=== PATIENT | male | born 1950 | race Caucasian/White ===

== ENCOUNTER 2020-05-05 18:04 | Emergency (ER) | payer OTHER, MEDICARE, SELFPAY ==
--- NOTE | 2020-05-05 | XR_ITS ---
EXAMINATION: XR CHEST CLINICAL INFORMATION: Shortness of breath. Cough. COMPARISON: Multiple prior chest radiographs, most recently from 03/26/2020. TECHNIQUE: 2 views of the chest (PA and lateral). FINDINGS: Mild asymmetric elevation the anterior right hemidiaphragm. The lungs are well expanded. Superimposed on chronic increased reticular lung markings. There are nonspecific faint streaky opacities in the right midlung. Moderate peribronchial wall thickening. No dense lobar consolidative process. No evidence of pleural effusion or pneumothorax. The cardiomediastinal silhouette is within normal limits. Surgical clips overlie the right upper lung. Right-sided reverse total shoulder arthroplasty. No demonstrated acute osseous abnormalities. IMPRESSION: Nonspecific faint streaky opacities in the right midlung are superimposed on chronically increased pulmonary markings. No dense lobar consolidative process. Moderate peribronchial wall thickening as may be seen with small airways inflammation.
[2020-05-05 18:18] VITALS: BP 134/93; PULSE 108; RESP 22; TEMP 36.7; O2SAT 94
[2020-05-05 20:42] VITALS: BP 145/87; PULSE 78; RESP 20; TEMP 36.7; O2SAT 94; BMI 30.7
--- NOTE | 2020-05-05 21:07 | ED.ASTHMA ---
HPI - Asthma General Chief Complaint: Asthma Stated Complaint: SOB, Asthma, Cough Time Seen by Provider: 05/05/20 21:07 History of Present Illness HPI Narrative: This is a 70-year-old male who presents with 2-3 days of worsening shortness of breath without associated fevers, chills, recent travel, productive cough, sore throat, chest pain /palpitations. The patient reports this happens around this time of year and that he is approximately 1 week out from his injection that he uses to manage his asthma. He denies any history of heart failure or leg swelling. Related Data Previous Rx's Medication Instructions Recorded prednisone 50 mg PO DAILY 4 Days #4 tab 05/05/20 Allergies Allergy/AdvReac Type Severity Reaction Status Date / Time adhesive tape [Adhesive Tape] Allergy Mild BLISTERS Unverified 04/20/20 15:00 bee pollen [BEE STINGS] Allergy Unknown HIVES Unverified 04/20/20 15:00 codeine Allergy Unknown rash Verified 05/20/18 00:00 Adhesive Bandages Allergy Unknown Uncoded 08/21/17 00:00 Codeine Sulfate Allergy Unknown Uncoded 08/21/17 00:00 percocet Allergy Unknown rash, Uncoded 05/20/18 00:00 altered mental status SEASONAL ALLERGIES Allergy Unknown RESP Uncoded 04/20/20 15:00 PROBLEMS vicodin Allergy Unknown rash Uncoded 05/20/18 00:00 Review of Systems Review of Systems: Pertinent positives and negatives as stated in HPI 10 point review of systems is otherwise negative. PMFSH Past Medical History Medical History Asthma Borderline diabetic COPD (chronic obstructive pulmonary disease) H/O hiatal hernia Hand anomaly Hypertension Jaw anomaly Lung blebs Surgical History H/O left knee surgery H/O sinus surgery History of right knee joint replacement History of right shoulder replacement Hx of cataract surgery S/P hernia surgery Social History Social History Alcohol intake: current Alcohol intake frequency: 3 or more drinks per day Alcohol type: beer, wine and hard liquor Smoking Status: Former smoker Smoked in Last 30 Days: No Use of substances other than those prescribed or required for medical reasons: No Advance Directives: No Advance Directives Information Provided: Yes Physical Exam Vital Signs and I&O and Narrative: Vital Signs and I&O: Vital Signs Temp 98.2 F 05/05/20 22:00 Pulse 80 05/05/20 22:00 Resp 16 05/05/20 22:00 BP 134/88 05/05/20 22:00 Pulse Ox 94 05/05/20 22:00 Intake & Output 05/05/20 05/05/20 05/06/20 06:59 18:59 06:59 Weight 89.176 kg Body Mass Index 30.7 VITAL SIGNS: Reviewed. GENERAL: Well developed, well nourished, in no acute distress. HEAD: Normocephalic/atraumatic, EYES: PERRLA, EOMI intact without pain, no nystagmus/pallor/icterus noted EARS: Ext canals without abnormality, TMs non-bulging and non-erythematous NOSE: Nares patent bilateral OROPHARYNX: no oral lesions noted, posterior pharynx clear and non-erythematous without noted tonsillar enlargement/erythema/exudates NECK: Supple, no adenopathy LUNGS: Normal breath sounds. Scattered wheezing noted on expiration without labored breathing or tachypnea. SpO2-94% CARDIOVASCULAR: Regular rate and rhythm without noted murmurs, no JVD or lower extremity edema. ABDOMEN: Soft, non-tender, non-distended with bowel sounds. No rigidity. No guarding. No palpable masses or hernias noted MUSCULOSKELETAL: No tenderness, deformities, or effusions noted on gross inspection. EXTREMITIES: No cyanosis, clubbing or edema. SKIN: Inspection of the skin reveals no rashes, ulcerations, jaundice, pallor, or petechiae. NEUROLOGIC: Alert and oriented x 4. Strength and sensation to light touch were grossly intact Course Reevaluation(s) Reevaluation #1: Patient has improved with DuoNeb and p.o. steroids and on focused exam has had improvement on noted wheezing. All results and findings were discussed with the patient at bedside and he knows that he will be discharged with a short course of oral steroids and instructions to follow-up with his primary care provider. Time: 22:16 Reevaluation #2: Discharge instructions MDM - Asthma MDM Narrative Medical decision making narrative: This is a 70-year-old male with history and clinical presentation most consistent with asthma / COPD exacerbation and will evaluate for possible infectious etiologies but doubt CHF. Medical Records Attestation: I reviewed the patient's medical records. Imaging Data Chest x-ray: Attestation: I personally reviewed and interpreted this imaging study as follows: Discharge Plan Discharge Clinical Impression: Asthma with acute exacerbation Patient Disposition: Home, Self-Care Instructions: Asthma (ED) Additional Instructions: 1. resume all home medications as prescribed. Prescriptions: New prednisone 50 mg tablet 50 mg PO DAILY 4 Days Qty: 4 RF: 0 Referrals: Physician,Unknown [Primary Care Provider] - 2 days Interventions: ED Discharge Assessment Last Done: 05/05/20 22:30 Discharge Date/Time: 05/05/20 22:36
[2020-05-05] MEDS: predniSONE 10 MG TABLET 50 MG PO (21:23)
--- NOTE | 2020-05-05 21:24 | PC.NURSE ---
PATIENT MEDICATED PER ORDER
--- NOTE | 2020-05-05 21:24 | PC.NURSE ---
PT TRANSPORTED TO RADIOLOGY
[2020-05-05] MEDS: Albuterol/Iprat 2.5/0.5MG 3 ML AMPUL.NEB INHALE (21:42)
[2020-05-05 22:00] VITALS: BP 134/88; PULSE 80; RESP 16; TEMP 36.8; O2SAT 94
== END 2020-05-05 22:36 | disposition home or self-care (01) ==
PROVIDERS: Emergency Provider Student in an Organized Health Care Education/Training Program
DX: J45.901 Unspecified asthma with (acute) exacerbation (principal); R73.03 Prediabetes; I10 Essential (primary) hypertension
CPT/HCPCS: 71046; 99284

== ENCOUNTER 2020-05-16 10:36 | Outpatient (REF) | payer OTHER, SELFPAY ==
[2020-05-16 11:14] LABS: COVID-19 Test Negative (Negative)
== END 2020-05-16 10:37 | disposition home or self-care (01) ==
LOC: HO.LAB 10:36
PROVIDERS: Visit Provider Internal Medicine
DX: Z20.828 Contact with and (suspected) exposure to other viral communicable diseases (principal)
CPT/HCPCS: 87635

== ENCOUNTER 2020-06-09 10:56 | Inpatient (IN) | payer OTHER, MEDICARE, SELFPAY ==
--- NOTE | 2020-06-09 11:03 | XR_ITS ---
EXAMINATION: XR CHEST CLINICAL INFORMATION: Shortness breath and cough COMPARISON: May 05, 2020 and March 26, 2020 TECHNIQUE: AP portable view of the chest was obtained. FINDINGS: There are small lung volumes. Scarring is noted within the right lateral lung. No acute parenchymal disease identified. No pneumothorax or pleural effusion. Status post right shoulder arthroplasty. Heart normal size. No evidence of pulmonary edema. XR/XR chest 1V IMPRESSION: No acute disease.
--- NOTE | 2020-06-09 11:03 | ECG_ITS ---
Test Reason : SOB Blood Pressure : / mmHG Vent. Rate : 115 BPM Atrial Rate : 115 BPM P-R Int : 128 ms QRS Dur : 070 ms QT Int : 338 ms P-R-T Axes : 074 -11 030 degrees QTc Int : 467 ms Sinus tachycardia with frequent Premature atrial complexes with occasional aberrant conduction Abnormal ECG When compared with ECG of 26-MAR-2020 20:06, Aberrant conduction is now Present Premature atrial complexes are new Referred By: Sorin Broussard Electronically Signed By:MOLLY ALCANTAR MD
--- NOTE | 2020-06-09 11:08 | ED.ASTHMA ---
HPI - Asthma General Chief Complaint: Dyspnea Stated Complaint: ?covid sob copd Time Seen by Provider: 06/09/20 11:03 Source: patient Mode of arrival: ambulatory Limitations: no limitations History of Present Illness HPI Narrative: patient presents to the ED for shortness of breath since yesterday. Patient states coughing, wheezing, shortness of breath since yesterday. Patient states have similar symptoms. Patient denies any swelling of lower extremity, calf pain, coughing up blood. Patient states chest pain only when he coughs. Patient states he just came from [place] and his daughter who he was around informed him that she was positive for COVID-19 virus. Patient has history of asthma and COPD. MD complaint: asthma attack , shortness of breath and wheezing Related Data Previous Rx's Medication Instructions Recorded prednisone 50 mg PO DAILY 4 Days #4 tab 05/05/20 Allergies Allergy/AdvReac Type Severity Reaction Status Date / Time adhesive tape [Adhesive Tape] Allergy Mild BLISTERS Verified 06/09/20 13:28 bee pollen [BEE STINGS] Allergy Unknown Unknown Verified 06/09/20 13:28 levofloxacin [From Levaquin] Allergy Hives Verified 06/09/20 13:29 Adhesive Bandages Allergy Unknown Unknown Uncoded 06/09/20 13:28 Review of Systems Review of Systems: Yes all other systems are reviewed and are negative Constitutional: Constitutional: Reports as per HPI, Reports no additional constitutional complaints and Denies snoring Eyes: Eyes: Reports as per HPI and Reports no additional eye complaints ENT: Reports system reviewed and no additional complaints, except as documented and Reports as per HPI Cardiovascular: Cardiovascular: Reports as per HPI, Reports no additional cardiovascular complaints and Reports dyspnea Respiratory: Respiratory: Reports pain with cough, Reports dyspnea, Denies snoring, Denies stridor and Reports wheezing Gastrointestinal: Gastrointestinal: Reports as per HPI and Reports no additional gastrointestinal complaints Musculoskeletal: Musculoskeletal: Reports no additional musculoskeletal complaints and Reports as per HPI Neurologic: Reports system reviewed and no additional complaints, except as documented and Reports as per HPI Psychiatric: Psychiatric: Reports no additional psychiatric complaints and Reports as per HPI Allergic/Immunologic: Allergic/Immunologic: Reports wheezing PMFSH Past Medical History Medical History (Updated 06/09/20 @ 15:44 by PELON Desouza) Asthma Bilateral cataracts Borderline diabetic COPD (chronic obstructive pulmonary disease) GERD (gastroesophageal reflux disease) Gout H/O hiatal hernia Hand anomaly History of deep venous thrombosis (DVT) of distal vein of left lower extremity Hypertension Jaw anomaly Lung blebs GONZALO (obstructive sleep apnea) Osteoarthritis Surgical History (Updated 06/09/20 @ 14:00 by Miguel Sosa MD) H/O left knee surgery H/O sinus surgery History of right knee joint replacement History of right shoulder replacement History of thoracotomy Hx of cataract surgery S/P hernia surgery Social History Social History Alcohol intake: unknown Smoking Status: Former smoker Use of substances other than those prescribed or required for medical reasons: No Advance Directives: No Advance Directives Information Provided: No Physical Exam Vital Signs: Vital Signs: Last Vital Signs Temp 99.0 F 06/09/20 11:09 Pulse 100 06/09/20 13:43 Resp 20 06/09/20 13:43 BP 152/78 H 06/09/20 16:26 Pulse Ox 97 06/09/20 16:26 Body Mass Index 31.3 Const: General: cooperative, healthy appearing, comfortable, no acute distress, well developed, alert and awake HENMT: Head: Yes normal to inspection and Yes No palpable skull fracture present Eyes: General: appearance normal, both eyes and all related structures Visual Mac: normal visual mac by confrontation Neck: Neck: Yes normal visual inspection and Yes full ROM Chest: Chest palpation & inspection: normal inspection of the chest, normal palpation of entire chest wall and no localized rib tenderness Resp: Effort & Inspection: normal respiratory effort, able to speak in complete sentences, normal respiratory pattern, no audible wheezes, no cough, no grunting, not labored, no nasal flaring, no paradoxical thoraco-abdom movements and no pursed lip breathing Auscultation: wheezes ( Diffuse wheezing) expiratory wheezes Cardio: Jugular venous distension: no JVD Heart sounds: S1 normal heart sound present and S2 normal heart sound present GI: Inspection: Yes normal to inspection and No abdominal wall ecchymosis Palpation (GI): Soft to palpation, not firm, nontender, no guarding and not rigid : General: No CVA tenderness and Yes no CVA tenderness Back/Spine/Pelvis: Back: no CVA tenderness, No CVA tenderness and No back tenderness Skin: General skin exam: no rashes or lesions noted Neuro: General: gait normal and CN's II-XI intact bilaterally Cranial nerves: Yes CN's II-XII intact bilaterally Extrem: Other: bilateral lower extremity negative for any swelling, pitting edema, or calf tenderness. General: Yes normal to inspection and Yes full ROM Psych: Appearance: grossly normal, well kempt and not disheveled Course Course Course Narrative: History physical exam indicate COPD exacerbation. Patient had basic labs including troponin the EKG due to age. Patient already received magnesium 2 mg and albuterol with Atrovent in the ambulance. patient will be given albuterol 10 mg and Solu-Medrol IV. Patient also have COVID swab. Patient also had chest x-ray. Patient will have lactic culture and blood cultures Reevaluation(s) Reevaluation #1: patient's lactic positive. Patient started on Levaquin antibiotic for COPD exacerbation. Awaiting patient's troponin BNP. Patient will have rapid COVID swab sent. Patient walking around O2 sat went from 91 to 89. during patient's coughing fit O2 sat dropped to 84. Time: 13:22 Reevaluation #2: Patient had an allergic reaction to Levaquin which had to be discontinued. Benadryl Pepcid and given to patient. Patient now placed on ceftriaxone and azithromycin. Awaiting results of BNP and troponin. Hospitalist made aware of case. Time: 13:30 Reevaluation #3: case presented to hospitalist for admission for COPD exacerbation. Time: 14:02 Additional Reevaluation(s): patient's D-dimer elevated. Patient will be sent for CT to rule out PE. Patient's coronavirus test came back positive. patient not able to tolerate position to lie down for CT a period patient will have another treatment and morphine ( recommended by hospitalist). Awaiting EKG MDM - Asthma Lab Data Result diagrams: 06/09/20 11:06/09/20 11: Labs: Lab Results 06/09/20 06/09/20 06/09/20 Range/Units 11: 11: 11:27 WBC 6.8 (4.8-10.8) X10*3/uL RBC 4.61 (4.60-5.80) X10*6/uL Hgb 14.4 (14.0-18.0) g/dl Hct 41.5 L (42-52) % MCV 90.0 (80-98) fL MCH 31.2 (27.0-33.0) pg MCHC 34.7 (31.0-36.0) g/dl RDW 13.0 (11.0-16.0) % Plt Count 141 L (160-400) X10*3/uL MPV 9.6 (9.4-12.4) fL Immature Gran % (Auto) 0.9 H (0.0-0.4) % Neut % (Auto) 82.7 H (45-73) % Lymph % (Auto) 8.1 L (20-40) % [place] % (Auto) 8.3 (2-11) % Eos % (Auto) 0.0 (0-4) % Baso % (Auto) 0.0 (0-2) % Lymph # (Auto) 0.6 L (1.2-4.9) X10*3/uL [place] # (Auto) 0.6 (0.1-1.2) X10*3/uL Eos # (Auto) 0.0 (0.0-0.4) X10*3/uL Baso # (Auto) 0.0 (0.0-0.2) X10*3/uL Abs Immat Gran (auto) 0.06 H (0.00-0.03) X10*3/uL Absolute Neuts (auto) 5.6 (2.0-8.3) X10*3/uL Absolute Nucleated RBC 0.000 (0.0-0.012) X10*3/uL Nucleated RBC % (auto) 0.0 (0.0-0.2) /100WBC Smear Tech's Comments VERIFIED PT 10.4 L (10.8-13.0) SEC INR 0.9 (0.9-1.1) APTT 22.2 L (24.1-38.0) SEC D-Dimer 762 NG/ML Sodium 135 (135-145) mmol/L Potassium 4.2 (3.3-5.1) mmol/l Chloride 100 (96-108) mmol/L Carbon Dioxide 24 (22-29) mmol/L Anion Gap 15 (12-20) BUN 17 H (9-16) mg/dL Creatinine 0.92 (0.5-1.4) mg/dL Estim Creat Clear Calc 80.2 Estimated GFR > 60 Random Glucose 198 H (60-115) mg/dL Lactic Acid (0.5-2.0) mmol/L Calcium 8.1 L (8.4-10.2) mg/dL Ferritin 50 (20-250) ng/mL Total Bilirubin 0.3 (0.0-1.0) mg/dL AST 15 (5-37) U/L ALT 24 (0-40) U/L Alkaline Phosphatase 97 (39-117) U/L Lactate Dehydrogenase 165 (118-273) U/L Troponin I High Sens (<3.5-35.0) ng/L B-Natriuretic Peptide (<100) pg/mL Total Protein 6.3 L (6.5-8.0) g/dL Albumin 4.1 (3.5-5.0) g/dL Procalcitonin ng/mL Coronavirus (PCR) (Negative) 06/09/20 06/09/20 06/09/20 Range/Units 11:27 11:27 11:27 WBC (4.8-10.8) X10*3/uL RBC (4.60-5.80) X10*6/uL Hgb (14.0-18.0) g/dl Hct (42-52) % MCV (80-98) fL MCH (27.0-33.0) pg MCHC (31.0-36.0) g/dl RDW (11.0-16.0) % Plt Count (160-400) X10*3/uL MPV (9.4-12.4) fL Immature Gran % (Auto) (0.0-0.4) % Neut % (Auto) (45-73) % Lymph % (Auto) (20-40) % [place] % (Auto) (2-11) % Eos % (Auto) (0-4) % Baso % (Auto) (0-2) % Lymph # (Auto) (1.2-4.9) X10*3/uL [place] # (Auto) (0.1-1.2) X10*3/uL Eos # (Auto) (0.0-0.4) X10*3/uL Baso # (Auto) (0.0-0.2) X10*3/uL Abs Immat Gran (auto) (0.00-0.03) X10*3/uL Absolute Neuts (auto) (2.0-8.3) X10*3/uL Absolute Nucleated RBC (0.0-0.012) X10*3/uL Nucleated RBC % (auto) (0.0-0.2) /100WBC Smear Tech's Comments PT (10.8-13.0) SEC INR (0.9-1.1) APTT (24.1-38.0) SEC D-Dimer NG/ML Sodium (135-145) mmol/L Potassium (3.3-5.1) mmol/l Chloride (96-108) mmol/L Carbon Dioxide (22-29) mmol/L Anion Gap (12-20) BUN (9-16) mg/dL Creatinine (0.5-1.4) mg/dL Estim Creat Clear Calc Estimated GFR Random Glucose (60-115) mg/dL Lactic Acid 2.6 H* (0.5-2.0) mmol/L Calcium (8.4-10.2) mg/dL Ferritin (20-250) ng/mL Total Bilirubin (0.0-1.0) mg/dL AST (5-37) U/L ALT (0-40) U/L Alkaline Phosphatase (39-117) U/L Lactate Dehydrogenase (118-273) U/L Troponin I High Sens 20.2 (<3.5-35.0) ng/L B-Natriuretic Peptide 38 (<100) pg/mL Total Protein (6.5-8.0) g/dL Albumin (3.5-5.0) g/dL Procalcitonin 0.08 ng/mL Coronavirus (PCR) (Negative) 06/09/20 Range/Units 14:29 WBC (4.8-10.8) X10*3/uL RBC (4.60-5.80) X10*6/uL Hgb (14.0-18.0) g/dl Hct (42-52) % MCV (80-98) fL MCH (27.0-33.0) pg MCHC (31.0-36.0) g/dl RDW (11.0-16.0) % Plt Count (160-400) X10*3/uL MPV (9.4-12.4) fL Immature Gran % (Auto) (0.0-0.4) % Neut % (Auto) (45-73) % Lymph % (Auto) (20-40) % [place] % (Auto) (2-11) % Eos % (Auto) (0-4) % Baso % (Auto) (0-2) % Lymph # (Auto) (1.2-4.9) X10*3/uL [place] # (Auto) (0.1-1.2) X10*3/uL Eos # (Auto) (0.0-0.4) X10*3/uL Baso # (Auto) (0.0-0.2) X10*3/uL Abs Immat Gran (auto) (0.00-0.03) X10*3/uL Absolute Neuts (auto) (2.0-8.3) X10*3/uL Absolute Nucleated RBC (0.0-0.012) X10*3/uL Nucleated RBC % (auto) (0.0-0.2) /100WBC Smear Tech's Comments PT (10.8-13.0) SEC INR (0.9-1.1) APTT (24.1-38.0) SEC D-Dimer NG/ML Sodium (135-145) mmol/L Potassium (3.3-5.1) mmol/l Chloride (96-108) mmol/L Carbon Dioxide (22-29) mmol/L Anion Gap (12-20) BUN (9-16) mg/dL Creatinine (0.5-1.4) mg/dL Estim Creat Clear Calc Estimated GFR Random Glucose (60-115) mg/dL Lactic Acid (0.5-2.0) mmol/L Calcium (8.4-10.2) mg/dL Ferritin (20-250) ng/mL Total Bilirubin (0.0-1.0) mg/dL AST (5-37) U/L ALT (0-40) U/L Alkaline Phosphatase (39-117) U/L Lactate Dehydrogenase (118-273) U/L Troponin I High Sens (<3.5-35.0) ng/L B-Natriuretic Peptide (<100) pg/mL Total Protein (6.5-8.0) g/dL Albumin (3.5-5.0) g/dL Procalcitonin ng/mL Coronavirus (PCR) POSITIVE A (Negative) Discharge Plan Discharge Clinical Impression: COPD exacerbation Patient Disposition: Admitted As Inpatient
[2020-06-09 11:09] VITALS: BP 149/88; PULSE 109; RESP 11; TEMP 37.2; O2SAT 91; BMI 31.3
[2020-06-09 11:47] LABS: Hematocrit 41.5 % (42-52); Hemoglobin 14.4 g/dl (14.0-18.0); Imm Gran Abs Auto 0.06 X10*3/uL (0.00-0.03); Imm Gran Pct Auto 0.9 % (0.0-0.4); Lymphocytes Absolute Auto 0.6 X10*3/uL (1.2-4.9); Lymphocytes Percent Auto 8.1 % (20-40); MANUAL DIFF FLAG SCAN; Mean Corpuscular HGB Conc 34.7 g/dl (31.0-36.0); Mean Corpuscular Hemoglobin 31.2 pg (27.0-33.0); Mean Platelet Volume 9.6 fL (9.4-12.4); Monocytes Absolute Auto 0.6 X10*3/uL (0.1-1.2); Monocytes Percent Auto 8.3 % (2-11); Neutrophils Absolute Auto 5.6 X10*3/uL (2.0-8.3); Neutrophils Percent Auto 82.7 % (45-73); Platelet Count 141 X10*3/uL (160-400); Red Blood Count 4.61 X10*6/uL (4.60-5.80); SCAN SMEAR FLAG 1; White Blood Count 6.8 X10*3/uL (4.8-10.8)
[2020-06-09] MEDS: methylPREDNISolone Sod Succ/PF 125 MG/2 ML VIAL IVPUSH (11:48)
[2020-06-09] MEDS: Albuterol Sulfate 90 MCG 8 GM INHALER 4 PUFF INHALE ×2 (11:54→16:15)
--- NOTE | 2020-06-09 11:56 | PC.NURSE ---
PT'S HERMINIO UPDATED ON CARE PLAN, WITH PT'S PERMISSION.
[2020-06-09 12:05] LABS: INTERNATIONAL NORM RATIO 0.9 (0.9-1.1); Prothrombin Time 10.4 SEC (10.8-13.0)
[2020-06-09 12:06] LABS: SLIDE REVIEW VERIFIED
[2020-06-09 12:08] LABS: Partial Thromboplastin Time 22.2 SEC (24.1-38.0)
[2020-06-09 12:20] LABS: Alanine Aminotransferase 24 U/L (0-40); Albumin Level 4.1 g/dL (3.5-5.0); Alkaline Phosphatase 97 U/L (39-117); Anion Gap 15 (12-20); Aspartate Amino Transferase 15 U/L (5-37); Bilirubin Total 0.3 mg/dL (0.0-1.0); Blood Urea Nitrogen 17 mg/dL (9-16); Calcium 8.1 mg/dL (8.4-10.2); Carbon Dioxide 24 mmol/L (22-29); Chloride 100 mmol/L (96-108); Creatinine Clr Calc Pharmacy 80.2; Estimated Glomerular Filt Rate > 60; Glucose Random 198 mg/dL (60-115); Lactate Dehydrogenase 165 U/L (118-273); Potassium 4.2 mmol/l (3.3-5.1); Sodium 135 mmol/L (135-145); Total Protein 6.3 g/dL (6.5-8.0)
[2020-06-09 12:25] LABS: Lactic Acid 2.6 mmol/L (0.5-2.0)
--- NOTE | 2020-06-09 12:37 | PC.NURSE ---
SITTING ON EDGE OF STRETCHER. DRINKING WATER. NON-PROD COUGH NOTED
[2020-06-09 12:41] LABS: Ferritin 50 ng/mL (20-250)
[2020-06-09 12:44] LABS: Procalcitonin 0.08 ng/mL
[2020-06-09] MEDS: 0.9 % Sodium Chloride 1,000 ML 1000 ML IV (13:07)
[2020-06-09] MEDS: levoFLOXacin/D5W 500 MG/100 ML PIGGYBACK 100 MG IV (13:07)
[2020-06-09] MEDS: Famotidine/PF 20 MG/2 ML VIAL IVPUSH (13:38)
[2020-06-09] MEDS: guaiFEN/Codeine SF 200/20/10ML 10 ML LIQUID PO (13:38)
[2020-06-09] MEDS: diphenhydrAMINE HCL 50 MG/ML VIAL IVPUSH (13:38)
[2020-06-09] MEDS: cefTRIAXone sodium 1 GM in 0.9 % Sodium Chloride 50 ML IV (13:39)
[2020-06-09 13:40] LABS: Reflex Lactate? Lactic Acid Added
[2020-06-09 13:43] VITALS: BP 159/78; PULSE 100; RESP 20; O2SAT 94
[2020-06-09 13:51] LABS: B Type Natriuretic Peptide 38 pg/mL (<100); Troponin-I High Sensitivity 20.2 ng/L (<3.5-35.0)
--- NOTE | 2020-06-09 13:56 | PM.IMHP ---
History of Present Illness Date of Service: 06/09/20 Chief Complaint: Shortness of breath 70 year male with both asthma and COPD, quit smoking 30 years ago who presents with shortness of breath and cough with scant sputum production for 3 days now, he has been wheezing. He has not had fever. Hrecently returned from [place] and has now learned that member of the household that he stayed at was positive for covid. He was tested at [facility] upon arival on Tuesday 06/05 and was told he needs retesting, although his tested negative. CXR is negative. He has been treated with inhalers, IV steroid, Azithro, ceftriaxone and Levaquin. Oxygen level dropped to 80s with ambulation but presently at rest and on room air 94%. He is no acute distress. COVID-19 is positive Review of Systems Review of Systems: Gen: no fever Resp: + sob, + cough CV: no chest, no HUMPHRIES, no leg edema GI: No n/v, no abd pain Neuro: No confusion Yes all other systems are reviewed and are negative [facility] Medical History (Updated 06/09/20 @ 19:39 by PELON Renee) Asthma Bilateral cataracts Borderline diabetic COPD (chronic obstructive pulmonary disease) GERD (gastroesophageal reflux disease) Gout H/O hiatal hernia Hand anomaly History of deep venous thrombosis (DVT) of distal vein of left lower extremity Hypertension Jaw anomaly Lung blebs GONZALO (obstructive sleep apnea) Osteoarthritis Family history: reviewed and not pertinent Surgical History (Updated 06/09/20 @ 14:00 by Miguel Sosa MD) H/O left knee surgery H/O sinus surgery History of right knee joint replacement History of right shoulder replacement History of thoracotomy Hx of cataract surgery S/P hernia surgery Social History Household Members: Spouse Housing: House Do you presently have visiting nurse or other home services: No Alcohol intake: unknown Smoking Status: Former smoker Use of substances other than those prescribed or required for medical reasons: No Currently Displaying Signs/Symptoms of Drug Intoxication Withdrawal: No Have you been hit, kicked, punched, or otherwise hurt by someone within the past year? If so, by whom?: No Do you feel safe in your current relationship?: No Is there a partner from a previous relationship who is making you feel unsafe now?: No Are you made to feel afraid or neglected: No Advance Directives: No Advance Directives Information Provided: No Advance Directives on File: No Do you have thoughts of harming others: None Do you have a plan to hurt others: No Plan Recently lost weight without trying: No service: Yes Current occupational status: retired Meds Allergies Allergy/AdvReac Type Severity Reaction Status Date / Time adhesive tape [Adhesive Tape] Allergy Mild BLISTERS Verified 06/09/20 13:28 bee pollen [BEE STINGS] Allergy Unknown Unknown Verified 06/09/20 13:28 levofloxacin [From Levaquin] Allergy Hives Verified 06/09/20 13:29 Adhesive Bandages Allergy Unknown Unknown Uncoded 06/09/20 13:28 Home Medications Medication Instructions Recorded Confirmed Type albuterol sulfate 2.5 mg INHALATION Q4H PRN 06/09/20 06/09/20 History allopurinol 300 mg PO DAILY 06/09/20 06/09/20 History amlodipine 5 mg PO DAILY 06/09/20 06/09/20 History ergocalciferol (vitamin D2) 1,250 mcg PO QWEEK 06/09/20 06/09/20 History [Vitamin D2] fluticasone propion-salmeterol 1 inh INHALATION BID 06/09/20 06/09/20 History [Advair Diskus] folic acid 1 mg PO DAILY 06/09/20 06/09/20 History furosemide 20 mg PO DAILY 06/09/20 06/09/20 History hydrocodone-homatropine [Hydromet] 10 ml PO Q5H PRN 06/09/20 06/09/20 History loratadine 10 mg PO DAILY 06/09/20 06/09/20 History mepolizumab [Nucala] 100 mg SUBCUT Q4W 06/09/20 06/09/20 History montelukast [Singulair] 10 mg PO DAILY 06/09/20 06/09/20 History omeprazole 20 mg PO DAILY 06/09/20 06/09/20 History prednisone 40 mg PO DAILY 06/09/20 06/09/20 History tiotropium bromide [Spiriva 2 puff INHALATION DAILY 06/09/20 06/09/20 History Respimat] trazodone 50 mg PO BEDTIME PRN 06/09/20 06/09/20 History valsartan [Diovan] 160 mg PO DAILY 06/09/20 06/09/20 History Physical Exam Vital Signs and Narrative: Vital Signs: Last Vital Signs Temp 99.0 F 06/09/20 11:09 Pulse 100 06/09/20 13:43 Resp 20 06/09/20 13:43 BP 159/78 H 06/09/20 13:43 Pulse Ox 94 06/09/20 13:43 Results Labs CBC and Chem 7: 06/09/20 11:27 06/09/20 11:27 Imaging Radiologist's Impressions: Impressions Chest X-Ray 06/09/20 11:03 IMPRESSION: No acute disease. Assessment and Plan (1) COPD exacerbation: Status: Acute (2) Acute respiratory failure with hypoxia: Status: Acute 70/male with COPD presenting with acute hypoxic respriaotry failure, COPD exacerbation, COVID -19 + -Oxygen PRN -Dexamethasone -Inhalers by Meter dose, avoid Nebs -Consider Plasma, Remdesevir if worsening
--- NOTE | 2020-06-09 14:03 | PC.NURSE ---
PT HAD ALLERGIC REACTION TO LEVAQUIN. DEVELOPED HIVES. PROVIDER AWARE. MED ORDERED. LEVAQIN ADDED TO ALLERGY LIST.
[2020-06-09 14:08] LABS: D Dimer 762 NG/ML
--- NOTE | 2020-06-09 14:38 | CT_ITS ---
EXAMINATION: CT ANGIOGRAM OF THE CHEST WITH AND WITHOUT CONTRAST (CT PULMONARY ANGIOGRAM FOR PE) CLINICAL INFORMATION: Elevated D-dimer. Rule out PE. COMPARISON: CTA chest 06/07/2016. TECHNIQUE: Prior to contrast administration, noncontrast localization images were obtained. Subsequently, multidetector volumetric imaging was performed from the thoracic inlet to below the diaphragms following the administration of 71 mL Omnipaque 350 intravenous contrast. No contrast reaction reported. Sagittal, coronal, and MIP oblique sagittal reformatted images were obtained on the CT workstation, uploaded to PACS, and reviewed. This CT examination was performed using dose optimization techniques as appropriate, variously including the following: *Automated exposure control *Adjustment of mA and/or kV according to patient size (this includes techniques or standardized protocols for targeted exams where dose is matched to indication/reason for exam; i.e. extremities or head) *Use of iterative reconstruction technique Total exam dose-length product 516 mGy-cm. FINDINGS: QUALITY OF STUDY/CONTRAST BOLUS: Satisfactory. PULMONARY ARTERIES: No central or segmental pulmonary emboli. THORACIC AORTA: No aneurysm or dissection. LUNGS: There is marked tracheomalacia with collapse and obstruction of the tracheal lumen (series 7, image 118). Previously seen lingular consolidation has cleared. There is an area of ground-glass infiltrate present peripherally in the right lower lobe (series 7, image 218). Bibasilar atelectasis is present. A calcified granuloma is present in the superior segment of the right lower lobe as well as the right lower lobe peripherally. No suspicious lung masses are seen. PLEURA: No pleural effusion or pneumothorax. MEDIASTINUM: Normal heart size. No pericardial effusion. No hilar or mediastinal lymphadenopathy. No evidence of septal bowing or right heart strain. CHEST WALL/AXILLAE: No axillary or internal mammary lymphadenopathy. OSSEOUS STRUCTURES: No acute or suspicious osseous abnormality. UPPER ABDOMEN: A small to moderate-sized hiatal hernia is present. A small 1 cm fatty left adrenal mass is present consistent with a benign adenoma. Gallstones are seen layering in the gallbladder without evidence of cholecystitis. No reflux of contrast into the hepatic veins to suggest elevated right heart pressures. CT/CT angio chest PE protocol IMPRESSION: 1. No evidence of pulmonary emboli. 2. 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 3. Right lower lobe ground-glass infiltrate. 4. Moderate-sized hiatal hernia. 5. Benign left adrenal adenoma. 6. Cholelithiasis. VTE: Negative This critical result was discussed with PELON Zuniga at 7:15 PM on the evening of the exam and it was ascertained that the content and urgency of the report was understood at the time of direct communication.
[2020-06-09] MEDS: Azithromycin 500 MG in 0.9 % Sodium Chloride 250 ML 125 MG IV (14:46)
[2020-06-09 15:17] LABS: SARS COV2 PCR INHOUSE POSITIVE (Negative)
[2020-06-09] MEDS: dexAMETHasone 6 MG TABLET PO (16:15)
[2020-06-09] MEDS: Morphine Sulfate 4 MG/ML CARTRIDGE IVPUSH (16:16)
[2020-06-09 16:26] VITALS: BP 152/78; O2SAT 97
--- NOTE | 2020-06-09 17:19 | PC.NURSE ---
called [facility] [place]. awaiting return call for [facility]
[2020-06-09] MEDS: Ketamine HCl 500 MG/5 ML VIAL 50 MG IM (18:08)
--- NOTE | 2020-06-09 18:36 | PC.NURSE ---
PT GIVEN KETAMINE 50MG IM FOR AIDE IN TOLERATING CTA WHILE LYING FLAT. PT TRANSPORTED TO AND FROM CT, AND TOLERATED CTA WITHOUT DIFFICULTY. HR REMAINED SINUS TACHY WITHIN 100-105 BPM, AND O2SAT REMAINED IN 94-96% RANGE.
[2020-06-09] MEDS: iohexoL 350 MG/ML 100 ML INFUS..BTL IV (18:43)
[2020-06-09 18:49] LABS: ~Lactic Acid-LAB USE ONLY 4.2 mmol/L (0.5-2.0)
--- NOTE | 2020-06-09 19:49 | PC.NURSE ---
rn to rn with sayra [place] [facility] [place] who's covering for bella
[2020-06-09 20:17] VITALS: PULSE 74; TEMP 36.9
[2020-06-09 20:19] VITALS: BP 150/87; PULSE 96; RESP 20; TEMP 36.9; O2SAT 96
[2020-06-09 20:25] LABS: Reflex Lactate? 2 Y
[2020-06-09 21:20] LABS: ~Lactic Acid-LAB USE ONLY 4.6 mmol/L (0.5-2.0)
[2020-06-09] MEDS: 0.9 % Sodium Chloride 1,000 ML 999 ML IVCONT (21:47)
[2020-06-09] MEDS: 0.9 % Sodium Chloride Flush 3 ML SYRINGE IVFLUSH (21:48)
[2020-06-09] MEDS: guaiFEN/Codeine SF 200/20/10ML 10 ML LIQUID 5 ML PO (22:11)
[2020-06-09] MEDS: Benzonatate 100 MG CAPSULE PO (22:11)
[2020-06-10] VITALS: BP 127/83; PULSE 92; RESP 20; TEMP 36.6; O2SAT 93
[2020-06-10] MEDS: 0.9 % Sodium Chloride Flush 3 ML SYRINGE IVFLUSH ×3 (00:29→16:06)
[2020-06-10 02:19] VITALS: BMI 31.4
[2020-06-10] MEDS: Throat Lozenge, Medicated LOZENGE 1 LOZENGE MUCOUS MEM (02:19)
[2020-06-10 04:46] VITALS: BP 130/68; PULSE 77; RESP 19; TEMP 36.3; O2SAT 94
[2020-06-10] MEDS: guaiFEN/Codeine SF 200/20/10ML 10 ML LIQUID 5 ML PO ×3 (05:00→17:32)
[2020-06-10] MEDS: Acetaminophen 325 MG TABLET 650 MG PO (05:06)
[2020-06-10 07:09] VITALS: BP 131/95; PULSE 79; RESP 20; TEMP 36.6; O2SAT 97
[2020-06-10] MEDS: dexAMETHasone 6 MG TABLET PO (09:00)
[2020-06-10 11:06] VITALS: BP 145/90; PULSE 72; RESP 20; TEMP -13.3; TEMP 8; O2SAT 96
[2020-06-10] MEDS: Albuterol Sulfate 90 MCG 8 GM INHALER 2 PUFF INHALE ×3 (11:09→19:54)
--- NOTE | 2020-06-10 11:17 | MHC.CM.PN ---
Patient is on the Covid Unit. CM spoke with /HCP/nAgie.Patient lives in a house with his and he is functionally independent. The goal for dc is to return home and CM has initiated and will follow for dc planning. IMM addressed with and original will be mailed certified letter to her and a copy has been placed on the chart. PCP is Dr. Aleisha Loernzo.
--- NOTE | 2020-06-10 12:17 | HO.PM.IMPN ---
Subjective Subjective Date of Service: 06/10/20 Interval History: Seen in f/u for covid, copd exacerbation Review of Systems cough, sob no fever. Physical Exam Vital Signs: Vital Signs: Last Vital Signs Temp 8 F L 06/10/20 11:06 Pulse 72 06/10/20 11:06 Resp 20 06/10/20 11:06 BP 145/90 H 06/10/20 11:06 Pulse Ox 96 06/10/20 11:06 Body Mass Index 31.4 General: AO X 3, no acute distress Resp: normal resp effort CVS: S1,S2,RRR GI: +BS, NT, no distention Skin: No rash Neuro: motor grossly intact Psych: appropriate affect Objective Data Current Medications Generic Name Dose Route Start Last Admin Trade Name Freq PRN Reason Stop Dose Admin Acetaminophen 650 mg 06/10/20 04:52 06/10/20 05:06 Acetaminophen 325 Mg Tablet PO 650 mg Q6H PRN Administration fever Albuterol Sulfate 2 puff 06/10/20 12:00 06/10/20 11:09 Albuterol Sulfate 90 Mcg 8 Gm Inhaler INHALE 2 puff RQ4H WHILE AWAKE MIKAELA Administration Benzocaine 1 lozenge 06/10/20 01:54 06/10/20 02:19 Throat Lozenge, Medicated Lozenge MUCOUS MEM 1 lozenge Q2H PRN Administration Sore Throat Dexamethasone 6 mg 06/09/20 15:45 06/10/20 09:00 Dexamethasone 6 Mg Tablet PO 06/18/20 09:01 6 mg DAILY MIKAELA Administration Enoxaparin Sodium 40 mg 06/09/20 20:18 06/09/20 21:48 Enoxaparin Sodium 40 Mg/0.4 Ml Syringe SUBCUT Not Given Q24H MIKAELA Guaifenesin/Codeine Phosphate 5 ml 06/09/20 22:04 06/10/20 11:13 Guaifen/Codeine Sf 200/20/10ml 10 Ml Liquid PO 5 ml Q6H PRN Administration cough Magnesium Hydroxide 30 ml 06/09/20 20:18 Milk Of Magnesia 30 Ml Oral.Susp PO DAILY PRN Constipation Pharmacy Consult 1 each 06/09/20 19:31 Consult Rx Perform Med Rec MISCELLANE ONCE PRN Consult order Sodium Chloride 3 ml 06/09/20 20:18 06/10/20 09:00 0.9 % Sodium Chloride Flush 3 Ml Syringe IVFLUSH 3 ml QSHIFT MIKAELA Administration Temazepam 15 mg 06/09/20 20:18 Temazepam 15 Mg Capsule PO BEDTIME PRN Insomnia Labs CBC & Chem 7: 06/09/20 11:27 06/09/20 11:27 Assessment and Plan (1) COPD exacerbation: Status: Acute (2) Acute respiratory failure with hypoxia: Status: Acute Assessment and Plan: 70/male with COPD presenting with acute hypoxic respriaotry failure, COPD exacerbation, COVID -19 + -Oxygen PRN -Dexamethasone -cough meds -Inhalers by Meter dose, avoid Nebs -Consider Plasma, Remdesevir if worsening HTN--restart amlodipine, Valsartan, Lasix -Monitor for one more day and if better tomorrow discharge
[2020-06-10] MEDS: Benzonatate 100 MG CAPSULE PO ×2 (13:03→18:15)
[2020-06-10 16:04] VITALS: BP 135/89; PULSE 76; RESP 18; TEMP 36.9; O2SAT 98
[2020-06-10 18:11] VITALS: BP 166/88; PULSE 77
[2020-06-10] MEDS: Loratadine 10 MG TABLET PO (18:11)
[2020-06-10] MEDS: allopurinoL 300 MG TABLET PO (18:11)
[2020-06-10] MEDS: Folic Acid 1 MG TABLET PO (18:11)
[2020-06-10] MEDS: Furosemide 20 MG TABLET PO (18:11)
[2020-06-10] MEDS: amLODIPine Besylate 5 MG TABLET PO (18:11)
[2020-06-10] MEDS: Montelukast Sodium 10 MG TABLET PO (18:11)
[2020-06-10] MEDS: HYDROcodone/Homat 5/1.5/5 ML 5 ML SYRUP 10 ML PO (20:14)
[2020-06-11] VITALS (7 sets, daily range): BP systolic 121–141; BP diastolic 70–87; PULSE 60–84; RESP 18–20; TEMP 36.4–37.8; O2SAT 93–99
[2020-06-11] MEDS: 0.9 % Sodium Chloride Flush 3 ML SYRINGE IVFLUSH ×3 (00:50→15:47)
[2020-06-11] MEDS: HYDROcodone/Homat 5/1.5/5 ML 5 ML SYRUP 10 ML PO ×4 (01:03→19:52)
[2020-06-11] MEDS: Albuterol Sulfate 90 MCG 8 GM INHALER 2 PUFF INHALE ×4 (07:36→19:04)
[2020-06-11] MEDS: Loratadine 10 MG TABLET PO (08:35)
[2020-06-11] MEDS: Acetaminophen 325 MG TABLET 650 MG PO (08:35)
[2020-06-11] MEDS: Valsartan 160 MG TABLET PO (08:35)
[2020-06-11] MEDS: dexAMETHasone 6 MG TABLET PO (08:35)
[2020-06-11] MEDS: Folic Acid 1 MG TABLET PO (08:36)
[2020-06-11] MEDS: Montelukast Sodium 10 MG TABLET PO (08:36)
[2020-06-11] MEDS: allopurinoL 300 MG TABLET PO (08:36)
[2020-06-11] MEDS: Furosemide 20 MG TABLET PO (08:36)
[2020-06-11] MEDS: amLODIPine Besylate 5 MG TABLET PO (08:36)
[2020-06-11] MEDS: Benzonatate 100 MG CAPSULE PO ×2 (08:41→19:11)
[2020-06-11] MEDS: Fluticasone/Vilanterol 200/25 BLST.W.DEV 1 PUFF INHALE (08:47)
--- NOTE | 2020-06-11 13:36 | P.PNIM_ITS ---
Subjective Subjective Interval History: Seen in f/u for covid, copd exacerbation. Cough is better but has diffuse body ache Physical Exam Vital Signs: Vital Signs: Last Vital Signs Temp 98.2 F 06/11/20 11:32 Pulse 71 06/11/20 11:32 Resp 20 06/11/20 11:32 BP 123/83 06/11/20 11:32 Pulse Ox 96 06/11/20 11:32 Body Mass Index 31.4 General: AO X 3, no acute distress Resp: normal resp effort CVS: S1,S2,RRR GI: +BS, NT, no distention Skin: No rash Neuro: motor grossly intact Psych: appropriate affect Objective Data Current Medications Generic Name Dose Route Start Last Admin Trade Name Freq PRN Reason Stop Dose Admin Acetaminophen 650 mg 06/10/20 04:52 06/11/20 08:35 Acetaminophen 325 Mg Tablet PO 650 mg Q6H PRN Administration fever Albuterol Sulfate 2 puff 06/10/20 12:00 06/11/20 11:24 Albuterol Sulfate 90 Mcg 8 Gm Inhaler INHALE 2 puff RQ4H WHILE AWAKE MIKAELA Administration Allopurinol 300 mg 06/10/20 17:40 06/11/20 08:36 Allopurinol 300 Mg Tablet PO 300 mg DAILY MIKAELA Administration Amlodipine Besylate 5 mg 06/10/20 17:45 06/11/20 08:36 Amlodipine Besylate 5 Mg Tablet PO 5 mg DAILY MIKAELA Administration Protocol Benzocaine 1 lozenge 06/10/20 01:54 06/10/20 02:19 Throat Lozenge, Medicated Lozenge MUCOUS MEM 1 lozenge Q2H PRN Administration Sore Throat Benzonatate 100 mg 06/10/20 12:20 06/11/20 08:41 Benzonatate 100 Mg Capsule PO 100 mg TID PRN Administration Cough Dexamethasone 6 mg 06/09/20 15:45 06/11/20 08:35 Dexamethasone 6 Mg Tablet PO 06/18/20 09:01 6 mg DAILY MIKAELA Administration Enoxaparin Sodium 40 mg 06/09/20 20:18 06/10/20 19:15 Enoxaparin Sodium 40 Mg/0.4 Ml Syringe SUBCUT Not Given Q24H MIKAELA Fluticasone/Vilanterol 1 puff 06/11/20 08:00 06/11/20 08:47 Fluticasone/Vilanterol 200/25 Blst.W.Dev INHALE 1 puff RDAILY MIKAELA Administration Folic Acid 1 mg 06/10/20 17:45 06/11/20 08:36 Folic Acid 1 Mg Tablet PO 1 mg DAILY MIKAELA Administration Furosemide 20 mg 06/10/20 17:45 06/11/20 08:36 Furosemide 20 Mg Tablet PO 20 mg DAILY MIKAELA Administration Protocol Guaifenesin/Codeine Phosphate 5 ml 06/09/20 22:04 06/10/20 17:32 Guaifen/Codeine Sf 200/20/10ml 10 Ml Liquid PO 5 ml Q6H PRN Administration cough Hydrocodone Bit/Homatropine Methylb 10 ml 06/10/20 18:17 06/11/20 13:02 Hydrocodone/Homat 5/1.5/5 Ml 5 Ml Syrup PO 10 ml Q5H PRN Administration Cough Loratadine 10 mg 06/10/20 17:40 06/11/20 08:35 Loratadine 10 Mg Tablet PO 10 mg DAILY MIKAELA Administration Magnesium Hydroxide 30 ml 06/09/20 20:18 Milk Of Magnesia 30 Ml Oral.Susp PO DAILY PRN Constipation Montelukast Sodium 10 mg 06/10/20 17:40 06/11/20 08:36 Montelukast Sodium 10 Mg Tablet PO 10 mg DAILY MIKAELA Administration Pharmacy Consult 1 each 06/09/20 19:31 Consult Rx Perform Med Rec MISCELLANE ONCE PRN Consult order Sodium Chloride 3 ml 06/09/20 20:18 06/11/20 09:05 0.9 % Sodium Chloride Flush 3 Ml Syringe IVFLUSH 3 ml QSHIFT MIKAELA Administration Temazepam 15 mg 06/09/20 20:18 Temazepam 15 Mg Capsule PO BEDTIME PRN Insomnia Tiotropium [place] 2 puff 06/11/20 08:00 06/11/20 08:50 Tiotropium [place] 18 Mcg Cap.W.Dev INHALE 2 puff RDAILY MIKAELA Administration Trazodone HCl 50 mg 06/10/20 17:38 Trazodone Hcl 50 Mg Tablet PO BEDTIME PRN Sleep Valsartan 160 mg 06/11/20 09:00 06/11/20 08:35 Valsartan 160 Mg Tablet PO 160 mg DAILY MIKAELA Administration Protocol Labs CBC & Chem 7: 06/09/20 11:27 06/09/20 11:27 Microbiology Microbiology Results: Microbiology 06/09/20 11:28 Blood - Venous Blood Culture - Preliminary No growth after 24 hours. 06/09/20 11:31 Blood - Venous Blood Culture - Preliminary No growth after 24 hours. Assessment and Plan (1) COPD exacerbation: Status: Acute (2) Acute respiratory failure with hypoxia: Status: Acute Assessment and Plan: 70/male with COPD presenting with acute hypoxic respriaotry failure, COPD exacerbation, COVID -19 + contine -Oxygen PRN -Dexamethasone -cough meds -Inhalers by Meter dose, avoid Nebs -Consider Plasma, Remdesevir if worsening HTN--restart amlodipine, Valsartan, Lasix -Monitor for one more day and if better tomorrow discharge
[2020-06-11] MEDS: Omeprazole 20 MG CAPSULE.DR PO (15:08)
[2020-06-12] MEDS: HYDROcodone/Homat 5/1.5/5 ML 5 ML SYRUP 10 ML PO ×3 (00:35→11:05)
[2020-06-12] MEDS: 0.9 % Sodium Chloride Flush 3 ML SYRINGE IVFLUSH ×2 (00:35→08:39)
[2020-06-12] MEDS: Omeprazole 20 MG CAPSULE.DR PO (06:10)
[2020-06-12] MEDS: Albuterol Sulfate 90 MCG 8 GM INHALER 2 PUFF INHALE ×2 (07:10→11:27)
[2020-06-12] MEDS: Fluticasone/Vilanterol 200/25 BLST.W.DEV 1 PUFF INHALE (07:11)
[2020-06-12 07:51] VITALS: BP 152/94; PULSE 86; RESP 18; TEMP 37.2; O2SAT 95
[2020-06-12] MEDS: dexAMETHasone 6 MG TABLET PO (08:38)
[2020-06-12] MEDS: Loratadine 10 MG TABLET PO (08:38)
[2020-06-12] MEDS: amLODIPine Besylate 5 MG TABLET PO (08:38)
[2020-06-12] MEDS: Furosemide 20 MG TABLET PO (08:38)
[2020-06-12] MEDS: Montelukast Sodium 10 MG TABLET PO (08:38)
[2020-06-12] MEDS: Valsartan 160 MG TABLET PO (08:38)
[2020-06-12] MEDS: Folic Acid 1 MG TABLET PO (08:38)
[2020-06-12] MEDS: allopurinoL 300 MG TABLET PO (08:39)
[2020-06-12] MEDS: Benzonatate 100 MG CAPSULE PO (10:00)
[2020-06-12 10:48] LABS: Basophils Percent Auto 0.1 % (0-2); Eosinophils Percent Auto 0.1 % (0-4); MANUAL DIFF FLAG SCAN; PLT CLUMP 1; Red Cell Distribution Width 12.7 % (11.0-16.0); SCAN SMEAR FLAG 1
[2020-06-12 10:50] LABS: Hematocrit 43.3 % (42-52); Hemoglobin 15.1 g/dl (14.0-18.0); Imm Gran Abs Auto 0.04 X10*3/uL (0.00-0.03); Imm Gran Pct Auto 0.5 % (0.0-0.4); Lymphocytes Absolute Auto 0.8 X10*3/uL (1.2-4.9); Lymphocytes Percent Auto 10.4 % (20-40); Mean Corpuscular HGB Conc 34.9 g/dl (31.0-36.0); Mean Corpuscular Hemoglobin 31.7 pg (27.0-33.0); Mean Platelet Volume 9.6 fL (9.4-12.4); Monocytes Absolute Auto 0.5 X10*3/uL (0.1-1.2); Monocytes Percent Auto 5.9 % (2-11); Neutrophils Absolute Auto 6.5 X10*3/uL (2.0-8.3); Platelet Count 133 X10*3/uL (160-400); Red Blood Count 4.76 X10*6/uL (4.60-5.80); White Blood Count 7.8 X10*3/uL (4.8-10.8)
[2020-06-12 11:04] LABS: D Dimer 598 NG/ML
[2020-06-12 11:21] LABS: Alanine Aminotransferase 31 U/L (0-40); Albumin Level 3.9 g/dL (3.5-5.0); Alkaline Phosphatase 82 U/L (39-117); Anion Gap 15 (12-20); Aspartate Amino Transferase 28 U/L (5-37); Bilirubin Total 0.7 mg/dL (0.0-1.0); Blood Urea Nitrogen 21 mg/dL (9-16); C Reactive Protein 4.35 mg/dL (< or = 0.50); Calcium 8.3 mg/dL (8.4-10.2); Carbon Dioxide 24 mmol/L (22-29); Chloride 99 mmol/L (96-108); Creatinine Clr Calc Pharmacy 69.7; Estimated Glomerular Filt Rate > 60; Glucose Random 113 mg/dL (60-115); Lactate Dehydrogenase 294 U/L (118-273); Potassium 4.1 mmol/l (3.3-5.1); Sodium 134 mmol/L (135-145); Total Protein 6.4 g/dL (6.5-8.0)
--- NOTE | 2020-06-12 11:23 | MHC.CM.PN ---
Plan is to DC today. DP home no services family transport.
[2020-06-12 11:44] LABS: Procalcitonin 0.08 ng/mL
[2020-06-12 13:14] VITALS: BMI 31.4
--- NOTE | 2020-06-12 13:17 | PM.DS ---
DS: Providers Provider Date of admission: 06/09/20 15:20 Primary care physician: Aleisha Lorenzo DO DS: Diagnosis Discharge Diagnosis (1) COPD exacerbation: Status: Acute (2) Acute respiratory failure with hypoxia: Status: Acute (3) COVID-19: Status: Acute DS: Summary Hospital Course Hospital Course: The patient [place] [facility] [place]. He tested positive for COVID-19 by PCR. He was treated with dexamethasone given underlying COPD. He was not hypoxic during his hospitalization. His symptoms improved and he was discharged home to complete the remaining 7 days of his dexamethasone burst. He was instructed to self-isolated for 10 days from the onset of symptoms including 24 hours afebrile without antipyretics and ongoing symptom improvement. Time Spent with Patient Time attestation: Total time spent providing and/or coordinating discharge services: 35 minutes Physical Exam Vital Signs: Vital Signs: Last Vital Signs Temp 98.9 F 06/12/20 07:51 Pulse 86 06/12/20 07:51 Resp 18 06/12/20 07:51 BP 152/94 H 06/12/20 07:51 Pulse Ox 95 06/12/20 07:51 Body Mass Index 31.4 Const: General: comfortable and no acute distress Eyes: Sclerae: sclerae normal Neck: Neck: Yes normal visual inspection Chest: Chest palpation & inspection: normal inspection of the chest Resp: Effort & Inspection: normal respiratory effort and able to speak in complete sentences Cardio: Rate: regular rate Peripheral pulses: Peripheral pulses 2+ throughout GI: Inspection: Yes normal to inspection Skin: General skin exam: no rashes or lesions noted Neuro: General: no focal motor deficits DS: Data Data Completed and Pending Labs on day of discharge: Laboratory Results - last 72 hr 06/09/20 06/09/20 06/09/20 11:27 11:27 14:29 WBC RBC Hgb Hct MCV MCH MCHC RDW Plt Count MPV Immature Gran % (Auto) Neut % (Auto) Lymph % (Auto) [place] % (Auto) Eos % (Auto) Baso % (Auto) Lymph # (Auto) [place] # (Auto) Eos # (Auto) Baso # (Auto) Abs Immat Gran (auto) Absolute Neuts (auto) Absolute Nucleated RBC Nucleated RBC % (auto) Smear Tech's Comments D-Dimer 762 Sodium Potassium Chloride Carbon Dioxide Anion Gap BUN Creatinine Estim Creat Clear Calc Estimated GFR Random Glucose Lactic Acid Fup @ 2Hr Lactic Acid Fup @ 4Hr Calcium Total Bilirubin AST ALT Alkaline Phosphatase Lactate Dehydrogenase Troponin I High Sens 20.2 C-Reactive Protein B-Natriuretic Peptide 38 Total Protein Albumin Procalcitonin Coronavirus (PCR) POSITIVE A 06/09/20 06/09/20 06/12/20 18:17 20:35 10:19 WBC 7.8 RBC 4.76 Hgb 15.1 Hct 43.3 MCV 91.0 MCH 31.7 MCHC 34.9 RDW 12.7 Plt Count 133 L MPV 9.6 Immature Gran % (Auto) 0.5 H Neut % (Auto) 83.0 H Lymph % (Auto) 10.4 L [place] % (Auto) 5.9 Eos % (Auto) 0.1 Baso % (Auto) 0.1 Lymph # (Auto) 0.8 L [place] # (Auto) 0.5 Eos # (Auto) 0.0 Baso # (Auto) 0.0 Abs Immat Gran (auto) 0.04 H Absolute Neuts (auto) 6.5 Absolute Nucleated RBC 0.000 Nucleated RBC % (auto) 0.0 Smear Tech's Comments Not Reportable D-Dimer Sodium Potassium Chloride Carbon Dioxide Anion Gap BUN Creatinine Estim Creat Clear Calc Estimated GFR Random Glucose Lactic Acid Fup @ 2Hr 4.2 H* Lactic Acid Fup @ 4Hr 4.6 H* Calcium Total Bilirubin AST ALT Alkaline Phosphatase Lactate Dehydrogenase Troponin I High Sens C-Reactive Protein B-Natriuretic Peptide Total Protein Albumin Procalcitonin Coronavirus (PCR) 06/12/20 06/12/20 06/12/20 10:19 10:19 10:19 WBC RBC Hgb Hct MCV MCH MCHC RDW Plt Count MPV Immature Gran % (Auto) Neut % (Auto) Lymph % (Auto) [place] % (Auto) Eos % (Auto) Baso % (Auto) Lymph # (Auto) [place] # (Auto) Eos # (Auto) Baso # (Auto) Abs Immat Gran (auto) Absolute Neuts (auto) Absolute Nucleated RBC Nucleated RBC % (auto) Smear Tech's Comments D-Dimer 598 Sodium 134 L Potassium 4.1 Chloride 99 Carbon Dioxide 24 Anion Gap 15 BUN 21 H Creatinine 1.06 Estim Creat Clear Calc 69.7 Estimated GFR > 60 Random Glucose 113 D Lactic Acid Fup @ 2Hr Lactic Acid Fup @ 4Hr Calcium 8.3 L Total Bilirubin 0.7 AST 28 D ALT 31 Alkaline Phosphatase 82 Lactate Dehydrogenase 294 H Troponin I High Sens C-Reactive Protein 4.35 H B-Natriuretic Peptide Total Protein 6.4 L Albumin 3.9 Procalcitonin 0.08 Coronavirus (PCR) CTA chest (06/09/20) 1. No evidence of pulmonary emboli. 2. 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 3. Right lower lobe ground-glass infiltrate. 4. Moderate-sized hiatal hernia. 5. Benign left adrenal adenoma. 6. Cholelithiasis. Discharge Plan Discharge Anticipated Discharge Date/Time: 06/12/20 13:06 Patient Disposition: Home, Self-Care Referrals: Physician,Unknown [Primary Care Provider] - Discharge Medications: New dexamethasone 6 mg Tablet 6 mg PO DAILY Qty: 7 RF: 0 Continued albuterol sulfate 2.5 mg /3 mL (0.083 %) Solution For Nebulization 2.5 mg INHALATION Q4H PRN (Reason: Shortness Of Breath) RF: 0 trazodone 50 mg Tablet 50 mg PO BEDTIME PRN (Reason: Sleep) RF: 0 amlodipine 5 mg Tablet 5 mg PO DAILY RF: 0 fluticasone propion-salmeterol [Advair Diskus] 500-50 mcg/dose Blister With Device 1 inh INHALATION BID RF: 0 folic acid 1 mg Tablet 1 mg PO DAILY RF: 0 montelukast [Singulair] 10 mg Tablet 10 mg PO DAILY RF: 0 allopurinol 300 mg Tablet 300 mg PO DAILY RF: 0 furosemide 20 mg Tablet 20 mg PO DAILY RF: 0 ergocalciferol (vitamin D2) [Vitamin D2] 1,250 mcg (50,000 unit) Capsule 1,250 mcg PO QWEEK RF: 0 loratadine 10 mg Tablet 10 mg PO DAILY RF: 0 valsartan [Diovan] 160 mg Tablet 160 mg PO DAILY RF: 0 omeprazole 20 mg Tablet,Delayed Release (Dr/Ec) 20 mg PO DAILY RF: 0 Spiriva Respimat 2.5 mcg/actuation Mist 2 puff INHALATION DAILY RF: 0 Nucala 100 mg/mL Auto-Injector 100 mg SUBCUT Q4W RF: 0 hydrocodone-homatropine [Hydromet] 5-1.5 mg/5 mL Syrup 10 ml PO Q5H PRN (Reason: Cough) Qty: 240 RF: 0 Discontinued prednisone 20 mg Tablet 40 mg PO DAILY RF: 0 Discharge Orders: Discharge Order (Routine); Ordered 06/12/20 Ordered By: Prachi Ferrair Diet: low salt diet Activity on Discharge: As tolerated Patient Instructions: Viral Pneumonia (DC) Visit Report Forms: Patient Portal Discharge page Care Plan Goals: recovery from COVID-19 Health Concerns: COVID-19 Plan of Treatment: - take dexamethasone [Decadron], a steroid, 6 mg daily, for another 7 days - check your O2 saturation daily and as needed for any shortness of breath; go to ED if less than 90% - follow up with your primary care doctor in 1 week - isolate yourself for 10 days from the onset of symptoms
--- NOTE | 2020-06-12 13:37 | MHC.CM.PN ---
DC today to home. will assist as well as provide transportation.
[2020-06-12] MEDS: guaiFEN/Codeine SF 200/20/10ML 10 ML LIQUID 5 ML PO (14:18)
== END 2020-06-12 15:09 | disposition home or self-care (01) | DRG 177 ==
LOC: HO.ED 15:44 → HO.IMC 17:01
PROVIDERS: Physician Assistant; Admitting Provider Internal Medicine; Emergency Provider Emergency Medicine; Visit Provider Family Medicine
DX: U07.1 COVID-19 (principal); J96.01 Acute respiratory failure with hypoxia; J44.1 Chronic obstructive pulmonary disease with (acute) exacerbation; K21.9 Gastro-esophageal reflux disease without esophagitis; M10.9 Gout, unspecified; Z96.651 Presence of right artificial knee joint; Z96.611 Presence of right artificial shoulder joint; Z86.718 Personal history of other venous thrombosis and embolism; Z87.891 Personal history of nicotine dependence; Z79.51 Long term (current) use of inhaled steroids; Z79.899 Other long term (current) drug therapy
CPT/HCPCS: 36415; 71045; 71275; 80053; 82728; 83605; 83615; 83880; 84145; 84484; 85025; 85379; 85610; 85730; 86140; 87040; 93005; 94640; 94664; 96365; 96366; 96367; 96372; 96375; 99285; J0456; J0696; J1200; J1650; J1956; J2270; J2930; J8540; Q9967; U0003

== ENCOUNTER 2020-06-14 06:42 | Inpatient (IN) | payer OTHER, SELFPAY ==
[2020-06-14] VITALS (17 sets, daily range): BP systolic 117–140; BP diastolic 70–94; PULSE 80–124; RESP 14–33; TEMP 36.4–36.8; O2SAT 90–95; BMI 31.3
--- NOTE | 2020-06-14 06:59 | ECG_ITS ---
Test Reason : SOB Blood Pressure : / mmHG Vent. Rate : 122 BPM Atrial Rate : 122 BPM P-R Int : 126 ms QRS Dur : 070 ms QT Int : 316 ms P-R-T Axes : 061 -16 056 degrees QTc Int : 450 ms Poor data quality Sinus tachycardia with Premature supraventricular complexes Left axis deviation Abnormal ECG When compared with ECG of 09-JUN-2020 13:32, No significant changes seen Referred By: Mitra Red Electronically Signed By:MOLLY ALCANTAR MD
--- NOTE | 2020-06-14 07:00 | XR_ITS ---
EXAMINATION: XR CHEST CLINICAL INFORMATION: Dyspnea. Covid positive. COMPARISON: Previous chest x-ray and chest CTA 06/09/2020 TECHNIQUE: Frontal view of the chest was obtained. FINDINGS: The cardiac and mediastinal contours are stable. There are surgical clips in the right superior mediastinal region overlying the right first rib costochondral cartilage and upper paratracheal region. The lung volumes are low. There are increasing peripheral predominantly bibasilar infiltrates. There is no pleural effusion or pneumothorax. There is a right shoulder replacement. XR/XR chest 1V IMPRESSION: Low lung volumes. Increasing bilateral peripheral infiltrates. Chest x-ray appearance would be consistent with Covid infection.
--- NOTE | 2020-06-14 07:14 | ED.GENADULT ---
HPI - General Adult General Chief complaint: General Medical Stated complaint: sob Time Seen by Provider: 06/14/20 06:59 Source: EMS and old records reviewed Mode of arrival: EMS Limitations: no limitations History of Present Illness MD complaint: dyspnea COVID + Onset (ago): day(s) (2 much worse this AM) Location: chest Severity: severe Quality: aching Pain Consistency: constant Relieving factors: none Exacerbating factors: movement Associated symptoms: cough, diaphoresis, fever/chills, headaches, loss of appetite, malaise, shortness of breath and weakness Treatments prior to arrival: other (100% on NRB found to be in 80s RA) Related Data Home Medications Medication Instructions Recorded Confirmed Nucala 100 mg SUBCUT Q4W 06/09/20 06/14/20 Spiriva Respimat 2 puff INHALATION DAILY 06/09/20 06/14/20 albuterol sulfate 2.5 mg INHALATION Q4H PRN 06/09/20 06/14/20 allopurinol 300 mg PO DAILY 06/09/20 06/14/20 amlodipine 5 mg PO DAILY 06/09/20 06/14/20 ergocalciferol (vitamin D2) 1,250 mcg PO QWEEK 06/09/20 06/14/20 [Vitamin D2] fluticasone propion-salmeterol 1 inh INHALATION BID 06/09/20 06/14/20 [Advair Diskus] folic acid 1 mg PO DAILY 06/09/20 06/14/20 furosemide 20 mg PO DAILY 06/09/20 06/14/20 montelukast [Singulair] 10 mg PO DAILY 06/09/20 06/14/20 omeprazole 20 mg PO DAILY 06/09/20 06/14/20 trazodone 50 mg PO BEDTIME PRN 06/09/20 06/14/20 valsartan [Diovan] 160 mg PO DAILY 06/09/20 06/14/20 cetirizine 10 mg PO DAILY 06/14/20 06/14/20 Previous Rx's Medication Instructions Recorded dexamethasone 6 mg PO DAILY #7 tab 06/12/20 hydrocodone-homatropine [Hydromet] 10 ml PO Q5H PRN #240 ml 06/12/20 Allergies Allergy/AdvReac Type Severity Reaction Status Date / Time adhesive tape [Adhesive Tape] Allergy Mild BLISTERS Verified 06/09/20 13:28 bee pollen [BEE STINGS] Allergy Unknown Unknown Verified 06/09/20 13:28 levofloxacin [From Levaquin] Allergy Hives Verified 06/09/20 13:29 Adhesive Bandages Allergy Unknown Unknown Uncoded 06/09/20 13:28 Review of Systems Review of Systems: Constitutional : positive Fever, positive Chills, positive fatigue, positive Malaise ENT/Mouth : no sore throat, positive runny nose Eyes: No Discharge Cardiovascular : pos Chest Pain, pos SOB Respiratory : pos Cough, pos Sputum Gastrointestinal : No Nausea, No Vomiting, No Diarrhea Genitourinary : No Dysuria, No Urinary Frequency Musculoskeletal : positive Myalgia Skin : No rash, normal turgor Neuro : No Headache, no weakness, numbness All other systems reviewed and are negative PMFSH Past Medical History Attestation statement: The following information was validated with the patient. Medical History Asthma Bilateral cataracts Borderline diabetic COPD (chronic obstructive pulmonary disease) GERD (gastroesophageal reflux disease) Gout H/O hiatal hernia Hand anomaly History of deep venous thrombosis (DVT) of distal vein of left lower extremity Hypertension Jaw anomaly Lung blebs GONZALO (obstructive sleep apnea) Osteoarthritis Surgical History H/O left knee surgery H/O sinus surgery History of right knee joint replacement History of right shoulder replacement History of thoracotomy Hx of cataract surgery S/P hernia surgery Social History Social History Household Members: Spouse Housing: House Alcohol intake: unknown Smoking Status: Former smoker Use of substances other than those prescribed or required for medical reasons: No Advance Directives: No Advance Directives Information Provided: No service: Yes Current occupational status: retired Physical Exam Vital Signs: Vital Signs: Last Vital Signs Temp 98.3 F 06/14/20 06:46 Pulse 104 H 06/14/20 10:23 Resp 22 H 06/14/20 10:23 BP 136/91 H 06/14/20 10:23 Pulse Ox 95 06/14/20 10:23 Body Mass Index 31.3 Appearance: Alert. Oriented X3. Anxious, moderate acute distress. Eyes: Pupils equal, round and reactive to light. ENT: Pharynx normal. Neck: Normal inspection. Neck supple. CVS: Normal heart rate and rhythm. Pulses normal. Respiratory: moderate respiratory distress. Breath sounds diffuse rhonchi and end exp wheezes tachypnea and retractions Abdomen: Soft and nontender. Skin: Skin warm and dry. Normal skin color. Normal skin turgor. Extremities: No lower extremity edema. No calf ttp Neuro: Oriented X 3. No motor deficit. No sensory deficit. Course Course Course Narrative: will attempt Bipap for increased WOB RR 38, 87% on neb treatment if he fails will intubate patient now 93% on neb treatment and 6L NC he is currently refusing Bipap will monitor closely patient now finally agrees to bipap after a long discussion about COPD/ventilator and COVID - will give IV ketamine for anxiety and bronchospasm patient improved at this time lactic acidosis due to hypoxia and COVID 19 infection not a bacterial infection, to prevent ARDS will avoid fluid hydration given lactic due to COVID 19 bipap is due to COVID 19 infection viral respiratory failure and not bacterial infection or severe sepsis Dr. Mendez to admit patient place on CPAP Medical Decision Making MDM Narrative Medical decision making narrative: 70 yo male with hx of COPD - + COVID dx yesterday here with resp distress on 100% NRB, will need IV steroids (took oral at home), CXR, hour long 10mg neb, CXR, empiric antibiotics, admission to hospital at this time for COVID with hypoxia Lab Data Result diagrams: 06/14/20 09:27 06/14/20 08:28 Labs: Lab Results 06/14/20 06/14/20 06/14/20 Range/Units 08:27 08:28 08:28 WBC Cancelled RBC Cancelled Hgb Cancelled Hct Cancelled MCV Cancelled MCH Cancelled MCHC Cancelled RDW Cancelled Plt Count Cancelled MPV Cancelled Immature Gran % (Auto) Cancelled Neut % (Auto) Cancelled Lymph % (Auto) Cancelled [place] % (Auto) Cancelled Eos % (Auto) Cancelled Baso % (Auto) Cancelled Lymph # (Auto) Cancelled [place] # (Auto) Cancelled Eos # (Auto) Cancelled Baso # (Auto) Cancelled Abs Immat Gran (auto) Cancelled Absolute Neuts (auto) Cancelled Absolute Nucleated RBC Cancelled Nucleated RBC % (auto) Cancelled Smear Tech's Comments PT (10.8-13.0) SEC INR (0.9-1.1) APTT (24.1-38.0) SEC VBG pH (7.32-7.43) VBG pCO2 mmhg VBG Oxygen Liters/Min VBG pO2 mmhg VBG HCO3 mmol/L VBG O2 Saturation % VBG Base Excess mmol/L Sodium 136 (135-145) mmol/L Potassium 4.5 (3.3-5.1) mmol/l Chloride 96 (96-108) mmol/L Carbon Dioxide 23 (22-29) mmol/L Anion Gap 22 H (12-20) BUN 23 H (9-16) mg/dL Creatinine 1.04 (0.5-1.4) mg/dL Estim Creat Clear Calc 70.9 Estimated GFR > 60 Random Glucose 145 H (60-115) mg/dL Lactic Acid 4.3 H* (0.5-2.0) mmol/L Calcium 9.0 D (8.4-10.2) mg/dL Magnesium (1.6-2.6) mg/dL Total Bilirubin (0.0-1.0) mg/dL Direct Bilirubin (0.0-0.5) mg/dL AST (5-37) U/L ALT (0-40) U/L Alkaline Phosphatase (39-117) U/L Lactate Dehydrogenase 513 H (118-273) U/L Total Creatine Kinase 381 H (38-174) U/L Troponin I High Sens B-Natriuretic Peptide Total Protein (6.5-8.0) g/dL Albumin (3.5-5.0) g/dL Procalcitonin ng/mL 06/14/20 06/14/20 06/14/20 Range/Units 08:28 08:28 08:28 WBC RBC Hgb Hct MCV MCH MCHC RDW Plt Count MPV Immature Gran % (Auto) Neut % (Auto) Lymph % (Auto) [place] % (Auto) Eos % (Auto) Baso % (Auto) Lymph # (Auto) [place] # (Auto) Eos # (Auto) Baso # (Auto) Abs Immat Gran (auto) Absolute Neuts (auto) Absolute Nucleated RBC Nucleated RBC % (auto) Smear Tech's Comments PT (10.8-13.0) SEC INR (0.9-1.1) APTT (24.1-38.0) SEC VBG pH (7.32-7.43) VBG pCO2 mmhg VBG Oxygen Liters/Min VBG pO2 mmhg VBG HCO3 mmol/L VBG O2 Saturation % VBG Base Excess mmol/L Sodium (135-145) mmol/L Potassium (3.3-5.1) mmol/l Chloride (96-108) mmol/L Carbon Dioxide (22-29) mmol/L Anion Gap (12-20) BUN (9-16) mg/dL Creatinine (0.5-1.4) mg/dL Estim Creat Clear Calc Estimated GFR Random Glucose (60-115) mg/dL Lactic Acid (0.5-2.0) mmol/L Calcium (8.4-10.2) mg/dL Magnesium 1.9 (1.6-2.6) mg/dL Total Bilirubin 0.6 (0.0-1.0) mg/dL Direct Bilirubin 0.2 (0.0-0.5) mg/dL AST 41 H D (5-37) U/L ALT 37 (0-40) U/L Alkaline Phosphatase 94 (39-117) U/L Lactate Dehydrogenase (118-273) U/L Total Creatine Kinase (38-174) U/L Troponin I High Sens Cancelled B-Natriuretic Peptide Cancelled Total Protein 7.0 (6.5-8.0) g/dL Albumin 4.1 (3.5-5.0) g/dL Procalcitonin 0.08 ng/mL 06/14/20 06/14/20 06/14/20 Range/Units 09:27 09:27 09:27 WBC 12.0 H RBC 4.78 Hgb 15.0 Hct 43.8 MCV 91.6 MCH 31.4 MCHC 34.2 RDW 12.8 Plt Count 144 L MPV 9.7 Immature Gran % (Auto) 0.9 H Neut % (Auto) 89.9 H Lymph % (Auto) 4.2 L [place] % (Auto) 4.8 Eos % (Auto) 0.0 Baso % (Auto) 0.2 Lymph # (Auto) 0.5 L [place] # (Auto) 0.6 Eos # (Auto) 0.0 Baso # (Auto) 0.0 Abs Immat Gran (auto) 0.11 H Absolute Neuts (auto) 10.8 H Absolute Nucleated RBC 0.000 Nucleated RBC % (auto) 0.0 Smear Tech's Comments VERIFIED PT 11.4 (10.8-13.0) SEC INR 1.0 (0.9-1.1) APTT 25.2 (24.1-38.0) SEC VBG pH 7.41 (7.32-7.43) VBG pCO2 39 mmhg VBG Oxygen Liters/Min TNP VBG pO2 76 mmhg VBG HCO3 24 mmol/L VBG O2 Saturation 95.3 % VBG Base Excess -0.5 mmol/L Sodium (135-145) mmol/L Potassium (3.3-5.1) mmol/l Chloride (96-108) mmol/L Carbon Dioxide (22-29) mmol/L Anion Gap (12-20) BUN (9-16) mg/dL Creatinine (0.5-1.4) mg/dL Estim Creat Clear Calc Estimated GFR Random Glucose (60-115) mg/dL Lactic Acid (0.5-2.0) mmol/L Calcium (8.4-10.2) mg/dL Magnesium (1.6-2.6) mg/dL Total Bilirubin (0.0-1.0) mg/dL Direct Bilirubin (0.0-0.5) mg/dL AST (5-37) U/L ALT (0-40) U/L Alkaline Phosphatase (39-117) U/L Lactate Dehydrogenase (118-273) U/L Total Creatine Kinase (38-174) U/L Troponin I High Sens B-Natriuretic Peptide Total Protein (6.5-8.0) g/dL Albumin (3.5-5.0) g/dL Procalcitonin ng/mL ECG Data Attestation: I personally reviewed and interpreted this ECG as follows: Interpretation: Rate: 122 Rhythm: sinus tachycardia [place]: left Normal P waves. Normal [place]OL[place]. Normal QRS complex. ST T wave : nonspecific qTC: normal prior studies: no acute ischemia The study has been interpreted contemporaneously by me. . Critical Care Time Critical Care Time Critical Care Time: Yes Total Critical Care Time: 90 Attestation: bipap, medical consult, IV ketamine I attest to this time spent taking care of the patient Discharge Plan Discharge Clinical Impression: COVID-19, COPD exacerbation Respiratory failure with hypoxia Qualifiers: Chronicity: acute on chronic Qualified Code(s): J96.21 - Acute and chronic respiratory failure with hypoxia Patient Disposition: Admitted As Inpatient
[2020-06-14] MEDS: dexAMETHasone sod phosphate 4 MG/ML VIAL 6 MG IV (08:05)
[2020-06-14] MEDS: Ketamine HCl/NS 50 MG/5 ML SYRINGE 25 MG IVPUSH (08:06)
[2020-06-14] MEDS: Albuterol Sulfate (0.083%) 2.5 MG/3 ML VIAL.NEB 10 MG INHALE (08:25)
[2020-06-14] MEDS: cefTRIAXone sodium 1 GM in 0.9 % Sodium Chloride 50 ML IV (08:36)
--- NOTE | 2020-06-14 08:38 | PC.NURSE ---
p0t difficult stick, blood cultures just finished being drawn. iv antibiotics hung at this time.
--- NOTE | 2020-06-14 08:52 | PC.NURSE ---
Addendum entered by Lamar Wheeler 06/14/20 08:55: holding off on giving PO meds to pt at this time. Original Note: pt has become relaxed after given ketamine, has anxiety being on bipap. tolerating bipap, o2 sats at this time 90%, RT ? increase on bipap. pt states he feels breathing is better, not coughing as much, able to speak small sentences. spoke with daughter and updated her on pt condition and plan. plan to transfer to ICU.
[2020-06-14 09:16] LABS: Alanine Aminotransferase 37 U/L (0-40); Albumin Level 4.1 g/dL (3.5-5.0); Alkaline Phosphatase 94 U/L (39-117); Anion Gap 22 (12-20); Aspartate Amino Transferase 41 U/L (5-37); Bilirubin Direct 0.2 mg/dL (0.0-0.5); Bilirubin Total 0.6 mg/dL (0.0-1.0); Blood Urea Nitrogen 23 mg/dL (9-16); Carbon Dioxide 23 mmol/L (22-29); Chloride 96 mmol/L (96-108); Creatinine Clr Calc Pharmacy 70.9; Estimated Glomerular Filt Rate > 60; Glucose Random 145 mg/dL (60-115); Lactate Dehydrogenase 513 U/L (118-273); Magnesium 1.9 mg/dL (1.6-2.6); Potassium 4.5 mmol/l (3.3-5.1); Sodium 136 mmol/L (135-145)
[2020-06-14 09:24] LABS: Lactic Acid 4.3 mmol/L (0.5-2.0)
[2020-06-14 09:34] LABS: Procalcitonin 0.08 ng/mL
[2020-06-14 09:55] LABS: Base Excess VBG -0.5 mmol/L; Basophils Percent Auto 0.2 % (0-2); HCO3 VBG 24 mmol/L; Hematocrit 43.8 % (42-52); Imm Gran Abs Auto 0.11 X10*3/uL (0.00-0.03); Imm Gran Pct Auto 0.9 % (0.0-0.4); Lymphocytes Absolute Auto 0.5 X10*3/uL (1.2-4.9); Lymphocytes Percent Auto 4.2 % (20-40); MANUAL DIFF FLAG SCAN; Mean Corpuscular HGB Conc 34.2 g/dl (31.0-36.0); Mean Corpuscular Hemoglobin 31.4 pg (27.0-33.0); Mean Corpuscular Volume 91.6 fL (80-98); Mean Platelet Volume 9.7 fL (9.4-12.4); Monocytes Absolute Auto 0.6 X10*3/uL (0.1-1.2); Monocytes Percent Auto 4.8 % (2-11); Neutrophils Absolute Auto 10.8 X10*3/uL (2.0-8.3); Neutrophils Percent Auto 89.9 % (45-73); PCO2 VBG 39 mmhg; PO2 VBG 76 mmhg; Platelet Count 144 X10*3/uL (160-400); Red Blood Count 4.78 X10*6/uL (4.60-5.80); Red Cell Distribution Width 12.8 % (11.0-16.0); SCAN SMEAR FLAG 1; pH VBG 7.41 (7.32-7.43)
[2020-06-14 09:56] LABS: Oxygen Saturation VBG 95.3 %
[2020-06-14 09:58] LABS: Prothrombin Time 11.4 SEC (10.8-13.0)
[2020-06-14 10:01] LABS: Partial Thromboplastin Time 25.2 SEC (24.1-38.0)
[2020-06-14 10:24] LABS: SLIDE REVIEW VERIFIED
[2020-06-14 10:38] LABS: Reflex Lactate? Lactic Acid Added
[2020-06-14] MEDS: Acetaminophen 325 MG TABLET 650 MG PO (12:20)
[2020-06-14] MEDS: Azithromycin 500 MG TABLET PO (12:23)
[2020-06-14 13:12] LABS: Ferritin 340 ng/mL (20-250)
[2020-06-14] MEDS: Albuterol/Iprat 2.5/0.5MG 3 ML AMPUL.NEB INHALE ×2 (14:38→19:36)
--- NOTE | 2020-06-14 15:12 | P.HPCC_ITS ---
History of Present Illness Date of Service: 06/14/20 Chief Complaint: shortness of breath 70-year-old gentleman with underlying COPD /asthma overlap syndrome, tracheomalacia, GONZALO, recent admission on 06/09 through 06/12/2020 for COVID-19 related acute hypoxic respiratory failure readmitted on 06/14/2020 with wor sening hypoxemia and acute hypoxic respiratory failure secondary to COVID-19. On ER evaluation patient was noted to be significantly hypoxemic initially requiring CPAP 70% to maintain normoxemia. Patient has been admitted to intensive care unit. Over the course of the day he has been titrated down to high-flow nasal cannula 70%. Review of Systems Constitutional: Constitutional: Reports malaise and Reports weakness ( generalized) Eyes: Eyes: Denies blurry vision and Denies change in vision Cardiovascular: Cardiovascular: Denies chest pain with activity, Denies leg edema and Reports dyspnea Respiratory: Respiratory: Reports cough, Reports dyspnea and Denies wheezing Gastrointestinal: Gastrointestinal: Denies abdominal pain, Denies constipation, Reports diarrhea and Denies vomiting Genitourinary: Genitourinary: Denies difficulty urinating and Denies urinary urgency Musculoskeletal: Musculoskeletal: Reports other ( muscle aches) Integumentary/Breasts: Skin/Breast: Denies rash Neurologic: Denies focal weakness and Reports weakness ( generalized) Psychiatric: Psychiatric: Reports anxiety Endocrine: Endocrine: Denies cold intolerance and Denies heat intolerance Hematologic/Lymphatic: Hematologic/Lymphatic: Denies easy bruising and Denies lymphadenopathy Allergic/Immunologic: Allergic/Immunologic: Denies wheezing PMFSH Past Medical History Medical History Asthma Bilateral cataracts Borderline diabetic COPD (chronic obstructive pulmonary disease) GERD (gastroesophageal reflux disease) Gout H/O hiatal hernia Hand anomaly History of deep venous thrombosis (DVT) of distal vein of left lower extremity Hypertension Jaw anomaly Lung blebs GONZALO (obstructive sleep apnea) Osteoarthritis Surgical History Surgical History H/O left knee surgery H/O sinus surgery History of right knee joint replacement History of right shoulder replacement History of thoracotomy Hx of cataract surgery S/P hernia surgery Social History Social History Household Members: Spouse Housing: House Alcohol intake: unknown Smoking Status: Former smoker Tobacco Type: Cigarette Use of substances other than those prescribed or required for medical reasons: No Have you been hit, kicked, punched, or otherwise hurt by someone within the past year? If so, by whom?: No Do you feel safe in your current relationship?: Yes Is there a partner from a previous relationship who is making you feel unsafe now?: No Are you made to feel afraid or neglected: No Advance Directives: No Advance Directives Information Provided: No Do you have thoughts of harming others: None Do you have a plan to hurt others: No Plan Recently lost weight without trying: Unsure service: Yes Current occupational status: retired [employer] Allergies Allergy/AdvReac Type Severity Reaction Status Date / Time adhesive tape [Adhesive Tape] Allergy Mild BLISTERS Verified 06/09/20 13:28 bee pollen [BEE STINGS] Allergy Unknown Unknown Verified 06/09/20 13:28 levofloxacin [From Levaquin] Allergy Hives Verified 06/09/20 13:29 Adhesive Bandages Allergy Unknown Unknown Uncoded 06/09/20 13:28 Home Medications Medication Instructions Recorded Confirmed Type Nucala 100 mg SUBCUT Q4W 06/09/20 06/14/20 History Spiriva Respimat 2 puff INHALATION DAILY 06/09/20 06/14/20 History albuterol sulfate 2.5 mg INHALATION Q4H PRN 06/09/20 06/14/20 History allopurinol 300 mg PO DAILY 06/09/20 06/14/20 History amlodipine 5 mg PO DAILY 06/09/20 06/14/20 History ergocalciferol (vitamin D2) 1,250 mcg PO QWEEK 06/09/20 06/14/20 History [Vitamin D2] fluticasone propion-salmeterol 1 inh INHALATION BID 06/09/20 06/14/20 History [Advair Diskus] folic acid 1 mg PO DAILY 06/09/20 06/14/20 History furosemide 20 mg PO DAILY 06/09/20 06/14/20 History montelukast [Singulair] 10 mg PO DAILY 06/09/20 06/14/20 History omeprazole 20 mg PO DAILY 06/09/20 06/14/20 History trazodone 50 mg PO BEDTIME PRN 06/09/20 06/14/20 History valsartan [Diovan] 160 mg PO DAILY 06/09/20 06/14/20 History cetirizine 10 mg PO DAILY 06/14/20 06/14/20 History Physical Exam Vital Signs: Vital Signs: Last Vital Signs Temp 98.3 F 06/14/20 06:46 Pulse 95 06/14/20 15:00 Resp 16 06/14/20 15:00 BP 117/75 06/14/20 15:00 Pulse Ox 93 06/14/20 15:00 Body Mass Index 31.3 Const: General: no acute distress, alert and awake Eyes: Sclerae: sclerae normal EOM: EOMs intact bilaterally Neck: Neck: Yes no lymphadenopathy, Yes trachea midline and Yes supple Resp: Effort & Inspection: normal respiratory effort and no respiratory distress Auscultation: crackles ( bibasilar) Cardio: Rate: regular rate Rhythm: regular rhythm Heart sounds: no gallops, no murmurs and no rubs GI: Palpation (GI): Soft to palpation and Other GI palpation findings present ( Nontender) Auscultation: normal bowel sounds Extrem: General: Yes no pedal edema, No clubbing and No cyanosis Results Labs CBC and Chem 7: 06/14/20 09:27 06/14/20 08:28 Labs: Laboratory Results - last 24 hr 06/14/20 06/14/20 06/14/20 08:27 08:28 08:28 MCV Cancelled MCH Cancelled MCHC Cancelled RDW Cancelled Plt Count Cancelled MPV Cancelled Immature Gran % (Auto) Cancelled Neut % (Auto) Cancelled Lymph % (Auto) Cancelled [place] % (Auto) Cancelled Eos % (Auto) Cancelled Baso % (Auto) Cancelled Lymph # (Auto) Cancelled [place] # (Auto) Cancelled Eos # (Auto) Cancelled Baso # (Auto) Cancelled Abs Immat Gran (auto) Cancelled Absolute Neuts (auto) Cancelled Absolute Nucleated RBC Cancelled Nucleated RBC % (auto) Cancelled Smear Tech's Comments PT INR APTT VBG pH VBG pCO2 VBG Oxygen Liters/Min VBG pO2 VBG HCO3 VBG O2 Saturation VBG Base Excess Anion Gap 22 H Estim Creat Clear Calc 70.9 Estimated GFR > 60 Random Glucose 145 H Lactic Acid 4.3 H* Calcium 9.0 D Magnesium Ferritin 340 H Total Bilirubin Direct Bilirubin AST ALT Alkaline Phosphatase Lactate Dehydrogenase 513 H Total Creatine Kinase 381 H Troponin I High Sens B-Natriuretic Peptide Total Protein Albumin Procalcitonin 06/14/20 06/14/20 06/14/20 08:28 08:28 08:28 MCV MCH MCHC RDW Plt Count MPV Immature Gran % (Auto) Neut % (Auto) Lymph % (Auto) [place] % (Auto) Eos % (Auto) Baso % (Auto) Lymph # (Auto) [place] # (Auto) Eos # (Auto) Baso # (Auto) Abs Immat Gran (auto) Absolute Neuts (auto) Absolute Nucleated RBC Nucleated RBC % (auto) Smear Tech's Comments PT INR APTT VBG pH VBG pCO2 VBG Oxygen Liters/Min VBG pO2 VBG HCO3 VBG O2 Saturation VBG Base Excess Anion Gap Estim Creat Clear Calc Estimated GFR Random Glucose Lactic Acid Calcium Magnesium 1.9 Ferritin Total Bilirubin 0.6 Direct Bilirubin 0.2 AST 41 H D ALT 37 Alkaline Phosphatase 94 Lactate Dehydrogenase Total Creatine Kinase Troponin I High Sens Cancelled B-Natriuretic Peptide Cancelled Total Protein 7.0 Albumin 4.1 Procalcitonin 0.08 06/14/20 06/14/20 06/14/20 09:27 09:27 09:27 MCV 91.6 MCH 31.4 MCHC 34.2 RDW 12.8 Plt Count 144 L MPV 9.7 Immature Gran % (Auto) 0.9 H Neut % (Auto) 89.9 H Lymph % (Auto) 4.2 L [place] % (Auto) 4.8 Eos % (Auto) 0.0 Baso % (Auto) 0.2 Lymph # (Auto) 0.5 L [place] # (Auto) 0.6 Eos # (Auto) 0.0 Baso # (Auto) 0.0 Abs Immat Gran (auto) 0.11 H Absolute Neuts (auto) 10.8 H Absolute Nucleated RBC 0.000 Nucleated RBC % (auto) 0.0 Smear Tech's Comments VERIFIED PT 11.4 INR 1.0 APTT 25.2 VBG pH 7.41 VBG pCO2 39 VBG Oxygen Liters/Min TNP VBG pO2 76 VBG HCO3 24 VBG O2 Saturation 95.3 VBG Base Excess -0.5 Anion Gap Estim Creat Clear Calc Estimated GFR Random Glucose Lactic Acid Calcium Magnesium Ferritin Total Bilirubin Direct Bilirubin AST ALT Alkaline Phosphatase Lactate Dehydrogenase Total Creatine Kinase Troponin I High Sens B-Natriuretic Peptide Total Protein Albumin Procalcitonin Imaging Radiologist's Impressions: Impressions Chest X-Ray 06/14/20 07:00 IMPRESSION: Low lung volumes. Increasing bilateral peripheral infiltrates. Chest x-ray appearance would be consistent with Covid infection. Assessment and Plan (1) COVID-19: Status: Acute Assessment: 70-year-old gentleman with underlying COPD, GONZALO, tracheal malacia with recent admission for COVID-19 related acute hypoxic respiratory failure readmitted on 06/14/2020 with worsening acute hypoxic respiratory failure initially requiring CPAP support. Plan: Neuro: No acute issues. Cardiac: No acute issues. Pulmonary: COVID-19 related acute hypoxic respiratory failure. Titrated of CPAP down to high-flow nasal cannula 70%. Continue to titrate of supplemental oxygen as tolerated. Continued on dexamethasone. Renal: No acute issues. Endo: No acute issues. GI: No acute issues. ID: Infectious Disease evaluation for remdesivir approval requested. Heme/Onc: No acute issues. Psych: No acute issues. Miscellaneous: No acute issues. Prophylaxis: Lovenox, ppi Diet: regular Critical care time spent: 60 minutes (2) Acute respiratory failure with hypoxia: Status: Acute Critical Care Time Critical Care Time (minutes): 60
--- NOTE | 2020-06-14 15:52 | MHC.CM.PN ---
pt lives c his in their home. he is independent at baseline, prior to this admission. he is currently in the ICU on bipap and positive covid 19. pt has significant lung diseases. dc planning is deferred to a future time. cm to cont. to follow.
--- NOTE | 2020-06-14 15:53 | P.CNID_ITS ---
History of Present Illness Data of Consult Service Date: 06/14/20 Requesting physician: Santana Arias Primary Care Provider: Prachi Ferrari MD HPI Reason for consult: shortness of breath,hypoxia He represents to hospital He came in 06/09 for shortness of breath after return from [place] and member of household there had COVID He was hypoxic to 80s with ambulation but 90s at rest He received Dexamethasone as well as oxygen in hospital and discharged on Dexamethasone on 06/12 He received Zmax and Levaquin also He returns with more shortness of breath He has no fever or chills He is in ICU and on 70% oxygen Review of Systems Constitutional: Constitutional: Reports weakness ( generalized) Cardiovascular: Cardiovascular: Reports dyspnea Respiratory: Respiratory: Reports cough and Reports dyspnea Neurologic: Denies focal weakness and Reports weakness ( generalized) [facility] Past Medical History Medical History Asthma Bilateral cataracts Borderline diabetic COPD (chronic obstructive pulmonary disease) GERD (gastroesophageal reflux disease) Gout H/O hiatal hernia Hand anomaly History of deep venous thrombosis (DVT) of distal vein of left lower extremity Hypertension Jaw anomaly Lung blebs GONZALO (obstructive sleep apnea) Osteoarthritis Surgical History Surgical History H/O left knee surgery H/O sinus surgery History of right knee joint replacement History of right shoulder replacement History of thoracotomy Hx of cataract surgery S/P hernia surgery Social History Social History Household Members: Spouse Housing: House Alcohol intake: unknown Smoking Status: Former smoker Tobacco Type: Cigarette Use of substances other than those prescribed or required for medical reasons: No Have you been hit, kicked, punched, or otherwise hurt by someone within the past year? If so, by whom?: No Do you feel safe in your current relationship?: Yes Is there a partner from a previous relationship who is making you feel unsafe now?: No Are you made to feel afraid or neglected: No Advance Directives: No Advance Directives Information Provided: No Do you have thoughts of harming others: None Do you have a plan to hurt others: No Plan Recently lost weight without trying: Unsure service: Yes Current occupational status: retired Meds Allergies Allergy/AdvReac Type Severity Reaction Status Date / Time adhesive tape [Adhesive Tape] Allergy Mild BLISTERS Verified 06/09/20 13:28 bee pollen [BEE STINGS] Allergy Unknown Unknown Verified 06/09/20 13:28 levofloxacin [From Levaquin] Allergy Hives Verified 06/09/20 13:29 Adhesive Bandages Allergy Unknown Unknown Uncoded 06/09/20 13:28 Home Medications Medication Instructions Recorded Confirmed Type Nucala 100 mg SUBCUT Q4W 06/09/20 06/14/20 History Spiriva Respimat 2 puff INHALATION DAILY 06/09/20 06/14/20 History albuterol sulfate 2.5 mg INHALATION Q4H PRN 06/09/20 06/14/20 History allopurinol 300 mg PO DAILY 06/09/20 06/14/20 History amlodipine 5 mg PO DAILY 06/09/20 06/14/20 History ergocalciferol (vitamin D2) 1,250 mcg PO QWEEK 06/09/20 06/14/20 History [Vitamin D2] fluticasone propion-salmeterol 1 inh INHALATION BID 06/09/20 06/14/20 History [Advair Diskus] folic acid 1 mg PO DAILY 06/09/20 06/14/20 History furosemide 20 mg PO DAILY 06/09/20 06/14/20 History montelukast [Singulair] 10 mg PO DAILY 06/09/20 06/14/20 History omeprazole 20 mg PO DAILY 06/09/20 06/14/20 History trazodone 50 mg PO BEDTIME PRN 06/09/20 06/14/20 History valsartan [Diovan] 160 mg PO DAILY 06/09/20 06/14/20 History cetirizine 10 mg PO DAILY 06/14/20 06/14/20 History Physical Exam 2 Vital Signs: Vital Signs: Last Vital Signs Temp 98.3 F 06/14/20 06:46 Pulse 95 06/14/20 15:00 Resp 16 06/14/20 15:00 BP 117/75 06/14/20 15:00 Pulse Ox 93 06/14/20 15:00 Body Mass Index 31.3 Const: General: acute distress HENMT: Head: Yes normal to inspection Resp: Effort & Inspection: abnormal respiratory pattern, Actively coughing and not labored Cardio: Rate: regular rate Rhythm: regular rhythm GI: Inspection: Yes normal to inspection : General: No no CVA tenderness Back/Spine/Pelvis: Back: No no CVA tenderness Skin: General skin exam: no rashes or lesions noted Assessment and Plan (1) COVID-19: Problem details: He has worsening hypoxia He is in late acute/early inflammatory phase He has received steroids There are no signs of bacterial pneumonia Status: Acute Add Remdesivir to Dexamethasone Supportive oxygen (2) Respiratory failure with hypoxia: Qualifiers: Chronicity: acute on chronic Qualified Code(s): J96.21 - Acute and chronic respiratory failure with hypoxia Status: Acute Results Labs CBC & Chem 7: 06/14/20 09:27 06/14/20 08:28 Labs: Short CBC 06/14/20 06/14/20 Range/Units 08:28 09:27 WBC Cancelled 12.0 H Hgb Cancelled 15.0 Hct Cancelled 43.8 Plt Count Cancelled 144 L BMP 06/14/20 08:28 Sodium 136 Potassium 4.5 Chloride 96 Carbon Dioxide 23 BUN 23 H Creatinine 1.04 Calcium 9.0 D Cardiac Enzymes 06/14/20 Range/Units 08:28 Total Creatine Kinase 381 H (38-174) U/L Liver Function 06/14/20 Range/Units 08:28 Total Bilirubin 0.6 (0.0-1.0) mg/dL Direct Bilirubin 0.2 (0.0-0.5) mg/dL AST 41 H D (5-37) U/L ALT 37 (0-40) U/L Alkaline Phosphatase 94 (39-117) U/L Albumin 4.1 (3.5-5.0) g/dL
[2020-06-14] MEDS: 0.9 % Sodium Chloride Flush 3 ML SYRINGE IVFLUSH ×2 (16:04)
[2020-06-14 16:06] LABS: Cancel Lactic Acid Canceled
[2020-06-14 16:14] LABS: Glucose, Whole Blood 524 mg/dL (60-115)
[2020-06-14] MEDS: Insulin Lispro 100 UNIT/ML 3 ML VIAL SUBCUT ×2 (17:05→17:07)
[2020-06-14 17:40] LABS: Glucose Fasting 523 mg/dL (60-99)
[2020-06-14] MEDS: Remdesivir 200 MG in 0.9 % Sodium Chloride 210 ML 125 MG IV (18:10)
[2020-06-14] MEDS: guaiFEN/Codeine SF 200/20/10ML 10 ML LIQUID PO (19:04)
[2020-06-14] MEDS: HYDROcodone/Homat 5/1.5/5 ML 5 ML SYRUP PO (22:50)
[2020-06-15] VITALS (11 sets, daily range): BP systolic 119–159; BP diastolic 73–79; PULSE 65–91; RESP 18–20; TEMP 35.6–36.8; O2SAT 93–99; BMI 31.3
[2020-06-15] MEDS: Magnesium Hydrox/Alum Hydrox 30 ML ORAL.SUSP 15 ML PO (03:38)
[2020-06-15] MEDS: Omeprazole 20 MG CAPSULE.DR PO (05:01)
[2020-06-15] MEDS: traMADoL HCL 50 MG TABLET PO (05:30)
[2020-06-15] MEDS: HYDROcodone/Homat 5/1.5/5 ML 5 ML SYRUP PO ×4 (05:30→20:39)
[2020-06-15 06:59] LABS: MANUAL DIFF FLAG NO
[2020-06-15 07:06] LABS: Base Excess VBG 0.7 mmol/L; HCO3 VBG 24 mmol/L; PCO2 VBG 36 mmhg; PO2 VBG 46 mmhg; pH VBG 7.45 (7.32-7.43)
[2020-06-15 07:07] LABS: Blood Gas Serial # 5414
[2020-06-15 07:09] LABS: Basophils Percent Auto 0.1 % (0-2); Hematocrit 41.4 % (42-52); Imm Gran Abs Auto 0.08 X10*3/uL (0.00-0.03); Imm Gran Pct Auto 0.7 % (0.0-0.4); Lymphocytes Absolute Auto 0.8 X10*3/uL (1.2-4.9); Lymphocytes Percent Auto 7.1 % (20-40); Mean Corpuscular HGB Conc 33.8 g/dl (31.0-36.0); Mean Corpuscular Hemoglobin 30.4 pg (27.0-33.0); Mean Platelet Volume 9.5 fL (9.4-12.4); Monocytes Absolute Auto 0.4 X10*3/uL (0.1-1.2); Monocytes Percent Auto 4.1 % (2-11); Neutrophils Absolute Auto 9.5 X10*3/uL (2.0-8.3); Platelet Count 166 X10*3/uL (160-400); Red Cell Distribution Width 12.7 % (11.0-16.0); White Blood Count 10.8 X10*3/uL (4.8-10.8)
[2020-06-15] MEDS: Albuterol/Iprat 2.5/0.5MG 3 ML AMPUL.NEB INHALE (07:45)
[2020-06-15 07:49] LABS: Glucose, Whole Blood 131 mg/dL (60-115)
[2020-06-15 08:11] LABS: Alanine Aminotransferase 34 U/L (0-40); Albumin Level 3.7 g/dL (3.5-5.0); Alkaline Phosphatase 81 U/L (39-117); Anion Gap 15 (12-20); Aspartate Amino Transferase 35 U/L (5-37); Bilirubin Total 0.7 mg/dL (0.0-1.0); Blood Urea Nitrogen 23 mg/dL (9-16); Carbon Dioxide 25 mmol/L (22-29); Chloride 97 mmol/L (96-108); Creatinine Clr Calc Pharmacy 84.8; Estimated Glomerular Filt Rate > 60; Glucose Random 131 mg/dL (60-115); Potassium 4.4 mmol/l (3.3-5.1); Sodium 133 mmol/L (135-145); Total Protein 6.1 g/dL (6.5-8.0)
[2020-06-15 08:30] LABS: Estimated Average Glucose 186 mg/dL; Hemoglobin A1c % 8.1 %
[2020-06-15 08:58] LABS: Calcium 8.6 mg/dL (8.4-10.2)
[2020-06-15] MEDS: Furosemide 20 MG TABLET PO (09:10)
[2020-06-15] MEDS: dexAMETHasone 6 MG TABLET PO (09:10)
[2020-06-15] MEDS: 0.9 % Sodium Chloride Flush 3 ML SYRINGE IVFLUSH ×3 (09:11→20:41)
[2020-06-15] MEDS: guaiFEN/Codeine SF 200/20/10ML 10 ML LIQUID PO ×3 (09:16→23:57)
[2020-06-15] MEDS: Insulin Lispro 100 UNIT/ML 3 ML VIAL SUBCUT ×3 (11:33→20:39)
--- NOTE | 2020-06-15 11:38 | P.PNIM_ITS ---
Subjective Subjective Date of Service: 06/15/20 Interval History: Stepped down from ICU to IMC/ISO yesterday. On HFNC 75% fiO2 at 50 Lpm. C/o cough, dypsnea when lying down. No fever. Physical Exam Vital Signs: Vital Signs: Last Vital Signs Temp 97.7 F 06/15/20 08:00 Pulse 73 06/15/20 08:00 Resp 20 06/15/20 11:30 BP 138/79 06/15/20 08:00 Pulse Ox 95 06/15/20 08:00 Body Mass Index 31.3 Gen: in no acute distress HEENT: sclera anicteric, moist mucus membranes Neck: supple Lungs: no respiratory distress, auscultation deferred due to COVID-19 Heart: normal peripheral pulses Abd: soft, non-tender, non-distended Ext: no cyanosis, clubbing, or edema Skin: warm/well-perfused Neuro: alert and oriented x3, no focal findings Psych: appropriate affect Objective Data Current Medications Generic Name Dose Route Start Last Admin Trade Name Freq PRN Reason Stop Dose Admin Al Hydroxide/Mg Hydroxide 15 ml 06/15/20 02:51 06/15/20 03:38 Magnesium Hydrox/Alum Hydrox 30 Ml Oral.Susp PO 15 ml Q4H PRN Administration Heartburn Albuterol/Ipratropium 3 ml 06/14/20 14:00 06/15/20 07:45 Albuterol/Iprat 2.5/0.5mg 3 Ml Ampul.Neb INHALE 3 ml RQ6H WHILE AWAKE MIKAELA Administration Dexamethasone 6 mg 06/15/20 09:00 06/15/20 09:10 Dexamethasone 6 Mg Tablet PO 6 mg DAILY MIKAELA Administration Enoxaparin Sodium 40 mg 06/14/20 11:00 06/15/20 11:37 Enoxaparin Sodium 40 Mg/0.4 Ml Syringe SUBCUT Not Given Q24H MIKAELA Furosemide 20 mg 06/15/20 09:00 06/15/20 09:10 Furosemide 20 Mg Tablet PO 20 mg DAILY MIKAELA Administration Protocol Guaifenesin/Codeine Phosphate 10 ml 06/14/20 16:38 06/15/20 09:16 Guaifen/Codeine Sf 200/20/10ml 10 Ml Liquid PO 10 ml Q4H PRN Administration Cough Hydrocodone Bit/Homatropine Methylb 5 ml 06/15/20 11:08 06/15/20 11:33 Hydrocodone/Homat 5/1.5/5 Ml 5 Ml Syrup PO 5 ml Q4H PRN Administration cough Remdesivir 100 mg/ Sodium 250 mls @ 125 mls/hr 06/15/20 18:00 Chloride IV 06/18/20 19:59 Q24H [facility] Insulin Human Lispro 0 unit 06/14/20 21:00 06/15/20 11:33 Insulin Lispro 100 Unit/Ml 3 Ml Vial SUBCUT 4 unit QIDACHS [facility] Administration Protocol Omeprazole 20 mg 06/15/20 06:30 06/15/20 05:01 Omeprazole 20 Mg Capsule. PO 20 mg DAILY@0630 [facility] Administration Pharmacy Consult 1 each 06/14/20 06:59 Consult Rx Perform Med Rec MISCELLANE ONCE PRN Consult order Sodium Chloride 3 ml 06/14/20 16:00 06/15/20 09:11 0.9 % Sodium Chloride Flush 3 Ml Syringe IVFLUSH 3 ml QSHIFT [facility] Administration Tiotropium [place] 1 puff 06/15/20 08:00 06/15/20 07:48 Tiotropium [place] 18 Mcg Cap.W.Dev INHALE Not Given RDAILY [facility] Labs CBC & Chem 7: 06/15/20 05:59 06/15/20 05:59 Labs: Laboratory Results - last 24 hr 06/14/20 06/14/20 06/14/20 08:28 16:08 16:59 WBC RBC Hgb Hct MCV MCH MCHC RDW Plt Count MPV Immature Gran % (Auto) Neut % (Auto) Lymph % (Auto) [place] % (Auto) Eos % (Auto) Baso % (Auto) Lymph # (Auto) [place] # (Auto) Eos # (Auto) Baso # (Auto) Abs Immat Gran (auto) Absolute Neuts (auto) Absolute Nucleated RBC Nucleated RBC % (auto) VBG pH VBG pCO2 VBG Oxygen Liters/Min VBG pO2 VBG HCO3 VBG O2 Saturation VBG Base Excess Sodium Potassium Chloride Carbon Dioxide Anion Gap BUN Creatinine Estim Creat Clear Calc Estimated GFR POC Glucose 524 H* Random Glucose Fasting Glucose 523 H* Estimat Average Glucose Hemoglobin A1c % Calcium Phosphorus Magnesium Ferritin 340 H Total Bilirubin AST ALT Alkaline Phosphatase Total Protein Albumin 06/15/20 06/15/2006/15/20 05:59 05:59 05:59 WBC 10.8 RBC 4.60 Hgb 14.0 Hct 41.4 L MCV 90.0 MCH 30.4 MCHC 33.8 RDW 12.7 Plt Count 166 MPV 9.5 Immature Gran % (Auto) 0.7 H Neut % (Auto) 88.0 H Lymph % (Auto) 7.1 L [place] % (Auto) 4.1 Eos % (Auto) 0.0 Baso % (Auto) 0.1 Lymph # (Auto) 0.8 L [place] # (Auto) 0.4 Eos # (Auto) 0.0 Baso # (Auto) 0.0 Abs Immat Gran (auto) 0.08 H Absolute Neuts (auto) 9.5 H Absolute Nucleated RBC 0.000 Nucleated RBC % (auto) 0.0 VBG pH 7.45 H VBG pCO2 36 VBG Oxygen Liters/Min Not Reportable VBG pO2 46 VBG HCO3 24 VBG O2 Saturation 83.0 VBG Base Excess 0.7 Sodium 133 L Potassium 4.4 Chloride 97 Carbon Dioxide 25 Anion Gap 15 BUN 23 H Creatinine 0.87 Estim Creat Clear Calc 84.8 Estimated GFR > 60 POC Glucose Random Glucose 131 H Fasting Glucose Estimat Average Glucose Hemoglobin A1c % Calcium 8.6 Phosphorus 3.0 Magnesium 2.0 Ferritin Total Bilirubin 0.7 AST 35 ALT 34 Alkaline Phosphatase 81 Total Protein 6.1 L Albumin 3.7 06/15/20 06/15/20 05:59 07:39 WBC RBC Hgb Hct MCV MCH MCHC RDW Plt Count MPV Immature Gran % (Auto) Neut % (Auto) Lymph % (Auto) [place] % (Auto) Eos % (Auto) Baso % (Auto) Lymph # (Auto) [place] # (Auto) Eos # (Auto) Baso # (Auto) Abs Immat Gran (auto) Absolute Neuts (auto) Absolute Nucleated RBC Nucleated RBC % (auto) VBG pH VBG pCO2 VBG Oxygen Liters/Min VBG pO2 VBG HCO3 VBG O2 Saturation VBG Base Excess Sodium Potassium Chloride Carbon Dioxide Anion Gap BUN Creatinine Estim Creat Clear Calc Estimated GFR POC Glucose 131 H Random Glucose Fasting Glucose Estimat Average Glucose 186 Hemoglobin A1c % 8.1 Calcium Phosphorus Magnesium Ferritin Total Bilirubin AST ALT Alkaline Phosphatase Total Protein Albumin Microbiology Microbiology Results: Microbiology 06/14/20 08:29 Blood - Venous Blood Culture - Preliminary No growth after 24 hours. 06/14/20 08:22 Blood - Venous Blood Culture - Preliminary No growth after 24 hours. Assessment and Plan (1) COVID-19: Problem details: He has worsening hypoxia He is in late acute/early inflammatory phase He has received steroids There are no signs of bacterial pneumonia Status: Acute (2) Hypoxia: Status: Acute Assessment and Plan: hospital d#2 70yo M with COPD originally admitted 06/09-06/12/20 for COPD exacerbation and COVID-19 pneumonia, readmitted 06/14/20 to ICU for hypoxic respiratory failure requiring CPAP and transitioned to HFNC # acute hypoxic respiratory failure - continue HFNC, wean as tolerated, encouraged self-proning # severe COVID-19 pneumonia - dexamethasone d#01/11, remdesivir #09/08, ID following, trend inflammatory markers, maintain isolation # COPD exacerbation - steroids as above, prn MADDY, continue LAMA + LABA/ICS + LTRA # HTN - continue valsartan, furosemide # GERD - continue PPI # gout - continue allopurinol # DM2 - correction-dose lispro, check A1c. not on OHGs or insulin at home. # VTE ppx - high risk; LMWH + SCDs
[2020-06-15 11:45] LABS: Glucose, Whole Blood 228 mg/dL (60-115)
[2020-06-15] MEDS: Valsartan 80 MG TABLET PO (12:32)
[2020-06-15] MEDS: Albuterol Sulfate 90 MCG 8 GM INHALER 4 PUFF INHALE (14:08)
[2020-06-15 16:33] LABS: Glucose, Whole Blood 270 mg/dL (60-115)
[2020-06-15] MEDS: Throat Lozenge, Medicated LOZENGE 1 LOZENGE MUCOUS MEM (17:43)
[2020-06-15] MEDS: Remdesivir 100 MG in 0.9 % Sodium Chloride 230 ML 125 MG IV (17:44)
[2020-06-15] MEDS: Acetaminophen 325 MG TABLET 650 MG PO (18:18)
[2020-06-15 20:09] LABS: Glucose, Whole Blood 168 mg/dL (60-115)
[2020-06-16] VITALS (14 sets, daily range): BP systolic 108–135; BP diastolic 69–94; PULSE 54–79; RESP 18–22; TEMP 36.3–36.7; O2SAT 60–98
[2020-06-16] MEDS: HYDROcodone/Homat 5/1.5/5 ML 5 ML SYRUP PO ×5 (03:40→20:29)
[2020-06-16] MEDS: Throat Lozenge, Medicated LOZENGE 1 LOZENGE MUCOUS MEM ×6 (03:43→22:22)
[2020-06-16] MEDS: Albuterol Sulfate 90 MCG 8 GM INHALER 4 PUFF INHALE (03:52)
[2020-06-16] MEDS: Omeprazole 20 MG CAPSULE.DR PO (05:19)
[2020-06-16] MEDS: guaiFEN/Codeine SF 200/20/10ML 10 ML LIQUID PO ×5 (06:02→22:57)
[2020-06-16 06:39] LABS: MANUAL DIFF FLAG NO
[2020-06-16 06:54] LABS: Basophils Percent Auto 0.1 % (0-2); Eosinophils Percent Auto 0.1 % (0-4); Hematocrit 44.4 % (42-52); Hemoglobin 14.9 g/dl (14.0-18.0); Imm Gran Abs Auto 0.07 X10*3/uL (0.00-0.03); Imm Gran Pct Auto 0.8 % (0.0-0.4); Lymphocytes Absolute Auto 0.9 X10*3/uL (1.2-4.9); Lymphocytes Percent Auto 9.2 % (20-40); Mean Corpuscular HGB Conc 33.6 g/dl (31.0-36.0); Mean Corpuscular Hemoglobin 31.1 pg (27.0-33.0); Mean Corpuscular Volume 92.7 fL (80-98); Mean Platelet Volume 9.4 fL (9.4-12.4); Monocytes Absolute Auto 0.4 X10*3/uL (0.1-1.2); Monocytes Percent Auto 4.6 % (2-11); Neutrophils Absolute Auto 7.9 X10*3/uL (2.0-8.3); Neutrophils Percent Auto 85.2 % (45-73); Platelet Count 199 X10*3/uL (160-400); Red Blood Count 4.79 X10*6/uL (4.60-5.80); Red Cell Distribution Width 12.5 % (11.0-16.0); White Blood Count 9.2 X10*3/uL (4.8-10.8)
[2020-06-16 06:55] LABS: D Dimer 968 NG/ML
[2020-06-16 07:14] LABS: Alanine Aminotransferase 36 U/L (0-40); Albumin Level 3.8 g/dL (3.5-5.0); Alkaline Phosphatase 80 U/L (39-117); Anion Gap 14 (12-20); Aspartate Amino Transferase 30 U/L (5-37); Bilirubin Total 0.7 mg/dL (0.0-1.0); Blood Urea Nitrogen 27 mg/dL (9-16); C Reactive Protein 18.71 mg/dL (< or = 0.50); Calcium 8.8 mg/dL (8.4-10.2); Carbon Dioxide 30 mmol/L (22-29); Chloride 97 mmol/L (96-108); Creatinine Clr Calc Pharmacy 76.1; Estimated Glomerular Filt Rate > 60; Glucose Random 150 mg/dL (60-115); Lactate Dehydrogenase 399 U/L (118-273); Potassium 4.7 mmol/l (3.3-5.1); Sodium 136 mmol/L (135-145); Total Protein 6.2 g/dL (6.5-8.0); Troponin-I High Sensitivity 9.9 ng/L (<3.5-35.0)
[2020-06-16] MEDS: Valsartan 80 MG TABLET PO (07:45)
[2020-06-16] MEDS: Montelukast Sodium 10 MG TABLET PO (07:45)
[2020-06-16] MEDS: dexAMETHasone 6 MG TABLET PO (07:45)
[2020-06-16] MEDS: Furosemide 20 MG TABLET PO (07:45)
[2020-06-16] MEDS: allopurinoL 300 MG TABLET PO (07:45)
[2020-06-16] MEDS: 0.9 % Sodium Chloride Flush 3 ML SYRINGE IVFLUSH ×3 (07:46→20:30)
[2020-06-16 07:50] LABS: Glucose, Whole Blood 143 mg/dL (60-115)
[2020-06-16] MEDS: Acetaminophen 325 MG TABLET 650 MG PO (07:52)
[2020-06-16] MEDS: Fluticasone/Vilanterol 200/25 BLST.W.DEV 1 PUFF INHALE (08:59)
--- NOTE | 2020-06-16 11:07 | P.PNIM_ITS ---
Subjective Subjective Date of Service: 06/16/20 Interval History: remains on HFNC, fiO2 80% at 50 Lpm. c/o chest wall pain from constant coughing. no fever Physical Exam Vital Signs: Vital Signs: Last Vital Signs Temp 97.5 F 06/16/20 07:40 Pulse 71 06/16/20 07:45 Resp 18 06/16/20 08:47 BP 135/94 H 06/16/20 07:45 Pulse Ox 95 06/16/20 07:40 Body Mass Index 31.3 Gen: mild dyspnea HEENT: sclera anicteric, moist mucus membranes Neck: supple Lungs: auscultation deferred due to COVID-19 Heart: normal peripheral pulses Abd: soft, non-tender, non-distended Ext: no cyanosis, clubbing, or edema Skin: warm/well-perfused Neuro: alert and oriented x3, no focal findings Psych: appropriate affect Objective Data Current Medications Generic Name Dose Route Start Last Admin Trade Name Freq PRN Reason Stop Dose Admin Acetaminophen 650 mg 06/15/20 18:07 06/16/20 07:52 Acetaminophen 325 Mg Tablet PO 650 mg Q6H PRN Administration Fever Al Hydroxide/Mg Hydroxide 15 ml 06/15/20 02:51 06/15/20 03:38 Magnesium Hydrox/Alum Hydrox 30 Ml Oral.Susp PO 15 ml Q4H PRN Administration Heartburn Albuterol Sulfate 4 puff 06/15/20 11:41 06/16/20 03:52 Albuterol Sulfate 90 Mcg 8 Gm Inhaler INHALE 4 puff Q3H PRN Administration shortness of breath or wheezin Allopurinol 300 mg 06/16/20 09:00 06/16/20 07:45 Allopurinol 300 Mg Tablet PO 300 mg DAILY MIKAELA Administration Benzocaine 1 lozenge 06/15/20 17:37 06/16/20 10:56 Throat Lozenge, Medicated Lozenge MUCOUS MEM 1 lozenge Q2H PRN Administration Sore Throat Dexamethasone 6 mg 06/15/20 09:00 06/16/20 07:45 Dexamethasone 6 Mg Tablet PO 6 mg DAILY MIKAELA Administration Enoxaparin Sodium 40 mg 06/14/20 11:00 06/16/20 10:56 Enoxaparin Sodium 40 Mg/0.4 Ml Syringe SUBCUT Not Given Q24H MIKAELA Fluticasone/Vilanterol 1 puff 06/16/20 08:00 06/16/20 08:59 Fluticasone/Vilanterol 200/25 Blst.W.Dev INHALE 1 puff RDAILY MIKAELA Administration Furosemide 20 mg 06/15/20 09:00 06/16/20 07:45 Furosemide 20 Mg Tablet PO 20 mg DAILY [facility] Administration Protocol Guaifenesin/Codeine Phosphate 10 ml 06/14/20 16:38 06/16/20 10:56 Guaifen/Codeine Sf 200/20/10ml 10 Ml Liquid PO 10 ml Q4H PRN Administration Cough Hydrocodone Bit/Homatropine Methylb 5 ml 06/15/20 11:08 06/16/20 07:45 Hydrocodone/Homat 5/1.5/5 Ml 5 Ml Syrup PO 5 ml Q4H PRN Administration cough Remdesivir 100 mg/ Sodium 250 mls @ 125 mls/hr 06/15/20 18:00 06/15/20 19:46 Chloride IV 06/18/20 19:59 Infused Q24H [facility] Infusion Insulin Human Lispro 0 unit 06/14/20 21:00 06/16/20 07:53 Insulin Lispro 100 Unit/Ml 3 Ml Vial SUBCUT Not Given QIDAS [facility] Protocol Montelukast Sodium 10 mg 06/16/20 09:00 06/16/20 07:45 Montelukast Sodium 10 Mg Tablet PO 10 mg DAILY [facility] Administration Omeprazole 20 mg 06/16/20 06:00 06/16/20 05:19 Omeprazole 20 Mg Capsule.Dr PO 20 mg DAILY@0600 [facility] Administration Pharmacy Consult 1 each 06/14/20 06:59 Consult Rx Perform Med Rec MISCELLANE ONCE PRN Consult order Sodium Chloride 3 ml 06/14/20 16:00 06/16/20 07:46 0.9 % Sodium Chloride Flush 3 Ml Syringe IVFLUSH 3 ml QSHIFT [facility] Administration Tiotropium [place] 1 puff 06/15/20 08:00 06/16/20 09:06 Tiotropium [place] 18 Mcg Cap.W.Dev INHALE 1 puff RDAILY [facility] Administration Trazodone HCl 50 mg 06/15/20 11:50 Trazodone Hcl 50 Mg Tablet PO BEDTIME PRN Sleep Valsartan 80 mg 06/15/20 12:00 06/16/20 07:45 Valsartan 80 Mg Tablet PO 80 mg DAILY MIKAELA Administration Protocol Labs CBC & Chem 7: 06/16/20 06:16 06/16/20 06:16 Labs: Laboratory Results - last 24 hr 06/15/20 06/15/20 06/15/20 11:25 16:18 20:01 WBC RBC Hgb Hct MCV MCH MCHC RDW Plt Count MPV Immature Gran % (Auto) Neut % (Auto) Lymph % (Auto) [place] % (Auto) Eos % (Auto) Baso % (Auto) Lymph # (Auto) [place] # (Auto) Eos # (Auto) Baso # (Auto) Abs Immat Gran (auto) Absolute Neuts (auto) Absolute Nucleated RBC Nucleated RBC % (auto) D-Dimer Sodium Potassium Chloride Carbon Dioxide Anion Gap BUN Creatinine Estim Creat Clear Calc Estimated GFR POC Glucose 228 H 270 H 168 H Random Glucose Calcium Total Bilirubin AST ALT Alkaline Phosphatase Lactate Dehydrogenase Troponin I High Sens C-Reactive Protein Total Protein Albumin Procalcitonin 06/16/20 06/16/20 06/16/20 06:16 06:16 06:16 WBC 9.2 RBC 4.79 Hgb 14.9 Hct 44.4 MCV 92.7 MCH 31.1 MCHC 33.6 RDW 12.5 Plt Count 199 MPV 9.4 Immature Gran % (Auto) 0.8 H Neut % (Auto) 85.2 H Lymph % (Auto) 9.2 L [place] % (Auto) 4.6 Eos % (Auto) 0.1 Baso % (Auto) 0.1 Lymph # (Auto) 0.9 L [place] # (Auto) 0.4 Eos # (Auto) 0.0 Baso # (Auto) 0.0 Abs Immat Gran (auto) 0.07 H Absolute Neuts (auto) 7.9 Absolute Nucleated RBC 0.000 Nucleated RBC % (auto) 0.0 D-Dimer 968 Sodium 136 Potassium 4.7 Chloride 97 Carbon Dioxide 30 H Anion Gap 14 BUN 27 H Creatinine 0.97 Estim Creat Clear Calc 76.1 Estimated GFR > 60 POC Glucose Random Glucose 150 H Calcium 8.8 Total Bilirubin 0.7 AST 30 ALT 36 Alkaline Phosphatase 80 Lactate Dehydrogenase 399 H Troponin I High Sens C-Reactive Protein 18.71 H Total Protein 6.2 L Albumin 3.8 Procalcitonin 06/16/20 06/16/20 06/16/20 06:16 06:16 07:37 WBC RBC Hgb Hct MCV MCH MCHC RDW Plt Count MPV Immature Gran % (Auto) Neut % (Auto) Lymph % (Auto) [place] % (Auto) Eos % (Auto) Baso % (Auto) Lymph # (Auto) [place] # (Auto) Eos # (Auto) Baso # (Auto) Abs Immat Gran (auto) Absolute Neuts (auto) Absolute Nucleated RBC Nucleated RBC % (auto) D-Dimer Sodium Potassium Chloride Carbon Dioxide Anion Gap BUN Creatinine Estim Creat Clear Calc Estimated GFR POC Glucose 143 H Random Glucose Calcium Total Bilirubin AST ALT Alkaline Phosphatase Lactate Dehydrogenase Troponin I High Sens 9.9 D C-Reactive Protein Total Protein Albumin Procalcitonin 0.10 Microbiology Microbiology Results: Microbiology 06/14/20 08:29 Blood - Venous Blood Culture - Preliminary No growth after 48 hours. 06/14/20 08:22 Blood - Venous Blood Culture - Preliminary No growth after 48 hours. Assessment and Plan (1) COVID-19: Problem details: He has worsening hypoxia He is in late acute/early inflammatory phase He has received steroids There are no signs of bacterial pneumonia Status: Acute (2) Hypoxia: Status: Acute Assessment and Plan: hospital d#3 70yo M with COPD + tracheomalacia originally admitted 06/09-06/12/20 for COPD exacerbation and COVID-19 pneumonia readmitted 06/14/20 to ICU for hypoxic respiratory failure requiring CPAP and transitioned to HFNC and stepped down to IMC 06/14/20 # acute hypoxic respiratory failure - continue HFNC, wean as tolerated, encouraged self-proning # severe COVID-19 pneumonia - dexamethasone d#02/10, remdesivir #3/5, ID following, trend inflammatory markers, maintain isolation - try lidocaine patch for chest wall pain from coughing # COPD exacerbation - steroids as above, prn MADDY, continue LAMA + LABA/ICS + LTRA # HTN - continue valsartan, furosemide # GERD - continue PPI # gout - continue allopurinol # DM2, A1c 8.1 - correction-dose lispro; not on OHGs or insulin at home. # VTE ppx - high risk; LMWH + SCDs
[2020-06-16 11:41] LABS: Glucose, Whole Blood 315 mg/dL (60-115)
[2020-06-16] MEDS: Lidocaine 4 % Patch ADH..PATCH 2 PATCH TRANSDERMA (11:47)
[2020-06-16] MEDS: Insulin Lispro 100 UNIT/ML 3 ML VIAL SUBCUT ×3 (11:47→20:29)
--- NOTE | 2020-06-16 12:03 | MHC.CM.PN ---
No DC today. Patient continues to require High flow O2. The Patient may require STR. CM will follow.
[2020-06-16 16:32] LABS: Glucose, Whole Blood 235 mg/dL (60-115)
[2020-06-16] MEDS: Remdesivir 100 MG in 0.9 % Sodium Chloride 230 ML 125 MG IV (18:23)
[2020-06-16 20:26] LABS: Glucose, Whole Blood 236 mg/dL (60-115)
[2020-06-17] VITALS (15 sets, daily range): BP systolic 114–141; BP diastolic 68–81; PULSE 55–84; RESP 16–22; TEMP 35.8–37.2; O2SAT 90–97
--- NOTE | 2020-06-17 | XR_ITS ---
EXAMINATION: XR CHEST CLINICAL INFORMATION: Covid. Hypoxia. COMPARISON: Chest x-ray 06/14/2020 TECHNIQUE: Frontal view of the chest was obtained. FINDINGS: Patchy bilateral infiltrates are again noted and appear slightly increased in prominence on today's radiographs. No gross lobar consolidation identified. No pleural effusion or pneumothorax. Cardiac silhouette is unchanged. Partially imaged right shoulder prosthesis. XR/XR chest 1V IMPRESSION: Mild interval worsening in patchy bilateral infiltrates.
[2020-06-17] MEDS: Magnesium Hydrox/Alum Hydrox 30 ML ORAL.SUSP 15 ML PO (00:58)
[2020-06-17] MEDS: HYDROcodone/Homat 5/1.5/5 ML 5 ML SYRUP PO ×5 (01:57→21:58)
[2020-06-17] MEDS: Throat Lozenge, Medicated LOZENGE 1 LOZENGE MUCOUS MEM ×3 (04:12→21:58)
[2020-06-17] MEDS: guaiFEN/Codeine SF 200/20/10ML 10 ML LIQUID PO ×4 (04:12→21:01)
[2020-06-17] MEDS: Omeprazole 20 MG CAPSULE.DR PO (06:52)
[2020-06-17 07:41] LABS: Glucose, Whole Blood 141 mg/dL (60-115)
[2020-06-17] MEDS: Furosemide 20 MG TABLET PO (08:09)
[2020-06-17] MEDS: Montelukast Sodium 10 MG TABLET PO (08:09)
[2020-06-17] MEDS: dexAMETHasone 6 MG TABLET PO (08:09)
[2020-06-17] MEDS: Valsartan 80 MG TABLET PO (08:09)
[2020-06-17] MEDS: 0.9 % Sodium Chloride Flush 3 ML SYRINGE IVFLUSH ×2 (08:10→21:01)
[2020-06-17] MEDS: allopurinoL 300 MG TABLET PO (08:10)
[2020-06-17] MEDS: Fluticasone/Vilanterol 200/25 BLST.W.DEV 1 PUFF INHALE (08:58)
--- NOTE | 2020-06-17 10:12 | PC.NURSE ---
SA02 MAINTAINING 79-80% ON CONTINOUS MONITORING. RESPIRATORY CALLED. HOSPITALIST MADE AWARE. HIGH FLOW INCREASED TO 100% AND PT ALSO PLACED ON 100% NONREBREATHER. SITTING UP IN CHAIR. PCXR ORDERED. ABLE TO ACHIEVE SA02 OF GREATER OR EQUAL TO 95%. TRIALED BACK ON ONLY HIGHFLOW NC FOR BREAKFAST BUT DESAT BACK DOWN SO NONREBREATHER PLACED BACK ON,. DAUGHTER UPDATED OVER THE TELEPHONE.
[2020-06-17] MEDS: dexAMETHasone sod phosphate 4 MG/ML VIAL 6 MG IVPUSH (10:20)
--- NOTE | 2020-06-17 11:12 | HO.PM.IMPN ---
Subjective Subjective Date of Service: 06/17/20 Interval History: This am had coughing fit, SaO2 dropped to 79% despite HFNC 100% fiO2 @ 60 LPM and addition of NRB @ 15L; coughed up secretions and SaO2 recovered to 97% but still requiring maximum O2 support. Notified ICU Dr Arias in case of another decompensation. Physical Exam Vital Signs: Vital Signs: Last Vital Signs Temp 97.4 F 06/17/20 07:57 Pulse 65 06/17/20 08:09 Resp 20 06/17/20 11:10 BP 114/70 06/17/20 08:09 Pulse Ox 97 06/17/20 07:57 Body Mass Index 31.3 Gen: respiratory distress HEENT: sclera anicteric Neck: supple Lungs: auscultation deferred due to COVID-19 Heart: normal peripheral pulses Abd: soft, non-tender, non-distended Ext: no cyanosis, clubbing, or edema Skin: warm/well-perfused Neuro: alert and oriented x3, no focal findings Psych: appropriate affect Objective Data Current Medications Generic Name Dose Route Start Last Admin Trade Name Freq PRN Reason Stop Dose Admin Acetaminophen 650 mg 06/15/20 18:07 06/16/20 07:52 Acetaminophen 325 Mg Tablet PO 650 mg Q6H PRN Administration Fever Al Hydroxide/Mg Hydroxide 15 ml 06/15/20 02:51 06/17/20 00:58 Magnesium Hydrox/Alum Hydrox 30 Ml Oral.Susp PO 15 ml Q4H PRN Administration Heartburn Albuterol Sulfate 4 puff 06/15/20 11:41 06/16/20 03:52 Albuterol Sulfate 90 Mcg 8 Gm Inhaler INHALE 4 puff Q3H PRN Administration shortness of breath or wheezin Allopurinol 300 mg 06/16/20 09:00 06/17/20 08:10 Allopurinol 300 Mg Tablet PO 300 mg DAILY MIKAELA Administration Benzocaine 1 lozenge 06/15/20 17:37 06/17/20 07:09 Throat Lozenge, Medicated Lozenge MUCOUS MEM 1 lozenge Q2H PRN Administration Sore Throat Dexamethasone Sodium Phosphate 6 mg 06/17/20 09:00 06/17/20 10:20 Dexamethasone Sod Phosphate 4 Mg/Ml Vial IVPUSH 06/19/20 09:01 6 mg DAILY MIKAELA Administration Enoxaparin Sodium 40 mg 06/14/20 11:00 06/16/20 10:56 Enoxaparin Sodium 40 Mg/0.4 Ml Syringe SUBCUT Not Given Q24H [facility] Fluticasone/Vilanterol 1 puff 06/16/20 08:00 06/17/20 08:58 Fluticasone/Vilanterol 200/25 Blst.W.Dev INHALE 1 puff RDAILY [facility] Administration Furosemide 20 mg 06/15/20 09:00 06/17/20 08:09 Furosemide 20 Mg Tablet PO 20 mg DAILY [facility] Administration Protocol Guaifenesin/Codeine Phosphate 10 ml 06/14/20 16:38 06/17/20 10:20 Guaifen/Codeine Sf 200/20/10ml 10 Ml Liquid PO 10 ml Q4H PRN Administration Cough Hydrocodone Bit/Homatropine Methylb 5 ml 06/15/20 11:08 06/17/20 06:52 Hydrocodone/Homat 5/1.5/5 Ml 5 Ml Syrup PO 5 ml Q4H PRN Administration cough Remdesivir 100 mg/ Sodium 250 mls @ 125 mls/hr 06/15/20 18:00 06/16/20 20:48 Chloride IV 06/18/20 19:59 Infused Q24H [facility] Infusion Insulin Human Lispro 0 unit 06/14/20 21:00 06/17/20 08:10 Insulin Lispro 100 Unit/Ml 3 Ml Vial SUBCUT Not Given QIDACHS [facility] Protocol Lidocaine 2 patch 06/16/20 11:15 06/17/20 08:23 Lidocaine 4 % Patch Adh..Patch TRANSDERMA Not Given DAILY [facility] Protocol Montelukast Sodium 10 mg 06/16/20 09:00 06/17/20 08:09 Montelukast Sodium 10 Mg Tablet PO 10 mg DAILY [facility] Administration Patient Own Nucala 100 each 06/16/20 18:00 06/16/20 18:23 SUBCUT 100 each Q28D [facility] Administration Omeprazole 20 mg 06/16/20 06:00 06/17/20 06:52 Omeprazole 20 Mg Capsule. PO 20 mg DAILY@0600 [facility] Administration Pharmacy Consult 1 each 06/14/20 06:59 Consult Rx Perform Med Rec MISCELLANE ONCE PRN Consult order Sodium Chloride 3 ml 06/14/20 16:00 06/17/20 08:10 0.9 % Sodium Chloride Flush 3 Ml Syringe IVFLUSH 3 ml QSHIFT MIKAELA Administration Tiotropium [place] 1 puff 06/15/20 08:00 06/17/20 08:58 Tiotropium [place] 18 Mcg Cap.W.Dev INHALE 1 puff RDAILY MIKAELA Administration Trazodone HCl 50 mg 06/15/20 11:50 Trazodone Hcl 50 Mg Tablet PO BEDTIME PRN Sleep Valsartan 80 mg 06/15/20 12:00 06/17/20 08:09 Valsartan 80 Mg Tablet PO 80 mg DAILY MIKAELA Administration Protocol Labs CBC & Chem 7: 06/16/20 06:16 06/16/20 06:16 Labs: Laboratory Results - last 24 hr 06/16/20 06/16/20 06/16/20 11:26 16:25 20:23 POC Glucose 315 H 235 H 236 H 06/17/20 07:36 POC Glucose 141 H Impressions Chest X-Ray 06/17/20 00:00 IMPRESSION: Mild interval worsening in patchy bilateral infiltrates. Microbiology Microbiology Results: Microbiology 06/14/20 08:29 Blood - Venous Blood Culture - Preliminary No growth after 48 hours. 06/14/20 08:22 Blood - Venous Blood Culture - Preliminary No growth after 48 hours. Assessment and Plan (1) COVID-19: Problem details: He has worsening hypoxia He is in late acute/early inflammatory phase He has received steroids There are no signs of bacterial pneumonia Status: Acute (2) Hypoxia: Status: Acute Assessment and Plan: hospital d#4 70yo M with COPD + tracheomalacia originally admitted 06/09-06/12/20 for COPD exacerbation and COVID-19 pneumonia readmitted 06/14/20 to ICU for hypoxic respiratory failure requiring CPAP and transitioned to HFNC and stepped down to IMC 06/14/20 # acute hypoxic respiratory failure - continue HFNC + NRB, encouraged self-proning # severe COVID-19 pneumonia - dexamethasone d#8/, remdesivir #4/5, ID following, trend inflammatory markers, maintain isolation. consider convalescent plasma. - lidocaine patch for chest wall pain from coughing # COPD/allergic asthma exacerbation - steroids as above, prn MADDY, continue LAMA + LABA/ICS + LTRA + Nucala # HTN - continue valsartan, furosemide # GERD - continue PPI # gout - continue allopurinol # DM2, A1c 8.1 - correction-dose lispro; not on OHGs or insulin at home. # VTE ppx - high risk; LMWH + SCDs
[2020-06-17 12:17] LABS: Glucose, Whole Blood 264 mg/dL (60-115)
[2020-06-17 12:44] LABS: Basophils Percent Auto 0.1 % (0-2); Hematocrit 44.7 % (42-52); Imm Gran Abs Auto 0.08 X10*3/uL (0.00-0.03); Imm Gran Pct Auto 0.8 % (0.0-0.4); Lymphocytes Absolute Auto 0.3 X10*3/uL (1.2-4.9); Lymphocytes Percent Auto 2.4 % (20-40); MANUAL DIFF FLAG SCAN; Mean Corpuscular HGB Conc 33.6 g/dl (31.0-36.0); Mean Corpuscular Hemoglobin 30.8 pg (27.0-33.0); Mean Corpuscular Volume 91.8 fL (80-98); Mean Platelet Volume 9.4 fL (9.4-12.4); Monocytes Absolute Auto 0.3 X10*3/uL (0.1-1.2); Monocytes Percent Auto 2.9 % (2-11); Neutrophils Absolute Auto 9.7 X10*3/uL (2.0-8.3); Neutrophils Percent Auto 93.8 % (45-73); Platelet Count 169 X10*3/uL (160-400); Red Blood Count 4.87 X10*6/uL (4.60-5.80); Red Cell Distribution Width 12.2 % (11.0-16.0); SCAN SMEAR FLAG 1; White Blood Count 10.3 X10*3/uL (4.8-10.8)
[2020-06-17] MEDS: Insulin Lispro 100 UNIT/ML 3 ML VIAL SUBCUT (12:53)
[2020-06-17 13:06] LABS: SLIDE REVIEW VERIFIED
[2020-06-17 13:19] LABS: Alanine Aminotransferase 37 U/L (0-40); Albumin Level 3.5 g/dL (3.5-5.0); Alkaline Phosphatase 85 U/L (39-117); Anion Gap 15 (12-20); Aspartate Amino Transferase 26 U/L (5-37); Bilirubin Total 0.8 mg/dL (0.0-1.0); Blood Urea Nitrogen 27 mg/dL (9-16); Calcium 8.4 mg/dL (8.4-10.2); Carbon Dioxide 24 mmol/L (22-29); Chloride 99 mmol/L (96-108); Creatinine Clr Calc Pharmacy 76.1; Estimated Glomerular Filt Rate > 60; Glucose Random 294 mg/dL (60-115); Potassium 4.8 mmol/l (3.3-5.1); Sodium 133 mmol/L (135-145)
[2020-06-17 13:33] LABS: Ferritin 506 ng/mL (20-250)
[2020-06-17 16:35] LABS: Glucose, Whole Blood 340 mg/dL (60-115)
[2020-06-17] MEDS: Remdesivir 100 MG in 0.9 % Sodium Chloride 230 ML 125 MG IV (18:48)
[2020-06-18] VITALS (16 sets, daily range): BP systolic 117–139; BP diastolic 55–79; PULSE 56–91; RESP 18–20; TEMP 35.9–37.1; O2SAT 91–194
[2020-06-18] MEDS: guaiFEN/Codeine SF 200/20/10ML 10 ML LIQUID PO ×5 (00:54→22:19)
[2020-06-18] MEDS: Throat Lozenge, Medicated LOZENGE 1 LOZENGE MUCOUS MEM (04:56)
[2020-06-18] MEDS: HYDROcodone/Homat 5/1.5/5 ML 5 ML SYRUP PO ×4 (04:56→22:19)
[2020-06-18] MEDS: Omeprazole 20 MG CAPSULE.DR PO (04:56)
[2020-06-18 07:28] LABS: Hematocrit 42.9 % (42-52); Hemoglobin 14.6 g/dl (14.0-18.0); MANUAL DIFF FLAG SCAN; Monocytes Absolute Auto 0.3 X10*3/uL (0.1-1.2); PLT CLUMP 1; SCAN SMEAR FLAG 1
[2020-06-18 07:30] LABS: Basophils Percent Auto 0.2 % (0-2); Eosinophils Percent Auto 0.2 % (0-4); Imm Gran Abs Auto 0.09 X10*3/uL (0.00-0.03); Imm Gran Pct Auto 0.8 % (0.0-0.4); Lymphocytes Absolute Auto 0.7 X10*3/uL (1.2-4.9); Lymphocytes Percent Auto 6.5 % (20-40); Mean Corpuscular Volume 91.1 fL (80-98); Mean Platelet Volume 10.1 fL (9.4-12.4); Monocytes Percent Auto 3.1 % (2-11); Neutrophils Absolute Auto 9.7 X10*3/uL (2.0-8.3); Neutrophils Percent Auto 89.2 % (45-73); Platelet Count 152 X10*3/uL (160-400); Red Blood Count 4.71 X10*6/uL (4.60-5.80); Red Cell Distribution Width 11.9 % (11.0-16.0); White Blood Count 10.8 X10*3/uL (4.8-10.8)
[2020-06-18 07:35] LABS: Glucose, Whole Blood 156 mg/dL (60-115)
[2020-06-18] MEDS: Fluticasone/Vilanterol 200/25 BLST.W.DEV 1 PUFF INHALE (07:45)
[2020-06-18 08:09] LABS: Alanine Aminotransferase 33 U/L (0-40); Albumin Level 3.3 g/dL (3.5-5.0); Alkaline Phosphatase 82 U/L (39-117); Anion Gap 18 (12-20); Aspartate Amino Transferase 23 U/L (5-37); Bilirubin Total 0.8 mg/dL (0.0-1.0); Blood Urea Nitrogen 27 mg/dL (9-16); C Reactive Protein 10.76 mg/dL (< or = 0.50); Calcium 8.4 mg/dL (8.4-10.2); Carbon Dioxide 21 mmol/L (22-29); Chloride 103 mmol/L (96-108); Creatinine Clr Calc Pharmacy 72.3; Estimated Glomerular Filt Rate > 60; Glucose Random 164 mg/dL (60-115); Lactate Dehydrogenase 418 U/L (118-273); Potassium 4.4 mmol/l (3.3-5.1); Sodium 138 mmol/L (135-145); Total Protein 5.9 g/dL (6.5-8.0)
[2020-06-18] MEDS: 0.9 % Sodium Chloride Flush 3 ML SYRINGE IVFLUSH ×3 (08:12→22:20)
[2020-06-18] MEDS: Valsartan 80 MG TABLET PO (08:12)
[2020-06-18] MEDS: allopurinoL 300 MG TABLET PO (08:12)
[2020-06-18] MEDS: Furosemide 20 MG TABLET PO (08:13)
[2020-06-18] MEDS: dexAMETHasone sod phosphate 4 MG/ML VIAL 6 MG IVPUSH (08:13)
[2020-06-18] MEDS: Montelukast Sodium 10 MG TABLET PO (08:13)
[2020-06-18 08:14] LABS: D Dimer 6305 NG/ML
[2020-06-18 08:30] LABS: INTERNATIONAL NORM RATIO 1.1 (0.9-1.1); Prothrombin Time 12.8 SEC (10.8-13.0)
[2020-06-18 08:50] LABS: SLIDE REVIEW VERIFIED
[2020-06-18] MEDS: Enoxaparin Sodium 100 MG/ML SYRINGE 90 MG SUBCUT ×2 (09:47→22:19)
--- NOTE | 2020-06-18 12:32 | P.PNIM_ITS ---
Subjective Subjective Date of Service: 06/18/20 Interval History: Dyspneic. Desaturates after coughing but otherwise able to maintain normal SaO2 with HFNC alone, though at max setting of fiO2 100% @ 60 Lpm No fever Physical Exam Vital Signs: Vital Signs: Last Vital Signs Temp 96.6 F L 06/18/20 12:31 Pulse 70 06/18/20 12:31 Resp 18 06/18/20 12:31 BP 139/55 L 06/18/20 12:31 Pulse Ox 96 06/18/20 12:31 Body Mass Index 31.3 Gen: respiratory distress HEENT: sclera anicteric Neck: supple Lungs: auscultation deferred due to COVID-19 Heart: normal peripheral pulses Abd: soft, non-tender, non-distended Ext: no cyanosis, clubbing, or edema Skin: warm/well-perfused Neuro: alert and oriented x3, no focal findings Psych: appropriate affect Objective Data Current Medications Generic Name Dose Route Start Last Admin Trade Name Freq PRN Reason Stop Dose Admin Acetaminophen 650 mg 06/15/20 18:07 06/16/20 07:52 Acetaminophen 325 Mg Tablet PO 650 mg Q6H PRN Administration Fever Al Hydroxide/Mg Hydroxide 15 ml 06/15/20 02:51 06/17/20 00:58 Magnesium Hydrox/Alum Hydrox 30 Ml Oral.Susp PO 15 ml Q4H PRN Administration Heartburn Albuterol Sulfate 4 puff 06/15/20 11:41 06/16/20 03:52 Albuterol Sulfate 90 Mcg 8 Gm Inhaler INHALE 4 puff Q3H PRN Administration shortness of breath or wheezin Allopurinol 300 mg 06/16/20 09:00 06/18/20 08:12 Allopurinol 300 Mg Tablet PO 300 mg DAILY MIKAELA Administration Benzocaine 1 lozenge 06/15/20 17:37 06/18/20 04:56 Throat Lozenge, Medicated Lozenge MUCOUS MEM 1 lozenge Q2H PRN Administration Sore Throat Dexamethasone Sodium Phosphate 6 mg 06/17/20 09:00 06/18/20 08:13 Dexamethasone Sod Phosphate 4 Mg/Ml Vial IVPUSH 06/19/20 09:01 6 mg DAILY MIKAELA Administration Enoxaparin Sodium 90 mg 06/18/20 09:30 06/18/20 09:47 Enoxaparin Sodium 100 Mg/Ml Syringe SUBCUT 90 mg Q12H MIKAELA Administration Fluticasone/Vilanterol 1 puff 06/16/20 08:00 06/18/20 07:45 Fluticasone/Vilanterol 200/25 Blst.W.Dev INHALE 1 puff RDAILY MIKAELA Administration Furosemide 20 mg 06/15/20 09:00 06/18/20 08:13 Furosemide 20 Mg Tablet PO 20 mg DAILY [facility] Administration Protocol Guaifenesin/Codeine Phosphate 10 ml 06/14/20 16:38 06/18/20 11:10 Guaifen/Codeine Sf 200/20/10ml 10 Ml Liquid PO 10 ml Q4H PRN Administration Cough Hydrocodone Bit/Homatropine Methylb 5 ml 06/15/20 11:08 06/18/20 09:47 Hydrocodone/Homat 5/1.5/5 Ml 5 Ml Syrup PO 5 ml Q4H PRN Administration cough Remdesivir 100 mg/ Sodium 250 mls @ 125 mls/hr 06/15/20 18:00 06/17/20 21:10 Chloride IV 06/18/20 19:59 Infused Q24H [facility] Infusion Insulin Human Lispro 0 unit 06/14/20 21:00 06/18/20 12:25 Insulin Lispro 100 Unit/Ml 3 Ml Vial SUBCUT Not Given QIDACHS [facility] Protocol Lidocaine 2 patch 06/16/20 11:15 06/18/20 08:14 Lidocaine 4 % Patch Adh..Patch TRANSDERMA Not Given DAILY [facility] Protocol Montelukast Sodium 10 mg 06/16/20 09:00 06/18/20 08:13 Montelukast Sodium 10 Mg Tablet PO 10 mg DAILY [facility] Administration Patient Own Nucala 100 each 06/16/20 18:00 06/16/20 18:23 SUBCUT 100 each Q28D [facility] Administration Omeprazole 20 mg 06/16/20 06:00 06/18/20 04:56 Omeprazole 20 Mg Capsule.Dr PO 20 mg DAILY@0600 [facility] Administration Pharmacy Consult 1 each 06/14/20 06:59 Consult Rx Perform Med Rec MISCELLANE ONCE PRN Consult order Sodium Chloride 3 ml 06/14/20 16:00 06/18/20 08:12 0.9 % Sodium Chloride Flush 3 Ml Syringe IVFLUSH 3 ml QSHIFT [facility] Administration Tiotropium [place] 1 puff 06/15/20 08:00 06/18/20 07:43 Tiotropium [place] 18 Mcg Cap.W.Dev INHALE 1 puff RDAILY MIKAELA Administration Trazodone HCl 50 mg 06/15/20 11:50 Trazodone Hcl 50 Mg Tablet PO BEDTIME PRN Sleep Valsartan 80 mg 06/15/20 12:00 06/18/20 08:12 Valsartan 80 Mg Tablet PO 80 mg DAILY MIKAELA Administration Protocol Labs CBC & Chem 7: 06/18/20 06:28 06/18/20 06:28 Labs: Laboratory Results - last 24 hr 06/17/20 06/17/20 06/17/20 12:36 12:36 12:36 WBC 10.3 RBC 4.87 Hgb 15.0 Hct 44.7 MCV 91.8 MCH 30.8 MCHC 33.6 RDW 12.2 Plt Count 169 MPV 9.4 Immature Gran % (Auto) 0.8 H Neut % (Auto) 93.8 H Lymph % (Auto) 2.4 L [place] % (Auto) 2.9 Eos % (Auto) 0.0 Baso % (Auto) 0.1 Lymph # (Auto) 0.3 L [place] # (Auto) 0.3 Eos # (Auto) 0.0 Baso # (Auto) 0.0 Abs Immat Gran (auto) 0.08 H Absolute Neuts (auto) 9.7 H Absolute Nucleated RBC 0.000 Nucleated RBC % (auto) 0.0 Smear Tech's Comments VERIFIED PT INR D-Dimer Sodium 133 L Potassium 4.8 Chloride 99 Carbon Dioxide 24 Anion Gap 15 BUN 27 H Creatinine 0.97 Estim Creat Clear Calc 76.1 Estimated GFR > 60 POC Glucose Random Glucose 294 H D Calcium 8.4 Ferritin 506 H Total Bilirubin 0.8 AST 26 ALT 37 Alkaline Phosphatase 85 Lactate Dehydrogenase C-Reactive Protein Total Protein 6.0 L Albumin 3.5 Blood Type Antibody Screen 06/17/20 06/17/20 06/18/20 12:36 16:25 06:28 WBC 10.8 RBC 4.71 Hgb 14.6 Hct 42.9 MCV 91.1 MCH 31.0 MCHC 34.0 RDW 11.9 Plt Count 152 L MPV 10.1 Immature Gran % (Auto) 0.8 H Neut % (Auto) 89.2 H Lymph % (Auto) 6.5 L [place] % (Auto) 3.1 Eos % (Auto) 0.2 Baso % (Auto) 0.2 Lymph # (Auto) 0.7 L [place] # (Auto) 0.3 Eos # (Auto) 0.0 Baso # (Auto) 0.0 Abs Immat Gran (auto) 0.09 H Absolute Neuts (auto) 9.7 H Absolute Nucleated RBC 0.000 Nucleated RBC % (auto) 0.0 Smear Tech's Comments VERIFIED PT INR D-Dimer Sodium Potassium Chloride Carbon Dioxide Anion Gap BUN Creatinine Estim Creat Clear Calc Estimated GFR POC Glucose 340 H Random Glucose Calcium Ferritin Total Bilirubin AST ALT Alkaline Phosphatase Lactate Dehydrogenase C-Reactive Protein Total Protein Albumin Blood Type O Positive Antibody Screen NEGATIVE 06/18/20 06/18/20 06/18/20 06:28 06:28 06:28 WBC RBC Hgb Hct MCV MCH MCHC RDW Plt Count MPV Immature Gran % (Auto) Neut % (Auto) Lymph % (Auto) [place] % (Auto) Eos % (Auto) Baso % (Auto) Lymph # (Auto) [place] # (Auto) Eos # (Auto) Baso # (Auto) Abs Immat Gran (auto) Absolute Neuts (auto) Absolute Nucleated RBC Nucleated RBC % (auto) Smear Tech's Comments PT 12.8 INR 1.1 D-Dimer 6305 Sodium 138 Potassium 4.4 Chloride 103 Carbon Dioxide 21 L Anion Gap 18 BUN 27 H Creatinine 1.02 Estim Creat Clear Calc 72.3 Estimated GFR > 60 POC Glucose Random Glucose 164 H D Calcium 8.4 Ferritin Total Bilirubin 0.8 AST 23 ALT 33 Alkaline Phosphatase 82 Lactate Dehydrogenase 418 H Cancelled C-Reactive Protein 10.76 H Cancelled Total Protein 5.9 L Albumin 3.3 L Blood Type Antibody Screen 06/18/20 07:24 WBC RBC Hgb Hct MCV MCH MCHC RDW Plt Count MPV Immature Gran % (Auto) Neut % (Auto) Lymph % (Auto) [place] % (Auto) Eos % (Auto) Baso % (Auto) Lymph # (Auto) [place] # (Auto) Eos # (Auto) Baso # (Auto) Abs Immat Gran (auto) Absolute Neuts (auto) Absolute Nucleated RBC Nucleated RBC % (auto) Smear Tech's Comments PT INR D-Dimer Sodium Potassium Chloride Carbon Dioxide Anion Gap BUN Creatinine Estim Creat Clear Calc Estimated GFR POC Glucose 156 H Random Glucose Calcium Ferritin Total Bilirubin AST ALT Alkaline Phosphatase Lactate Dehydrogenase C-Reactive Protein Total Protein Albumin Blood Type Antibody Screen Microbiology Microbiology Results: Microbiology 06/14/20 08:29 Blood - Venous Blood Culture - Preliminary No growth after 48 hours. 06/14/20 08:22 Blood - Venous Blood Culture - Preliminary No growth after 48 hours. Assessment and Plan (1) COVID-19: Problem details: He has worsening hypoxia He is in late acute/early inflammatory phase He has received steroids There are no signs of bacterial pneumonia Status: Acute (2) Hypoxia: Status: Acute Assessment and Plan: hospital d#5 70yo M with COPD + tracheomalacia originally admitted 06/09-06/12/20 for COPD exacerbation and COVID-19 pneumonia readmitted 06/14/20 to ICU for hypoxic respiratory failure requiring CPAP and transitioned to HFNC and stepped down to IMC 06/14/20 # acute hypoxic respiratory failure - continue HFNC (add NRB if needed), encouraged self-proning, ICU aware of pt in case of decompensation # severe COVID-19 pneumonia - dexamethasone d#04/13, remdesivir #5/5, convalescent plasma 06/17/20, ID following, trend inflammatory markers, maintain isolation - given precipitous rise in D-dimer and pt's reported 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 # VTE ppx - high risk; LMWH + SCDs
[2020-06-18] MEDS: Morphine Sulfate 2 MG/ML CARTRIDGE IVPUSH ×3 (13:21→22:19)
--- NOTE | 2020-06-18 14:38 | PC.NURSE ---
Pt sao2 being maintained in the mid 90's with use of highflow nc being titrated as tolerated via respiratory. persistent wet cough being medicated q2h with prn cough medicine.c/o chest pain. morphine prn added and given. educated about the need for new therapeutic dose of lovenox. daughter updated over the telephone.
[2020-06-18 16:08] LABS: Glucose, Whole Blood 267 mg/dL (60-115)
[2020-06-18] MEDS: Insulin Lispro 100 UNIT/ML 3 ML VIAL SUBCUT (16:55)
[2020-06-18] MEDS: Remdesivir 100 MG in 0.9 % Sodium Chloride 230 ML 125 MG IV (18:18)
[2020-06-18] MEDS: traZODone HCL 50 MG TABLET PO (22:19)
[2020-06-19] VITALS (15 sets, daily range): BP systolic 112–136; BP diastolic 64–84; PULSE 56–124; RESP 18–92; TEMP 36.6–37.2; O2SAT 22–99
[2020-06-19] MEDS: guaiFEN/Codeine SF 200/20/10ML 10 ML LIQUID PO ×4 (02:04→16:27)
[2020-06-19] MEDS: HYDROcodone/Homat 5/1.5/5 ML 5 ML SYRUP PO ×4 (02:04→19:19)
[2020-06-19] MEDS: Omeprazole 20 MG CAPSULE.DR PO (06:06)
[2020-06-19 06:37] LABS: MANUAL DIFF FLAG NO
[2020-06-19 06:54] LABS: Basophils Percent Auto 0.1 % (0-2); Eosinophils Absolute Auto 0.1 X10*3/uL (0.0-0.4); Eosinophils Percent Auto 0.7 % (0-4); Hematocrit 42.5 % (42-52); Hemoglobin 14.1 g/dl (14.0-18.0); Imm Gran Abs Auto 0.09 X10*3/uL (0.00-0.03); Imm Gran Pct Auto 1.2 % (0.0-0.4); Lymphocytes Absolute Auto 0.8 X10*3/uL (1.2-4.9); Lymphocytes Percent Auto 10.3 % (20-40); Mean Corpuscular HGB Conc 33.2 g/dl (31.0-36.0); Mean Corpuscular Hemoglobin 30.6 pg (27.0-33.0); Mean Corpuscular Volume 92.2 fL (80-98); Mean Platelet Volume 9.4 fL (9.4-12.4); Monocytes Absolute Auto 0.2 X10*3/uL (0.1-1.2); Monocytes Percent Auto 2.7 % (2-11); Neutrophils Absolute Auto 6.5 X10*3/uL (2.0-8.3); Platelet Count 146 X10*3/uL (160-400); Red Blood Count 4.61 X10*6/uL (4.60-5.80); Red Cell Distribution Width 12.2 % (11.0-16.0); White Blood Count 7.7 X10*3/uL (4.8-10.8)
[2020-06-19 06:59] LABS: INTERNATIONAL NORM RATIO 1.2 (0.9-1.1); Prothrombin Time 14.3 SEC (10.8-13.0)
[2020-06-19 07:30] LABS: Alanine Aminotransferase 30 U/L (0-40); Albumin Level 3.1 g/dL (3.5-5.0); Alkaline Phosphatase 84 U/L (39-117); Anion Gap 14 (12-20); Aspartate Amino Transferase 23 U/L (5-37); Bilirubin Total 1.1 mg/dL (0.0-1.0); Blood Urea Nitrogen 24 mg/dL (9-16); Calcium 8.1 mg/dL (8.4-10.2); Carbon Dioxide 28 mmol/L (22-29); Chloride 97 mmol/L (96-108); Creatinine Clr Calc Pharmacy 82.9; Estimated Glomerular Filt Rate > 60; Glucose Random 88 mg/dL (60-115); Lactate Dehydrogenase 348 U/L (118-273); Potassium 4.3 mmol/l (3.3-5.1); Sodium 135 mmol/L (135-145); Total Protein 5.5 g/dL (6.5-8.0)
[2020-06-19 07:32] LABS: Procalcitonin 0.08 ng/mL
[2020-06-19 07:36] LABS: Ferritin 355 ng/mL (20-250)
[2020-06-19] MEDS: Fluticasone/Vilanterol 200/25 BLST.W.DEV 1 PUFF INHALE (07:43)
[2020-06-19 07:48] LABS: D Dimer 2800 NG/ML
[2020-06-19 08:39] LABS: Glucose, Whole Blood 106 mg/dL (60-115)
[2020-06-19] MEDS: 0.9 % Sodium Chloride Flush 3 ML SYRINGE IVFLUSH ×2 (09:43→16:24)
[2020-06-19] MEDS: Enoxaparin Sodium 100 MG/ML SYRINGE 90 MG SUBCUT ×2 (09:54→21:11)
[2020-06-19] MEDS: dexAMETHasone sod phosphate 4 MG/ML VIAL 6 MG IVPUSH (09:55)
[2020-06-19] MEDS: Furosemide 20 MG TABLET PO (09:57)
[2020-06-19] MEDS: allopurinoL 300 MG TABLET PO (09:57)
[2020-06-19] MEDS: Montelukast Sodium 10 MG TABLET PO (09:57)
[2020-06-19] MEDS: Morphine Sulfate 2 MG/ML CARTRIDGE IVPUSH ×4 (10:11→20:11)
[2020-06-19] MEDS: Valsartan 80 MG TABLET PO (10:14)
[2020-06-19 11:28] LABS: Glucose, Whole Blood 116 mg/dL (60-115)
--- NOTE | 2020-06-19 12:14 | MHC.CM.PN ---
Goal for dc is home with VNA VS STR Pending PT eval. Patient is requiring high flow O2 and IV Morphine.CM will continue to follow for dc planning.
--- NOTE | 2020-06-19 15:49 | P.PNIM_ITS ---
Subjective Subjective Date of Service: 06/19/20 Interval History: patient seen and examined at bedside patient continues to require high-flow nasal cannula and non-rebreather as required patient still has coughing and trouble breathing Physical Exam Vital Signs: Vital Signs: Last Vital Signs Temp 98.6 F 06/19/20 10:55 Pulse 92 06/19/20 10:55 Resp 24 H 06/19/20 15:21 BP 114/70 06/19/20 10:55 Pulse Ox 92 06/19/20 10:55 Body Mass Index 31.3 Appearance: Alert. Oriented X3. Anxious, moderate acute distress. Eyes: Pupils equal, round and reactive to light. ENT: Pharynx normal. Neck: Normal inspection. Neck supple. CVS: Normal heart rate and rhythm. Pulses normal. Respiratory: moderate respiratory distress. Breath sounds diffuse rhonchi and end exp wheezes tachypnea and retractions Abdomen: Soft and nontender. Skin: Skin warm and dry. Normal skin color. Normal skin turgor. Extremities: No lower extremity edema. No calf ttp Neuro: Oriented X 3. No motor deficit. No sensory deficit. Objective Data Current Medications Generic Name Dose Route Start Last Admin Trade Name Freq PRN Reason Stop Dose Admin Acetaminophen 650 mg 06/15/20 18:07 06/16/20 07:52 Acetaminophen 325 Mg Tablet PO 650 mg Q6H PRN Administration Fever Al Hydroxide/Mg Hydroxide 15 ml 06/15/20 02:51 06/17/20 00:58 Magnesium Hydrox/Alum Hydrox 30 Ml Oral.Susp PO 15 ml Q4H PRN Administration Heartburn Albuterol Sulfate 4 puff 06/15/20 11:41 06/16/20 03:52 Albuterol Sulfate 90 Mcg 8 Gm Inhaler INHALE 4 puff Q3H PRN Administration shortness of breath or wheezin Allopurinol 300 mg 06/16/20 09:00 06/19/20 09:57 Allopurinol 300 Mg Tablet PO 300 mg DAILY MIKAELA Administration Benzocaine 1 lozenge 06/15/20 17:37 06/18/20 04:56 Throat Lozenge, Medicated Lozenge MUCOUS MEM 1 lozenge Q2H PRN Administration Sore Throat Enoxaparin Sodium 90 mg 06/18/20 09:30 06/19/20 09:54 Enoxaparin Sodium 100 Mg/Ml Syringe SUBCUT 90 mg Q12H MIKAELA Administration Fluticasone/Vilanterol 1 puff 06/16/20 08:00 06/19/20 07:43 Fluticasone/Vilanterol 200/25 Blst.W.Dev INHALE 1 puff RDAILY MIKAELA Administration Furosemide 20 mg 06/15/20 09:00 06/19/20 09:57 Furosemide 20 Mg Tablet PO 20 mg DAILY MIKAELA Administration Protocol Guaifenesin/Codeine Phosphate 10 ml 06/14/20 16:38 06/19/20 10:11 Guaifen/Codeine Sf 200/20/10ml 10 Ml Liquid PO 10 ml Q4H PRN Administration Cough Hydrocodone Bit/Homatropine Methylb 5 ml 06/15/20 11:08 06/19/20 14:06 Hydrocodone/Homat 5/1.5/5 Ml 5 Ml Syrup PO 5 ml Q4H PRN Administration cough Insulin Human Lispro 0 unit 06/14/20 21:00 06/19/20 12:02 Insulin Lispro 100 Unit/Ml 3 Ml Vial SUBCUT Not Given QIDACHS [facility] Protocol Lidocaine 2 patch 06/16/20 11:15 06/19/20 09:59 Lidocaine 4 % Patch Adh..Patch TRANSDERMA Not Given DAILY [facility] Protocol Montelukast Sodium 10 mg 06/16/20 09:00 06/19/20 09:57 Montelukast Sodium 10 Mg Tablet PO 10 mg DAILY MIKAELA Administration Morphine Sulfate 2 mg 06/18/20 12:33 06/19/20 14:06 Morphine Sulfate 2 Mg/Ml [place] IVPUSH 2 mg Q2H PRN Administration severe chest wall pain Patient Own Nucala 100 each 06/16/20 18:00 06/16/20 18:23 SUBCUT 100 each Q28D MIKAELA Administration Omeprazole 20 mg 06/16/20 06:00 06/19/20 06:06 Omeprazole 20 Mg Capsule. PO 20 mg DAILY@0600 [facility] Administration Pharmacy Consult 1 each 06/14/20 06:59 Consult Rx Perform Med Rec MISCELLANE ONCE PRN Consult order Sodium Chloride 3 ml 06/14/20 16:00 06/19/20 09:43 0.9 % Sodium Chloride Flush 3 Ml Syringe IVFLUSH 3 ml QSHIFT MIKAELA Administration Tiotropium [place] 1 puff 06/15/20 08:00 06/19/20 07:45 Tiotropium [place] 18 Mcg Cap.W.Dev INHALE 1 puff RDAILY MIKAELA Administration Trazodone HCl 50 mg 06/15/20 11:50 06/18/20 22:19 Trazodone Hcl 50 Mg Tablet PO 50 mg BEDTIME PRN Administration Sleep Valsartan 80 mg 06/15/20 12:00 06/19/20 10:14 Valsartan 80 Mg Tablet PO 80 mg DAILY MIKAELA Administration Protocol Labs CBC & Chem 7: 06/19/20 06:09 06/19/20 06:10 Microbiology Microbiology Results: Microbiology 06/14/20 08:29 Blood - Venous Blood Culture - Final No growth after 5 days. 06/14/20 08:22 Blood - Venous Blood Culture - Final No growth after 5 days. Assessment and Plan (1) COVID-19: Status: Acute (2) Hypoxia: Status: Acute Assessment and Plan: 70yo M with COPD + tracheomalacia originally admitted 06/09-06/12/20 for COPD exacerbation and COVID-19 pneumonia readmitted 06/14/20 to ICU for hypoxic respiratory failure requiring CPAP and transitioned to HFNC and stepped down to IMC 06/14/20 Acute hypoxic respiratory failure continue HFNC NRBM as needed encouraged self-proning will monitor closely, ICU aware of pt in case of decompensation Severe COVID-19 pneumonia continue dexamethasone d#10/10 received remdesivir #5/5 received convalescent plasma 06/17/20, ID following continue isolation Given elevated D-dimer and 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
[2020-06-19 16:26] LABS: Glucose, Whole Blood 336 mg/dL (60-115)
[2020-06-19] MEDS: Insulin Lispro 100 UNIT/ML 3 ML VIAL SUBCUT ×2 (16:34→21:12)
[2020-06-19 20:33] LABS: Glucose, Whole Blood 165 mg/dL (60-115)
[2020-06-20] VITALS (15 sets, daily range): BP systolic 92–128; BP diastolic 47–76; PULSE 52–101; RESP 18–97; TEMP 36.4–39.2; O2SAT 90–98
[2020-06-20] MEDS: 0.9 % Sodium Chloride Flush 3 ML SYRINGE IVFLUSH ×4 (00:12→20:19)
[2020-06-20] MEDS: HYDROcodone/Homat 5/1.5/5 ML 5 ML SYRUP PO ×6 (02:28→22:32)
[2020-06-20] MEDS: Morphine Sulfate 2 MG/ML CARTRIDGE IVPUSH ×5 (02:28→20:15)
[2020-06-20] MEDS: Omeprazole 20 MG CAPSULE.DR PO (06:25)
[2020-06-20] MEDS: Fluticasone/Vilanterol 200/25 BLST.W.DEV 1 PUFF INHALE (07:44)
[2020-06-20 07:53] LABS: Glucose, Whole Blood 157 mg/dL (60-115)
[2020-06-20] MEDS: Enoxaparin Sodium 100 MG/ML SYRINGE 90 MG SUBCUT ×2 (08:29→20:16)
[2020-06-20] MEDS: Insulin Lispro 100 UNIT/ML 3 ML VIAL SUBCUT (08:30)
[2020-06-20] MEDS: allopurinoL 300 MG TABLET PO (08:31)
[2020-06-20] MEDS: Furosemide 20 MG TABLET PO (08:31)
[2020-06-20] MEDS: Montelukast Sodium 10 MG TABLET PO (08:31)
[2020-06-20] MEDS: Valsartan 80 MG TABLET PO (08:31)
[2020-06-20] MEDS: Throat Lozenge, Medicated LOZENGE 1 LOZENGE MUCOUS MEM (09:53)
[2020-06-20 11:18] LABS: Glucose, Whole Blood 139 mg/dL (60-115)
[2020-06-20] MEDS: guaiFENesin 100 MG/5 ML LIQUID PO ×2 (12:08→19:32)
--- NOTE | 2020-06-20 16:10 | HO.PM.IMPN ---
Subjective Subjective Date of Service: 06/20/20 Interval History: patient seen and examined at bedside patient still requiring high-flow oxygen Constitutional Constitutional: Reports weakness Cardiovascular Cardiovascular: Reports dyspnea Respiratory Respiratory: Reports dyspnea Gastrointestinal Gastrointestinal: Denies vomiting Neurologic Neurologic: Reports weakness Physical Exam Vital Signs: Vital Signs: Last Vital Signs Temp 98.6 F 06/19/20 10:55 Pulse 92 06/19/20 10:55 Resp 24 H 06/19/20 15:21 BP 114/70 06/19/20 10:55 Pulse Ox 92 06/19/20 10:55 Body Mass Index 31.3 Appearance: Alert. Oriented X3. Anxious, moderate acute distress. Eyes: Pupils equal, round and reactive to light. ENT: Pharynx normal. Neck: Normal inspection. Neck supple. CVS: Normal heart rate and rhythm. Pulses normal. Respiratory: moderate respiratory distress. Breath sounds diffuse rhonchi and end exp wheezes tachypnea and retractions Abdomen: Soft and nontender. Skin: Skin warm and dry. Normal skin color. Normal skin turgor. Extremities: No lower extremity edema. No calf ttp Neuro: Oriented X 3. No motor deficit. No sensory deficit. Objective Data Current Medications Generic Name Dose Route Start Last Admin Trade Name Freq PRN Reason Stop Dose Admin Acetaminophen 650 mg 06/15/20 18:07 06/16/20 07:52 Acetaminophen 325 Mg Tablet PO 650 mg Q6H PRN Administration Fever Al Hydroxide/Mg Hydroxide 15 ml 06/15/20 02:51 06/17/20 00:58 Magnesium Hydrox/Alum Hydrox 30 Ml Oral.Susp PO 15 ml Q4H PRN Administration Heartburn Albuterol Sulfate 4 puff 06/15/20 11:41 06/16/20 03:52 Albuterol Sulfate 90 Mcg 8 Gm Inhaler INHALE 4 puff Q3H PRN Administration shortness of breath or wheezin Allopurinol 300 mg 06/16/20 09:00 06/20/20 08:31 Allopurinol 300 Mg Tablet PO 300 mg DAILY MIKAELA Administration Benzocaine 1 lozenge 06/15/20 17:37 06/20/20 09:53 Throat Lozenge, Medicated Lozenge MUCOUS MEM 1 lozenge Q2H PRN Administration Sore Throat Enoxaparin Sodium 90 mg 06/18/20 09:30 11/17/20 08:29 Enoxaparin Sodium 100 Mg/Ml Syringe SUBCUT 90 mg Q12H MIKAELA Administration Fluticasone/Vilanterol 1 puff 06/16/20 08:00 06/20/20 07:44 Fluticasone/Vilanterol 200/25 Blst.W.Dev INHALE 1 puff RDAILY MIKAELA Administration Furosemide 20 mg 06/15/20 09:00 06/20/20 08:31 Furosemide 20 Mg Tablet PO 20 mg DAILY MIKAELA Administration Protocol Guaifenesin 5 ml 06/20/20 09:38 06/20/20 12:08 Guaifenesin 100 Mg/5 Ml Liquid PO 5 ml Q6H PRN Administration Cough Hydrocodone Bit/Homatropine Methylb 5 ml 06/15/20 11:08 06/20/20 13:53 Hydrocodone/Homat 5/1.5/5 Ml 5 Ml Syrup PO 5 ml Q4H PRN Administration cough Insulin Human Lispro 0 unit 06/14/20 21:00 06/20/20 12:05 Insulin Lispro 100 Unit/Ml 3 Ml Vial SUBCUT Not Given QIDACHS [facility] Protocol Lidocaine 2 patch 06/16/20 11:15 06/20/20 09:06 Lidocaine 4 % Patch Adh..Patch TRANSDERMA Not Given DAILY [facility] Protocol Montelukast Sodium 10 mg 06/16/20 09:00 06/20/20 08:31 Montelukast Sodium 10 Mg Tablet PO 10 mg DAILY MIKAELA Administration Morphine Sulfate 2 mg 06/18/20 12:33 06/20/20 13:56 Morphine Sulfate 2 Mg/Ml Cartridge IVPUSH 2 mg Q2H PRN Administration severe chest wall pain Patient Own Nucala 100 each 06/16/20 18:00 06/16/20 18:23 SUBCUT 100 each Q28D [facility] Administration Omeprazole 20 mg 06/16/20 06:00 06/20/20 06:25 Omeprazole 20 Mg Capsule. PO 20 mg DAILY@0600 [facility] Administration Pharmacy Consult 1 each 06/14/20 06:59 Consult Rx Perform Med Rec MISCELLANE ONCE PRN Consult order Sodium Chloride 3 ml 06/14/20 16:00 06/20/20 08:31 0.9 % Sodium Chloride Flush 3 Ml Syringe IVFLUSH 3 ml QSHIFT [facility] Administration Tiotropium [place] 1 puff 06/15/20 08:00 06/20/20 07:45 Tiotropium [place] 18 Mcg Cap.W.Dev INHALE 1 puff RDAILY MIKAELA Administration Trazodone HCl 50 mg 06/15/20 11:50 06/18/20 22:19 Trazodone Hcl 50 Mg Tablet PO 50 mg BEDTIME PRN Administration Sleep Valsartan 80 mg 06/15/20 12:00 06/20/20 08:31 Valsartan 80 Mg Tablet PO 80 mg DAILY MIKAELA Administration Protocol Labs CBC & Chem 7: 06/19/20 06:09 06/19/20 06:10 Microbiology Microbiology Results: Microbiology 06/14/20 08:29 Blood - Venous Blood Culture - Final No growth after 5 days. 06/14/20 08:22 Blood - Venous Blood Culture - Final No growth after 5 days. Assessment and Plan (1) COVID-19: Status: Acute (2) Hypoxia: Status: Resolved Assessment and Plan: 70yo M with COPD + tracheomalacia originally admitted 06/09-06/12/20 for COPD exacerbation and COVID-19 pneumonia readmitted 06/14/20 to ICU for hypoxic respiratory failure requiring CPAP and transitioned to HFNC and stepped down to IMC 06/14/20 Acute hypoxic respiratory failure secondary to COVID pneumonia continue to require HFNC encouraged self-proning will monitor closely, ICU aware of pt in case of decompensation Severe COVID-19 pneumonia received dexamethasone d#10/10 received remdesivir #5/5 received convalescent plasma 06/17/20, ID following continue isolation Given elevated D-dimer and 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
[2020-06-20 16:32] LABS: Glucose, Whole Blood 184 mg/dL (60-115)
[2020-06-20] MEDS: guaiFEN/Codeine SF 200/20/10ML 10 ML LIQUID 5 ML PO (16:50)
[2020-06-20] MEDS: Acetaminophen 325 MG TABLET 650 MG PO (19:32)
[2020-06-20 20:25] LABS: Glucose, Whole Blood 160 mg/dL (60-115)
[2020-06-20] MEDS: Albuterol Sulfate (0.042%) 1.25 MG/3 ML VIAL.NEB INHALE (20:25)
[2020-06-21] VITALS (19 sets, daily range): BP systolic 91–137; BP diastolic 55–85; PULSE 72–140; RESP 16–28; TEMP 36.1–37.8; O2SAT 90–99
[2020-06-21] MEDS: Morphine Sulfate 2 MG/ML CARTRIDGE IVPUSH ×4 (01:02→21:48)
[2020-06-21] MEDS: guaiFEN/Codeine SF 200/20/10ML 10 ML LIQUID 5 ML PO ×5 (01:02→21:44)
[2020-06-21] MEDS: Acetaminophen 325 MG TABLET 650 MG PO (03:37)
[2020-06-21] MEDS: HYDROcodone/Homat 5/1.5/5 ML 5 ML SYRUP PO ×5 (03:37→23:54)
[2020-06-21] MEDS: Omeprazole 20 MG CAPSULE.DR PO (05:12)
[2020-06-21 07:30] LABS: Glucose, Whole Blood 122 mg/dL (60-115)
[2020-06-21] MEDS: Montelukast Sodium 10 MG TABLET PO (07:54)
[2020-06-21] MEDS: Fluticasone/Vilanterol 200/25 BLST.W.DEV 1 PUFF INHALE (07:54)
[2020-06-21] MEDS: allopurinoL 300 MG TABLET PO (07:55)
[2020-06-21] MEDS: Furosemide 20 MG TABLET PO (07:55)
[2020-06-21] MEDS: 0.9 % Sodium Chloride Flush 3 ML SYRINGE IVFLUSH ×3 (07:56→20:31)
[2020-06-21] MEDS: Valsartan 80 MG TABLET PO (07:56)
--- NOTE | 2020-06-21 08:55 | P.CDIC_ITS ---
CDI Concurrent Query Service Date: 06/21/20 Documentation Clarification: Please clarify if you are treating a proba ble/suspected/likely or confirmed: Viral Sepsis due to Covid-19/pneumonia w acute hypoxic respiratory failure (poa) Covid-19/pneumonia with acute hypoxic respiratory failure Please specify if known vital sepsis due to COVID-19 pneumonia with acute hypoxic respiratory failure Provider Response: Other Other Diagnosis: viral sepsis due to COVID pneumonia with acute hypoxic respiratory failure PLEASE DO NOT DELETE/MODIFY EXISTING CONTENT Additional information is needed in order to code to the highest accuracy and appropriate Severity of Illness (SOI). Please clarify the information noted below in your progress notes and discharge summary. Risk Factors/Clinical Indicators/Treatments LA 4.3 Temp 97.5 102.6 WBC 12.0 RR 20 24 - Hypoxic admit to ICU Originally admitted for COPD exacerbation and Covid-19 pneumonia readmitted to ICU for acute respiratory failure, severe Covid-19 pneumonia. Dexamethason, Remdesivir, convalescent plasma given 06/17 ID consult Isolation CDS: Annemarie Crockett CCS, CDIS Contact Number: [phone] Please Review the information above and exercise your independent professional judgment in responding to the query. If you concur, pleas document in the PROGRESS NOTES and DISCHARGE SUMMARY. If you do not agree with the query, please document in the query above. THIS QUERY IS PART OF THE PERMANENT MEDICAL RECORD
--- NOTE | 2020-06-21 09:19 | MHC.CM.PN ---
DP Further assessment needed. The Patient will go to his home with services or to [facility]. Plan is contingent on P.T. eval. CM will follow.
--- NOTE | 2020-06-21 10:20 | ECG_ITS ---
Test Reason : RYHUM CHANGE Blood Pressure : / mmHG Vent. Rate : 130 BPM Atrial Rate : 129 BPM P-R Int : 000 ms QRS Dur : 076 ms QT Int : 308 ms P-R-T Axes : 000 -31 029 degrees QTc Int : 453 ms Atrial fibrillation with rapid ventricular response with premature ventricular or aberrantly conducted complexes Left axis deviation Minimal voltage criteria for LVH, may be normal variant Abnormal ECG When compared with ECG of 14-JUN-2020 08:07, Atrial fibrillation has replaced Sinus tachycardia Premature ventricular complexes are new Referred By: Marshall Lai Electronically Signed By:MOLLY ALCANTAR MD
[2020-06-21 11:13] LABS: Glucose, Whole Blood 167 mg/dL (60-115)
[2020-06-21 11:32] LABS: Basophils Percent Auto 0.1 % (0-2); Eosinophils Absolute Auto 0.1 X10*3/uL (0.0-0.4); Eosinophils Percent Auto 1.3 % (0-4); Hematocrit 40.3 % (42-52); Imm Gran Abs Auto 0.11 X10*3/uL (0.00-0.03); Imm Gran Pct Auto 1.2 % (0.0-0.4); Lymphocytes Absolute Auto 0.5 X10*3/uL (1.2-4.9); Lymphocytes Percent Auto 5.5 % (20-40); MANUAL DIFF FLAG SCAN; Mean Corpuscular HGB Conc 34.7 g/dl (31.0-36.0); Mean Corpuscular Hemoglobin 31.2 pg (27.0-33.0); Mean Corpuscular Volume 89.8 fL (80-98); Mean Platelet Volume 9.5 fL (9.4-12.4); Monocytes Absolute Auto 0.2 X10*3/uL (0.1-1.2); Neutrophils Absolute Auto 8.4 X10*3/uL (2.0-8.3); Neutrophils Percent Auto 89.9 % (45-73); Platelet Count 154 X10*3/uL (160-400); Red Blood Count 4.49 X10*6/uL (4.60-5.80); Red Cell Distribution Width 11.9 % (11.0-16.0); SCAN SMEAR FLAG 1; White Blood Count 9.3 X10*3/uL (4.8-10.8)
[2020-06-21] MEDS: Insulin Lispro 100 UNIT/ML 3 ML VIAL SUBCUT ×2 (11:37→20:22)
[2020-06-21 12:03] LABS: Anion Gap 14 (12-20); Blood Urea Nitrogen 20 mg/dL (9-16); Calcium 7.8 mg/dL (8.4-10.2); Carbon Dioxide 24 mmol/L (22-29); Chloride 94 mmol/L (96-108); Creatinine Clr Calc Pharmacy 87.9; Estimated Glomerular Filt Rate > 60; Glucose Random 153 mg/dL (60-115); Potassium 3.8 mmol/l (3.3-5.1); Sodium 128 mmol/L (135-145)
[2020-06-21] MEDS: Metoprolol Tartrate 5 MG/5 ML VIAL IVPUSH (12:18)
[2020-06-21 12:29] LABS: SLIDE REVIEW VERIFIED
[2020-06-21] MEDS: Metoprolol Tartrate 25 MG TABLET PO ×2 (14:52→20:23)
--- NOTE | 2020-06-21 15:17 | P.PNIM_ITS ---
Subjective Subjective Date of Service: 06/21/20 Interval History: Patient seen and examined at bedside patient continued to require high-flow and non-rebreather patient reported cough and shortness of breath Constitutional Constitutional: Reports weakness Cardiovascular Cardiovascular: Reports dyspnea Respiratory Respiratory: Reports dyspnea Gastrointestinal Gastrointestinal: Denies vomiting Neurologic Neurologic: Reports weakness Physical Exam Vital Signs: Vital Signs: Last Vital Signs Temp 98.6 F 06/19/20 10:55 Pulse 92 06/19/20 10:55 Resp 24 H 06/19/20 15:21 BP 114/70 06/19/20 10:55 Pulse Ox 92 06/19/20 10:55 Body Mass Index 31.3 Appearance: Alert. Oriented X3. Anxious, moderate acute distress. Eyes: Pupils equal, round and reactive to light. ENT: Pharynx normal. Neck: Normal inspection. Neck supple. CVS: Normal heart rate and rhythm. Pulses normal. Respiratory: moderate respiratory distress. Breath sounds diffuse rhonchi and end exp wheezes tachypnea and retractions Abdomen: Soft and nontender. Skin: Skin warm and dry. Normal skin color. Normal skin turgor. Extremities: No lower extremity edema. No calf ttp Neuro: Oriented X 3. No motor deficit. No sensory deficit. Const: Other: Last Vital Signs Temp 98.6 F 06/19/20 10:55 Pulse 92 06/19/20 10:55 Resp 24 H 06/19/20 15:21 BP 114/70 06/19/20 10:55 Pulse Ox 92 06/19/20 10:55 Body Mass Index 31.3 Cardio: Other: Last Vital Signs Temp 98.6 F 06/19/20 10:55 Pulse 92 06/19/20 10:55 Resp 24 H 06/19/20 15:21 BP 114/70 06/19/20 10:55 Pulse Ox 92 06/19/20 10:55 Body Mass Index 31.3 Objective Data Current Medications Generic Name Dose Route Start Last Admin Trade Name Freq PRN Reason Stop Dose Admin Acetaminophen 650 mg 06/15/20 18:07 06/21/20 03:37 Acetaminophen 325 Mg Tablet PO 650 mg Q6H PRN Administration Fever Al Hydroxide/Mg Hydroxide 15 ml 06/15/20 02:51 06/17/20 00:58 Magnesium Hydrox/Alum Hydrox 30 Ml Oral.Susp PO 15 ml Q4H PRN Administration Heartburn Albuterol Sulfate 4 puff 06/15/20 11:41 06/16/20 03:52 Albuterol Sulfate 90 Mcg 8 Gm Inhaler INHALE 4 puff Q3H PRN Administration shortness of breath or wheezin Allopurinol 300 mg 06/16/20 09:00 06/21/20 07:55 Allopurinol 300 Mg Tablet PO 300 mg DAILY MIKAELA Administration Benzocaine 1 lozenge 06/15/20 17:37 06/20/20 09:53 Throat Lozenge, Medicated Lozenge MUCOUS MEM 1 lozenge Q2H PRN Administration Sore Throat Enoxaparin Sodium 90 mg 06/18/20 09:30 06/21/20 07:55 Enoxaparin Sodium 100 Mg/Ml Syringe SUBCUT 90 mg Q12H MIKAELA Administration Fluticasone/Vilanterol 1 puff 06/16/20 08:00 06/21/20 07:54 Fluticasone/Vilanterol 200/25 Blst.W.Dev INHALE 1 puff RDAILY MIKAELA Administration Furosemide 20 mg 06/15/20 09:00 06/21/20 07:55 Furosemide 20 Mg Tablet PO 20 mg DAILY MIKAELA Administration Protocol Guaifenesin 5 ml 06/20/20 09:38 06/20/20 19:32 Guaifenesin 100 Mg/5 Ml Liquid PO 5 ml Q6H PRN Administration Cough Guaifenesin/Codeine Phosphate 5 ml 06/20/20 16:09 06/21/20 11:15 Guaifen/Codeine Sf 200/20/10ml 10 Ml Liquid PO 5 ml Q4H PRN Administration Cough Hydrocodone Bit/Homatropine Methylb 5 ml 06/15/20 11:08 06/21/20 14:03 Hydrocodone/Homat 5/1.5/5 Ml 5 Ml Syrup PO 5 ml Q4H PRN Administration cough Insulin Human Lispro 0 unit 06/14/20 21:00 06/21/20 11:37 Insulin Lispro 100 Unit/Ml 3 Ml Vial SUBCUT 2 unit QIDACHS [facility] Administration Protocol Lidocaine 2 patch 06/16/20 11:15 06/21/20 07:57 Lidocaine 4 % Patch Adh..Patch TRANSDERMA Not Given DAILY [facility] Protocol Metoprolol Tartrate 25 mg 06/21/20 15:00 06/21/20 14:52 Metoprolol Tartrate 25 Mg Tablet PO 25 mg TID [facility] Administration Protocol Montelukast Sodium 10 mg 06/16/20 09:00 06/21/20 07:54 Montelukast Sodium 10 Mg Tablet PO 10 mg DAILY MIKAELA Administration Morphine Sulfate 2 mg 06/18/20 12:33 06/21/20 07:54 Morphine Sulfate 2 Mg/Ml Cartridge IVPUSH 2 mg Q2H PRN Administration severe chest wall pain Patient Own Nucala 100 each 06/16/20 18:00 06/16/20 18:23 SUBCUT 100 each Q28D MIKAELA Administration Omeprazole 20 mg 06/16/20 06:00 06/21/20 05:12 Omeprazole 20 Mg Capsule. PO 20 mg DAILY@0600 [facility] Administration Pharmacy Consult 1 each 06/14/20 06:59 Consult Rx Perform Med Rec MISCELLANE ONCE PRN Consult order Sodium Chloride 3 ml 06/14/20 16:00 06/21/20 15:01 0.9 % Sodium Chloride Flush 3 Ml Syringe IVFLUSH 3 ml QSHIFT [facility] Administration Tiotropium [place] 1 puff 06/15/20 08:00 06/21/20 07:54 Tiotropium [place] 18 Mcg Cap.W.Dev INHALE 1 puff RDAILY [facility] Administration Trazodone HCl 50 mg 06/15/20 11:50 06/18/20 22:19 Trazodone Hcl 50 Mg Tablet PO 50 mg BEDTIME PRN Administration Sleep Valsartan 80 mg 06/15/20 12:00 06/21/20 07:56 Valsartan 80 Mg Tablet PO 80 mg DAILY [facility] Administration Protocol Labs CBC & Chem 7: 06/21/20 11:07 06/21/20 11:07 Microbiology Microbiology Results: Microbiology 06/14/20 08:29 Blood - Venous Blood Culture - Final No growth after 5 days. 06/14/20 08:22 Blood - Venous Blood Culture - Final No growth after 5 days. Assessment and Plan (1) COVID-19: Status: Acute (2) Hypoxia: Status: Resolved Assessment and Plan: 70yo M with COPD + tracheomalacia originally admitted 06/09-06/12/20 for COPD exacerbation and COVID-19 pneumonia readmitted 06/14/20 to ICU for hypoxic respiratory failure requiring CPAP and transitioned to HFNC and stepped down to IMC 06/14/20 Acute hypoxic respiratory failure secondary to COVID pneumonia continue to require HFNC and non-rebreather encouraged self-proning since patient continues to require high-flow and non-rebreather and became more tachycardia ICU was consulted awaiting recommendation Severe COVID-19 pneumonia received dexamethasone d#10/10 received remdesivir #5/5 received convalescent plasma 06/17/20, ID following continue isolation Given elevated D-dimer and 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
[2020-06-21 16:08] LABS: Glucose, Whole Blood 127 mg/dL (60-115)
--- NOTE | 2020-06-21 17:00 | CA_ITS ---
Transthoracic Echocardiogram Patient (Last, First, Middle): Omid Brown E Gender: Male Date of : 1950 Age: 70 Procedure Date: 06/21/2020 Procedure Type: Transthoracic Echocardiogram Location: [facility] [place] Height: 170.18 cm Weight: 90.72 kg BSA: 2.02 m2 Heart Rate: bpm BP: 130 / 58 mmHg Credit Products Officer: Referring MD: Marshall Lai MD Symptoms: afib with rvr Study Quality: Fair ECG Rhythm: Atrial flutter Conclusions: - The left ventricular systolic function is normal. The visually estimated ejection fraction is between 55-60%. - No obvious valvular pathology seen on this study. Findings Left Ventricle Normal left ventricular cavity size. There is mildly increased left ventricular wall thickness. The left ventricular systolic function is normal. The visually estimated ejection fraction is between 55-60%. Regional wall motion abnormalities can not be excluded due to suboptimal endocardial definition. Diastolic function is indeterminate on the basis of available data. Right Ventricle Normal right ventricular cavity size and systolic function. Atria The left atrium is normal in size. The right atrium was not well visualized. Aortic Valve The aortic valve was not well visualized. There is no aortic valve stenosis. There is no aortic valve regurgitation. Mitral Valve There is mild anterior mitral leaflet thickening. There is mild mitral valve regurgitation. There is no mitral valve stenosis. Pulmonic Valve The pulmonic valve was not well visualized. Tricuspid Valve There is trace tricuspid valve regurgitation. The pulmonary artery systolic pressure is normal. Great Vessels The aorta was not well visualized. Venous The inferior vena cava is normal in size and collapses greater than 50% with inspiration. Pericardium/Pleural There is no evidence of pericardial effusion. Prior Study Comparison No prior study available for comparison. Recommendations, Care & Conclusions No obvious valvular pathology seen on this study. Measurements 2D Linear Measurements IVSd: 1.29 0.6-0.9/0.6-1.0 cm LVIDd: 4.09 3.9-5.3/4.2-5.9 cm LVIDd Index: 2.02 2.4-3.2/2.2-3.1 cm/m2 LVIDs: 2.45 2.0-3.6 cm LVPWd: 1.34 0.7-1.1 cm LA Diam: 3.60 2.7-3.8/3.0-4.0 cm LAIDs Index: 1.78 1.5-2.3 cm/m2 LV Mass: 244.45 67-162/88-224 g LV Mass Index: 121.01 43-95/49-115 g/m2 LVOT Diam: 2.00 3.0+(-)1.3 cm Mitral Valve MV Pk E: 1.07 MV Decel Time: 194.00 E'Lateral: 10.80 E'Medial: 9.38 E/E' Med: 11.40 E/E' Lat: 9.90 PHT: 57.00 MVA PHT: 3.86 Decel [place]: 5.49 Aortic Valve AoV Pk Storm: 1.84 AoV Mn Storm: 1.24 AoV VTI: 0.26 AoV Pk Grad: 14.00 Aov Mn Grad: 7.00 ITA Cont.VTI: 1.85 LVOT LVOT Pk Storm: 1.15 LVOT Mn Storm: 0.72 LVOT VTI: 0.15 LVOT Pk Grad: 5.00 LVOT Mn Grad: 3.00 LVOT Diam: 2.00 LVOT Area: 3.14 Diastolic Function MV Pk E: 1.07 E'Medial: 9.38 E/E' Med: 11.40 E' Laterial: 10.80 E/E' Lat: 9.90 Tricuspid Valve TR Pk Storm: 1.61 TR Pk Grad: 10.00 RA Press: 3.00 RVSP: 13.00 Updated in Other Vendor System with Status of Final Ruben Oliva MD electronically signed on 06/21/2020 5:23:19 PM with status of Final
--- NOTE | 2020-06-21 17:59 | PC.NURSE ---
hr increased up to 160's on tele. pt denies any palpitations/new chest discomfort. 02 91% on high flow and non-rebreather, desats quickly when removed. increased work of breathing noted. md made aware. stat ekg ordered, afib rvr with rate in 130's. iv metoprolol given with minimal effect. intraoperative neuro tech consulted and at bedside to assess. pt not candidate for icu at this time. echo ordered. po lopressor 25 mg ordered and given as scheduled, HR remains 120's-130's and afib on tele, md aware.
[2020-06-21 20:11] LABS: Glucose, Whole Blood 195 mg/dL (60-115)
[2020-06-22] VITALS (19 sets, daily range): BP systolic 94–122; BP diastolic 56–74; PULSE 87–136; RESP 18–94; TEMP 36.4–37.2; O2SAT 90–94
[2020-06-22] MEDS: Metoprolol Tartrate 5 MG/5 ML VIAL IVPUSH ×2 (01:12→04:31)
--- NOTE | 2020-06-22 01:23 | PC.NURSE ---
Addendum entered by Taina Sapp RN 06/22/20 04:38: HR again sustaining 130s-140s aflutter on tele. Pt continues to be asymptomatic. notified. 5 mg IV lopressor ordered and administered. HR now 110s-120s. Original Note: HR sustaining 120s-130s afib/aflutter on tele. Pt asymptomatic. Dr Villela notified. 5 mg IV lopressor ordered and administered. HR now 100s-110s.
[2020-06-22] MEDS: guaiFEN/Codeine SF 200/20/10ML 10 ML LIQUID 5 ML PO ×5 (02:19→22:00)
[2020-06-22] MEDS: Morphine Sulfate 2 MG/ML CARTRIDGE IVPUSH ×6 (02:26→22:00)
[2020-06-22] MEDS: HYDROcodone/Homat 5/1.5/5 ML 5 ML SYRUP PO ×3 (04:00→14:03)
[2020-06-22] MEDS: Acetaminophen 325 MG TABLET 650 MG PO (04:00)
[2020-06-22] MEDS: Omeprazole 20 MG CAPSULE.DR PO (05:28)
[2020-06-22] MEDS: Valsartan 80 MG TABLET PO (07:23)
[2020-06-22] MEDS: Metoprolol Tartrate 25 MG TABLET PO (07:24)
[2020-06-22] MEDS: 0.9 % Sodium Chloride Flush 3 ML SYRINGE IVFLUSH (07:24)
[2020-06-22] MEDS: allopurinoL 300 MG TABLET PO (07:25)
[2020-06-22] MEDS: Montelukast Sodium 10 MG TABLET PO (07:25)
[2020-06-22] MEDS: Furosemide 20 MG TABLET PO (07:25)
[2020-06-22] MEDS: Fluticasone/Vilanterol 200/25 BLST.W.DEV 1 PUFF INHALE (07:27)
[2020-06-22 08:08] LABS: Glucose, Whole Blood 130 mg/dL (60-115)
[2020-06-22] MEDS: dilTIAZem HCL 125 MG in 0.9 % Sodium Chloride 100 ML 10 MG IVCONT ×2 (10:01→18:38)
--- NOTE | 2020-06-22 10:53 | PC.NURSE ---
HR maintaining 120s-130s, afib on tele and denies any new onset chest pain, md made aware. cardizem drip started at 1000 running at 10 mg/hr starting dose. HR remaining 120s-130s, drip adjusted per protocol to 15 mg/hr. HR now 110s. 02 94-95% on 90% high flow and 100% non-rebreather, desats quickly when non-rebreather is off. lungs dim with fine crackles at bilat bases. prn morphine and robitussin given for chest wall discomfort and cough. urine dark adolfo colored, md aware. pt able to drink some fluids. will continue to monitor.
--- NOTE | 2020-06-22 11:27 | MHC.CLN ---
F/U 50% AVG PO INTAKE DIET RX: 1800 -APPROPRIATE FOLLOWING
[2020-06-22 12:12] LABS: Glucose, Whole Blood 173 mg/dL (60-115)
[2020-06-22] MEDS: Insulin Lispro 100 UNIT/ML 3 ML VIAL SUBCUT ×2 (12:31→22:01)
--- NOTE | 2020-06-22 15:03 | ECG_ITS ---
Test Reason : chest pain Blood Pressure : / mmHG Vent. Rate : 097 BPM Atrial Rate : 088 BPM P-R Int : 000 ms QRS Dur : 074 ms QT Int : 328 ms P-R-T Axes : 000 -31 024 degrees QTc Int : 416 ms Atrial fibrillation Left axis deviation Minimal voltage criteria for LVH, may be normal variant Nonspecific ST abnormality Abnormal ECG When compared with ECG of 21-JUN-2020 10:40, Heart rate has decreased Referred By: Marshall Lai Electronically Signed By:MOLLY ALCANTAR MD
--- NOTE | 2020-06-22 15:59 | HO.PM.IMPN ---
Subjective Subjective Date of Service: 06/21/20 Interval History: Patient seen and examined at bedside patient continued to require high-flow and non-rebreather patient reported shortness of breath General - no fevers or chills Cardiovascular - no chest pain Respiratory - no shortness of breath or cough Abdominal- no abdominal pain, nausea, vomiting, diarrhea Physical Exam Vital Signs: Vital Signs: Last Vital Signs Temp 98.6 F 06/19/20 10:55 Pulse 92 06/19/20 10:55 Resp 24 H 06/19/20 15:21 BP 114/70 06/19/20 10:55 Pulse Ox 92 06/19/20 10:55 Body Mass Index 31.3 Appearance: Alert. Oriented X3. Anxious, moderate acute distress. Eyes: Pupils equal, round and reactive to light. ENT: Pharynx normal. Neck: Normal inspection. Neck supple. CVS: Normal heart rate and rhythm. Pulses normal. Respiratory: moderate respiratory distress. Breath sounds diffuse rhonchi and end exp wheezes tachypnea and retractions Abdomen: Soft and nontender. Skin: Skin warm and dry. Normal skin color. Normal skin turgor. Extremities: No lower extremity edema. No calf ttp Neuro: Oriented X 3. No motor deficit. No sensory deficit. Const: Other: Last Vital Signs Temp 98.6 F 06/19/20 10:55 Pulse 92 06/19/20 10:55 Resp 24 H 06/19/20 15:21 BP 114/70 06/19/20 10:55 Pulse Ox 92 06/19/20 10:55 Body Mass Index 31.3 Cardio: Other: Last Vital Signs Temp 98.6 F 06/19/20 10:55 Pulse 92 06/19/20 10:55 Resp 24 H 06/19/20 15:21 BP 114/70 06/19/20 10:55 Pulse Ox 92 06/19/20 10:55 Body Mass Index 31.3 Objective Data Current Medications Generic Name Dose Route Start Last Admin Trade Name Freq PRN Reason Stop Dose Admin Acetaminophen 650 mg 06/15/20 18:07 06/22/20 04:00 Acetaminophen 325 Mg Tablet PO 650 mg Q6H PRN Administration Fever Al Hydroxide/Mg Hydroxide 15 ml 06/15/20 02:51 06/17/20 00:58 Magnesium Hydrox/Alum Hydrox 30 Ml Oral.Susp PO 15 ml Q4H PRN Administration Heartburn Albuterol Sulfate 4 puff 06/15/20 11:41 06/16/20 03:52 Albuterol Sulfate 90 Mcg 8 Gm Inhaler INHALE 4 puff Q3H PRN Administration shortness of breath or wheezin Allopurinol 300 mg 06/16/20 09:00 06/22/20 07:25 Allopurinol 300 Mg Tablet PO 300 mg DAILY MIKAELA Administration Benzocaine 1 lozenge 06/15/20 17:37 06/20/20 09:53 Throat Lozenge, Medicated Lozenge MUCOUS MEM 1 lozenge Q2H PRN Administration Sore Throat Enoxaparin Sodium 90 mg 06/18/20 09:30 06/22/20 07:27 Enoxaparin Sodium 100 Mg/Ml Syringe SUBCUT Not Given Q12H MIKAELA Fluticasone/Vilanterol 1 puff 06/16/20 08:00 06/22/20 07:27 Fluticasone/Vilanterol 200/25 Blst.W.Dev INHALE 1 puff RDAILY MIKAELA Administration Guaifenesin 5 ml 06/20/20 09:38 06/20/20 19:32 Guaifenesin 100 Mg/5 Ml Liquid PO 5 ml Q6H PRN Administration Cough Guaifenesin/Codeine Phosphate 5 ml 06/20/20 16:09 06/22/20 12:31 Guaifen/Codeine Sf 200/20/10ml 10 Ml Liquid PO 5 ml Q4H PRN Administration Cough Hydrocodone Bit/Homatropine Methylb 5 ml 06/15/20 11:08 06/22/20 14:03 Hydrocodone/Homat 5/1.5/5 Ml 5 Ml Syrup PO 5 ml Q4H PRN Administration cough Diltiazem HCl 125 mg/ Sodium 125 mls @ 0 mls/hr 06/22/20 09:45 06/22/20 14:42 Chloride IVCONT 10 mg/hr .Q0M MIKAELA 10 mls/hr Titration Protocol Per Protocol Insulin Human Lispro 0 unit 06/14/20 21:00 06/22/20 12:31 Insulin Lispro 100 Unit/Ml 3 Ml Vial SUBCUT 2 unit QIDACHS [facility] Administration Protocol Lidocaine 2 patch 06/16/20 11:15 06/22/20 07:26 Lidocaine 4 % Patch Adh..Patch TRANSDERMA Not Given DAILY [facility] Protocol Montelukast Sodium 10 mg 06/16/20 09:00 06/22/20 07:25 Montelukast Sodium 10 Mg Tablet PO 10 mg DAILY [facility] Administration Morphine Sulfate 2 mg 06/18/20 12:33 06/22/20 14:04 Morphine Sulfate 2 Mg/Ml Cartridge IVPUSH 2 mg Q2H PRN Administration severe chest wall pain Patient Own Nucala 100 each 06/16/20 18:00 06/16/20 18:23 SUBCUT 100 each Q28D MIKAELA Administration Omeprazole 20 mg 06/16/20 06:00 06/22/20 05:28 Omeprazole 20 Mg Capsule.Dr PO 20 mg DAILY@0600 [facility] Administration Pharmacy Consult 1 each 06/14/20 06:59 Consult Rx Perform Med Rec MISCELLANE ONCE PRN Consult order Sodium Chloride 3 ml 06/14/20 16:00 06/22/20 15:02 0.9 % Sodium Chloride Flush 3 Ml Syringe IVFLUSH Not Given QSHIFT [facility] Tiotropium [place] 1 puff 06/15/20 08:00 06/21/20 07:54 Tiotropium [place] 18 Mcg Cap.W.Dev INHALE 1 puff RDAILY [facility] Administration Trazodone HCl 50 mg 06/15/20 11:50 06/18/20 22:19 Trazodone Hcl 50 Mg Tablet PO 50 mg BEDTIME PRN Administration Sleep Valsartan 80 mg 06/15/20 12:00 06/22/20 07:23 Valsartan 80 Mg Tablet PO 80 mg DAILY [facility] Administration Protocol Labs CBC & Chem 7: 06/21/20 11:07 06/21/20 11:07 Microbiology Microbiology Results: Microbiology 06/14/20 08:29 Blood - Venous Blood Culture - Final No growth after 5 days. 06/14/20 08:22 Blood - Venous Blood Culture - Final No growth after 5 days. Assessment and Plan (1) COVID-19: Status: Acute (2) Hypoxia: Status: Resolved Assessment and Plan: 70yo M with COPD + tracheomalacia originally admitted 06/09-06/12/20 for COPD exacerbation and COVID-19 pneumonia readmitted 06/14/20 to ICU for hypoxic respiratory failure requiring CPAP and transitioned to HFNC and stepped down to [facility] 06/14/20 Acute hypoxic respiratory failure secondary to COVID pneumonia continue to require HFNC and non-rebreather encouraged self-proning aggressive incentive spirometry wean down as tolerated AFib with RVR patient went into AFib with RVR on 06/21/2020 heart rate still high Will start on Cardizem drip monitor heart rate continue Lovenox therapeutic dose echocardiogram done yesterday shows EF 55-60% Severe COVID-19 pneumonia received dexamethasone d#10/10 received remdesivir #5/5 received convalescent plasma 06/17/20, ID following continue isolation Given elevated D-dimer and pt's reported hx of unprovoked DVT in past, will place on therapeutic anticoagulation with LMWH 1 mg/kg q12h continue lidocaine patch for chest wall pain from coughing COPD/allergic asthma exacerbation continue steroids as above, continue prn MADDY continue LAMA + LABA/ICS + LTRA + Nucala HTN continue valsartan GERD -continue PPI gout continue allopurinol DM2, A1c 8.1 continue correction-dose lispro VTE ppx continue high risk; LMWH + SCDs
[2020-06-22 16:24] LABS: Troponin-I High Sensitivity 17.3 ng/L (<3.5-35.0)
[2020-06-22 17:25] LABS: Glucose, Whole Blood 146 mg/dL (60-115)
[2020-06-22 21:24] LABS: Glucose, Whole Blood 160 mg/dL (60-115)
[2020-06-22] MEDS: Enoxaparin Sodium 100 MG/ML SYRINGE 90 MG SUBCUT (22:02)
[2020-06-23] VITALS (21 sets, daily range): BP systolic 86–131; BP diastolic 57–74; PULSE 88–134; RESP 16–28; TEMP 36.2–37.1; O2SAT 82–94
[2020-06-23] MEDS: Morphine Sulfate 2 MG/ML CARTRIDGE IVPUSH ×6 (00:09→20:03)
[2020-06-23] MEDS: HYDROcodone/Homat 5/1.5/5 ML 5 ML SYRUP PO ×2 (00:10→14:36)
[2020-06-23] MEDS: 0.9 % Sodium Chloride Flush 3 ML SYRINGE IVFLUSH ×4 (00:10→23:55)
[2020-06-23] MEDS: guaiFEN/Codeine SF 200/20/10ML 10 ML LIQUID 5 ML PO (03:54)
[2020-06-23] MEDS: guaiFENesin 100 MG/5 ML LIQUID PO (06:18)
[2020-06-23] MEDS: Omeprazole 20 MG CAPSULE.DR PO (06:18)
[2020-06-23] MEDS: Fluticasone/Vilanterol 200/25 BLST.W.DEV 1 PUFF INHALE (07:49)
[2020-06-23 07:57] LABS: Glucose, Whole Blood 130 mg/dL (60-115)
[2020-06-23] MEDS: Montelukast Sodium 10 MG TABLET PO (08:39)
[2020-06-23] MEDS: allopurinoL 300 MG TABLET PO (08:39)
--- NOTE | 2020-06-23 09:53 | MHC.CM.PN ---
Male 70 DX Covid + DP home with services vs STR. Patient continues to require Highflow Oxygen. Cardiac issues, Patient is now on a Cardizem gtt. He had an Echocardiagram 06/21. CM will follow.
--- NOTE | 2020-06-23 11:06 | PM.CNCAR ---
History of Present Illness History of Present Illness Date of Consult: June 23, 2020 Consult reason: atrial fibrillation Chief complaint: covid 19 related acute hypoxic respiratory failure Narrative: This is a cardiology consultation regarding atrial fibrillation with Rapid rate. Patient is being treated for acute hypoxic respiratory failure secondary to COVID. In this context, he is being also treated for atrial fibrillation with rapid rate that started approximately couple of days ago per the hospitalist. Patient himself states that he does not have any known cardiac problems at all. No history of any coronary disease or myocardial infarction or arrhythmias or cardiomyopathy according to him. He does have COPD at baseline. He has been started on a Cardizem drip and he continues to be rapid and hence we have been asked to see him. At this time, he is on significant amount of supplemental oxygen. Denies any specific cardiac symptoms like angina or palpitations. Review of Systems Review of Systems: Cardiac-negative for angina. Negative for palpitations. Negative for dizzy spells or syncopal episodes. Respiratory- positive for shortness of breath. Yes all other systems are reviewed and are negative Constitutional: Constitutional: Reports weakness Neurologic: Denies focal weakness and Reports weakness PMFSH Past Medical History Medical History Asthma Bilateral cataracts Borderline diabetic COPD (chronic obstructive pulmonary disease) GERD (gastroesophageal reflux disease) Gout H/O hiatal hernia Hand anomaly History of deep venous thrombosis (DVT) of distal vein of left lower extremity Hypertension Jaw anomaly Lung blebs GONZALO (obstructive sleep apnea) Osteoarthritis Family History Family history: reviewed and not pertinent Surgical History Surgical History H/O left knee surgery H/O sinus surgery History of right knee joint replacement History of right shoulder replacement History of thoracotomy Hx of cataract surgery S/P hernia surgery Social History Social History Household Members: Spouse Housing: House Alcohol intake: unknown Smoking Status: Former smoker Tobacco Type: Cigarette Use of substances other than those prescribed or required for medical reasons: No Currently Displaying Signs/Symptoms of Drug Intoxication Withdrawal: No Have you been hit, kicked, punched, or otherwise hurt by someone within the past year? If so, by whom?: No Do you feel safe in your current relationship?: Yes Is there a partner from a previous relationship who is making you feel unsafe now?: No Are you made to feel afraid or neglected: No Advance Directives: No Advance Directives Information Provided: No Do you have thoughts of harming others: None Do you have a plan to hurt others: No Plan Recently lost weight without trying: Unsure service: Yes Current occupational status: retired Meds Allergies Allergy/AdvReac Type Severity Reaction Status Date / Time adhesive tape [Adhesive Tape] Allergy Mild BLISTERS Verified 06/09/20 13:28 bee pollen [BEE STINGS] Allergy Unknown Unknown Verified 06/09/20 13:28 levofloxacin [From Levaquin] Allergy Hives Verified 06/09/20 13:29 Adhesive Bandages Allergy Unknown Unknown Uncoded 06/09/20 13:28 Home Medications Medication Instructions Recorded Confirmed Type Nucala 100 mg SUBCUT Q4W 06/09/20 06/14/20 History Spiriva Respimat 2 puff INHALATION DAILY 06/09/20 06/14/20 History albuterol sulfate 2.5 mg INHALATION Q4H PRN 06/09/20 06/14/20 History allopurinol 300 mg PO DAILY 06/09/20 06/14/20 History amlodipine 5 mg PO DAILY 06/09/20 06/14/20 History ergocalciferol (vitamin D2) 1,250 mcg PO QWEEK 06/09/20 06/14/20 History [Vitamin D2] fluticasone propion-salmeterol 1 inh INHALATION BID 06/09/20 06/14/20 History [Advair Diskus] folic acid 1 mg PO DAILY 06/09/20 06/14/20 History furosemide 20 mg PO DAILY 06/09/20 06/14/20 History montelukast [Singulair] 10 mg PO DAILY 06/09/20 06/14/20 History omeprazole 20 mg PO DAILY 06/09/20 06/14/20 History trazodone 50 mg PO BEDTIME PRN 06/09/20 06/14/20 History valsartan [Diovan] 160 mg PO DAILY 06/09/20 06/14/20 History cetirizine 10 mg PO DAILY 06/14/20 06/14/20 History Physical Exam Vital Signs: Vital Signs: Last Vital Signs Temp 97.6 F 06/23/20 07:47 Pulse 128 H 06/23/20 08:47 Resp 22 H 06/23/20 07:53 BP 113/70 06/23/20 08:47 Pulse Ox 93 06/23/20 07:47 Body Mass Index 31.3 Patient appears short of breath No pallor, icterus or cyanosis HEENT -unremarkable JVD- normal Cardiac- rapid and irregular; cannot definitively assess for murmurs Respiratory- diminished breath sounds bilaterally Abdomen- soft, nontender Neuro- alert and oriented Lower extremities- unremarkable Results Labs and Meds Result diagrams: 06/21/20 11:07 06/21/20 11:07 Lab results: Laboratory Results - last 24 hr 06/22/20 06/22/20 06/22/20 11:59 15:38 17:19 POC Glucose 173 H 146 H Troponin I High Sens 17.3 D 06/22/20 06/23/20 21:19 07:46 POC Glucose 160 H 130 H Troponin I High Sens Assessment and Plan (1) Respiratory failure with hypoxia: Qualifiers: Chronicity: acute on chronic Qualified Code(s): J96.21 - Acute and chronic respiratory failure with hypoxia Status: Acute (2) COVID-19: Status: Acute (3) Atrial fibrillation with rapid ventricular response: Status: Acute (4) COPD (chronic obstructive pulmonary disease): Qualifiers: COPD type: unspecified COPD Qualified Code(s): J44.9 - Chronic obstructive pulmonary disease, unspecified Status: Acute EKG from yesterday shows atrial fibrillation at 95/Min. Currently he is in atrial fibrillation and telemetry in the low 100s. A prior EKG from 09 of June shows sinus tachycardia with PACs. Echocardiogram with normal LVEF, 55-60% and otherwise unremarkable. Continue IV Cardizem drip. His atrial fibrillation is most likely driven by his pulmonary issues. We can add digoxin loading. Continue anticoagulation. Will follow up with you. Procedures Abscess I/D Date of Service: 06/23/20
[2020-06-23] MEDS: dilTIAZem HCL 125 MG in 0.9 % Sodium Chloride 100 ML 15 MG IVCONT (11:34)
[2020-06-23 13:11] LABS: Glucose, Whole Blood 147 mg/dL (60-115)
--- NOTE | 2020-06-23 14:51 | ECG_ITS ---
Test Reason : CHEST PAIN Blood Pressure : / mmHG Vent. Rate : 095 BPM Atrial Rate : 326 BPM P-R Int : 000 ms QRS Dur : 076 ms QT Int : 358 ms P-R-T Axes : 000 -34 021 degrees QTc Int : 449 ms Atrial fibrillation Left axis deviation Nonspecific ST abnormality Abnormal ECG No significant changes seen Referred By: Marshall Lai Electronically Signed By:MOLLY ALCANTAR MD
--- NOTE | 2020-06-23 15:56 | HO.MIDLINE ---
PICC Line Insertion NPICC Diagnosis: [ SOB---COVID POSITIVE] Indication: [DIFFICULT IV START----NEEDS IV ACCESSS FOR MEDICATIONS] Pertinent Labs: [REVIEWED] DATE: 06/23/2020 MIDLINE TO RUE (20 GAUZE, 10 CM) ONE ATTEMPT BY THIS RN. ARM CIRCUM: 29.5 CM A DRESSING WAS PLACED OVER THE SITE C/D/I. NO REDNESS/SWELLING/NO S/S OF INFECTION. Arm Circumference: [29.5 CM] Equipment: [BARD POWER PICC SOLO] Catheter Type: [POWERGLIDE PRO MIDLINE] Lot #: [[id number]]
[2020-06-23 16:35] LABS: Glucose, Whole Blood 183 mg/dL (60-115)
--- NOTE | 2020-06-23 16:36 | PC.NURSE ---
Pt started back on cardizem this morning titrating all the way up to 15mg/hr with BP remaining soft but stable and HR in 120s. made aware of this. Cardiology consult placed. Per recommending Digoxen. aware of this. He remains on high flow but able to titrate down to 90% from 100%. Due to poor IV access a request was placed for a midline which he recieved at 1500 to his right upper arm. Pain management with morphine and hycodan for pain and cough. Morphine was auto discontinued and made aware that she will need to re-order if she should with to continue the patient on that meducation. He was oob to chair for much of the day and back to bed for midline placement. He is severely dyspnic on exertion with a decrease in sats. Recovers with rest. Refusing lovenox injections- notified. Sequential stockings in place.
--- NOTE | 2020-06-23 17:09 | P.PNIM_ITS ---
Subjective Subjective Date of Service: 06/21/20 Interval History: Patient seen and examined at bedside patient continued to require high-flow and non-rebreather patient reported shortness of breath General - no fevers or chills Cardiovascular - no chest pain Respiratory - no shortness of breath or cough Abdominal- no abdominal pain, nausea, vomiting, diarrhea Constitutional Constitutional: Reports weakness Cardiovascular Cardiovascular: Reports dyspnea Respiratory Respiratory: Reports dyspnea Gastrointestinal Gastrointestinal: Denies vomiting Neurologic Neurologic: Reports weakness Physical Exam Vital Signs: Vital Signs: Last Vital Signs Temp 98.6 F 06/19/20 10:55 Pulse 92 06/19/20 10:55 Resp 24 H 06/19/20 15:21 BP 114/70 06/19/20 10:55 Pulse Ox 92 06/19/20 10:55 Body Mass Index 31.3 Appearance: Alert. Oriented X3. Anxious, moderate acute distress. Eyes: Pupils equal, round and reactive to light. ENT: Pharynx normal. Neck: Normal inspection. Neck supple. CVS: Normal heart rate and rhythm. Pulses normal. Respiratory: moderate respiratory distress. Breath sounds diffuse rhonchi and end exp wheezes tachypnea and retractions Abdomen: Soft and nontender. Skin: Skin warm and dry. Normal skin color. Normal skin turgor. Extremities: No lower extremity edema. No calf ttp Neuro: Oriented X 3. No motor deficit. No sensory deficit. Const: Other: Last Vital Signs Temp 98.6 F 06/19/20 10:55 Pulse 92 06/19/20 10:55 Resp 24 H 06/19/20 15:21 BP 114/70 06/19/20 10:55 Pulse Ox 92 06/19/20 10:55 Body Mass Index 31.3 Cardio: Other: Last Vital Signs Temp 98.6 F 06/19/20 10:55 Pulse 92 06/19/20 10:55 Resp 24 H 06/19/20 15:21 BP 114/70 06/19/20 10:55 Pulse Ox 92 06/19/20 10:55 Body Mass Index 31.3 Objective Data Current Medications Generic Name Dose Route Start Last Admin Trade Name Freq PRN Reason Stop Dose Admin Acetaminophen 650 mg 06/15/20 18:07 06/22/20 04:00 Acetaminophen 325 Mg Tablet PO 650 mg Q6H PRN Administration Fever Al Hydroxide/Mg Hydroxide 15 ml 06/15/20 02:51 06/17/20 00:58 Magnesium Hydrox/Alum Hydrox 30 Ml Oral.Susp PO 15 ml Q4H PRN Administration Heartburn Albuterol Sulfate 4 puff 06/15/20 11:41 06/16/20 03:52 Albuterol Sulfate 90 Mcg 8 Gm Inhaler INHALE 4 puff Q3H PRN Administration shortness of breath or wheezin Allopurinol 300 mg 06/16/20 09:00 06/23/20 08:39 Allopurinol 300 Mg Tablet PO 300 mg DAILY MIKAELA Administration Apixaban 5 mg 06/23/20 21:00 Apixaban 5 Mg Tablet PO BID MIKAELA Benzocaine 1 lozenge 06/15/20 17:37 06/20/20 09:53 Throat Lozenge, Medicated Lozenge MUCOUS MEM 1 lozenge Q2H PRN Administration Sore Throat Digoxin 0.25 mg 06/23/20 21:00 Digoxin 0.5 Mg/2 Ml Ampul IVPUSH 06/24/20 03:01 Q6H MIKAELA Fluticasone/Vilanterol 1 puff 06/16/20 08:00 06/23/20 07:49 Fluticasone/Vilanterol 200/25 Blst.W.Dev INHALE 1 puff RDAILY MIKAELA Administration Guaifenesin 5 ml 06/20/20 09:38 06/23/20 06:18 Guaifenesin 100 Mg/5 Ml Liquid PO 5 ml Q6H PRN Administration Cough Guaifenesin/Codeine Phosphate 5 ml 06/20/20 16:09 06/23/20 03:54 Guaifen/Codeine Sf 200/20/10ml 10 Ml Liquid PO 5 ml Q4H PRN Administration Cough Hydrocodone Bit/Homatropine Methylb 5 ml 06/15/20 11:08 06/23/20 14:36 Hydrocodone/Homat 5/1.5/5 Ml 5 Ml Syrup PO 5 ml Q4H PRN Administration cough Diltiazem HCl 125 mg/ Sodium 125 mls @ 0 mls/hr 06/22/20 09:45 06/23/20 11:34 Chloride IVCONT 15 mg/hr .Q0M MIKAELA 15 mls/hr Administration Protocol Per Protocol Insulin Human Lispro 0 unit 06/14/20 21:00 06/23/20 11:34 Insulin Lispro 100 Unit/Ml 3 Ml Vial SUBCUT Not Given QIDACHS [facility] Protocol Lidocaine 2 patch 06/16/20 11:15 06/23/20 08:41 Lidocaine 4 % Patch Adh..Patch TRANSDERMA Not Given DAILY [facility] Protocol Montelukast Sodium 10 mg 06/16/20 09:00 06/23/20 08:39 Montelukast Sodium 10 Mg Tablet PO 10 mg DAILY MIKAELA Administration Patient Own Nucala 100 each 06/16/20 18:00 06/16/20 18:23 SUBCUT 100 each Q28D MIKAELA Administration Omeprazole 20 mg 06/16/20 06:00 06/23/20 06:18 Omeprazole 20 Mg Capsule.Dr PO 20 mg DAILY@0600 [facility] Administration Sodium Chloride 3 ml 06/14/20 16:00 06/23/20 08:38 0.9 % Sodium Chloride Flush 3 Ml Syringe IVFLUSH 3 ml QSHIFT [facility] Administration Tiotropium [place] 1 puff 06/15/20 08:00 06/23/20 07:50 Tiotropium [place] 18 Mcg Cap.W.Dev INHALE 1 puff RDAILY [facility] Administration Trazodone HCl 50 mg 06/15/20 11:50 06/18/20 22:19 Trazodone Hcl 50 Mg Tablet PO 50 mg BEDTIME PRN Administration Sleep Valsartan 80 mg 06/15/20 12:00 06/23/20 08:30 Valsartan 80 Mg Tablet PO Not Given DAILY [facility] Protocol Labs CBC & Chem 7: 06/21/20 11:07 06/21/20 11:07 Microbiology Microbiology Results: Microbiology 06/14/20 08:29 Blood - Venous Blood Culture - Final No growth after 5 days. 06/14/20 08:22 Blood - Venous Blood Culture - Final No growth after 5 days. Assessment and Plan (1) COVID-19: Status: Acute (2) Hypoxia: Status: Resolved Assessment and Plan: 70yo M with COPD + tracheomalacia originally admitted 06/09-06/12/20 for COPD exacerbation and COVID-19 pneumonia readmitted 06/14/20 to ICU for hypoxic respiratory failure requiring CPAP and transitioned to [facility]NC and stepped down to [facility] 06/14/20 Acute hypoxic respiratory failure secondary to COVID pneumonia continue to require HFNC and non-rebreather encouraged self-proning aggressive incentive spirometry wean down as tolerated AFib with RVR patient went into AFib with RVR on 06/21/2020 heart rate still high on maximum Cardizem drip seen by Cardiology recommended loading with digoxin monitor heart rate continue Lovenox therapeutic dose echocardiogram done yesterday shows EF 55-60% Severe COVID-19 pneumonia received dexamethasone d#10/10 received remdesivir #5/5 received convalescent plasma 06/17/20, ID following continue isolation Given elevated D-dimer and pt's reported hx of unprovoked DVT in past, will place on therapeutic anticoagulation with LMWH 1 mg/kg q12h continue lidocaine patch for chest wall pain from coughing COPD/allergic asthma exacerbation continue steroids as above, continue prn MADDY continue LAMA + LABA/ICS + LTRA + Nucala HTN continue valsartan GERD -continue PPI gout continue allopurinol DM2, A1c 8.1 continue correction-dose lispro VTE ppx continue high risk; LMWH + SCDs
--- NOTE | 2020-06-23 17:11 | HO.PM.IMPN ---
Subjective Subjective Date of Service: 06/21/20 Interval History: Patient seen and examined at bedside patient continued to require high-flow and non-rebreather patient reported shortness of breath General - no fevers or chills Cardiovascular - no chest pain Respiratory - no shortness of breath or cough Abdominal- no abdominal pain, nausea, vomiting, diarrhea Constitutional Constitutional: Reports weakness Cardiovascular Cardiovascular: Reports dyspnea Respiratory Respiratory: Reports dyspnea Gastrointestinal Gastrointestinal: Denies vomiting Neurologic Neurologic: Reports weakness Physical Exam Vital Signs: Vital Signs: Last Vital Signs Temp 98.6 F 06/19/20 10:55 Pulse 92 06/19/20 10:55 Resp 24 H 06/19/20 15:21 BP 114/70 06/19/20 10:55 Pulse Ox 92 06/19/20 10:55 Body Mass Index 31.3 Appearance: Alert. Oriented X3. Anxious, moderate acute distress. Eyes: Pupils equal, round and reactive to light. ENT: Pharynx normal. Neck: Normal inspection. Neck supple. CVS: Normal heart rate and rhythm. Pulses normal. Respiratory: moderate respiratory distress. Breath sounds diffuse rhonchi and end exp wheezes tachypnea and retractions Abdomen: Soft and nontender. Skin: Skin warm and dry. Normal skin color. Normal skin turgor. Extremities: No lower extremity edema. No calf ttp Neuro: Oriented X 3. No motor deficit. No sensory deficit. Const: Other: Last Vital Signs Temp 98.6 F 06/19/20 10:55 Pulse 92 06/19/20 10:55 Resp 24 H 06/19/20 15:21 BP 114/70 06/19/20 10:55 Pulse Ox 92 06/19/20 10:55 Body Mass Index 31.3 Cardio: Other: Last Vital Signs Temp 98.6 F 06/19/20 10:55 Pulse 92 06/19/20 10:55 Resp 24 H 06/19/20 15:21 BP 114/70 06/19/20 10:55 Pulse Ox 92 06/19/20 10:55 Body Mass Index 31.3 Objective Data Current Medications Generic Name Dose Route Start Last Admin Trade Name Freq PRN Reason Stop Dose Admin Acetaminophen 650 mg 06/15/20 18:07 06/22/20 04:00 Acetaminophen 325 Mg Tablet PO 650 mg Q6H PRN Administration Fever Al Hydroxide/Mg Hydroxide 15 ml 06/15/20 02:51 06/17/20 00:58 Magnesium Hydrox/Alum Hydrox 30 Ml Oral.Susp PO 15 ml Q4H PRN Administration Heartburn Albuterol Sulfate 4 puff 06/15/20 11:41 06/16/20 03:52 Albuterol Sulfate 90 Mcg 8 Gm Inhaler INHALE 4 puff Q3H PRN Administration shortness of breath or wheezin Allopurinol 300 mg 06/16/20 09:00 06/23/20 08:39 Allopurinol 300 Mg Tablet PO 300 mg DAILY MIKAELA Administration Apixaban 5 mg 06/23/20 21:00 Apixaban 5 Mg Tablet PO BID MIKAELA Benzocaine 1 lozenge 06/15/20 17:37 06/20/20 09:53 Throat Lozenge, Medicated Lozenge MUCOUS MEM 1 lozenge Q2H PRN Administration Sore Throat Fluticasone/Vilanterol 1 puff 06/16/20 08:00 06/23/20 07:49 Fluticasone/Vilanterol 200/25 Blst.W.Dev INHALE 1 puff RDAILY [facility] Administration Guaifenesin 5 ml 06/20/20 09:38 06/23/20 06:18 Guaifenesin 100 Mg/5 Ml Liquid PO 5 ml Q6H PRN Administration Cough Guaifenesin/Codeine Phosphate 5 ml 06/20/20 16:09 06/23/20 03:54 Guaifen/Codeine Sf 200/20/10ml 10 Ml Liquid PO 5 ml Q4H PRN Administration Cough Hydrocodone Bit/Homatropine Methylb 5 ml 06/15/20 11:08 06/23/20 14:36 Hydrocodone/Homat 5/1.5/5 Ml 5 Ml Syrup PO 5 ml Q4H PRN Administration cough Diltiazem HCl 125 mg/ Sodium 125 mls @ 0 mls/hr 06/22/20 09:45 06/23/20 11:34 Chloride IVCONT 15 mg/hr .Q0M MIKAELA 15 mls/hr Administration Protocol Per Protocol Insulin Human Lispro 0 unit 06/14/20 21:00 06/23/20 11:34 Insulin Lispro 100 Unit/Ml 3 Ml Vial SUBCUT Not Given QIDACHS [facility] Protocol Lidocaine 2 patch 06/16/20 11:15 06/23/20 08:41 Lidocaine 4 % Patch Adh..Patch TRANSDERMA Not Given DAILY [facility] Protocol Montelukast Sodium 10 mg 06/16/20 09:00 06/23/20 08:39 Montelukast Sodium 10 Mg Tablet PO 10 mg DAILY MIKAELA Administration Patient Own Nucala 100 each 06/16/20 18:00 06/16/20 18:23 SUBCUT 100 each Q28D MIKAELA Administration Omeprazole 20 mg 06/16/20 06:00 06/23/20 06:18 Omeprazole 20 Mg Capsule.Dr PO 20 mg DAILY@0600 MIKAELA Administration Sodium Chloride 3 ml 06/14/20 16:00 06/23/20 08:38 0.9 % Sodium Chloride Flush 3 Ml Syringe IVFLUSH 3 ml QSHIFT MIKAELA Administration Tiotropium Kimper 1 puff 06/15/20 08:00 06/23/20 07:50 Tiotropium Kimper 18 Mcg Cap.W.Dev INHALE 1 puff RDAILY MIKAELA Administration Trazodone HCl 50 mg 06/15/20 11:50 06/18/20 22:19 Trazodone Hcl 50 Mg Tablet PO 50 mg BEDTIME PRN Administration Sleep Valsartan 80 mg 06/15/20 12:00 06/23/20 08:30 Valsartan 80 Mg Tablet PO Not Given DAILY [facility] Protocol Labs CBC & Chem 7: 06/21/20 11:07 06/21/20 11:07 Microbiology Microbiology Results: Microbiology 06/14/20 08:29 Blood - Venous Blood Culture - Final No growth after 5 days. 06/14/20 08:22 Blood - Venous Blood Culture - Final No growth after 5 days. Assessment and Plan (1) COVID-19: Status: Acute (2) Hypoxia: Status: Resolved Assessment and Plan: 70yo M with COPD + tracheomalacia originally admitted 06/09-06/12/20 for COPD exacerbation and COVID-19 pneumonia readmitted 06/14/20 to ICU for hypoxic respiratory failure requiring CPAP and transitioned to HFNC and stepped down to IMC 06/14/20 Acute hypoxic respiratory failure secondary to COVID pneumonia continue to require HFNC and non-rebreather encouraged self-proning aggressive incentive spirometry wean down as tolerated AFib with RVR patient went into AFib with RVR on 06/21/2020 heart rate still high on maximum Cardizem drip seen by Cardiology recommended loading with digoxin monitor heart rate refusing Lovenox shots switched to Eliquis monitor on telemetry echocardiogram done yesterday shows EF 55-60% Severe COVID-19 pneumonia received dexamethasone d#10/10 received remdesivir #5/5 received convalescent plasma 06/17/20, ID following continue isolation Given elevated D-dimer and pt's reported hx of unprovoked DVT in past, will place on therapeutic anticoagulation with LMWH 1 mg/kg q12h continue lidocaine patch for chest wall pain from coughing COPD/allergic asthma exacerbation continue steroids as above, continue prn MADDY continue LAMA + LABA/ICS + LTRA + Nucala HTN continue valsartan GERD -continue PPI gout continue allopurinol DM2, A1c 8.1 continue correction-dose lispro VTE ppx continue high risk; LMWH + SCDs
[2020-06-23] MEDS: Insulin Lispro 100 UNIT/ML 3 ML VIAL SUBCUT ×2 (17:28→21:25)
[2020-06-23] MEDS: Digoxin 0.25 MG TABLET 0.5 MG PO (17:28)
--- NOTE | 2020-06-23 18:28 | PC.NURSE ---
Patient c/o SOB. Patient in tripod position on side of bed. Respiratory at bedside to evaluate. High flow increased from 90% to 100% 60L. HR 110-125. PO digoxin 0.5mg given at 1700. IV cardizem running at 15mg.
[2020-06-23] MEDS: Morphine Sulfate 2 MG/ML CARTRIDGE 1 MG IVPUSH (19:24)
--- NOTE | 2020-06-23 19:46 | MHC.PIE ---
p - 1915 pt with desat on 100% fio2 with high flow 60L to 73% with RR 40 using accessory muscles on bsc moving bowels. enc slowed resp can't catch my breath Cardizem drip 15mg h hr 130's 140's rapid afib bp 108/69 i - assessment rr 40 as above, lungs dim with faint exp wheeze on [id number] rapid response called. team arrived 1918 including rt, supv, Dr. Villela Morphine 2mg iv given 1923 one time dose. e sats improved 88-90% at 1930, continue to eval
--- NOTE | 2020-06-23 20:27 | P.EN_ITS ---
Event Note Date of Service: 06/23/20 Event Note: PATIENT EXPERIENCE COORDINATOR called around 7:20 pm as patient was found to be hypoxic and HR of 310's. I evaluated the patient at the bedside, sitting on the chair in no acute distress at present. On high flow saturating ~90%. Patient on cardizem drip and digoxin with no response on HR which most likely is increased given his pulmonary acute condition. Will do prone position as well as ipratropium nebulizer, continue with high flow for now to improve oxygenation. ABG to be performed. Wll closely monitor.
[2020-06-23 20:51] LABS: Glucose, Whole Blood 194 mg/dL (60-115)
[2020-06-23] MEDS: Apixaban 5 MG TABLET PO (21:25)
[2020-06-23] MEDS: Digoxin 0.25 MG TABLET PO (21:25)
--- NOTE | 2020-06-23 21:25 | PC.RT ---
rapid response called for inc heart rate and decreased SATS found liter flow off increased to 60l pts SATS went back up to 93% now on 100%,60L plus a non rebreather. at bedside
[2020-06-23] MEDS: Acetaminophen 325 MG TABLET 650 MG PO (23:46)
[2020-06-24] VITALS (27 sets, daily range): BP systolic 78–134; BP diastolic 45–88; PULSE 80–119; RESP 16–34; TEMP 36–37.2; O2SAT 87–95
--- NOTE | 2020-06-24 | XR_ITS ---
EXAMINATION: XR CHEST CLINICAL INFORMATION: Shortness of breath COMPARISON: 06/17/2020 TECHNIQUE: Frontal view of the chest was obtained. FINDINGS: Lung volumes are symmetric. There are worsening multifocal regions of airspace opacity bilaterally, with mid to lower lung zone predominance. No pneumothorax is seen. No definite pleural effusion. The cardiomediastinal silhouette is stable. Right shoulder arthroplasty hardware is partially visualized. No acute osseous findings are seen. XR/XR chest 1V IMPRESSION: Interval worsening of mid to lower lung zone predominant bilateral airspace opacities since 06/17/2020.
[2020-06-24] MEDS: Morphine Sulfate 2 MG/ML CARTRIDGE IVPUSH ×2 (00:39→03:48)
[2020-06-24] MEDS: guaiFEN/Codeine SF 200/20/10ML 10 ML LIQUID 5 ML PO (03:46)
[2020-06-24] MEDS: Albuterol Sulfate (0.042%) 1.25 MG/3 ML VIAL.NEB INHALE (03:46)
[2020-06-24] MEDS: Digoxin 0.25 MG TABLET PO (03:46)
--- NOTE | 2020-06-24 03:54 | PC.RT ---
pt maxed out on high flow plus non rebreather SATS decreasing MD ordered albuterol tx SATS back at 88% pt somewhat SOB refused to prone
--- NOTE | 2020-06-24 04:05 | PC.NURSE ---
Addendum entered by Lori White 06/24/20 07:34: [address] villela ? icu transfer MD spoke to intensivisist and Alyssa BIRD ICU up with Sabrina RIDER tripod position with increased work of breathing rr 40 and hr 130's sats upper 70's- rediscussion re: prone position pt very resistant. took much diligence and persuasion for prone position medicated with dilaudid 1mg iv and digoxin 0.25mg po for elev hr tolerated approx 1 hr with sats. 96% on same settings. abg's drawn at 0418 with po2 low critical 50, reported to Dr. Villela by Sabrina RIDER. stat pcxr 0450. nsg supv updated t.o. shift as well as dr. Villela. 0640 deat again 80's refusing prone hr 130 s tranfer orders icu by dr. villela upon update. this am pt refusing icu, intubation but wants compressions. tranfer held Addendum entered by Lori White 06/24/20 05:14: cont'd same setting after quick lubrication of nares. call to dr. villela & nsg supv. Selene Lee RN and charge Sabrina RIDER present solumedrol 40g iv, guiafenisan/cod 5ml, ms 2mg iv and Dig 0.25 mg po given as ordered for rapid afib 120's sustained. thick pale yellow sputum expectorated. Original Note: contact with dr. villela regarding spiriva given early via [place] @ 2445 for harsh i/e wheeze desat 80's on 100%nrb & high flow. with effect of fine i/e wheeze &mproved sat 88-% 0330 pt c/o dry nose needing lubrication, o2 off brief with desat to 72% on
[2020-06-24 04:28] LABS: Pt Ventilation O2% 100%
[2020-06-24 04:43] LABS: ABG PCO2 33 mmhg (32-45); HCO3 ABG 23 mmol/l (22-26); Oxygen Saturation ABG 86.7 %; PO2 ABG 50 mmhg (83-108); pH ABG 7.46 (7.35-7.45)
[2020-06-24] MEDS: HYDROcodone/Homat 5/1.5/5 ML 5 ML SYRUP PO (05:38)
[2020-06-24] MEDS: Omeprazole 20 MG CAPSULE.DR PO (05:39)
[2020-06-24] MEDS: HYDROmorphone HCl 1 MG/ML SYRINGE IVPUSH (05:40)
[2020-06-24 07:27] LABS: Glucose, Whole Blood 228 mg/dL (60-115)
--- NOTE | 2020-06-24 07:46 | PC.NURSE ---
Addendum entered by Karrie Tamayo RN 06/24/20 12:20: Pt has agreed to being transferred to the ICU. Pt is to be placed on NRB at 100% with a mask for tranport. Arrived to ICU around 0810. Pt placed on bipap 14/10 fio2 100%. Per MD pt given 2mg Versed and 90mg Ketamine. Unable to scan barcodes due to iso room. Pt appears comfortable. HR has decreased (was 130's afib, now 90's afib). Spo2 is 92-93%. Metropolol held due to soft bp (90/sys), MD aware. Pt's allowed to visist with pt per nursing specialty manufacturing supervisor & AOD. Pt allowed hamm to be placed due to pt desat'ing when on the 4th floor whenever he had to void. Original Note: At pt's bedside on IMC due to pt consistently sat'ing 80% on high flow with 100% fio2 and 60lpm. Pt is refusing to prone. Refusing intubation but does want chest compressions. Pt's Sobia, who discussed with Dr Chahal a treatment plan. Plan is to send pt to ICU on biapap with ketamine. Sobia is going to facetime with pt first.
[2020-06-24] MEDS: Ketamine HCl/NS 50 MG/5 ML SYRINGE 90 MG IVPUSH (08:30)
[2020-06-24] MEDS: Midazolam HCl/PF 2 MG/2 ML VIAL IVPUSH (08:30)
[2020-06-24] MEDS: 0.9 % Sodium Chloride Flush 3 ML SYRINGE IVFLUSH ×3 (09:35→23:10)
[2020-06-24 09:44] LABS: Hematocrit 37.6 % (42-52); Hemoglobin 12.9 g/dl (14.0-18.0); Mean Corpuscular HGB Conc 34.3 g/dl (31.0-36.0); Mean Corpuscular Hemoglobin 30.9 pg (27.0-33.0); Mean Corpuscular Volume 90.2 fL (80-98); Mean Platelet Volume 9.6 fL (9.4-12.4); Platelet Count 110 X10*3/uL (160-400); Red Blood Count 4.17 X10*6/uL (4.60-5.80); Red Cell Distribution Width 11.9 % (11.0-16.0); White Blood Count 12.5 X10*3/uL (4.8-10.8)
[2020-06-24 09:48] LABS: INTERNATIONAL NORM RATIO 1.4 (0.9-1.1); Prothrombin Time 16.1 SEC (10.8-13.0)
[2020-06-24 09:51] LABS: Partial Thromboplastin Time 26.9 SEC (24.1-38.0)
[2020-06-24] MEDS: Digoxin 0.5 MG/2 ML AMPUL IVPUSH (10:26)
[2020-06-24] MEDS: Insulin Lispro 100 UNIT/ML 3 ML VIAL SUBCUT ×3 (10:47→23:12)
[2020-06-24 11:08] LABS: Glucose, Whole Blood 231 mg/dL (60-115)
--- NOTE | 2020-06-24 12:26 | PC.NURSE ---
Informed by [place] nurse caring for pt prior to ICU transfer that the pt's Midline is difficult to flush and there is no blood return. Dressing removed and a new dressing placed. Noted Midline has kink between hub and insertion side which was hidden by biopatch. Catheter unkinked and line flushes easily. There is still no blood return. Line secured. No sx or symptoms of infiltrate or line being dislodged. MD notified. Will continue to monitor.
--- NOTE | 2020-06-24 16:16 | P.CONCC_ITS ---
History of Present Illness Data of Consult Service Date: 06/24/20 Requesting physician: Marshall Lai Primary Care Provider: MD NOÉ Phillips Reason for consult: progressive hypoxic respiratory failure I saw this gentleman of 70 years with severe underlying COPD and at least 1 or 2 lung surgeries in the past with also noted tracheomalacia corroborated on CT scan who presents with the severe bilateral COVID pneumonitis and ARDS and was failing on a combination of 100% non-rebreather and 65 liter/minute nasal high- flow at 100% sats falling into the 70s compensating to about 90% in the prone position but beginning to show some signs of respiratory fatigue and inability to sustain the prone position because of his weight as as he was 2 days ago when I 1st met him he is very hesitant about intubation and given his history of tracheomalacia and what ever role of may be playing in his work of breathing we decided that we would bring him to the ICU and try BiPAP and with that we met success in the supine position with 93% oxygen saturation mean blood pressure is 100 respiratory rate down from 40 to 24 heart rate and in atrial fibrillation now controlled averaging between 90 and 110 before they were always in excess of 120 and they would being cosmetically treated with IV Cardizem and here we gave him 1 dose of digoxin at 0.5 mg on top of the 1 from the previous day so he is loaded with a full mg and will use p.r.n. doses of IV Lopressor by bedside echo from several days ago did show good LV function a no primary valve or pericardial disease Review of Systems Review of Systems: outside of dyspnea he has no other complaints Yes all other systems are reviewed and are negative Constitutional: Constitutional: Reports weakness Neurologic: Denies focal weakness and Reports weakness PMFSH Past Medical History Medical History Asthma Bilateral cataracts Borderline diabetic COPD (chronic obstructive pulmonary disease) COPD exacerbation GERD (gastroesophageal reflux disease) Gout H/O hiatal hernia Hand anomaly Hernia, hiatal History of deep venous thrombosis (DVT) of distal vein of left lower extremity Hypertension Jaw anomaly Lung blebs GONZALO (obstructive sleep apnea) Osteoarthritis Pneumonia Tracheomalacia Family History Family history: reviewed and not pertinent Surgical History Surgical History H/O left knee surgery H/O sinus surgery History of right knee joint replacement History of right shoulder replacement History of thoracotomy Hx of cataract surgery S/P hernia surgery Social History Social History Household Members: Spouse Housing: House Alcohol intake: unknown Smoking Status: Former smoker Tobacco Type: Cigarette Use of substances other than those prescribed or required for medical reasons: No Currently Displaying Signs/Symptoms of Drug Intoxication Withdrawal: No Have you been hit, kicked, punched, or otherwise hurt by someone within the past year? If so, by whom?: No Do you feel safe in your current relationship?: Yes Is there a partner from a previous relationship who is making you feel unsafe now?: No Are you made to feel afraid or neglected: No Advance Directives: No Advance Directives Information Provided: No Do you have thoughts of harming others: None Do you have a plan to hurt others: No Plan Recently lost weight without trying: Unsure service: Yes Current occupational status: retired [employer] Allergies Allergy/AdvReac Type Severity Reaction Status Date / Time adhesive tape [Adhesive Tape] Allergy Mild BLISTERS Verified 06/09/20 13:28 bee pollen [BEE STINGS] Allergy Unknown Unknown Verified 06/09/20 13:28 levofloxacin [From Levaquin] Allergy Hives Verified 06/09/20 13:29 Adhesive Bandages Allergy Unknown Unknown Uncoded 06/09/20 13:28 Home Medications Medication Instructions Recorded Confirmed Type Nucala 100 mg SUBCUT Q4W 06/09/20 06/14/20 History Spiriva Respimat 2 puff INHALATION DAILY 06/09/20 06/14/20 History albuterol sulfate 2.5 mg INHALATION Q4H PRN 06/09/20 06/14/20 History allopurinol 300 mg PO DAILY 06/09/20 06/14/20 History amlodipine 5 mg PO DAILY 06/09/20 06/14/20 History ergocalciferol (vitamin D2) 1,250 mcg PO QWEEK 06/09/20 06/14/20 History [Vitamin D2] fluticasone propion-salmeterol 1 inh INHALATION BID 06/09/20 06/14/20 History [Advair Diskus] folic acid 1 mg PO DAILY 06/09/20 06/14/20 History furosemide 20 mg PO DAILY 06/09/20 06/14/20 History montelukast [Singulair] 10 mg PO DAILY 06/09/20 06/14/20 History omeprazole 20 mg PO DAILY 06/09/20 06/14/20 History trazodone 50 mg PO BEDTIME PRN 06/09/20 06/14/20 History valsartan [Diovan] 160 mg PO DAILY 06/09/20 06/14/20 History cetirizine 10 mg PO DAILY 06/14/20 06/14/20 History Physical Exam Vital Signs: Vital Signs: Last Vital Signs Temp 98.4 F 06/24/20 14:56 Pulse 101 H 06/24/20 14:56 Resp 23 H 06/24/20 15:04 BP 106/78 06/24/20 14:56 Pulse Ox 90 L 06/24/20 14:56 Body Mass Index 31.3 he is awake and alert and he is completely oriented neurologically nonfocal considerable respiratory distress with diaphragmatic and accessory muscle effort and tachypneic to 40 no neck vein distension and he has good bilateral carotid upstrokes with normal S1 and normal S2 and no gallops chest with bilateral expiratory wheezing no clinical pleural effusion he p ercusses equally diffuse bilateral coarse rales abdomen obese but not distended with no guarding Results Labs CBC & Chem 7: 06/24/20 09:31 06/21/20 11:07 Labs: Short CBC 06/24/20 Range/Units 09:31 WBC 12.5 H (4.8-10.8) X10*3/uL Hgb 12.9 L (14.0-18.0) g/dl Hct 37.6 L (42-52) % Plt Count 110 L D (160-400) X10*3/uL BMP 06/24/20 07:14 Sodium Cancelled Potassium Cancelled Chloride Cancelled Carbon Dioxide Cancelled BUN Cancelled Creatinine Cancelled Calcium Cancelled Microbiology Microbiology Results: Microbiology 06/14/20 08:29 Blood - Venous Blood Culture - Final No growth after 5 days. 06/14/20 08:22 Blood - Venous Blood Culture - Final No growth after 5 days. Assessment and Plan (1) Atrial fibrillation with rapid ventricular response: Status: Acute (2) COPD (chronic obstructive pulmonary disease): Qualifiers: COPD type: unspecified COPD Qualified Code(s): J44.9 - Chronic obstructive pulmonary disease, unspecified Status: Acute (3) Respiratory failure with hypoxia: Qualifiers: Chronicity: acute on chronic Qualified Code(s): J96.21 - Acute and chronic respiratory failure with hypoxia Status: Acute (4) COVID-19: Status: Acute (5) ARDS (adult respiratory distress syndrome): Status: Acute (6) Diabetes mellitus due to therapeutic use of corticosteroid: Status: Acute (7) Hypertensive cardiovascular disease: Status: Acute (8) Tracheomalacia: Status: Acute considerable improvement with the use of BiPAP which I am sure is diminishing work of breathing in overcoming his tracheomalacia and dynamic obstruction and so long as he maintains his comfort and saturations greater than 90% we will persist but should he drop his oxygen saturations with worsening breathing especially given the progressive worsening in his chest x-ray today then were all on board with intubation
[2020-06-24 16:25] LABS: Alanine Aminotransferase 55 U/L (0-40); Albumin Level 2.6 g/dL (3.5-5.0); Alkaline Phosphatase 178 U/L (39-117); Anion Gap 18 (12-20); Aspartate Amino Transferase 47 U/L (5-37); Bilirubin Total 1.2 mg/dL (0.0-1.0); Blood Urea Nitrogen 31 mg/dL (9-16); Calcium 7.7 mg/dL (8.4-10.2); Carbon Dioxide 21 mmol/L (22-29); Chloride 97 mmol/L (96-108); Estimated Glomerular Filt Rate > 60; Glucose Random 199 mg/dL (60-115); Potassium 5.4 mmol/l (3.3-5.1); Sodium 131 mmol/L (135-145); Total Protein 5.8 g/dL (6.5-8.0)
--- NOTE | 2020-06-24 18:09 | P.PCNCC_ITS ---
Procedures Abscess I/D Date of Service: 06/24/20 Central Line Placement Left IJ: Central Line Comments: after sterile preparation and draping and utilizing ultrasound guidance a 20 cm triple-lumen catheter was placed without complication we 1 needlestick easy entry passing AJ tipped guidewire retrograde with Seldinger technique to the right atrium over which a 20 cm triple-lumen catheter was placed clearly revealing low filling pressure and placement right at the junction of superior vena cava and right atrium was confirmed on chest x- ray without any evidence of pneumothorax and no blood loss Consent for Procedure: Emergent-no informed consent obtained Time out performed: Yes Sterile Technique Used: Yes Patient placed on monitor/pulse ox: Yes prep: mask, gown and gloves Central line prep: Chlorhexidine scrub Local anesthesia used: lidocaine 1% Ultrasound used for placement: Yes Central line lumen inserted: triple Post procedure: sutured in place, good blood return, all ports aspirated, flushed, capped and sterile dressing applied Post procedure x-ray: tip of catheter in good position and no pneumothorax seen Patient tolerated procedure: well and no complications Complications: none
--- NOTE | 2020-06-24 18:10 | XR_ITS ---
EXAMINATION: XR CHEST CLINICAL INFORMATION: Line and tube placement. COMPARISON: Most recent chest radiograph done earlier the same day. TECHNIQUE: Frontal view of the chest was obtained. FINDINGS: Interval placement of an endotracheal tube with its tip approximately 2.7 cm proximal to the beata. Enterogastric tube with its tip beneath the left hemidiaphragm and extending beyond the imaged [id number]. Left-sided central venous catheter with its tip in the region of the SVC. Patchy bilateral airspace opacities, most prominent within the right and left upper lobes, similar when compared to prior examination and consistent with multifocal pneumonia. No pleural effusion or pneumothorax. Stable cardiomediastinal silhouette. Partially visualized right shoulder arthroplasty. XR/XR chest 1V IMPRESSION: 1. Endotracheal tube with its tip approximately 2.7 cm proximal to the beata. Enterogastric tube and left-sided central venous catheter in appropriate position. 2. Bilateral airspace opacities, similar when compared to the prior examination. No pleural effusion or pneumothorax.
--- NOTE | 2020-06-24 18:11 | W.PM.CCHP ---
Procedures Abscess I/D Date of Service: 06/24/20 Intubation Intubation Comments: utilizing a glide scope and a 4. Blade and a 8. Endotracheal tube we had easy visualization of the vocal cords very rapid and easy intubation without complication without trauma with with good bilateral breath sounds and excellent end-tidal CO2 response Consent for Procedure: Elective - informed consent obtained Time out performed: Yes Sedative: propofol Paralytic: rocuronium Laryngoscope: fiber optic video scope ET tube size: 8 Tube secured depth (cm): 24 Tube secured location: lips Tube placement confirmation: visualized tube passing through cords, equal breath sounds bilaterally and confirmation by capnometry Patient tolerated procedure: well and no complications Intubation complications: none
[2020-06-24] MEDS: Piperacillin Sodium/Tazobactam 4.5 GM in 0.9 % Sodium Chloride 100 ML IV ×2 (18:12→23:09)
[2020-06-24 18:23] LABS: Glucose, Whole Blood 214 mg/dL (60-115)
[2020-06-24] MEDS: Midazolam HCl/NS 50 MG/50 ML PLAST..BAG IVCONT (19:13)
[2020-06-24] MEDS: dexAMETHasone sod phosphate 4 MG/ML VIAL IVPUSH (19:14)
[2020-06-24] MEDS: Chlorhexidine Gluc Oral Rinse 15 ML MOUTHWASH BUCCAL (19:14)
[2020-06-24] MEDS: Enoxaparin Sodium 100 MG/ML SYRINGE 90 MG SUBCUT (19:14)
--- NOTE | 2020-06-24 19:21 | PC.NURSE ---
Pt suddenly desat to 80's with rr 30's. Pt is diaphoretic, stating he can't breathe with broken speech. Pt indicates he needs something to relax. MD ordered 4mg IVP versed in 2mg intervals. Spo2 improved, however pt appears lethargic and is slow to respond. Sat's mid to high 80's on 100% FiO2 (previously sat'ing 92-94% on same bipap settings of 14/10 100%). Pt asked if he would allow intubation. Pt made eye contact then closed his eyes. Pt is in obvious resp distress with above noted symptoms including grunting and accessory muscle use. Pt's Sobia was contacted and updated. Pt & talked this morning and pt agreed to allow intubation per . Pt's said to intubate him. Pt intubated with 7.5 ETT 23 @ lip. AC 24 Vt 600 PEEP 10 FiO2 100%. Intuabation was facilitated using 45mg Jong and 100mg IVP in divided doses of Propofol. Propofol drip also started at 20mcg/kg/min (using 86.7kg). OG tube placed. TLC LIJ placed. All lines and tubes confirmed via xray and are in correct place. CVP started per MD and is 6. Pt is restrained to prevent tube displacement. At roughly 1815 pt began coughing and bucking the vent with constant vent alarms for high pressure. Inline suction had no secretions. Copious amouts of oral secretions noted. Also note cuff indicator for ETT was very low. Inflated cuff and suctioned airway. Propofol increased to max of 50mcg/kg/min due to lack of vent synchrony and pt pulling on restraints and moving head towards any sounds. Pt unable to be adequately sedated. MD contacted and ordered versed drip. Awaiting drip to be approved by pharmacy.
[2020-06-24 20:14] LABS: Anion Gap 16 (12-20); Blood Urea Nitrogen 35 mg/dL (9-16); Calcium 7.7 mg/dL (8.4-10.2); Carbon Dioxide 25 mmol/L (22-29); Chloride 98 mmol/L (96-108); Creatinine Clr Calc Pharmacy 70.9; Estimated Glomerular Filt Rate > 60; Glucose Random 194 mg/dL (60-115); Potassium 5.3 mmol/l (3.3-5.1); Sodium 134 mmol/L (135-145)
[2020-06-24] MEDS: Albuterol/Iprat 2.5/0.5MG 3 ML AMPUL.NEB INHALE (20:25)
[2020-06-24] MEDS: Albuterol Sulfate (0.083%) 2.5 MG/3 ML VIAL.NEB 7.5 MG INHALE (20:55)
[2020-06-24] MEDS: 0.9 % Sodium Chloride 1,000 ML 100 ML IVCONT (21:48)
[2020-06-24] MEDS: propofoL 1,000 MG/100 ML VIAL 27.22 MG IVCONT (21:49)
[2020-06-24] MEDS: Rocuronium Bromide 50 MG/5 ML VIAL 45 MG IVPUSH ×2 (21:54→23:10)
[2020-06-24 22:28] LABS: Glucose, Whole Blood 199 mg/dL (60-115)
[2020-06-24 23:01] LABS: HCO3 VBG 24 mmol/L; PCO2 VBG 50 mmhg; PO2 VBG 46 mmhg
[2020-06-25] VITALS (32 sets, daily range): BP systolic 100–157; BP diastolic 46–96; PULSE 68–107; RESP 16–34; TEMP 36–37.2; O2SAT 80–97; BMI 31.4
[2020-06-25] MEDS: fentaNYL citrate/PF 100 MCG/2 ML VIAL 50 MCG IVPUSH (01:41)
[2020-06-25] MEDS: Rocuronium Bromide 50 MG/5 ML VIAL 45 MG IVPUSH ×2 (01:47→04:12)
[2020-06-25] MEDS: propofoL 1,000 MG/100 ML VIAL 27.22 MG IVCONT ×7 (02:59→22:42)
[2020-06-25] MEDS: 0.9 % Sodium Chloride 1,000 ML 100 ML IVCONT ×3 (04:07→18:57)
[2020-06-25] MEDS: Midazolam HCl/NS 50 MG/50 ML PLAST..BAG IVCONT ×2 (04:18→19:12)
[2020-06-25 05:20] LABS: Basophils Percent Auto 0.2 % (0-2); Eosinophils Percent Auto 0.1 % (0-4); Hematocrit 38.3 % (42-52); Hemoglobin 12.8 g/dl (14.0-18.0); Imm Gran Abs Auto 0.31 X10*3/uL (0.00-0.03); Imm Gran Pct Auto 1.6 % (0.0-0.4); Lymphocytes Absolute Auto 0.5 X10*3/uL (1.2-4.9); Lymphocytes Percent Auto 2.7 % (20-40); MANUAL DIFF FLAG SCAN; Mean Corpuscular HGB Conc 33.4 g/dl (31.0-36.0); Mean Corpuscular Hemoglobin 30.7 pg (27.0-33.0); Mean Corpuscular Volume 91.8 fL (80-98); Mean Platelet Volume 9.4 fL (9.4-12.4); Monocytes Absolute Auto 0.8 X10*3/uL (0.1-1.2); Monocytes Percent Auto 3.9 % (2-11); Neutrophils Absolute Auto 17.7 X10*3/uL (2.0-8.3); Neutrophils Percent Auto 91.5 % (45-73); Platelet Count 202 X10*3/uL (160-400); Red Blood Count 4.17 X10*6/uL (4.60-5.80); Red Cell Distribution Width 11.8 % (11.0-16.0); SCAN SMEAR FLAG 1; White Blood Count 19.4 X10*3/uL (4.8-10.8)
[2020-06-25 05:34] LABS: Base Excess VBG -3.8 mmol/L; HCO3 VBG 23 mmol/L; INTERNATIONAL NORM RATIO 1.3 (0.9-1.1); PCO2 VBG 49 mmhg; PO2 VBG 50 mmhg; pH VBG 7.29 (7.32-7.43)
[2020-06-25 05:35] LABS: SLIDE REVIEW VERIFIED
[2020-06-25 05:36] LABS: Partial Thromboplastin Time 32.1 SEC (24.1-38.0)
[2020-06-25] MEDS: Pantoprazole Sodium 40 MG/10 ML VIAL IVPUSH (05:53)
[2020-06-25 05:59] LABS: Alanine Aminotransferase 50 U/L (0-40); Albumin Level 2.4 g/dL (3.5-5.0); Alkaline Phosphatase 165 U/L (39-117); Anion Gap 18 (12-20); Aspartate Amino Transferase 31 U/L (5-37); Bilirubin Total 0.9 mg/dL (0.0-1.0); Blood Urea Nitrogen 40 mg/dL (9-16); Calcium 7.7 mg/dL (8.4-10.2); Carbon Dioxide 24 mmol/L (22-29); Chloride 100 mmol/L (96-108); Creatinine Clr Calc Pharmacy 64.2; Estimated Glomerular Filt Rate > 60; Glucose Random 238 mg/dL (60-115); Magnesium 2.6 mg/dL (1.6-2.6); Phosphorus 4.9 mg/dL (2.7-4.5); Potassium 5.1 mmol/l (3.3-5.1); Sodium 137 mmol/L (135-145); Total Protein 5.4 g/dL (6.5-8.0)
[2020-06-25 06:13] LABS: D Dimer 7150 NG/ML
[2020-06-25] MEDS: Insulin Lispro 100 UNIT/ML 3 ML VIAL SUBCUT ×3 (06:32→23:28)
[2020-06-25] MEDS: Albuterol/Iprat 2.5/0.5MG 3 ML AMPUL.NEB INHALE ×4 (07:59→20:06)
--- NOTE | 2020-06-25 08:27 | PM.CCPN ---
Subjective Subjective Date of Service: 06/25/20 Interval History: 70-year-old with severe COPD and ongoing smoking presented with severe COVID bilateral pneumonitis and ARDS over 2 weeks ago and received remdesivir and convalescent plasma but continue to slowly progress and worsen on maximum nasal high-flow as well as 100% non-rebreather and we gave him an attempt at BiPAP because of his tracheomalacia hoping to ease as work of breathing and we were successful for several hours and he then became markedly hyper but knee ache dropped his oxygen saturations and agreed to intubation which was done swiftly with these and without any difficulty and central line was placed for CVP readings which were averaging between 5 and 8 and still do so he is clinically euvolemic with controlled atrial fibrillation rate 85 oxygen saturation 95% on an FiO2 now reduced to 70% and blood pressure 140/90 with a mean of 98 Physical Exam Vital Signs: Vital Signs: Last Vital Signs Temp 96.8 F 06/25/20 08:00 Pulse 83 06/25/20 08:01 Resp 24 H 06/25/20 08:00 BP 138/89 06/25/20 08:00 Pulse Ox 95 06/25/20 08:00 Body Mass Index 31.4 Const: Other: sedated and intubat ed nonfocal neurological skin intact with no acrocyanosis no decubiti I abdomen benign no bruits no tenderness no organomegaly cardiac exam with normal S1 normal S2 no gallops Objective Data Labs CBC & Chem 7: 06/25/20 04:50 06/25/20 04:50 Labs: Laboratory Results - last 24 hr 06/24/20 06/24/20 06/24/20 09:31 09:31 10:44 WBC 12.5 H RBC 4.17 L Hgb 12.9 L Hct 37.6 L MCV 90.2 MCH 30.9 MCHC 34.3 RDW 11.9 Plt Count 110 L D MPV 9.6 Immature Gran % (Auto) Neut % (Auto) Lymph % (Auto) [facility] % (Auto) Eos % (Auto) Baso % (Auto) Lymph # (Auto) [facility] # (Auto) Eos # (Auto) Baso # (Auto) Abs Immat Gran (auto) Absolute Neuts (auto) Absolute Nucleated RBC 0.000 Nucleated RBC % (auto) 0.0 Smear Tech's Comments PT 16.1 H INR 1.4 H APTT 26.9 D-Dimer VBG pH VBG pCO2 VBG pO2 VBG HCO3 VBG O2 Saturation VBG Base Excess Sodium Potassium Chloride Carbon Dioxide Anion Gap BUN Creatinine Estim Creat Clear Calc Estimated GFR POC Glucose 231 H Random Glucose Calcium Phosphorus Magnesium Total Bilirubin AST ALT Alkaline Phosphatase Total Protein Albumin 06/24/20 06/24/20 06/24/20 15:36 17:55 19:03 WBC RBC Hgb Hct MCV MCH MCHC RDW Plt Count MPV Immature Gran % (Auto) Neut % (Auto) Lymph % (Auto) [facility] % (Auto) Eos % (Auto) Baso % (Auto) Lymph # (Auto) [facility] # (Auto) Eos # (Auto) Baso # (Auto) Abs Immat Gran (auto) Absolute Neuts (auto) Absolute Nucleated RBC Nucleated RBC % (auto) Smear Tech's Comments PT INR APTT D-Dimer VBG pH VBG pCO2 VBG pO2 VBG HCO3 VBG O2 Saturation VBG Base Excess Sodium 131 L 134 L Potassium 5.4 H D 5.3 H Chloride 97 98 Carbon Dioxide 21 L 25 Anion Gap 18 16 BUN 31 H D 35 H Creatinine 0.82 1.04 Estim Creat Clear Calc 90.0 70.9 Estimated GFR > 60 > 60 POC Glucose 214 H Random Glucose 199 H 194 H Calcium 7.7 L 7.7 L Phosphorus Magnesium Total Bilirubin 1.2 H AST 47 H D ALT 55 H Alkaline Phosphatase 178 H D Total Protein 5.8 L Albumin 2.6 L 06/24/20 06/24/20 06/25/20 22:22 22:35 04:50 WBC 19.4 H RBC 4.17 L Hgb 12.8 L Hct 38.3 L MCV 91.8 MCH 30.7 MCHC 33.4 RDW 11.8 Plt Count 202 D MPV 9.4 Immature Gran % (Auto) 1.6 H Neut % (Auto) 91.5 H Lymph % (Auto) 2.[address] [facility] % (Auto) 3.9 Eos % (Auto) 0.1 Baso % (Auto) 0.2 Lymph # (Auto) 0.[address] [facility] # (Auto) 0.8 Eos # (Auto) 0.0 Baso # (Auto) 0.0 Abs Immat Gran (auto) 0.31 H Absolute Neuts (auto) 17.7 H Absolute Nucleated RBC 0.000 Nucleated RBC % (auto) 0.0 Smear Tech's Comments VERIFIED PT INR APTT D-Dimer VBG pH 7.30 L VBG pCO2 50 VBG pO2 46 VBG HCO3 24 VBG O2 Saturation TNP VBG Base Excess -3.0 Sodium Potassium Chloride Carbon Dioxide Anion Gap BUN Creatinine Estim Creat Clear Calc Estimated GFR POC Glucose 199 H Random Glucose Calcium Phosphorus Magnesium Total Bilirubin AST ALT Alkaline Phosphatase Total Protein Albumin 06/25/20 06/25/20 06/25/20 04:50 04:50 04:50 WBC RBC Hgb Hct MCV MCH MCHC RDW Plt Count MPV Immature Gran % (Auto) Neut % (Auto) Lymph % (Auto) [facility] % (Auto) Eos % (Auto) Baso % (Auto) Lymph # (Auto) [facility] # (Auto) Eos # (Auto) Baso # (Auto) Abs Immat Gran (auto) Absolute Neuts (auto) Absolute Nucleated RBC Nucleated RBC % (auto) Smear Tech's Comments PT 15.0 H INR 1.3 H APTT 32.1 D-Dimer 7150 VBG pH 7.29 L VBG pCO2 49 VBG pO2 50 VBG HCO3 23 VBG O2 Saturation 82.0 VBG Base Excess -3.8 Sodium 137 Potassium 5.1 Chloride 100 Carbon Dioxide 24 Anion Gap 18 BUN 40 H Creatinine 1.15 Estim Creat Clear Calc 64.2 Estimated GFR > 60 POC Glucose Random Glucose 238 H Calcium 7.7 L Phosphorus 4.9 H Magnesium 2.6 Total Bilirubin 0.9 AST 31 ALT 50 H Alkaline Phosphatase 165 H Total Protein 5.4 L Albumin 2.4 L Microbiology Microbiology Results: Microbiology 06/14/20 08:29 Blood - Venous Blood Culture - Final No growth after 5 days. 06/14/20 08:22 Blood - Venous Blood Culture - Final No growth after 5 days. 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: Status: Acute (4) ARDS (adult respiratory distress syndrome): Status: Acute (5) Atrial fibrillation with rapid ventricular response: Status: Acute (6) COPD (chronic obstructive pulmonary disease): Status: Acute (7) Respiratory failure with hypoxia: Status: Acute (8) COVID-19: Status: Acute Assessment and Plan: we will wean the FiO2 to the lowest possible maintaining a peep of 10 and no sedation holiday for another 24 hours and because he has a very of volatile personality so we need a little bit more time security surveillance sputum and blood culture and any inkling of positivity L reinstate antibiotics but because of the bump in renal insufficiency on going to hold off (9) Acute renal failure superimposed on stage 2 chronic kidney disease: Status: Acute Time Spent With Patient Time: Total time spent is greater than 50% in coordination of care (as documented) at patient's floor/unit and/or counseling patient: Total time spent with greater than 50% in coordination of care (as documented) at patient's floor/unit and/or counseling patient:: 35
[2020-06-25] MEDS: Enoxaparin Sodium 100 MG/ML SYRINGE 90 MG SUBCUT ×2 (09:12→20:49)
[2020-06-25] MEDS: Chlorhexidine Gluc Oral Rinse 15 ML MOUTHWASH BUCCAL ×3 (09:12→20:49)
[2020-06-25] MEDS: dexAMETHasone sod phosphate 4 MG/ML VIAL IVPUSH ×2 (09:12→20:49)
[2020-06-25 10:42] LABS: Glucose Urine UA NEG (NEG); Leukocyte Esterase Urine NEG (NEG); Nitrite Urine NEG (NEG); Specific Gravity - Urine >= 1.030 (1.005-1.025); Urine Blood 1+ (NEG); Urine Ketones 5 MG/DL (NEG); Urine Protein NEG (NEG-TRACE)
[2020-06-25] MEDS: 0.9 % Sodium Chloride Flush 3 ML SYRINGE IVFLUSH ×3 (10:47→23:28)
[2020-06-25 10:49] LABS: Appearance Urine HAZY; Color Urine YELLOW; INTERNATIONAL NORM RATIO 1.2 (0.9-1.1); Prothrombin Time 14.8 SEC (10.8-13.0)
[2020-06-25 11:01] LABS: Bacteria Urine 1+ /LPF; Mucus Urine 1+ /LPF; Squamous Epithelial Cell Urine TRACE /LPF; WBC Urine 0-2 /HPF (0-4)
--- NOTE | 2020-06-25 14:24 | MHC.CM.PN ---
Pt remains intubated in ICU with COVID 19. FiO2 needs still high: Better assessing of d/c needs will be determined once pt is weaned. CM to follow
[2020-06-25 16:09] LABS: Glucose, Whole Blood 231 mg/dL (60-115)
[2020-06-25 23:26] LABS: Glucose, Whole Blood 193 mg/dL (60-115)
[2020-06-26] VITALS (36 sets, daily range): BP systolic 103–150; BP diastolic 67–90; PULSE 76–140; RESP 17–35; TEMP 34.7–39.1; O2SAT 77–93; BMI 30.4
[2020-06-26] MEDS: propofoL 1,000 MG/100 ML VIAL 27.22 MG IVCONT ×6 (02:39→19:35)
[2020-06-26 05:32] LABS: Glucose, Whole Blood 208 mg/dL (60-115)
[2020-06-26] MEDS: Pantoprazole Sodium 40 MG/10 ML VIAL IVPUSH (05:43)
[2020-06-26] MEDS: Insulin Lispro 100 UNIT/ML 3 ML VIAL SUBCUT ×3 (05:43→18:40)
[2020-06-26] MEDS: Metoprolol Tartrate 5 MG in 0.9 % Sodium Chloride 50 ML 200 MG IV ×4 (05:44→23:19)
[2020-06-26 06:24] LABS: Basophils Percent Auto 0.2 % (0-2); Hematocrit 35.4 % (42-52); Hemoglobin 11.8 g/dl (14.0-18.0); Imm Gran Abs Auto 0.12 X10*3/uL (0.00-0.03); Imm Gran Pct Auto 1.1 % (0.0-0.4); Lymphocytes Absolute Auto 0.5 X10*3/uL (1.2-4.9); Lymphocytes Percent Auto 5.1 % (20-40); MANUAL DIFF FLAG SCAN; Mean Corpuscular HGB Conc 33.3 g/dl (31.0-36.0); Mean Corpuscular Hemoglobin 31.1 pg (27.0-33.0); Mean Corpuscular Volume 93.4 fL (80-98); Mean Platelet Volume 9.6 fL (9.4-12.4); Monocytes Absolute Auto 0.7 X10*3/uL (0.1-1.2); Monocytes Percent Auto 6.3 % (2-11); Neutrophils Absolute Auto 9.2 X10*3/uL (2.0-8.3); Neutrophils Percent Auto 87.3 % (45-73); Platelet Count 168 X10*3/uL (160-400); Red Blood Count 3.79 X10*6/uL (4.60-5.80); SCAN SMEAR FLAG 1; White Blood Count 10.6 X10*3/uL (4.8-10.8)
[2020-06-26 06:45] LABS: Base Excess VBG 0.7 mmol/L; HCO3 VBG 26 mmol/L; PCO2 VBG 49 mmhg; PO2 VBG 42 mmhg; SLIDE REVIEW VERIFIED; pH VBG 7.35 (7.32-7.43)
[2020-06-26 06:55] LABS: INTERNATIONAL NORM RATIO 1.1 (0.9-1.1); Prothrombin Time 13.3 SEC (10.8-13.0)
[2020-06-26 06:58] LABS: Partial Thromboplastin Time 31.6 SEC (24.1-38.0)
[2020-06-26 07:05] LABS: Anion Gap 13 (12-20); Blood Urea Nitrogen 34 mg/dL (9-16); Calcium 7.4 mg/dL (8.4-10.2); Carbon Dioxide 25 mmol/L (22-29); Chloride 105 mmol/L (96-108); Creatinine Clr Calc Pharmacy 85.6; Estimated Glomerular Filt Rate > 60; Glucose Random 202 mg/dL (60-115); Magnesium 2.6 mg/dL (1.6-2.6); Potassium 5.2 mmol/l (3.3-5.1); Sodium 138 mmol/L (135-145)
[2020-06-26 07:12] LABS: D Dimer 3131 NG/ML
[2020-06-26] MEDS: Albuterol/Iprat 2.5/0.5MG 3 ML AMPUL.NEB INHALE ×4 (07:34→20:22)
[2020-06-26] MEDS: Midazolam HCl/NS 50 MG/50 ML PLAST..BAG IVCONT (07:37)
[2020-06-26] MEDS: Chlorhexidine Gluc Oral Rinse 15 ML MOUTHWASH BUCCAL ×3 (07:52→21:48)
[2020-06-26] MEDS: 0.9 % Sodium Chloride Flush 3 ML SYRINGE IVFLUSH ×2 (07:52→15:13)
[2020-06-26] MEDS: Enoxaparin Sodium 100 MG/ML SYRINGE 90 MG SUBCUT (07:53)
[2020-06-26] MEDS: dexAMETHasone sod phosphate 4 MG/ML VIAL IVPUSH (07:53)
[2020-06-26] MEDS: fentaNYL citrate/PF 100 MCG/2 ML VIAL IVPUSH (08:53)
[2020-06-26] MEDS: fentaNYL citrate/NS 1,000 MCG/100 ML PLAST..BAG 2.5 MCG IVCONT (08:59)
[2020-06-26] MEDS: Furosemide 40 MG/4 ML VIAL IVPUSH (09:51)
[2020-06-26] MEDS: Albumin Human 25 % 100 ML IV ×3 (09:52→21:47)
--- NOTE | 2020-06-26 10:36 | MHC.CLN ---
F/U RECOMMEND PROMOTE AT MAX GOAL RATE 45CC/HR TO PROVIDE 1080KCALS (1798KCALS WITH SEDATION (24KCALS/KG), 67.5G PROTEIN (.9G/KG), 906CC FREE WATER FROM FORMULA MONITOR TOLERANCE, RESIDUALS AND LYTES
--- NOTE | 2020-06-26 11:37 | MHC.CM.PN ---
Patient remains intubated/vented in ICU. Patient is from home with . PCP verified as Aleisha Lorenzo. May need PT eval for home safety when medically stable. Continue to monitor for d/c needs.
--- NOTE | 2020-06-26 11:45 | MHC.CM.PN ---
No HCP available at Dr Johnson's office.
[2020-06-26 12:08] LABS: Glucose, Whole Blood 205 mg/dL (60-115)
--- NOTE | 2020-06-26 13:37 | P.PNCC_ITS ---
Subjective Subjective Date of Service: 06/26/20 Interval History: 70-year-old gentleman with underlying COPD /asthma overlap syndrome, tracheomalacia, GONZALO, recent admission on 06/09 through 06/12/2020 for COVID-19 related acute hypoxic respiratory failure readmitted on 06/14/2020 with worsening hypoxemia and acute hypoxic respiratory failure secondary to COVID-19. On ER evaluation patient was noted to be significantly hypoxemic initially requiring CPAP 70% to maintain normoxemia. Patient has been admitted to intensive care unit. Over the course of the first day he has been titrated down to high-flow nasal cannula 70% and transferred to [facility]. his hospital course has been complicated by AFib with RVR, worsening hypoxic respiratory failure requiring transfer to ICU and intubation on 06/24/2020. No events overnight. Physical Exam Vital Signs: Vital Signs: Last Vital Signs Temp 98.1 F 06/26/20 13:00 Pulse 77 06/26/20 13:00 Resp 24 H 06/26/20 13:00 BP 141/90 H 06/26/20 13:00 Pulse Ox 93 06/26/20 13:00 Body Mass Index 30.4 Const: General: no acute distress and other ( Sedated on the vent, anasarca) Eyes: Sclerae: sclerae normal Neck: Neck: Yes no lymphadenopathy, Yes trachea midline and Yes supple Resp: Auscultation: crackles ( diffuse bilateral) Cardio: Rate: regular rate Rhythm: abnormal rhythm ( rate controled flutter) regularly irregular Heart sounds: no gallops, no murmurs and no rubs GI: Palpation (GI): Soft to palpation and Other GI palpation findings present ( Nontender) Auscultation: normal bowel sounds Extrem: General: No clubbing, No cyanosis and Yes edema ( 2+ bilateral) Objective Data Labs CBC & Chem 7: 06/26/20 05:20 06/26/20 05:20 Labs: Laboratory Results - last 24 hr 06/25/20 06/25/20 06/26/20 15:49 23:22 05:06 WBC RBC Hgb Hct MCV MCH MCHC RDW Plt Count MPV Immature Gran % (Auto) Neut % (Auto) Lymph % (Auto) [facility] % (Auto) Eos % (Auto) Baso % (Auto) Lymph # (Auto) [facility] # (Auto) Eos # (Auto) Baso # (Auto) Abs Immat Gran (auto) Absolute Neuts (auto) Absolute Nucleated RBC Nucleated RBC % (auto) Smear Tech's Comments PT INR APTT D-Dimer VBG pH VBG pCO2 VBG pO2 VBG HCO3 VBG O2 Saturation VBG Base Excess Sodium Potassium Chloride Carbon Dioxide Anion Gap BUN Creatinine Estim Creat Clear Calc Estimated GFR POC Glucose 231 H 193 H 208 H Random Glucose Calcium Phosphorus Magnesium 06/26/20 06/26/20 06/26/20 05:20 05:20 05:20 WBC 10.6 RBC 3.79 L Hgb 11.8 L Hct 35.4 L MCV 93.4 MCH 31.1 MCHC 33.3 RDW 12.0 Plt Count 168 MPV 9.6 Immature Gran % (Auto) 1.1 H Neut % (Auto) 87.3 H Lymph % (Auto) 5.[address] [facility] % (Auto) 6.3 Eos % (Auto) 0.0 Baso % (Auto) 0.2 Lymph # (Auto) 0.[address] [facility] # (Auto) 0.7 Eos # (Auto) 0.0 Baso # (Auto) 0.0 Abs Immat Gran (auto) 0.12 H Absolute Neuts (auto) 9.2 H Absolute Nucleated RBC 0.000 Nucleated RBC % (auto) 0.0 Smear Tech's Comments VERIFIED PT 13.3 H INR 1.1 APTT 31.6 D-Dimer 3131 VBG pH VBG pCO2 VBG pO2 VBG HCO3 VBG O2 Saturation VBG Base Excess Sodium Cancelled Potassium Cancelled Chloride Cancelled Carbon Dioxide Cancelled Anion Gap Cancelled BUN Cancelled Creatinine Cancelled Estim Creat Clear Calc Cancelled Estimated GFR Cancelled POC Glucose Random Glucose Cancelled Calcium Cancelled Phosphorus Magnesium 06/26/20 06/26/20 06/26/20 05:20 05:20 11:57 WBC RBC Hgb Hct MCV MCH MCHC RDW Plt Count MPV Immature Gran % (Auto) Neut % (Auto) Lymph % (Auto) [facility] % (Auto) Eos % (Auto) Baso % (Auto) Lymph # (Auto) [facility] # (Auto) Eos # (Auto) Baso # (Auto) Abs Immat Gran (auto) Absolute Neuts (auto) Absolute Nucleated RBC Nucleated RBC % (auto) Smear Tech's Comments PT INR APTT D-Dimer VBG pH 7.35 VBG pCO2 49 VBG pO2 42 VBG HCO3 26 VBG O2 Saturation 74.0 VBG Base Excess 0.7 Sodium 138 Potassium 5.2 H Chloride 105 Carbon Dioxide 25 Anion Gap 13 BUN 34 H Creatinine 0.85 Estim Creat Clear Calc 85.6 Estimated GFR > 60 POC Glucose 205 H Random Glucose 202 H Calcium 7.4 L Phosphorus 3.0 Magnesium 2.6 Microbiology Microbiology Results: Microbiology 06/24/20 19:34 Sputum - Suctioned Gram Stain - Final 06/24/20 19:34 Sputum - Suctioned Sputum Culture - Preliminary Pseudomonas species 06/25/20 10:25 Sputum - Suctioned Gram Stain - Final 06/25/20 10:25 Sputum - Suctioned Sputum Culture - Preliminary Culture in progress. 06/14/20 08:29 Blood - Venous Blood Culture - Final No growth after 5 days. 06/14/20 08:22 Blood - Venous Blood Culture - Final No growth after 5 days. Progress Note: A&P Assessment and plan (1) COVID-19: Status: Acute Assessment and Plan: Assessment: 70-year-old gentleman with underlying COPD, GONZALO, tracheal malacia with recent admission for COVID-19 related acute hypoxic respiratory failure readmitted on 06/14/2020 with worsening acute hypoxic respiratory failure eventually requiring intubation and ventilatory support on 06/24/2020 Plan: Neuro: No acute issues. Cardiac: No acute issues. Pulmonary: COVID-19 related acute hypoxic respiratory failure and ARDS. Continue to titrate off ventilatory support as tolerated. Underlying COPD and tracheomalacia. Renal: No acute issues. Endo: No acute issues. GI: No acute issues. ID: COVID-19 related ARDS, completed dexamethasone and remdesivir. Heme/Onc: No acute issues. Psych: No acute issues. Miscellaneous: No acute issues. Prophylaxis: Lovenox, ppi Diet: Tube feeds Critical care time spent: 60 minutes (2) Respiratory failure with hypoxia: Status: Acute (3) Atrial fibrillation with rapid ventricular response: Status: Acute (4) ARDS (adult respiratory distress syndrome): Status: Acute Time Spent With Patient Total time spent with greater than 50% in coordination of care (as documented) at patient's floor/unit and/or counseling patient:: 0 Critical Care Time Critical Care Time (minutes): 60
--- NOTE | 2020-06-26 14:38 | PC.NURSE ---
Pt on propofol and versed for sedation this am, not synchronus with vent, rr up to 40s, not following commands, md aware, fentanyl 100mcg stat given and fentanyl drip started, versed titrated off. Pt continues to cough with repositioning, not desating, settles after a few minutes, maintaining tidal volumes, fio2 titrated down to 60%. Continues on ac settings. Large amounts of frothy pink sputum noted. Md aware, stat lasix 40mg iv given and started on albumin x4 bags, 2l of yellow urine out this shift.
[2020-06-26] MEDS: fentaNYL citrate/NS 1,000 MCG/100 ML PLAST..BAG 10 MCG IVCONT (18:21)
[2020-06-26 18:38] LABS: Glucose, Whole Blood 179 mg/dL (60-115)
[2020-06-26 20:39] LABS: Anion Gap 13 (12-20); Blood Urea Nitrogen 32 mg/dL (9-16); Calcium 7.9 mg/dL (8.4-10.2); Carbon Dioxide 29 mmol/L (22-29); Chloride 103 mmol/L (96-108); Creatinine Clr Calc Pharmacy 88.8; Estimated Glomerular Filt Rate > 60; Glucose Random 151 mg/dL (60-115); Potassium 4.9 mmol/l (3.3-5.1); Sodium 140 mmol/L (135-145)
[2020-06-26] MEDS: Midazolam HCl/PF 2 MG/2 ML VIAL IVPUSH ×2 (22:06→22:30)
--- NOTE | 2020-06-26 23:06 | XR_ITS ---
EXAMINATION: XR CHEST CLINICAL INFORMATION: Difficulty breathing. Hypoxia. COMPARISON: 06/24/2020 TECHNIQUE: Frontal view of the chest was obtained. FINDINGS: Endotracheal tube remains in place, in similar position to prior. Position of the tube in relation to the beata is not well evaluated on this study. Left internal jugular central venous catheter terminates over the mid SVC. Enteric tube remains in place. Cardiac leads overlie the chest. Reverse total right shoulder arthroplasty. New from the previous study, there are bilateral pneumothoraces. The left-sided pneumothorax is large with significant opacification of the mid to lower aspect of the left lung. Moderate size of the right pneumothorax, greatest at the right base with medial consolidation. Surgical clips overlie the right upper lung. The cardiomediastinal silhouette is normal in size. XR/XR chest 1V IMPRESSION: New finding of large right and moderate left pneumothoraces. Endotracheal tube remains in place. This critical result was discussed with Alphonse Gudino by telephone at 06/26/2020 11:35 PM and it was ascertained that the content and urgency of the report was understood at the time of direct communication.
[2020-06-26 23:27] LABS: HCO3 VBG 32 mmol/L; Oxygen Saturation VBG 61.5 %; PCO2 VBG 68 mmhg; PO2 VBG 37 mmhg; pH VBG 7.28 (7.32-7.43)
[2020-06-26] MEDS: Rocuronium Bromide 50 MG/5 ML VIAL IVPUSH (23:30)
[2020-06-27] VITALS (37 sets, daily range): BP systolic 93–133; BP diastolic 44–86; PULSE 70–151; RESP 23–29; TEMP 37–39.3; O2SAT 75–95; BMI 29.3
--- NOTE | 2020-06-27 | XR_ITS ---
EXAMINATION: XR CHEST CLINICAL INFORMATION: Bilateral chest tubes COMPARISON: 06/26/2020 TECHNIQUE: Frontal view of the chest was obtained. FINDINGS: The endotracheal tube remains in place, terminating likely 2.5 cm above the beata. Left internal jugular central venous catheter terminates over the mid SVC. Enteric tube extends into the stomach. Cardiac leads overlie the chest. Reverse total right shoulder arthroplasty. There is a left-sided pigtail catheter chest tube in place. This terminates over the left hilar region. There is reduced size of the left-sided pneumothorax with small residual left apical pneumothorax. Persistent opacity of the left mid to lower lung. The right-sided pigtail catheter chest tube is coiled over the right lateral chest wall. This does not definitively enter the thoracic cavity. That said, the right-sided pneumothorax is also decreased in size from prior with small pneumothorax greatest at the lung base. Persistent right mid to lower lung airspace opacity. The cardiomediastinal silhouette is within normal limits of size. XR/XR chest 1V IMPRESSION: Endotracheal tube terminating approximately 2.5 cm above the beata. Left-sided chest tube in place. Small residual left pneumothorax. Left mid to lower lung airspace opacity. Right-sided chest tube coils over the right lateral chest wall with no definite entry into the thoracic cavity. Decreased size of the right pneumothorax, with small pneumothorax remaining at the base. Persistent right mid to lower lung airspace disease. This critical result was discussed with Dr. Gudino by telephone at 06/27/2020 1:51 AM and it was ascertained that the content and urgency of the report was understood at the time of direct communication.
--- NOTE | 2020-06-27 | XR_ITS ---
EXAMINATION: XR CHEST CLINICAL INFORMATION: Hypoxia. COMPARISON: Chest x-ray 06/27/2020 TECHNIQUE: Frontal view of the chest was obtained. FINDINGS: There are bilateral chest tubes and place. The right chest tube appears kinked the level of right axilla. There is small to moderate left pneumothorax, stable. No pneumothorax seen on the right side. The lungs are hypoexpanded with patchy opacity in both lung bases similar to previous study. Endotracheal tube, enteric tube and left-sided central catheter tip in mid SVC are stable. Heart size and the great vessels are within normal limits. There are surgical alexandra overlying the right upper lobe. There is elevated right hemidiaphragm. XR/XR chest 1V IMPRESSION: No change in the chest tubes and rest of the catheters and wires. Moderate left pneumothorax is stable. No pneumothorax seen in the right side. Bibasilar atelectasis and/or infiltrates are stable as well.
--- NOTE | 2020-06-27 | XR_ITS ---
EXAMINATION: XR CHEST CLINICAL INFORMATION: Right-sided chest tube replacement. COMPARISON: 06/27/2020 TECHNIQUE: Frontal view of the chest was obtained. FINDINGS: The endotracheal tube terminates approximately 3 cm above the beata. Enteric tube extends into the stomach. Left internal jugular central venous catheter terminates over the mid SVC. Cardiac leads overlie the chest. Left-sided chest tube is unchanged terminating over the hilar region. The previous right-sided chest tube is been removed with a new catheter terminating over the periphery of the right lower hemithorax. The lungs are well expanded. Small left apical pneumothorax remains, unchanged from recent prior. There is significant reexpansion of the right lung with tiny right-sided residual pneumothorax noted. Persistent bilateral mid to lower lung airspace opacities. The cardiomediastinal silhouette is within normal limits. XR/XR chest 1V IMPRESSION: Endotracheal tube terminating 3 cm above the beata. Bilateral chest tubes are now in place. Small residual bilateral pneumothoraces.
[2020-06-27] MEDS: fentaNYL citrate/NS 1,000 MCG/100 ML PLAST..BAG 10 MCG IVCONT (00:12)
[2020-06-27] MEDS: 0.9 % Sodium Chloride Flush 3 ML SYRINGE IVFLUSH ×3 (00:14→16:20)
[2020-06-27 00:18] LABS: Glucose, Whole Blood 137 mg/dL (60-115)
[2020-06-27] MEDS: propofoL 1,000 MG/100 ML VIAL 27.22 MG IVCONT ×8 (00:25→23:41)
--- NOTE | 2020-06-27 01:13 | W.PM.CCHP ---
Procedures Chest Tube Chest Tube 1: Chest tube location: Mid-Clavicular Chest ( left midclavicular) Size of tube: 14 Chest tube procedure: Yes betadine prep and sterile drapes applied Tube sutured to skin: Yes Sterile dressing applied: Yes Anesthesia: 1% Lidocaine Incision made with: other ( Seldinger technique) Post procedure: sutured to skin and sterile dressing applied Johnson of air heard: Yes Tube Drainage: fluid ( air and fluid) Post procedure CXR?: Yes Patient tolerated procedure: Yes Complications: other ( none immediate) Progress: Late note for procedure performed at approximately 1:00 a.m. on 06/27/2020
--- NOTE | 2020-06-27 02:10 | W.PM.CCHP ---
Procedures Abscess I/D Date of Service: 06/27/20 Chest Tube Chest Tube 1: Chest tube location: Mid-Clavicular Chest Size of tube: 8 Tube sutured to skin: Yes Sterile dressing applied: Yes Post procedure: sutured to skin and sterile dressing applied Johnson of air heard: Yes Tube Drainage: none Post procedure CXR?: Yes Patient tolerated procedure: Yes
[2020-06-27] MEDS: Amiodarone/Dextrose 150 MG/100 ML PLAST..BAG 600 MG IV (02:42)
[2020-06-27] MEDS: Piperacillin Sodium/Tazobactam 4.5 GM in 0.9 % Sodium Chloride 100 ML IV ×4 (02:59→19:51)
[2020-06-27] MEDS: Amiodarone HCL 900 MG in 0.9 % Sodium Chloride 500 ML 34.53 MG IVCONT (03:01)
[2020-06-27] MEDS: Albumin Human 25 % 100 ML IV (03:03)
[2020-06-27] MEDS: dilTIAZem HCL 125 MG in 0.9 % Sodium Chloride 100 ML IVCONT ×2 (04:14→12:44)
--- NOTE | 2020-06-27 04:59 | PM.EVENT ---
Event Note Date of Service: 06/27/20 Event Note: Overnight the patient asynchronous with vent, despite x 2 pushes of Versed and administration rocuronium. He also started to become hypoxic to 70s on 100% Fi02 from 60%fi02 and peep of 16 from 10. STAT CXR Showed bilateral pneumothorax. Attending Dr Arias at bedside and bilateral chest tubes inserted with improvement in saturation. At this time patient also had elevated temp, likely related to pneumothrax. Zosyn was started empirically. at bedside, updated on patient condition by Dr Arias
[2020-06-27] MEDS: dilTIAZem HCL 50 MG/10 ML VIAL 15 MG IVPUSH (05:03)
[2020-06-27] MEDS: Pantoprazole Sodium 40 MG/10 ML VIAL IVPUSH (05:28)
[2020-06-27] MEDS: fentaNYL citrate/NS 1,000 MCG/100 ML PLAST..BAG 20 MCG IVCONT ×4 (05:47→20:39)
[2020-06-27 06:09] LABS: Basophils Percent Auto 0.1 % (0-2); Hematocrit 37.7 % (42-52); Hemoglobin 11.9 g/dl (14.0-18.0); Imm Gran Abs Auto 0.26 X10*3/uL (0.00-0.03); Imm Gran Pct Auto 1.2 % (0.0-0.4); Lymphocytes Absolute Auto 0.6 X10*3/uL (1.2-4.9); Lymphocytes Percent Auto 2.6 % (20-40); MANUAL DIFF FLAG SCAN; Mean Corpuscular HGB Conc 31.6 g/dl (31.0-36.0); Mean Corpuscular Hemoglobin 30.9 pg (27.0-33.0); Mean Corpuscular Volume 97.9 fL (80-98); Mean Platelet Volume 9.8 fL (9.4-12.4); Monocytes Percent Auto 4.4 % (2-11); Neutrophils Percent Auto 91.7 % (45-73); Platelet Count 181 X10*3/uL (160-400); Red Blood Count 3.85 X10*6/uL (4.60-5.80); Red Cell Distribution Width 12.4 % (11.0-16.0); SCAN SMEAR FLAG 1; White Blood Count 21.8 X10*3/uL (4.8-10.8)
[2020-06-27 06:28] LABS: Base Excess VBG 0.2 mmol/L; HCO3 VBG 30 mmol/L; Oxygen Saturation VBG 74.9 %; PCO2 VBG 80 mmhg; PO2 VBG 47 mmhg
[2020-06-27 06:35] LABS: SLIDE REVIEW VERIFIED
[2020-06-27 06:44] LABS: Alanine Aminotransferase 65 U/L (0-40); Albumin Level 3.6 g/dL (3.5-5.0); Alkaline Phosphatase 306 U/L (39-117); Anion Gap 17 (12-20); Aspartate Amino Transferase 60 U/L (5-37); Bilirubin Total 1.3 mg/dL (0.0-1.0); Blood Urea Nitrogen 42 mg/dL (9-16); Carbon Dioxide 28 mmol/L (22-29); Chloride 102 mmol/L (96-108); Creatinine Clr Calc Pharmacy 59.2; Estimated Glomerular Filt Rate 58; Glucose Random 250 mg/dL (60-115); Magnesium 2.6 mg/dL (1.6-2.6); Phosphorus 4.3 mg/dL (2.7-4.5); Potassium 5.5 mmol/l (3.3-5.1); Sodium 141 mmol/L (135-145); Total Protein 6.1 g/dL (6.5-8.0)
[2020-06-27] MEDS: Chlorhexidine Gluc Oral Rinse 15 ML MOUTHWASH BUCCAL ×3 (07:48→19:52)
[2020-06-27 08:01] LABS: Glucose, Whole Blood 241 mg/dL (60-115)
[2020-06-27] MEDS: Insulin Lispro 100 UNIT/ML 3 ML VIAL SUBCUT ×3 (08:05→16:27)
[2020-06-27] MEDS: Albuterol/Iprat 2.5/0.5MG 3 ML AMPUL.NEB INHALE ×4 (08:09→19:52)
--- NOTE | 2020-06-27 08:55 | PC.NURSE ---
Addendum entered by Yolanda Martinez RN 06/27/20 13:19: 09:15 suction to papa chest tubes set to -30 per . Administered ordered 20 mg lasix IVP. Patient repositioned to the right and o2 sat improved to 92% on 100% fio2. Original Note: Last night patient had bilateral chest tubes placed. This morning patient on AC settings, 100% fio2 with sats around 88%. During care, patient laid flat and o2 sat decreased to 79-81%. at bedside adjusting right anterior chest tube for question of displacement. CXR obtained, awaiting results. Verbal orders not to reposition until results of xray.
--- NOTE | 2020-06-27 09:21 | MHC.CDI.CONC ---
CDI Concurrent Query Service Date: 06/27/20 Documentation Clarification: Please clarify if you are treating a probable/suspected/likely or confirmed: Viral Sepsis due to Covid-19/pneumonia with acute hypoxic respiratory failure Resolved, POA, Txt, Rule out Please specify if known Provider Response: Other Other Diagnosis: severe COVID-19 pneumonia/ARDS, COVID-19 related viral sepsis. PLEASE DO NOT DELETE/MODIFY EXISTING CONTENT Additional information is needed in order to code to the highest accuracy and appropriate Severity of Illness (SOI). Please clarify the information noted below in your progress notes and discharge summary. Risk Factors/Clinical Indicators/Treatments Query response: 06/21 Viral sepsis due to covid-19/pneumonia with acute hypoxic respiratory failure. LA 4.3 Temp 97.5 102.6 WBC 12.0 RR 20-24 Hypoxic admit to ICU. Originally admitted for COPD exacerbation and Covid-19 pneumonia readmitted to ICU for acute respiratory failure. Severe Covid-19/pneumonia on Oxygen, Dexamethason, Remdesivir, convalescent plasma given on 06/17. CDS: Annemarie Crockett [facility], [facility] Contact Number: [phone] Please Review the information above and exercise your independent professional judgment in responding to the query. If you concur, pleas document in the PROGRESS NOTES and DISCHARGE SUMMARY. If you do not agree with the query, please document in the query above. THIS QUERY IS PART OF THE PERMANENT MEDICAL RECORD
--- NOTE | 2020-06-27 09:55 | MHC.CM.PN ---
Patient remains intubated/vented in ICU. Patient from home with his . Will need PT eval for home safety when medically stable. Continue to monitor for d/c needs.
[2020-06-27] MEDS: Furosemide 20 MG/2 ML VIAL IVPUSH (10:11)
[2020-06-27] MEDS: Enoxaparin Sodium 40 MG/0.4 ML SYRINGE SUBCUT (10:11)
[2020-06-27 11:12] LABS: Glucose, Whole Blood 205 mg/dL (60-115)
[2020-06-27 12:28] LABS: Glucose, Whole Blood 207 mg/dL (60-115)
[2020-06-27 16:47] LABS: Glucose, Whole Blood 198 mg/dL (60-115)
--- NOTE | 2020-06-27 17:23 | PM.CCPN ---
Subjective Subjective Date of Service: 06/27/20 Interval History: 70-year-old gentleman with underlying COPD /asthma overlap syndrome, tracheomalacia, GONZALO, recent admission on 06/09 through 06/12/2020 for COVID-19 related acute hypoxic respiratory failure readmitted on 06/14/2020 with worsening hypoxemia and acute hypoxic respiratory failure secondary to COVID-19. On ER evaluation patient was noted to be significantly hypoxemic initially requiring CPAP 70% to maintain normoxemia. Patient has been admitted to intensive care unit. Over the course of the first day he has been titrated down to high-flow nasal cannula 70% and transferred to [facility]. his hospital course has been complicated by AFib with RVR, worsening hypoxic respiratory failure requiring transfer to ICU and intubation on 06/24/2020. Overnight with an acute hypoxic episode. Chest x-ray with bilateral spontaneous pneumothoraces. Bilateral chest tubes inserted with improvement in oxygenation. Physical Exam Vital Signs: Vital Signs: Last Vital Signs Temp 99.3 F 06/27/20 17:00 Pulse 75 06/27/20 17:00 Resp 26 H 06/27/20 17:00 BP 117/79 06/27/20 17:00 Pulse Ox 91 L 06/27/20 17:00 Body Mass Index 29.3 Const: General: no acute distress and other ( Sedated on the vent) Eyes: Sclerae: sclerae normal EOM: EOMs intact bilaterally Neck: Neck: Yes no lymphadenopathy, Yes trachea midline and Yes supple Resp: Auscultation: crackles ( bibasilar crackles) Cardio: Rate: regular rate Rhythm: regular rhythm Heart sounds: no gallops, no murmurs and no rubs GI: Palpation (GI): Soft to palpation and Other GI palpation findings present ( Nontender) Auscultation: normal bowel sounds Extrem: General: No clubbing, No cyanosis and Yes edema ( trace bilateral) Objective Data Labs CBC & Chem 7: 06/27/20 05:30 06/27/20 05:30 Labs: Laboratory Results - last 24 hr 06/26/20 06/26/20 06/26/20 11:57 18:25 19:51 WBC RBC Hgb Hct MCV MCH MCHC RDW Plt Count MPV Immature Gran % (Auto) Neut % (Auto) Lymph % (Auto) [place] % (Auto) Eos % (Auto) Baso % (Auto) Lymph # (Auto) [place] # (Auto) Eos # (Auto) Baso # (Auto) Abs Immat Gran (auto) Absolute Neuts (auto) Absolute Nucleated RBC Nucleated RBC % (auto) Smear Tech's Comments VBG pH VBG pCO2 VBG pO2 VBG HCO3 VBG O2 Saturation VBG Base Excess Sodium 140 Potassium 4.9 Chloride 103 Carbon Dioxide 29 Anion Gap 13 BUN 32 H Creatinine 0.82 Estim Creat Clear Calc 88.8 Estimated GFR > 60 POC Glucose 205 H 179 H Random Glucose 151 H Calcium 7.9 L D Phosphorus Magnesium Total Bilirubin AST ALT Alkaline Phosphatase Total Protein Albumin 06/26/20 06/27/20 06/27/20 23:09 00:12 05:30 WBC 21.8 H RBC 3.85 L Hgb 11.9 L Hct 37.7 L MCV 97.9 MCH 30.9 MCHC 31.6 RDW 12.4 Plt Count 181 MPV 9.8 Immature Gran % (Auto) 1.2 H Neut % (Auto) 91.7 H Lymph % (Auto) 2.6 L [place] % (Auto) 4.4 Eos % (Auto) 0.0 Baso % (Auto) 0.1 Lymph # (Auto) 0.6 L [place] # (Auto) 1.0 Eos # (Auto) 0.0 Baso # (Auto) 0.0 Abs Immat Gran (auto) 0.26 H Absolute Neuts (auto) 20.0 H Absolute Nucleated RBC 0.000 Nucleated RBC % (auto) 0.0 Smear Tech's Comments VERIFIED VBG pH 7.28 L VBG pCO2 68 VBG pO2 37 VBG HCO3 32 VBG O2 Saturation 61.5 VBG Base Excess 3.0 Sodium Potassium Chloride Carbon Dioxide Anion Gap BUN Creatinine Estim Creat Clear Calc Estimated GFR POC Glucose 137 H Random Glucose Calcium Phosphorus Magnesium Total Bilirubin AST ALT Alkaline Phosphatase Total Protein Albumin 06/27/20 06/27/20 06/27/20 05:30 05:30 07:54 WBC RBC Hgb Hct MCV MCH MCHC RDW Plt Count MPV Immature Gran % (Auto) Neut % (Auto) Lymph % (Auto) [place] % (Auto) Eos % (Auto) Baso % (Auto) Lymph # (Auto) [place] # (Auto) Eos # (Auto) Baso # (Auto) Abs Immat Gran (auto) Absolute Neuts (auto) Absolute Nucleated RBC Nucleated RBC % (auto) Smear Tech's Comments VBG pH 7.20 L* VBG pCO2 80 VBG pO2 47 VBG HCO3 30 VBG O2 Saturation 74.9 VBG Base Excess 0.2 Sodium 141 Potassium 5.5 H Chloride 102 Carbon Dioxide 28 Anion Gap 17 BUN 42 H Creatinine 1.23 Estim Creat Clear Calc 59.2 Estimated GFR 58 POC Glucose 241 H Random Glucose 250 H D Calcium 8.0 L Phosphorus 4.3 Magnesium 2.6 Total Bilirubin 1.3 H AST 60 H ALT 65 H Alkaline Phosphatase 306 H D Total Protein 6.1 L Albumin 3.6 D 06/27/20 06/27/20 12:22 16:25 WBC RBC Hgb Hct MCV MCH MCHC RDW Plt Count MPV Immature Gran % (Auto) Neut % (Auto) Lymph % (Auto) [place] % (Auto) Eos % (Auto) Baso % (Auto) Lymph # (Auto) [place] # (Auto) Eos # (Auto) Baso # (Auto) Abs Immat Gran (auto) Absolute Neuts (auto) Absolute Nucleated RBC Nucleated RBC % (auto) Smear Tech's Comments VBG pH VBG pCO2 VBG pO2 VBG HCO3 VBG O2 Saturation VBG Base Excess Sodium Potassium Chloride Carbon Dioxide Anion Gap BUN Creatinine Estim Creat Clear Calc Estimated GFR POC Glucose 207 H 198 H Random Glucose Calcium Phosphorus Magnesium Total Bilirubin AST ALT Alkaline Phosphatase Total Protein Albumin Microbiology Microbiology Results: Microbiology 06/25/20 10:25 Sputum - Suctioned Gram Stain - Final 06/25/20 10:25 Sputum - Suctioned Sputum Culture - Preliminary Culture in progress. 06/24/20 19:34 Sputum - Suctioned Gram Stain - Final 06/24/20 19:34 Sputum - Suctioned Sputum Culture - Preliminary Pseudomonas species 06/14/20 08:29 Blood - Venous Blood Culture - Final No growth after 5 days. 06/14/20 08:22 Blood - Venous Blood Culture - Final No growth after 5 days. Progress Note: A&P Assessment and plan (1) COVID-19: Status: Acute Assessment and Plan: Assessment: 70-year-old gentleman with underlying COPD, GONZALO, tracheal malacia with recent admission for COVID-19 related acute hypoxic respiratory failure readmitted on 06/14/2020 with worsening acute hypoxic respiratory failure eventually requiring intubation and ventilatory support on 06/24/2020 Plan: Neuro: No acute issues. Cardiac: No acute issues. Pulmonary: COVID-19 related acute hypoxic respiratory failure and ARDS. overnight with development of bilateral pneumothoraces requiring placement of bilateral chest tubes. Continue to titrate off ventilatory support as tolerated. Underlying COPD and tracheomalacia. Renal: No acute issues. Endo: No acute issues. GI: No acute issues. ID: COVID-19 related ARDS, completed dexamethasone and remdesivir. Heme/Onc: No acute issues. Psych: No acute issues. Miscellaneous: No acute issues. Prophylaxis: Lovenox, ppi Diet: Tube feeds Critical care time spent: 180 minutes excluding separately billable procedures (2) Respiratory failure with hypoxia: Status: Acute (3) Atrial fibrillation with rapid ventricular response: Status: Acute (4) ARDS (adult respiratory distress syndrome): Status: Acute Time Spent With Patient Time: Total time spent is greater than 50% in coordination of care (as documented) at patient's floor/unit and/or counseling patient: Total time spent with greater than 50% in coordination of care (as documented) at patient's floor/unit and/or counseling patient:: 0 Critical Care Time Critical Care Time (minutes): 180
[2020-06-27] MEDS: Metoprolol Tartrate 5 MG in 0.9 % Sodium Chloride 50 ML 200 MG IV (19:51)
[2020-06-27 21:43] LABS: Base Excess VBG -0.8 mmol/L; Blood Gas Serial # 5414; HCO3 VBG 27 mmol/L; Oxygen Saturation VBG 78.7 %; PCO2 VBG 60 mmhg; PO2 VBG 46 mmhg; pH VBG 7.27 (7.32-7.43)
[2020-06-27 23:56] LABS: Glucose, Whole Blood 144 mg/dL (60-115)
[2020-06-28] VITALS (33 sets, daily range): BP systolic 85–141; BP diastolic 56–96; PULSE 75–143; RESP 16–28; TEMP 37.9–39.2; O2SAT 85–94
--- NOTE | 2020-06-28 | XR_ITS ---
EXAMINATION: XR CHEST CLINICAL INFORMATION: Hypoxia COMPARISON: Previous chest x-rays most recent from yesterday TECHNIQUE: Frontal view of the chest was obtained. FINDINGS: There is an endotracheal tube with tip 7 cm above the beata. There is a left jugular line with tip projecting over the SVC. There is a nasogastric tube that projects over the stomach. There is a pigtail chest tube that projects over the central mediastinum and appears unchanged. There is a smaller nonpigtail chest tube at the right lateral lung base. The cardiac and mediastinal contours are stable. There are surgical clips that project over the right upper lung There is bilateral multilobar airspace disease, left greater than right. This does not appear appreciably changed. No right pneumothorax is seen. There may be a very small left lateral pneumothorax measuring 5 mm. There is no significant pleural effusion. XR/XR chest 1V IMPRESSION: Stable position of support line and tubes. Question small left lateral pneumothorax measuring 5 mm. No right pneumothorax seen. Bilateral multilobar airspace disease, left greater than right, not appreciably changed.
[2020-06-28] MEDS: dilTIAZem HCL 125 MG in 0.9 % Sodium Chloride 100 ML 10 MG IVCONT ×2 (00:11→13:07)
[2020-06-28] MEDS: Metoprolol Tartrate 5 MG in 0.9 % Sodium Chloride 50 ML 200 MG IV ×4 (01:47→20:22)
[2020-06-28] MEDS: fentaNYL citrate/NS 1,000 MCG/100 ML PLAST..BAG 20 MCG IVCONT ×5 (01:47→21:12)
[2020-06-28] MEDS: Piperacillin Sodium/Tazobactam 4.5 GM in 0.9 % Sodium Chloride 100 ML IV ×4 (01:48→20:22)
[2020-06-28] MEDS: propofoL 1,000 MG/100 ML VIAL 27.22 MG IVCONT ×6 (03:25→21:12)
[2020-06-28] MEDS: Pantoprazole Sodium 40 MG/10 ML VIAL IVPUSH (05:37)
[2020-06-28 06:05] LABS: MANUAL DIFF FLAG NO
[2020-06-28 06:06] LABS: Basophils Percent Auto 0.2 % (0-2); Eosinophils Absolute Auto 0.1 X10*3/uL (0.0-0.4); Eosinophils Percent Auto 1.1 % (0-4); Hematocrit 37.2 % (42-52); Hemoglobin 11.7 g/dl (14.0-18.0); Imm Gran Abs Auto 0.24 X10*3/uL (0.00-0.03); Imm Gran Pct Auto 2.1 % (0.0-0.4); Lymphocytes Absolute Auto 0.7 X10*3/uL (1.2-4.9); Lymphocytes Percent Auto 6.5 % (20-40); Mean Corpuscular HGB Conc 31.5 g/dl (31.0-36.0); Mean Corpuscular Volume 98.7 fL (80-98); Mean Platelet Volume 9.8 fL (9.4-12.4); Monocytes Absolute Auto 0.5 X10*3/uL (0.1-1.2); Monocytes Percent Auto 4.5 % (2-11); Neutrophils Absolute Auto 9.8 X10*3/uL (2.0-8.3); Neutrophils Percent Auto 85.6 % (45-73); Platelet Count 156 X10*3/uL (160-400); Red Blood Count 3.77 X10*6/uL (4.60-5.80); Red Cell Distribution Width 12.6 % (11.0-16.0); White Blood Count 11.4 X10*3/uL (4.8-10.8)
[2020-06-28 06:08] LABS: Glucose, Whole Blood 160 mg/dL (60-115)
[2020-06-28 06:30] LABS: Base Excess VBG 0.2 mmol/L; HCO3 VBG 29 mmol/L; Oxygen Saturation VBG 75.6 %; PCO2 VBG 66 mmhg; PO2 VBG 44 mmhg; pH VBG 7.26 (7.32-7.43)
[2020-06-28 06:35] LABS: Alanine Aminotransferase 59 U/L (0-40); Alkaline Phosphatase 216 U/L (39-117); Anion Gap 17 (12-20); Aspartate Amino Transferase 43 U/L (5-37); Bilirubin Total 0.8 mg/dL (0.0-1.0); Blood Urea Nitrogen 42 mg/dL (9-16); Calcium 7.7 mg/dL (8.4-10.2); Carbon Dioxide 26 mmol/L (22-29); Chloride 107 mmol/L (96-108); Estimated Glomerular Filt Rate > 60; Glucose Random 172 mg/dL (60-115); Magnesium 2.7 mg/dL (1.6-2.6); Phosphorus 3.1 mg/dL (2.7-4.5); Potassium 5.6 mmol/l (3.3-5.1); Sodium 144 mmol/L (135-145); Total Protein 5.4 g/dL (6.5-8.0)
[2020-06-28] MEDS: 0.9 % Sodium Chloride Flush 3 ML SYRINGE IVFLUSH ×3 (07:50→23:44)
[2020-06-28] MEDS: Chlorhexidine Gluc Oral Rinse 15 ML MOUTHWASH BUCCAL ×3 (07:50→20:22)
[2020-06-28] MEDS: Albuterol/Iprat 2.5/0.5MG 3 ML AMPUL.NEB INHALE ×4 (07:52→20:05)
[2020-06-28] MEDS: Insulin Lispro 100 UNIT/ML 3 ML VIAL SUBCUT ×2 (07:56→11:18)
[2020-06-28 08:35] LABS: Glucose, Whole Blood 182 mg/dL (60-115)
--- NOTE | 2020-06-28 10:15 | MHC.CM.PN ---
Patient remains intubated/vented in ICU. Patient currently has 2 chest tubes. Patient is from home with his . Continue to monitor for d/c needs.
--- NOTE | 2020-06-28 10:19 | MHC.CLN ---
F/U TF ON HOLD R/T NIMBEX TO RE-START PROMOTE AT MAX GOAL RATE 45CC/HR TO PROVIDE 1080KCALS (1798KCALS WITH SEDATION (24KCALS/KG), 67.5G PROTEIN (.9G/KG), 906CC FREE WATER FROM FORMULA MONITOR TOLERANCE, RESIDUALS AND LYTES
[2020-06-28] MEDS: Albumin Human 25 % 100 ML IV ×3 (10:30→20:23)
[2020-06-28] MEDS: Furosemide 40 MG/4 ML VIAL IVPUSH ×2 (10:31→20:25)
[2020-06-28] MEDS: Enoxaparin Sodium 40 MG/0.4 ML SYRINGE SUBCUT (10:31)
[2020-06-28 11:24] LABS: Glucose, Whole Blood 179 mg/dL (60-115)
--- NOTE | 2020-06-28 16:35 | P.PNCC_ITS ---
Subjective Subjective Date of Service: 06/28/20 Interval History: 70-year-old gentleman with underlying COPD /asthma overlap syndrome, tracheomalacia, GONZALO, recent admission on 06/09 through 06/12/2020 for COVID-19 related acute hypoxic respiratory failure readmitted on 06/14/2020 with worsening hypoxemia and acute hypoxic respiratory failure secondary to COVID-19. On ER evaluation patient was noted to be significantly hypoxemic initially requiring CPAP 70% to maintain normoxemia. Patient has been admitted to intensive care unit. Over the course of the first day he has been titrated down to high-flow nasal cannula 70% and transferred [facility]. his hospital course has been complicated by AFib with RVR, worsening hypoxic respiratory failure requiring transfer to ICU and intubation on 06/24/2020. hospital course further complicated by bilateral pneumothoraces on 06/27/2020 early in a.m. requiring placement of bilateral chest tubes. No events overnight. Mild improvement in FiO2 requirements. Physical Exam Vital Signs: Vital Signs: Last Vital Signs Temp 102.0 F H 06/28/20 15:00 Pulse 102 H 06/28/20 15:47 Resp 26 H 06/28/20 15:00 BP 115/72 06/28/20 15:00 Pulse Ox 92 06/28/20 14:00 Body Mass Index 29.3 Const: General: no acute distress and other ( Sedated on the vent) Eyes: Sclerae: sclerae normal Neck: Neck: Yes no lymphadenopathy, Yes trachea midline and Yes supple Resp: Auscultation: crackles ( diffuse bilateral) Cardio: Rate: tachycardic Rhythm: abnormal rhythm irregularly irregular Heart sounds: no gallops, no murmurs and no rubs GI: Palpation (GI): Soft to palpation and Other GI palpation findings present ( Nontender) Auscultation: normal bowel sounds Extrem: General: No clubbing, No cyanosis and Yes edema ( trace bilateral) Objective Data Labs CBC & Chem 7: 06/28/20 05:42 06/28/20 05:42 Labs: Laboratory Results - last 24 hr 06/27/20 06/27/20 06/27/20 16:25 21:25 23:49 WBC RBC Hgb Hct MCV MCH MCHC RDW Plt Count MPV Immature Gran % (Auto) Neut % (Auto) Lymph % (Auto) [place] % (Auto) Eos % (Auto) Baso % (Auto) Lymph # (Auto) [place] # (Auto) Eos # (Auto) Baso # (Auto) Abs Immat Gran (auto) Absolute Neuts (auto) Absolute Nucleated RBC Nucleated RBC % (auto) VBG pH 7.27 L VBG pCO2 60 VBG pO2 46 VBG HCO3 27 VBG O2 Saturation 78.7 VBG Base Excess -0.8 Sodium Potassium Chloride Carbon Dioxide Anion Gap BUN Creatinine Estim Creat Clear Calc Estimated GFR POC Glucose 198 H 144 H Random Glucose Calcium Phosphorus Magnesium Total Bilirubin AST ALT Alkaline Phosphatase Total Protein Albumin 06/28/20 06/28/20 06/28/20 05:42 05:42 05:42 WBC 11.4 H RBC 3.77 L Hgb 11.7 L Hct 37.2 L MCV 98.7 H MCH 31.0 MCHC 31.5 RDW 12.6 Plt Count 156 L MPV 9.8 Immature Gran % (Auto) 2.1 H Neut % (Auto) 85.6 H Lymph % (Auto) 6.[address] [place] % (Auto) 4.5 Eos % (Auto) 1.1 Baso % (Auto) 0.2 Lymph # (Auto) 0.[address] [place] # (Auto) 0.5 Eos # (Auto) 0.1 Baso # (Auto) 0.0 Abs Immat Gran (auto) 0.24 H Absolute Neuts (auto) 9.8 H Absolute Nucleated RBC 0.000 Nucleated RBC % (auto) 0.0 VBG pH 7.26 L VBG pCO2 66 VBG pO2 44 VBG HCO3 29 VBG O2 Saturation 75.6 VBG Base Excess 0.2 Sodium 144 Potassium 5.6 H Chloride 107 Carbon Dioxide 26 Anion Gap 17 BUN 42 H Creatinine 0.98 Estim Creat Clear Calc 73.0 Estimated GFR > 60 POC Glucose Random Glucose 172 H Calcium 7.7 L Phosphorus 3.1 Magnesium 2.7 H Total Bilirubin 0.8 AST 43 H ALT 59 H Alkaline Phosphatase 216 H D Total Protein 5.4 L Albumin 3.0 L 06/28/20 06/28/20 06/28/20 05:45 07:54 11:15 WBC RBC Hgb Hct MCV MCH MCHC RDW Plt Count MPV Immature Gran % (Auto) Neut % (Auto) Lymph % (Auto) [place] % (Auto) Eos % (Auto) Baso % (Auto) Lymph # (Auto) [place] # (Auto) Eos # (Auto) Baso # (Auto) Abs Immat Gran (auto) Absolute Neuts (auto) Absolute Nucleated RBC Nucleated RBC % (auto) VBG pH VBG pCO2 VBG pO2 VBG HCO3 VBG O2 Saturation VBG Base Excess Sodium Potassium Chloride Carbon Dioxide Anion Gap BUN Creatinine Estim Creat Clear Calc Estimated GFR POC Glucose 160 H 182 H 179 H Random Glucose Calcium Phosphorus Magnesium Total Bilirubin AST ALT Alkaline Phosphatase Total Protein Albumin Microbiology Microbiology Results: Microbiology 06/25/20 10:25 Sputum - Suctioned Gram Stain - Final 06/25/20 10:25 Sputum - Suctioned Sputum Culture - Final Pseudomonas aeruginosa 06/24/20 19:34 Sputum - Suctioned Gram Stain - Final 06/24/20 19:34 Sputum - Suctioned Sputum Culture - Final Pseudomonas aeruginosa 06/14/20 08:29 Blood - Venous Blood Culture - Final No growth after 5 days. 06/14/20 08:22 Blood - Venous Blood Culture - Final No growth after 5 days. Progress Note: A&P Assessment and plan (1) COVID-19: Status: Acute Assessment and Plan: Assessment: 70-year-old gentleman with underlying COPD, GONZALO, tracheal malacia with recent admission for COVID-19 related acute hypoxic respiratory failure readmitted on 06/14/2020 with worsening acute hypoxic respiratory failure eventually requiring intubation and ventilatory support on 06/24/2020, further complicated by bilateral pneumothoraces requiring bilateral chest tubes on 06/27/2020. Plan: Neuro: No acute issues. Cardiac: No acute issues. Pulmonary: COVID-19 related acute hypoxic respiratory failure and ARDS. Bilateral spontaneous pneumothoraces requiring placement of bilateral chest tubes on 06/27/2020. FiO2 requirements are mildly improving. Continue to titrate off ventilatory support as tolerated. Underlying COPD and tracheomalacia. Renal: No acute issues. Endo: No acute issues. GI: No acute issues. ID: COVID-19 related ARDS, completed dexamethasone and remdesivir. Heme/Onc: No acute issues. Psych: No acute issues. Miscellaneous: No acute issues. Prophylaxis: Lovenox, ppi Diet: Tube feeds Critical care time spent: 60 minutes (2) Respiratory failure with hypoxia: Status: Acute (3) ARDS (adult respiratory distress syndrome): Status: Acute (4) Atrial fibrillation with rapid ventricular response: Status: Acute Time Spent With Patient Total time spent with greater than 50% in coordination of care (as documented) at patient's floor/unit and/or counseling patient:: 0 Critical Care Time Critical Care Time (minutes): 60
[2020-06-28 17:56] LABS: Glucose, Whole Blood 158 mg/dL (60-115)
[2020-06-28] MEDS: Acetaminophen Supp 650 MG SUPP.RECT PR (20:23)
[2020-06-28 23:59] LABS: Glucose, Whole Blood 195 mg/dL (60-115)
[2020-06-29] VITALS (32 sets, daily range): BP systolic 95–164; BP diastolic 62–105; PULSE 95–151; RESP 17–34; TEMP 38.8–39.6; O2SAT 83–100; BMI 29.7
[2020-06-29] MEDS: propofoL 1,000 MG/100 ML VIAL 27.22 MG IVCONT ×4 (00:25→23:30)
[2020-06-29] MEDS: Insulin Lispro 100 UNIT/ML 3 ML VIAL SUBCUT ×4 (00:25→19:23)
[2020-06-29] MEDS: dilTIAZem HCL 125 MG in 0.9 % Sodium Chloride 100 ML 15 MG IVCONT ×2 (00:26→08:20)
[2020-06-29] MEDS: Metoprolol Tartrate 5 MG in 0.9 % Sodium Chloride 50 ML 200 MG IV ×4 (02:03→20:43)
[2020-06-29] MEDS: Albumin Human 25 % 100 ML 200 ML IV (02:04)
[2020-06-29] MEDS: Piperacillin Sodium/Tazobactam 4.5 GM in 0.9 % Sodium Chloride 100 ML IV ×4 (02:04→20:44)
[2020-06-29] MEDS: fentaNYL citrate/NS 1,000 MCG/100 ML PLAST..BAG 20 MCG IVCONT (02:07)
[2020-06-29] MEDS: Pantoprazole Sodium 40 MG/10 ML VIAL IVPUSH (06:17)
[2020-06-29 06:27] LABS: Glucose, Whole Blood 188 mg/dL (60-115)
[2020-06-29 07:35] LABS: Basophils Percent Auto 0.1 % (0-2); Oxygen Saturation VBG 76.8 %; PLT CLUMP 1; SCAN SMEAR FLAG 1; pH VBG 7.32 (7.32-7.43)
[2020-06-29 07:36] LABS: Base Excess VBG 6.8 mmol/L; HCO3 VBG 35 mmol/L; PCO2 VBG 69 mmhg; PO2 VBG 44 mmhg
[2020-06-29 07:37] LABS: Eosinophils Absolute Auto 0.1 X10*3/uL (0.0-0.4); Eosinophils Percent Auto 0.8 % (0-4); Hematocrit 32.8 % (42-52); Hemoglobin 10.2 g/dl (14.0-18.0); Imm Gran Abs Auto 0.18 X10*3/uL (0.00-0.03); Lymphocytes Absolute Auto 0.7 X10*3/uL (1.2-4.9); Lymphocytes Percent Auto 7.5 % (20-40); Mean Corpuscular HGB Conc 31.1 g/dl (31.0-36.0); Mean Corpuscular Hemoglobin 30.9 pg (27.0-33.0); Mean Corpuscular Volume 99.4 fL (80-98); Mean Platelet Volume 10.3 fL (9.4-12.4); Monocytes Absolute Auto 0.4 X10*3/uL (0.1-1.2); Monocytes Percent Auto 4.1 % (2-11); Neutrophils Absolute Auto 7.6 X10*3/uL (2.0-8.3); Neutrophils Percent Auto 85.5 % (45-73); Platelet Count 144 X10*3/uL (160-400); Red Cell Distribution Width 12.9 % (11.0-16.0)
[2020-06-29 07:41] LABS: MANUAL DIFF FLAG NO
[2020-06-29] MEDS: Albuterol/Iprat 2.5/0.5MG 3 ML AMPUL.NEB INHALE ×4 (07:47→20:37)
[2020-06-29] MEDS: 0.9 % Sodium Chloride Flush 3 ML SYRINGE IVFLUSH ×3 (07:49→23:31)
[2020-06-29] MEDS: Furosemide 40 MG/4 ML VIAL IVPUSH ×2 (07:50→20:44)
[2020-06-29] MEDS: Chlorhexidine Gluc Oral Rinse 15 ML MOUTHWASH BUCCAL ×3 (07:53→20:44)
[2020-06-29 08:11] LABS: Albumin Level 3.7 g/dL (3.5-5.0); Anion Gap 16 (12-20); Blood Urea Nitrogen 42 mg/dL (9-16); Calcium 8.1 mg/dL (8.4-10.2); Carbon Dioxide 31 mmol/L (22-29); Chloride 107 mmol/L (96-108); Creatinine Clr Calc Pharmacy 61.5; Estimated Glomerular Filt Rate > 60; Glucose Random 189 mg/dL (60-115); Magnesium 2.8 mg/dL (1.6-2.6); Potassium 5.4 mmol/l (3.3-5.1); Sodium 149 mmol/L (135-145)
[2020-06-29] MEDS: fentaNYL citrate/NS 1,000 MCG/100 ML PLAST..BAG 17.5 MCG IVCONT ×2 (08:22→14:01)
[2020-06-29 08:27] LABS: White Blood Count 8.9 X10*3/uL (4.8-10.8)
[2020-06-29] MEDS: Enoxaparin Sodium 40 MG/0.4 ML SYRINGE SUBCUT (09:22)
[2020-06-29] MEDS: propofoL 1,000 MG/100 ML VIAL 13.61 MG IVCONT ×2 (11:21→19:23)
--- NOTE | 2020-06-29 11:39 | P.PNCC_ITS ---
Subjective Subjective Date of Service: 06/29/20 Interval History: 70-year-old gentleman with underlying COPD /asthma overlap syndrome, tracheomalacia, GONZALO, recent admission on 06/09 through 06/12/2020 for COVID-19 related acute hypoxic respiratory failure readmitted on 06/14/2020 with worsening hypoxemia and acute hypoxic respiratory failure secondary to COVID-19. On ER evaluation patient was noted to be significantly hypoxemic initially requiring CPAP 70% to maintain normoxemia. Patient has been admitted to intensive care unit. Over the course of the first day he has been titrated down to high-flow nasal cannula 70% and transferred [facility]. his hospital course has been complicated by AFib with RVR, worsening hypoxic respiratory failure requiring transfer to ICU and intubation on 06/24/2020. hospital course further complicated by bilateral pneumothoraces on 06/27/2020 early in a.m. requiring placement of bilateral chest tubes. No events overnight. Physical Exam Vital Signs: Vital Signs: Last Vital Signs Temp 103.1 F H 06/29/20 10:42 Pulse 125 H 06/29/20 11:11 Resp 20 06/29/20 10:42 BP 114/72 06/29/20 10:42 Pulse Ox 94 06/29/20 10:42 Body Mass Index 29.7 Const: General: no acute distress Eyes: Sclerae: sclerae normal Neck: Neck: Yes no lymphadenopathy, Yes trachea midline and Yes supple Resp: Auscultation: crackles ( diffuse bilateral) Cardio: Rate: regular rate Rhythm: regular rhythm Heart sounds: no gallops, no murmurs and no rubs GI: Palpation (GI): Soft to palpation and Other GI palpation findings present ( Nontender) Auscultation: normal bowel sounds Extrem: General: No clubbing, No cyanosis and Yes edema ( trace bilateral) Objective Data Labs CBC & Chem 7: 06/29/20 06:15 06/29/20 06:15 Labs: Laboratory Results - last 24 hr 06/28/20 06/28/20 06/29/20 17:39 23:47 06:15 WBC 8.9 RBC 3.30 L Hgb 10.2 L Hct 32.8 L MCV 99.4 H MCH 30.9 MCHC 31.1 RDW 12.9 Plt Count 144 L MPV 10.3 Immature Gran % (Auto) 2.0 H Neut % (Auto) 85.5 H Lymph % (Auto) 7.5 L [place] % (Auto) 4.1 Eos % (Auto) 0.8 Baso % (Auto) 0.1 Lymph # (Auto) 0.7 L [place] # (Auto) 0.4 Eos # (Auto) 0.1 Baso # (Auto) 0.0 Abs Immat Gran (auto) 0.18 H Absolute Neuts (auto) 7.6 Absolute Nucleated RBC 0.000 Nucleated RBC % (auto) 0.0 VBG pH VBG pCO2 VBG pO2 VBG HCO3 VBG O2 Saturation VBG Base Excess Sodium Potassium Chloride Carbon Dioxide Anion Gap BUN Creatinine Estim Creat Clear Calc Estimated GFR POC Glucose 158 H 195 H Random Glucose Calcium Phosphorus Magnesium Albumin 06/29/20 06/29/20 06/29/20 06:15 06:15 06:19 WBC RBC Hgb Hct MCV MCH MCHC RDW Plt Count MPV Immature Gran % (Auto) Neut % (Auto) Lymph % (Auto) [place] % (Auto) Eos % (Auto) Baso % (Auto) Lymph # (Auto) [place] # (Auto) Eos # (Auto) Baso # (Auto) Abs Immat Gran (auto) Absolute Neuts (auto) Absolute Nucleated RBC Nucleated RBC % (auto) VBG pH 7.32 VBG pCO2 69 VBG pO2 44 VBG HCO3 35 VBG O2 Saturation 76.8 VBG Base Excess 6.8 Sodium 149 H Potassium 5.4 H Chloride 107 Carbon Dioxide 31 H Anion Gap 16 BUN 42 H Creatinine 1.17 Estim Creat Clear Calc 61.5 Estimated GFR > 60 POC Glucose 188 H Random Glucose 189 H Calcium 8.1 L Phosphorus 3.0 Magnesium 2.8 H Albumin 3.7 D Microbiology Microbiology Results: Microbiology 06/25/20 10:25 Sputum - Suctioned Gram Stain - Final 06/25/20 10:25 Sputum - Suctioned Sputum Culture - Final Pseudomonas aeruginosa 06/24/20 19:34 Sputum - Suctioned Gram Stain - Final 06/24/20 19:34 Sputum - Suctioned Sputum Culture - Final Pseudomonas aeruginosa 06/14/20 08:29 Blood - Venous Blood Culture - Final No growth after 5 days. 06/14/20 08:22 Blood - Venous Blood Culture - Final No growth after 5 days. Progress Note: A&P Assessment and plan (1) ARDS (adult respiratory distress syndrome): Status: Acute Assessment and Plan: Assessment: 70-year-old gentleman with underlying COPD, GONZALO, tracheal malacia with recent admission for COVID-19 related acute hypoxic respiratory failure readmitted on 06/14/2020 with worsening acute hypoxic respiratory failure eventually requiring intubation and ventilatory support on 06/24/2020, further complicated by bilateral pneumothoraces requiring bilateral chest tubes on 06/27/2020. Plan: Neuro: No acute issues. Cardiac: No acute issues. Pulmonary: COVID-19 related acute hypoxic respiratory failure and ARDS. Bilateral spontaneous pneumothoraces requiring placement of bilateral chest tubes on 06/27/2020. FiO2 requirements are mildly improving. Continue to titrate off ventilatory support as tolerated. Underlying COPD and tracheomalacia. Renal: No acute issues. Endo: No acute issues. GI: No acute issues. ID: COVID-19 related ARDS, completed dexamethasone and remdesivir. Heme/Onc: No acute issues. Psych: No acute issues. Miscellaneous: No acute issues. Prophylaxis: Lovenox, ppi Diet: Tube feeds Critical care time spent: 60 minutes (2) Atrial fibrillation with rapid ventricular response: Status: Acute (3) Respiratory failure with hypoxia: Status: Acute (4) COVID-19: Status: Acute Time Spent With Patient Total time spent with greater than 50% in coordination of care (as documented) at patient's floor/unit and/or counseling patient:: 0 Critical Care Time Critical Care Time (minutes): 60
[2020-06-29 12:00] LABS: Glucose, Whole Blood 174 mg/dL (60-115)
[2020-06-29] MEDS: dilTIAZem HCL 125 MG in 0.9 % Sodium Chloride 100 ML 10 MG IVCONT (18:45)
[2020-06-29 19:17] LABS: Glucose, Whole Blood 202 mg/dL (60-115)
[2020-06-29] MEDS: fentaNYL citrate/NS 1,000 MCG/100 ML PLAST..BAG 15 MCG IVCONT (20:45)
[2020-06-29] MEDS: Acetaminophen Supp 650 MG SUPP.RECT PR (23:31)
[2020-06-30] VITALS (35 sets, daily range): BP systolic 90–122; BP diastolic 36–86; PULSE 90–148; RESP 18–30; TEMP 39.1–39.8; O2SAT 70–98; BMI 30.1
[2020-06-30] MEDS: Insulin Lispro 100 UNIT/ML 3 ML VIAL SUBCUT ×5 (00:20→23:31)
[2020-06-30] MEDS: fentaNYL citrate/NS 1,000 MCG/100 ML PLAST..BAG 20 MCG IVCONT ×5 (01:54→22:27)
[2020-06-30] MEDS: Metoprolol Tartrate 5 MG in 0.9 % Sodium Chloride 50 ML 200 MG IV ×3 (01:55→13:53)
[2020-06-30] MEDS: Piperacillin Sodium/Tazobactam 4.5 GM in 0.9 % Sodium Chloride 100 ML IV ×4 (01:56→20:16)
[2020-06-30] MEDS: dilTIAZem HCL 125 MG in 0.9 % Sodium Chloride 100 ML 10 MG IVCONT ×2 (03:30→20:37)
[2020-06-30] MEDS: propofoL 1,000 MG/100 ML VIAL 27.22 MG IVCONT ×6 (03:31→21:55)
--- NOTE | 2020-06-30 04:56 | PC.NURSE ---
CARE ASSUMED 23;15...REMAINS TUBED/VENTED....AC20/TV450/FIO2 80%/PEEP12...SAO2 82-83% AT SHIFT CHANGE...RR 30'S...ATRIAL FIB 110'S...PROPOFOL TITRATED FROM 25--50 MCG/KG/MIN & FENTANYL 150 MCG/HR TO 200 MCG/HR....LEFT SIDE DOWNWARD LEFT CHEST TUBE NO AIR-LEAK...POSITIONED RIGHT SIDE DOWNWARD (+) +1 AIRLEAK LEFT CHEST TUBE...SAO2 IMPROVED TO 94%...HR 88-94...ATRIAL FIB..OCCASSIONAL TRANSIENT NSR...CARDIZEM DRIP REMAINS 10 MG/HR...T-MAX 103.5...PRN TYLENOL [place] GIVEN W/O EFFECT...TEMP REMAINS 103.3...CONTINUES ON LEVOPHED PER EMAR...SEDATE...POSITIONED [place] OR RIGHT-SIDE DOWN OVERNIGHT AND SAO2 REMAINS 93-95%
[2020-06-30] MEDS: Pantoprazole Sodium 40 MG/10 ML VIAL IVPUSH (05:38)
[2020-06-30 05:46] LABS: Glucose, Whole Blood 282 mg/dL (60-115)
[2020-06-30 06:26] LABS: Glucose, Whole Blood 272 mg/dL (60-115)
[2020-06-30 06:26] LABS: Hemoglobin 10.3 g/dl (14.0-18.0); Mean Corpuscular HGB Conc 30.3 g/dl (31.0-36.0); Mean Corpuscular Hemoglobin 30.5 pg (27.0-33.0); Mean Corpuscular Volume 100.6 fL (80-98); Mean Platelet Volume 10.4 fL (9.4-12.4); NRBC Pct Auto 0.2 /100WBC (0.0-0.2); Platelet Count 160 X10*3/uL (160-400); Red Blood Count 3.38 X10*6/uL (4.60-5.80); White Blood Count 8.6 X10*3/uL (4.8-10.8)
[2020-06-30 06:49] LABS: Base Excess VBG 3.3 mmol/L; HCO3 VBG 31 mmol/L; Oxygen Saturation VBG 83.1 %; PCO2 VBG 63 mmhg; PO2 VBG 52 mmhg; pH VBG 7.31 (7.32-7.43)
[2020-06-30 06:54] LABS: Albumin Level 3.3 g/dL (3.5-5.0); Anion Gap 12 (12-20); Blood Urea Nitrogen 47 mg/dL (9-16); Calcium 8.2 mg/dL (8.4-10.2); Carbon Dioxide 37 mmol/L (22-29); Chloride 106 mmol/L (96-108); Creatinine Clr Calc Pharmacy 55.3; Estimated Glomerular Filt Rate 54; Glucose Random 285 mg/dL (60-115); Magnesium 2.6 mg/dL (1.6-2.6); Phosphorus 2.6 mg/dL (2.7-4.5); Potassium 4.7 mmol/l (3.3-5.1); Sodium 150 mmol/L (135-145)
[2020-06-30 07:52] LABS: Glucose, Whole Blood 184 mg/dL (60-115)
[2020-06-30 08:06] LABS: Band Neutrophils Percent 2 % (3-5); Lymphocytes Absolute Manual 0.7 X10*3/uL (0.6-4.8); Lymphocytes Percent Manual 8 % (20-40); Monocytes Absolute Manual 0.4 X10*3/uL (0.0-1.2); Monocytes Percent Manual 5 % (2-11); Neutrophils Absolute Manual 7.5 X10*3/uL (2.2-7.9); Neutrophils Percent Manual 85 % (45-73); Nucleated Red Blood Cells 1 /100WBC (0-0)
[2020-06-30 08:08] LABS: Macrocytosis 1+; RBC Morphology NOTED
[2020-06-30 08:10] LABS: Platelet Estimate NORMAL (NORMAL); Platelet Morphology Comment NORM; Polychromasia 1+
[2020-06-30] MEDS: 0.9 % Sodium Chloride Flush 3 ML SYRINGE IVFLUSH ×3 (08:51→15:41)
[2020-06-30] MEDS: Albuterol/Iprat 2.5/0.5MG 3 ML AMPUL.NEB INHALE ×3 (08:53→19:20)
[2020-06-30] MEDS: Enoxaparin Sodium 40 MG/0.4 ML SYRINGE SUBCUT (08:54)
[2020-06-30] MEDS: Albumin Human 25 % 100 ML IV ×3 (08:55→20:18)
[2020-06-30] MEDS: Chlorhexidine Gluc Oral Rinse 15 ML MOUTHWASH BUCCAL ×3 (08:55→20:23)
[2020-06-30] MEDS: Sodium,Potassium Phosphates POWD.PACK 2 PACKET PO (08:55)
[2020-06-30] MEDS: Furosemide 40 MG/4 ML VIAL IVPUSH (08:56)
--- NOTE | 2020-06-30 12:07 | PM.CCPN ---
Subjective Subjective Date of Service: 06/30/20 Interval History: 70-year-old gentleman with underlying COPD /asthma overlap syndrome, tracheomalacia, GONZALO, recent admission on 06/09 through 06/12/2020 for COVID-19 related acute hypoxic respiratory failure readmitted on 06/14/2020 with worsening hypoxemia and acute hypoxic respiratory failure secondary to COVID-19. On ER evaluation patient was noted to be significantly hypoxemic initially requiring CPAP 70% to maintain normoxemia. Patient has been admitted to intensive care unit. Over the course of the first day he has been titrated down to high-flow nasal cannula 70% and transferred to [facility]. his hospital course has been complicated by AFib with RVR, worsening hypoxic respiratory failure requiring transfer to ICU and intubation on 06/24/2020. hospital course further complicated by bilateral pneumothoraces on 06/27/2020 early in a.m. requiring placement of bilateral chest tubes. No events overnight. Still persistent bilateral air leak. Physical Exam Vital Signs: Vital Signs: Last Vital Signs Temp 103.3 F H 06/30/20 11:00 Pulse 98 06/30/20 11:23 Resp 26 H 06/30/20 11:00 BP 105/70 06/30/20 11:00 Pulse Ox 93 06/30/20 11:00 Body Mass Index 30.1 Const: General: no acute distress and other ( Sedated on the vent) Eyes: Sclerae: sclerae normal Neck: Neck: Yes no lymphadenopathy, Yes trachea midline and Yes supple Resp: Auscultation: crackles ( bibasilar) Cardio: Rate: regular rate Rhythm: regular rhythm Heart sounds: no gallops, no murmurs and no rubs GI: Palpation (GI): Soft to palpation and Other GI palpation findings present ( Nontender) Auscultation: normal bowel sounds Extrem: General: No clubbing, No cyanosis and Yes edema ( trace pedal) Objective Data Labs CBC & Chem 7: 06/30/20 05:34 06/30/20 05:34 Labs: Laboratory Results - last 24 hr 06/29/20 06/29/20 06/29/20 18:56 18:57 23:38 WBC RBC Hgb Hct MCV MCH MCHC RDW Plt Count MPV Immature Gran % (Auto) Neut % (Auto) Lymph % (Auto) [place] % (Auto) Eos % (Auto) Baso % (Auto) Lymph # (Auto) [place] # (Auto) Eos # (Auto) Baso # (Auto) Abs Immat Gran (auto) Absolute Neuts (auto) Absolute Nucleated RBC Nucleated RBC % (auto) Neutrophils % (Manual) Band Neutrophils % Lymphocytes % (Manual) Monocytes % (Manual) Abs Neuts (Manual) Lymphocytes # (Manual) Monocytes # (Manual) Nucleated RBCs Platelet Estimate Plt Morphology Comment RBC Morphology Polychromasia Macrocytosis VBG pH VBG pCO2 VBG pO2 VBG HCO3 VBG O2 Saturation VBG Base Excess Sodium Potassium Chloride Carbon Dioxide Anion Gap BUN Creatinine Estim Creat Clear Calc Estimated GFR POC Glucose 202 H 184 H 282 H Random Glucose Calcium Phosphorus Magnesium Albumin 06/30/20 06/30/20 06/30/20 05:34 05:34 05:34 WBC 8.6 RBC 3.38 L Hgb 10.3 L Hct 34.0 L MCV 100.6 H MCH 30.5 MCHC 30.3 L RDW 13.0 Plt Count 160 MPV 10.4 Immature Gran % (Auto) Cancelled Neut % (Auto) Cancelled Lymph % (Auto) Cancelled [place] % (Auto) Cancelled Eos % (Auto) Cancelled Baso % (Auto) Cancelled Lymph # (Auto) Cancelled [place] # (Auto) Cancelled Eos # (Auto) Cancelled Baso # (Auto) Cancelled Abs Immat Gran (auto) Cancelled Absolute Neuts (auto) Cancelled Absolute Nucleated RBC 0.020 H Nucleated RBC % (auto) 0.2 Neutrophils % (Manual) 85 H Band Neutrophils % 2 L Lymphocytes % (Manual) 8 L Monocytes % (Manual) 5 Abs Neuts (Manual) 7.5 Lymphocytes # (Manual) 0.7 Monocytes # (Manual) 0.4 Nucleated RBCs 1 H Platelet Estimate NORMAL Plt Morphology Comment NORM RBC Morphology NOTED Polychromasia 1+ Macrocytosis 1+ VBG pH 7.31 L VBG pCO2 63 VBG pO2 52 VBG HCO3 31 VBG O2 Saturation 83.1 VBG Base Excess 3.3 Sodium 150 H Potassium 4.7 Chloride 106 Carbon Dioxide 37 H Anion Gap 12 BUN 47 H Creatinine 1.31 Estim Creat Clear Calc 55.3 Estimated GFR 54 POC Glucose Random Glucose 285 H D Calcium 8.2 L Phosphorus 2.6 L Magnesium 2.6 Albumin 3.3 L 06/30/20 05:49 WBC RBC Hgb Hct MCV MCH MCHC RDW Plt Count MPV Immature Gran % (Auto) Neut % (Auto) Lymph % (Auto) [place] % (Auto) Eos % (Auto) Baso % (Auto) Lymph # (Auto) [place] # (Auto) Eos # (Auto) Baso # (Auto) Abs Immat Gran (auto) Absolute Neuts (auto) Absolute Nucleated RBC Nucleated RBC % (auto) Neutrophils % (Manual) Band Neutrophils % Lymphocytes % (Manual) Monocytes % (Manual) Abs Neuts (Manual) Lymphocytes # (Manual) Monocytes # (Manual) Nucleated RBCs Platelet Estimate Plt Morphology Comment RBC Morphology Polychromasia Macrocytosis VBG pH VBG pCO2 VBG pO2 VBG HCO3 VBG O2 Saturation VBG Base Excess Sodium Potassium Chloride Carbon Dioxide Anion Gap BUN Creatinine Estim Creat Clear Calc Estimated GFR POC Glucose 272 H Random Glucose Calcium Phosphorus Magnesium Albumin Microbiology Microbiology Results: Microbiology 06/25/20 10:25 Sputum - Suctioned Gram Stain - Final 06/25/20 10:25 Sputum - Suctioned Sputum Culture - Final Pseudomonas aeruginosa 06/24/20 19:34 Sputum - Suctioned Gram Stain - Final 06/24/20 19:34 Sputum - Suctioned Sputum Culture - Final Pseudomonas aeruginosa 06/14/20 08:29 Blood - Venous Blood Culture - Final No growth after 5 days. 06/14/20 08:22 Blood - Venous Blood Culture - Final No growth after 5 days. Progress Note: A&P Assessment and plan (1) Respiratory failure with hypoxia: Status: Acute Assessment and Plan: Assessment: 70-year-old gentleman with underlying COPD, GONZALO, tracheal malacia with recent admission for COVID-19 related acute hypoxic respiratory failure readmitted on 06/14/2020 with worsening acute hypoxic respiratory failure eventually requiring intubation and ventilatory support on 06/24/2020, further complicated by bilateral pneumothoraces requiring bilateral chest tubes on 06/27/2020. Plan: Neuro: No acute issues. Cardiac: No acute issues. Pulmonary: COVID-19 related acute hypoxic respiratory failure and ARDS. Bilateral spontaneous pneumothoraces requiring placement of bilateral chest tubes on 06/27/2020. Continue to titrate off ventilatory support as tolerated. Underlying COPD and tracheomalacia. Renal: No acute issues. Endo: No acute issues. GI: No acute issues. ID: COVID-19 related ARDS, completed dexamethasone and remdesivir. Sputum culture with Pseudomonas Zosyn sensitive, continue on Zosyn. Heme/Onc: No acute issues. Psych: No acute issues. Miscellaneous: No acute issues. Prophylaxis: Lovenox, ppi Diet: Tube feeds Critical care time spent: 60 minutes (2) COVID-19: Status: Acute (3) Atrial fibrillation with rapid ventricular response: Status: Acute (4) ARDS (adult respiratory distress syndrome): Status: Acute Time Spent With Patient Time: Total time spent is greater than 50% in coordination of care (as documented) at patient's floor/unit and/or counseling patient: Total time spent with greater than 50% in coordination of care (as documented) at patient's floor/unit and/or counseling patient:: 0 Critical Care Time Critical Care Time (minutes): 60
[2020-06-30 13:05] LABS: Glucose, Whole Blood 256 mg/dL (60-115)
--- NOTE | 2020-06-30 14:52 | MHC.CM.PN ---
Pt remains intubated in ICU with COVID: dual chest tubes in place and sedation weaning is being attempted. D/C plan remains for pt to return to [facility] if he can successfully extubate. CM to follow
--- NOTE | 2020-06-30 15:04 | PC.NURSE ---
Pt Continutes on fentanyl and propofol for sedation, high peak pressures and coughing noted frequently but pt able to settle. Restraints remain for patient safety. Continues on Ac settings, scant inline secretions noted, o2 able to be titrated to 70%, currently sating 94%. Temp up to 103.5 this am, md aware, packed with ice with some effect, currently 102.9. Levo being titrated, cardizem titrated down, hr trending 90s-100s 50ml of sero fluid drained from left chest tube, 60ml of serous fluid from right chest tube 425 ml of concentrated hamm output this shift updated this am by this rn
[2020-06-30] MEDS: Digoxin 0.5 MG/2 ML AMPUL 0.25 MG IVPUSH ×2 (18:14→23:38)
[2020-06-30 18:28] LABS: Glucose, Whole Blood 228 mg/dL (60-115)
[2020-06-30] MEDS: Metoprolol Tartrate 5 MG in 0.9 % Sodium Chloride 50 ML 100 MG IV (20:20)
[2020-06-30 23:35] LABS: Glucose, Whole Blood 263 mg/dL (60-115)
[2020-07-01] VITALS (33 sets, daily range): BP systolic 84–131; BP diastolic 58–86; PULSE 83–146; RESP 18–118; TEMP 38.8–39.7; O2SAT 86–94; BMI 31.4
[2020-07-01] MEDS: Piperacillin Sodium/Tazobactam 4.5 GM in 0.9 % Sodium Chloride 100 ML IV ×4 (01:48→20:12)
[2020-07-01] MEDS: Metoprolol Tartrate 5 MG in 0.9 % Sodium Chloride 50 ML 100 MG IV ×4 (01:48→20:13)
[2020-07-01] MEDS: propofoL 1,000 MG/100 ML VIAL 27.22 MG IVCONT ×6 (01:48→19:08)
[2020-07-01] MEDS: Albumin Human 25 % 100 ML 200 ML IV (01:49)
[2020-07-01] MEDS: fentaNYL citrate/NS 1,000 MCG/100 ML PLAST..BAG 20 MCG IVCONT ×2 (03:35→08:24)
[2020-07-01] MEDS: Pantoprazole Sodium 40 MG/10 ML VIAL IVPUSH (05:27)
[2020-07-01] MEDS: dilTIAZem HCL 125 MG in 0.9 % Sodium Chloride 100 ML 10 MG IVCONT (05:27)
[2020-07-01] MEDS: Insulin Lispro 100 UNIT/ML 3 ML VIAL SUBCUT ×3 (05:45→18:08)
[2020-07-01 06:25] LABS: Basophils Percent Auto 0.3 % (0-2); Mean Corpuscular Hemoglobin 30.6 pg (27.0-33.0); Mean Platelet Volume 10.8 fL (9.4-12.4); NRBC Pct Auto 0.4 /100WBC (0.0-0.2); PLT CLUMP 1; Red Blood Count 3.27 X10*6/uL (4.60-5.80); Red Cell Distribution Width 13.1 % (11.0-16.0); SCAN SMEAR FLAG 1
[2020-07-01 06:27] LABS: Eosinophils Absolute Auto 0.2 X10*3/uL (0.0-0.4); Eosinophils Percent Auto 2.9 % (0-4); Hematocrit 33.7 % (42-52); Imm Gran Abs Auto 0.34 X10*3/uL (0.00-0.03); Imm Gran Pct Auto 4.5 % (0.0-0.4); Lymphocytes Percent Auto 13.8 % (20-40); Mean Corpuscular HGB Conc 29.7 g/dl (31.0-36.0); Mean Corpuscular Volume 103.1 fL (80-98); Monocytes Absolute Auto 0.4 X10*3/uL (0.1-1.2); Monocytes Percent Auto 5.6 % (2-11); Neutrophils Absolute Auto 5.5 X10*3/uL (2.0-8.3); Neutrophils Percent Auto 72.9 % (45-73); Platelet Count 132 X10*3/uL (160-400); White Blood Count 7.5 X10*3/uL (4.8-10.8)
[2020-07-01 06:28] LABS: MANUAL DIFF FLAG NO
[2020-07-01 06:40] LABS: Glucose, Whole Blood 252 mg/dL (60-115)
--- NOTE | 2020-07-01 06:40 | PC.NURSE ---
Patient with max core temp of 103.6; icepacks were placed on patient. MANAGER INPATIENT aware. Please see chest tube documentation, when repositioning patient the bubbles present in left chest tube drainage, MANAGER INPATIENT at bedside and observed.
[2020-07-01 06:51] LABS: HCO3 VBG 31 mmol/L; PCO2 VBG 61 mmhg; PO2 VBG 44 mmhg; pH VBG 7.33 (7.32-7.43)
[2020-07-01 06:52] LABS: Base Excess VBG 3.9 mmol/L; Oxygen Saturation VBG 78.2 %
[2020-07-01 07:01] LABS: Albumin Level 3.8 g/dL (3.5-5.0); Anion Gap 15 (12-20); Blood Urea Nitrogen 44 mg/dL (9-16); Calcium 8.1 mg/dL (8.4-10.2); Carbon Dioxide 33 mmol/L (22-29); Chloride 108 mmol/L (96-108); Creatinine Clr Calc Pharmacy 61.6; Estimated Glomerular Filt Rate 60; Glucose Random 261 mg/dL (60-115); Magnesium 2.4 mg/dL (1.6-2.6); Phosphorus 2.5 mg/dL (2.7-4.5); Potassium 4.6 mmol/l (3.3-5.1); Sodium 151 mmol/L (135-145)
[2020-07-01] MEDS: Albuterol/Iprat 2.5/0.5MG 3 ML AMPUL.NEB INHALE ×4 (07:28→19:55)
[2020-07-01] MEDS: 0.9 % Sodium Chloride Flush 3 ML SYRINGE IVFLUSH ×2 (08:19→15:24)
[2020-07-01] MEDS: Furosemide 40 MG/4 ML VIAL IVPUSH (08:24)
[2020-07-01] MEDS: Chlorhexidine Gluc Oral Rinse 15 ML MOUTHWASH BUCCAL ×3 (08:25→20:13)
[2020-07-01] MEDS: Potassium Phosphate 30 MMOL in 0.9 % Sodium Chloride 500 ML 85 MMOL IV (09:00)
[2020-07-01] MEDS: Enoxaparin Sodium 40 MG/0.4 ML SYRINGE SUBCUT (09:43)
--- NOTE | 2020-07-01 11:34 | P.PNCC_ITS ---
Subjective Subjective Date of Service: 07/01/20 Interval History: 70-year-old gentleman with underlying COPD /asthma overlap syndrome, tracheomalacia, GONZALO, recent admission on 06/09 through 06/12/2020 for COVID-19 related acute hypoxic respiratory failure readmitted on 06/14/2020 with worsening hypoxemia and acute hypoxic respiratory failure secondary to COVID-19. On ER evaluation patient was noted to be significantly hypoxemic initially requiring CPAP 70% to maintain normoxemia. Patient has been admitted to intensive care unit. Over the course of the first day he has been titrated down to high-flow nasal cannula 70% and transferred to [facility]. his hospital course has been complicated by AFib with RVR, worsening hypoxic respiratory failure requiring transfer to ICU and intubation on 06/24/2020. hospital course further complicated by bilateral pneumothoraces on 06/27/2020 early in a.m. requiring placement of bilateral chest tubes. No events overnight. persistent air leak on the left, no air leak on the right. Physical Exam Vital Signs: Vital Signs: Last Vital Signs Temp 102.0 F H 07/01/20 10:55 Pulse 115 H 07/01/20 11:30 Resp 23 H 07/01/20 10:55 BP 104/80 07/01/20 10:55 Pulse Ox 89 L 07/01/20 10:55 Body Mass Index 31.4 Const: General: no acute distress and other ( sedated on the vent) Eyes: Sclerae: sclerae normal Neck: Neck: Yes no lymphadenopathy, Yes trachea midline and Yes supple Resp: Auscultation: crackles ( diffuse bilateral) Cardio: Rate: tachycardic Rhythm: abnormal rhythm irregularly irregular Heart sounds: no gallops, no murmurs and no rubs GI: Palpation (GI): Soft to palpation and Other GI palpation findings present ( Nontender) Auscultation: normal bowel sounds Extrem: General: No clubbing, No cyanosis and Yes edema ( 1+) Objective Data Labs CBC & Chem 7: 07/01/20 05:26 07/01/20 05:26 Labs: Laboratory Results - last 24 hr 06/30/20 06/30/20 06/30/20 12:12 18:24 23:26 WBC RBC Hgb Hct MCV MCH MCHC RDW Plt Count MPV Immature Gran % (Auto) Neut % (Auto) Lymph % (Auto) [place] % (Auto) Eos % (Auto) Baso % (Auto) Lymph # (Auto) [place] # (Auto) Eos # (Auto) Baso # (Auto) Abs Immat Gran (auto) Absolute Neuts (auto) Absolute Nucleated RBC Nucleated RBC % (auto) VBG pH VBG pCO2 VBG pO2 VBG HCO3 VBG O2 Saturation VBG Base Excess Sodium Potassium Chloride Carbon Dioxide Anion Gap BUN Creatinine Estim Creat Clear Calc Estimated GFR POC Glucose 256 H 228 H 263 H Random Glucose Calcium Phosphorus Magnesium Albumin 07/01/20 07/01/20 07/01/20 05:26 05:26 05:26 WBC 7.5 RBC 3.27 L Hgb 10.0 L Hct 33.7 L MCV 103.1 H MCH 30.6 MCHC 29.7 L RDW 13.1 Plt Count 132 L MPV 10.8 Immature Gran % (Auto) 4.5 H Neut % (Auto) 72.9 Lymph % (Auto) 13.8 L [place] % (Auto) 5.6 Eos % (Auto) 2.9 Baso % (Auto) 0.3 Lymph # (Auto) 1.0 L [place] # (Auto) 0.4 Eos # (Auto) 0.2 Baso # (Auto) 0.0 Abs Immat Gran (auto) 0.34 H Absolute Neuts (auto) 5.5 Absolute Nucleated RBC 0.030 H Nucleated RBC % (auto) 0.4 H VBG pH 7.33 VBG pCO2 61 VBG pO2 44 VBG HCO3 31 VBG O2 Saturation 78.2 VBG Base Excess 3.9 Sodium 151 H Potassium 4.6 Chloride 108 Carbon Dioxide 33 H Anion Gap 15 BUN 44 H Creatinine 1.20 Estim Creat Clear Calc 61.6 Estimated GFR 60 POC Glucose Random Glucose 261 H Calcium 8.1 L Phosphorus 2.5 L Magnesium 2.4 Albumin 3.8 07/01/20 05:42 WBC RBC Hgb Hct MCV MCH MCHC RDW Plt Count MPV Immature Gran % (Auto) Neut % (Auto) Lymph % (Auto) [place] % (Auto) Eos % (Auto) Baso % (Auto) Lymph # (Auto) [place] # (Auto) Eos # (Auto) Baso # (Auto) Abs Immat Gran (auto) Absolute Neuts (auto) Absolute Nucleated RBC Nucleated RBC % (auto) VBG pH VBG pCO2 VBG pO2 VBG HCO3 VBG O2 Saturation VBG Base Excess Sodium Potassium Chloride Carbon Dioxide Anion Gap BUN Creatinine Estim Creat Clear Calc Estimated GFR POC Glucose 252 H Random Glucose Calcium Phosphorus Magnesium Albumin Microbiology Microbiology Results: Microbiology 06/25/20 10:25 Sputum - Suctioned Gram Stain - Final 06/25/20 10:25 Sputum - Suctioned Sputum Culture - Final Pseudomonas aeruginosa 06/24/20 19:34 Sputum - Suctioned Gram Stain - Final 06/24/20 19:34 Sputum - Suctioned Sputum Culture - Final Pseudomonas aeruginosa 06/14/20 08:29 Blood - Venous Blood Culture - Final No growth after 5 days. 06/14/20 08:22 Blood - Venous Blood Culture - Final No growth after 5 days. Progress Note: A&P Assessment and plan (1) Respiratory failure with hypoxia: Status: Acute Assessment and Plan: Assessment: 70-year-old gentleman with underlying COPD, GONZALO, tracheal malacia with recent admission for COVID-19 related acute hypoxic respiratory failure readmitted on 06/14/2020 with worsening acute hypoxic respiratory failure eventually requiring intubation and ventilatory support on 06/24/2020, further complicated by bilateral pneumothoraces requiring bilateral chest tubes on 06/27/2020. Plan: Neuro: No acute issues. Cardiac: No acute issues. Pulmonary: COVID-19 related acute hypoxic respiratory failure and ARDS. Bilateral spontaneous pneumothoraces requiring placement of bilateral chest tubes on 06/27/2020. persistent air leak on the left. No air leak on the right, will try clamping on the right. Continue to titrate off ventilatory support as tolerated. Underlying COPD and tracheomalacia. Renal: No acute issues. Endo: No acute issues. GI: No acute issues. ID: COVID-19 related ARDS, completed dexamethasone and remdesivir. Sputum culture with Pseudomonas Zosyn sensitive, continue on Zosyn. Heme/Onc: No acute issues. Psych: No acute issues. Miscellaneous: No acute issues. Prophylaxis: Lovenox, ppi Diet: Tube feeds Critical care time spent: 60 minutes (2) COVID-19: Status: Acute (3) Atrial fibrillation with rapid ventricular response: Status: Acute (4) Bilateral pneumothorax: Status: Acute Time Spent With Patient Time: Total time spent is greater than 50% in coordination of care (as documented) at patient's floor/unit and/or counseling patient: Total time spent with greater than 50% in coordination of care (as documented) at patient's floor/unit and/or counseling patient:: 0 Critical Care Time Critical Care Time (minutes): 60
[2020-07-01 12:13] LABS: Glucose, Whole Blood 285 mg/dL (60-115)
--- NOTE | 2020-07-01 12:25 | PC.NURSE ---
Right chest tube clamped at 0950 per
[2020-07-01] MEDS: fentaNYL citrate/NS 1,000 MCG/100 ML PLAST..BAG 15 MCG IVCONT ×2 (14:03→21:10)
--- NOTE | 2020-07-01 16:00 | XR_ITS ---
EXAMINATION: XR CHEST CLINICAL INFORMATION: Status post clipping right-sided chest tube COMPARISON: Prior chest 06/28/2020 TECHNIQUE: Frontal view of the chest was obtained. FINDINGS: Endotracheal tube 2.5 cm above beata. Enteric tube below diaphragm outside the [id number] the exam. Central venous catheter in SVC unchanged. Chest tube remains and overlies left hemithorax. Probable small apical pneumothorax. Slightly improved diffuse left lung opacity. No change in right lung patchy opacities. Cardiac silhouette mediastinum pulmonary vascularity normal. XR/XR chest 1V IMPRESSION: Left chest tube remains in place. Probable small left apical pneumothorax new compared to prior. Slightly improved left patchy consolidation in the left lung. No change in consolidation right lung.
[2020-07-01] MEDS: Acetaminophen Supp 650 MG SUPP.RECT PR (16:15)
[2020-07-01] MEDS: dilTIAZem HCL 125 MG in 0.9 % Sodium Chloride 100 ML 15 MG IVCONT (16:15)
[2020-07-01 18:35] LABS: Glucose, Whole Blood 263 mg/dL (60-115)
--- NOTE | 2020-07-01 19:02 | PC.NURSE ---
1814 - Patient repositioned to left side - O2 sat down as low as 82% on 70% FIO2, HR 120-150's afib/flutter - Alphonse PRIVACY SPECIALIST notified and at bedside - FIO2 increased to 90% - O2 up to 92%. Left chest tube o/p 150cc serosangunious. Handoff given to TERESO Pereira
[2020-07-01] MEDS: propofoL 1,000 MG/100 ML VIAL 21.77 MG IVCONT (22:50)
[2020-07-02] VITALS (32 sets, daily range): BP systolic 84–138; BP diastolic 57–85; PULSE 90–154; RESP 23–32; TEMP 38.8–39.6; O2SAT 84–94; BMI 32.3
--- NOTE | 2020-07-02 | XR_ITS ---
EXAMINATION: XR CHEST CLINICAL INFORMATION: Evaluate for right pneumothorax. Chest tube clamped. COMPARISON: July 01, 2020 and June 28, 2020 TECHNIQUE: AP portable view of the chest was obtained. FINDINGS: Left-sided chest tube in place. No pneumothorax is appreciated. Again noted bilateral regions of interstitial and airspace disease without significant change. Heart normal size. No evidence of pulmonary edema. No significant pleural effusion. Left internal jugular central venous catheter seen with tip in the distal superior vena cava. Endotracheal tube seen in place with tip approximately 3 cm above the beata. Enteric tube seen traversing to the stomach. XR/XR chest 1V IMPRESSION: No left pneumothorax identified. No significant change in diffuse interstitial and airspace disease.
[2020-07-02] MEDS: dilTIAZem HCL 125 MG in 0.9 % Sodium Chloride 100 ML 15 MG IVCONT ×2 (00:30→07:55)
[2020-07-02] MEDS: 0.9 % Sodium Chloride Flush 3 ML SYRINGE IVFLUSH ×4 (00:31→23:16)
[2020-07-02] MEDS: Insulin Lispro 100 UNIT/ML 3 ML VIAL SUBCUT ×5 (00:36→23:30)
[2020-07-02 01:05] LABS: Glucose, Whole Blood 257 mg/dL (60-115)
[2020-07-02] MEDS: Piperacillin Sodium/Tazobactam 4.5 GM in 0.9 % Sodium Chloride 100 ML IV ×4 (02:44→20:10)
[2020-07-02] MEDS: Metoprolol Tartrate 5 MG in 0.9 % Sodium Chloride 50 ML 100 MG IV ×4 (02:45→19:46)
[2020-07-02] MEDS: propofoL 1,000 MG/100 ML VIAL 21.77 MG IVCONT ×3 (03:47→11:55)
[2020-07-02] MEDS: fentaNYL citrate/NS 1,000 MCG/100 ML PLAST..BAG 15 MCG IVCONT ×3 (03:48→16:14)
[2020-07-02 05:43] LABS: Basophils Percent Auto 0.3 % (0-2); Eosinophils Absolute Auto 0.2 X10*3/uL (0.0-0.4); Eosinophils Percent Auto 2.2 % (0-4); Hematocrit 34.8 % (42-52); Hemoglobin 10.5 g/dl (14.0-18.0); Imm Gran Abs Auto 0.46 X10*3/uL (0.00-0.03); Imm Gran Pct Auto 4.2 % (0.0-0.4); Lymphocytes Absolute Auto 1.2 X10*3/uL (1.2-4.9); Lymphocytes Percent Auto 10.6 % (20-40); MANUAL DIFF FLAG NO; Mean Corpuscular HGB Conc 30.2 g/dl (31.0-36.0); Mean Corpuscular Hemoglobin 30.7 pg (27.0-33.0); Mean Corpuscular Volume 101.8 fL (80-98); Mean Platelet Volume 11.3 fL (9.4-12.4); Monocytes Absolute Auto 0.5 X10*3/uL (0.1-1.2); Monocytes Percent Auto 4.5 % (2-11); NRBC Pct Auto 0.5 /100WBC (0.0-0.2); Neutrophils Absolute Auto 8.7 X10*3/uL (2.0-8.3); Neutrophils Percent Auto 78.2 % (45-73); Platelet Count 152 X10*3/uL (160-400); Red Blood Count 3.42 X10*6/uL (4.60-5.80); White Blood Count 11.1 X10*3/uL (4.8-10.8)
[2020-07-02] MEDS: Pantoprazole Sodium 40 MG/10 ML VIAL IVPUSH (05:53)
[2020-07-02 06:06] LABS: Base Excess VBG 5.8 mmol/L; HCO3 VBG 34 mmol/L; Oxygen Saturation VBG 83.9 %; PCO2 VBG 65 mmhg; PO2 VBG 52 mmhg; pH VBG 7.33 (7.32-7.43)
[2020-07-02 06:10] LABS: Glucose, Whole Blood 270 mg/dL (60-115)
[2020-07-02 06:14] LABS: Albumin Level 3.3 g/dL (3.5-5.0); Anion Gap 15 (12-20); Blood Urea Nitrogen 45 mg/dL (9-16); Carbon Dioxide 32 mmol/L (22-29); Chloride 106 mmol/L (96-108); Creatinine Clr Calc Pharmacy 58.1; Estimated Glomerular Filt Rate 55; Glucose Random 282 mg/dL (60-115); Magnesium 2.4 mg/dL (1.6-2.6); Phosphorus 3.4 mg/dL (2.7-4.5); Potassium 5.1 mmol/l (3.3-5.1); Sodium 148 mmol/L (135-145)
[2020-07-02] MEDS: Chlorhexidine Gluc Oral Rinse 15 ML MOUTHWASH BUCCAL ×3 (07:51→21:46)
[2020-07-02] MEDS: Furosemide 40 MG/4 ML VIAL IVPUSH (07:53)
[2020-07-02] MEDS: Albumin Human 25 % 100 ML IV ×3 (09:41→21:36)
[2020-07-02] MEDS: Enoxaparin Sodium 40 MG/0.4 ML SYRINGE SUBCUT (09:42)
[2020-07-02] MEDS: Digoxin 0.5 MG/2 ML AMPUL 0.25 MG IVPUSH (11:55)
[2020-07-02] MEDS: Insulin Glargine,Hum.rec.anlog 100 UNIT/ML 10 ML VIAL 10 UNIT SUBCUT (12:07)
--- NOTE | 2020-07-02 13:19 | PM.CCPN ---
Subjective Subjective Date of Service: 07/02/20 Interval History: ICU day 8 for acute hypoxic respiratory failure secondary to COVID-19 ARDS. 70-year-old gentleman with underlying COPD /asthma overlap syndrome, tracheomalacia, GONZALO, recent admission on 06/09 through 06/12/2020 for COVID-19 related acute hypoxic respiratory failure readmitted on 06/14/2020 with worsening hypoxemia and acute hypoxic respiratory failure secondary to COVID-19. On ER evaluation patient was noted to be significantly hypoxemic initially requiring CPAP 70% to maintain normoxemia. Patient has been admitted to intensive care unit. Over the course of the first day he has been titrated down to high-flow nasal cannula 70% and transferred to [facility]. his hospital course has been complicated by AFib with RVR, worsening hypoxic respiratory failure requiring transfer to ICU and intubation on 06/24/2020. hospital course further complicated by bilateral pneumothoraces on 06/27/2020 early in a.m. requiring placement of bilateral chest tubes. No events overnight. Right-sided chest tube clamped overnight with no pneumothorax recurrence and pulled out earlier this a.m.. Persistent left-sided air leak. Physical Exam Vital Signs: Vital Signs: Last Vital Signs Temp 102.7 F H 07/02/20 12:00 Pulse 104 H 07/02/20 13:00 Resp 30 H 07/02/20 13:00 BP 106/62 07/02/20 13:00 Pulse Ox 91 L 07/02/20 13:00 Body Mass Index 32.3 Const: General: no acute distress and other ( sedated on the vent) Eyes: Sclerae: sclerae normal Neck: Neck: Yes no lymphadenopathy, Yes trachea midline and Yes supple Resp: Auscultation: crackles ( diffuse bilateral) Cardio: Rate: tachycardic Rhythm: abnormal rhythm irregularly irregular Heart sounds: no gallops, no murmurs and no rubs GI: Palpation (GI): Soft to palpation and Other GI palpation findings present ( Nontender) Auscultation: normal bowel sounds Extrem: General: No clubbing, No cyanosis and Yes edema ( trace bilateral) Objective Data Labs CBC & Chem 7: 07/02/20 05:23 07/02/20 05:23 Labs: Laboratory Results - last 24 hr 07/01/20 07/02/20 07/02/20 18:08 00:34 05:23 WBC 11.1 H RBC 3.42 L Hgb 10.5 L Hct 34.8 L MCV 101.8 H MCH 30.7 MCHC 30.2 L RDW 13.0 Plt Count 152 L MPV 11.3 Immature Gran % (Auto) 4.2 H Neut % (Auto) 78.2 H Lymph % (Auto) 10.6 L [place] % (Auto) 4.5 Eos % (Auto) 2.2 Baso % (Auto) 0.3 Lymph # (Auto) 1.2 [place] # (Auto) 0.5 Eos # (Auto) 0.2 Baso # (Auto) 0.0 Abs Immat Gran (auto) 0.46 H Absolute Neuts (auto) 8.7 H Absolute Nucleated RBC 0.060 H Nucleated RBC % (auto) 0.5 H VBG pH VBG pCO2 VBG pO2 VBG HCO3 VBG O2 Saturation VBG Base Excess Sodium Potassium Chloride Carbon Dioxide Anion Gap BUN Creatinine Estim Creat Clear Calc Estimated GFR POC Glucose 263 H 257 H Random Glucose Calcium Phosphorus Magnesium Albumin 07/02/20 07/02/20 07/02/20 05:23 05:23 05:56 WBC RBC Hgb Hct MCV MCH MCHC RDW Plt Count MPV Immature Gran % (Auto) Neut % (Auto) Lymph % (Auto) [place] % (Auto) Eos % (Auto) Baso % (Auto) Lymph # (Auto) [place] # (Auto) Eos # (Auto) Baso # (Auto) Abs Immat Gran (auto) Absolute Neuts (auto) Absolute Nucleated RBC Nucleated RBC % (auto) VBG pH 7.33 VBG pCO2 65 VBG pO2 52 VBG HCO3 34 VBG O2 Saturation 83.9 VBG Base Excess 5.8 Sodium 148 H Potassium 5.1 Chloride 106 Carbon Dioxide 32 H Anion Gap 15 BUN 45 H Creatinine 1.29 Estim Creat Clear Calc 58.1 Estimated GFR 55 POC Glucose 270 H Random Glucose 282 H Calcium 8.0 L Phosphorus 3.4 Magnesium 2.4 Albumin 3.3 L Microbiology Microbiology Results: Microbiology 06/25/20 10:25 Sputum - Suctioned Gram Stain - Final 06/25/20 10:25 Sputum - Suctioned Sputum Culture - Final Pseudomonas aeruginosa 06/24/20 19:34 Sputum - Suctioned Gram Stain - Final 06/24/20 19:34 Sputum - Suctioned Sputum Culture - Final Pseudomonas aeruginosa 06/14/20 08:29 Blood - Venous Blood Culture - Final No growth after 5 days. 06/14/20 08:22 Blood - Venous Blood Culture - Final No growth after 5 days. Progress Note: A&P Assessment and plan (1) Atrial fibrillation with rapid ventricular response: Status: Acute Assessment and Plan: Assessment: 70-year-old gentleman with underlying COPD, GONZALO, tracheal malacia with recent admission for COVID-19 related acute hypoxic respiratory failure readmitted on 06/14/2020 with worsening acute hypoxic respiratory failure eventually requiring intubation and ventilatory support on 06/24/2020, further complicated by bilateral pneumothoraces requiring bilateral chest tubes on 06/27/2020. Plan: Neuro: No acute issues. Cardiac: AFib with RVR, now rate control with digoxin and Lopressor. Pulmonary: COVID-19 related acute hypoxic respiratory failure and ARDS. Bilateral spontaneous pneumothoraces requiring placement of bilateral chest tubes on 06/27/2020. Right-sided chest tube removed this a.m.. Persistent air leak on the left. Continue to titrate off ventilatory support as tolerated. Underlying COPD and tracheomalacia. Renal: No acute issues. Endo: No acute issues. GI: No acute issues. ID: COVID-19 related ARDS, completed dexamethasone and remdesivir. Sputum culture with Pseudomonas Zosyn sensitive, continue on Zosyn for total of 7 days (through 07/03). Heme/Onc: No acute issues. Psych: No acute issues. Miscellaneous: No acute issues. Prophylaxis: Lovenox, ppi Diet: Tube feeds Critical care time spent: 60 minutes (2) COPD (chronic obstructive pulmonary disease): Status: Acute (3) Respiratory failure with hypoxia: Status: Acute (4) COVID-19: Status: Acute (5) ARDS (adult respiratory distress syndrome): Status: Acute (6) Bilateral pneumothorax: Status: Acute Time Spent With Patient Total time spent with greater than 50% in coordination of care (as documented) at patient's floor/unit and/or counseling patient:: 0 Critical Care Time Critical Care Time (minutes): 60
[2020-07-02 14:22] LABS: Glucose, Whole Blood 266 mg/dL (60-115)
[2020-07-02] MEDS: propofoL 1,000 MG/100 ML VIAL 19.05 MG IVCONT ×2 (15:19→20:59)
[2020-07-02 18:13] LABS: Glucose, Whole Blood 231 mg/dL (60-115)
[2020-07-03] VITALS (35 sets, daily range): BP systolic 84–117; BP diastolic 56–77; PULSE 81–135; RESP 20–31; TEMP 37.6–40.1; O2SAT 89–96; BMI 33.5
[2020-07-03] MEDS: fentaNYL citrate/NS 1,000 MCG/100 ML PLAST..BAG 15 MCG IVCONT ×4 (00:07→22:38)
[2020-07-03 00:30] LABS: Glucose, Whole Blood 222 mg/dL (60-115)
[2020-07-03] MEDS: propofoL 1,000 MG/100 ML VIAL 27.22 MG IVCONT ×3 (00:32→08:06)
[2020-07-03] MEDS: Piperacillin Sodium/Tazobactam 4.5 GM in 0.9 % Sodium Chloride 100 ML IV ×4 (02:04→20:17)
[2020-07-03] MEDS: Metoprolol Tartrate 5 MG in 0.9 % Sodium Chloride 50 ML 110 MG IV (02:07)
[2020-07-03] MEDS: Albumin Human 25 % 100 ML IV (02:09)
[2020-07-03] MEDS: Acetaminophen Oral Liquid 650 MG/20.3 ML SOLUTION OG-TUBE ×2 (02:55→22:40)
--- NOTE | 2020-07-03 03:24 | PC.NURSE ---
CARE ASSUMED 23:15...REMAINS TUBED/VENTED...LEFT ANTERIOR CHEST TUBE TO -30cm DRY SUCTION...(+) +1 AIR-LEAK WHEN SUPINE OR RIGHT SIDE DOWN...NO LEAK WHEN LEFT SIDE DOWNWARD...SAO2 DECREASES WHEN LEFT SIDE DOWNWARD...MAINTAINED SUPINE OR RIGHT-SIDE DOWNWARD...SAO2 90-92% WITH PEEP 10CM & FIO2 80%...PROPOFOL 50 MCG/KG/MIN & FENTANYL 200 MCG/HR TO MAINTAIN VENT SYNCHRONY...T-MAX 104.2...ICU AGRICULTURAL ECONOMIST PRESENT AND AWARE...TYLENOL 650MG LIQUIED VIA OG-TUBE...ATRIAL FIB HR 110'S-130'S...CONTINUES WITH LOPRESSOR/IV DIGOXIN PREVIOUSLY ORDERED PER CPOE...
[2020-07-03] MEDS: fentaNYL citrate/NS 1,000 MCG/100 ML PLAST..BAG 20 MCG IVCONT (04:04)
--- NOTE | 2020-07-03 06:00 | XR_ITS ---
EXAMINATION: XR CHEST CLINICAL INFORMATION: Hypoxia COMPARISON: 07/02/2020 TECHNIQUE: Frontal view of the chest was obtained. FINDINGS: Endotracheal tube terminates approximately 3.5 cm above the beata. Enteric tube extends into the stomach. Left internal jugular central venous catheter terminates over the mid SVC. Cardiac leads overlie the chest. Left-sided chest tube remains in place. Reverse total right shoulder arthroplasty. Low lung volumes with mild elevation of the right hemidiaphragm. Patchy bilateral airspace opacities are again noted at the mid to lower lungs. No pleural effusion. No pneumothorax. The cardiomediastinal silhouette is within normal limits. XR/XR chest 1V IMPRESSION: Endotracheal tube terminating 3.5 cm above the beata. Similar appearance of bilateral airspace opacities. No pneumothorax.
[2020-07-03] MEDS: Insulin Lispro 100 UNIT/ML 3 ML VIAL SUBCUT ×3 (06:03→17:53)
[2020-07-03 06:05] LABS: MANUAL DIFF FLAG NO
[2020-07-03 06:06] LABS: Glucose, Whole Blood 213 mg/dL (60-115)
[2020-07-03 06:07] LABS: Basophils Percent Auto 0.3 % (0-2); Eosinophils Absolute Auto 0.2 X10*3/uL (0.0-0.4); Eosinophils Percent Auto 1.8 % (0-4); Hematocrit 33.4 % (42-52); Hemoglobin 9.9 g/dl (14.0-18.0); Imm Gran Abs Auto 0.45 X10*3/uL (0.00-0.03); Imm Gran Pct Auto 3.9 % (0.0-0.4); Lymphocytes Absolute Auto 1.6 X10*3/uL (1.2-4.9); Mean Corpuscular HGB Conc 29.6 g/dl (31.0-36.0); Mean Corpuscular Hemoglobin 30.5 pg (27.0-33.0); Mean Corpuscular Volume 102.8 fL (80-98); Monocytes Absolute Auto 0.5 X10*3/uL (0.1-1.2); Monocytes Percent Auto 4.4 % (2-11); NRBC Pct Auto 0.8 /100WBC (0.0-0.2); Neutrophils Absolute Auto 8.8 X10*3/uL (2.0-8.3); Neutrophils Percent Auto 75.6 % (45-73); Platelet Count 155 X10*3/uL (160-400); Red Blood Count 3.25 X10*6/uL (4.60-5.80); Red Cell Distribution Width 13.1 % (11.0-16.0); White Blood Count 11.6 X10*3/uL (4.8-10.8)
[2020-07-03 06:27] LABS: Base Excess VBG 2.8 mmol/L; HCO3 VBG 32 mmol/L; PCO2 VBG 74 mmhg; PO2 VBG 41 mmhg; pH VBG 7.25 (7.32-7.43)
[2020-07-03 06:34] LABS: Alanine Aminotransferase 120 U/L (0-40); Albumin Level 3.8 g/dL (3.5-5.0); Alkaline Phosphatase 80 U/L (39-117); Anion Gap 14 (12-20); Aspartate Amino Transferase 211 U/L (5-37); Bilirubin Total 2.1 mg/dL (0.0-1.0); Blood Urea Nitrogen 57 mg/dL (9-16); Calcium 8.5 mg/dL (8.4-10.2); Carbon Dioxide 34 mmol/L (22-29); Chloride 104 mmol/L (96-108); Creatinine Clr Calc Pharmacy 43.6; Estimated Glomerular Filt Rate 39; Glucose Random 228 mg/dL (60-115); Magnesium 2.5 mg/dL (1.6-2.6); Sodium 147 mmol/L (135-145); Total Protein 5.9 g/dL (6.5-8.0)
[2020-07-03] MEDS: Insulin Glargine,Hum.rec.anlog 100 UNIT/ML 10 ML VIAL 10 UNIT SUBCUT (08:03)
[2020-07-03] MEDS: 0.9 % Sodium Chloride Flush 3 ML SYRINGE IVFLUSH ×2 (08:03→14:30)
[2020-07-03] MEDS: Chlorhexidine Gluc Oral Rinse 15 ML MOUTHWASH BUCCAL ×3 (08:03→20:17)
[2020-07-03] MEDS: Furosemide 40 MG/4 ML VIAL IVPUSH (08:06)
[2020-07-03] MEDS: Digoxin 0.5 MG/2 ML AMPUL 0.25 MG IVPUSH (08:15)
[2020-07-03] MEDS: Metoprolol Tartrate 5 MG in 0.9 % Sodium Chloride 50 ML 200 MG IV ×3 (08:15→20:17)
[2020-07-03 08:57] LABS: Glucose, Whole Blood 225 mg/dL (60-115)
[2020-07-03] MEDS: Enoxaparin Sodium 40 MG/0.4 ML SYRINGE SUBCUT (09:15)
--- NOTE | 2020-07-03 10:23 | MHC.CM.PN ---
at this time pt is in ICU; intubated, vented and sedated. dc planning is deferred to a future time. cm cont. to follow.
--- NOTE | 2020-07-03 10:26 | MHC.CLN ---
F/U RECOMMEND INCREASING TF TO PROMOTE AT MAX GOAL RATE 55CC/HR WITH 240CC FREE WATER FLUSHES Q 4 HRS TO PROVIDE 1320KCALS (1750KCALS WITH SEDATION; 23KCALS/KG), 82.5G PROTEIN (1.0G/KG), 2547CC TOTAL WATER FROM FORMULA AND FLUSHES (33.5CC/KG) WILL ADD ZACK VIA TF TO PROMOTE WOUND HEALING MONITOR TOLERANCE, RESIDUALS AND LYTES
[2020-07-03 11:18] LABS: Glucose, Whole Blood 193 mg/dL (60-115)
[2020-07-03] MEDS: propofoL 1,000 MG/100 ML VIAL 16.33 MG IVCONT (12:03)
--- NOTE | 2020-07-03 15:00 | PC.NURSE ---
Patient remains on fentanyl and propofol for sedation. Flaccid, no cough or gag noted this am. Sedation decreased. Patient over breathing vent this afternoon with some belly breathing noted. Sedation titrated for patient comfort. Restraints remain for patient safety. Patient continues on Levophed this afternoon BP noted to trend down after sedation increased. Levophed titrated. HR continues to be in the one teens, afib on the monitor. Continues on IV Metoprolol. Initially temp up to 104.2, MD aware, ice packs applied with moderate effect temp down to 102.2. Continues on AC settings. Minimal inline secretions. Fio2 increased to 90% this am. Left anterior chest tube in place, MD aware of ongoing air leak. Hypoactive bowel sounds, abd distended. No BM since 06/23, MD aware. Tube feeds adjusted to a max of 55 cc/hr and water flush increased to 240 cc q4h. Tolerating well residuals less than 10 cc. LFTs trending up, MD aware. Wound consult placed. , Sobia updated on patient status via telephone by RN.
[2020-07-03] MEDS: propofoL 1,000 MG/100 ML VIAL 24.49 MG IVCONT ×2 (15:48→20:14)
[2020-07-03 18:01] LABS: Glucose, Whole Blood 229 mg/dL (60-115)
--- NOTE | 2020-07-03 19:15 | PM.CCPN ---
Subjective Subjective Date of Service: 07/03/20 <PELON Jeff - Last Filed: 07/03/20 22:12> 07/04/20 <Timothy Keita - Last Filed: 07/04/20 15:05> Interval History: Clinical Prececent to this date: 70-year-old pt with hx COPD /asthma overlap syndrome, tracheomalacia, GONZALO, recent admission on 06/09 through 06/12/2020 for COVID-19 related acute hypoxic respiratory failure readmitted on 06/14/2020 with worsening hypoxemia and acute hypoxic respiratory failure secondary to COVID-19. On ER evaluation patient was noted to be significantly hypoxemic initially requiring CPAP 70% to maintain normoxemia. Patient has been admitted to intensive care unit. Over the course of the first day he has been titrated down to high-flow nasal cannula 70% and transferred to [facility]. his hospital course has been complicated by AFib with RVR, worsening hypoxic respiratory failure requiring transfer to ICU and intubation on 06/24/2020. hospital course further complicated by bilateral pneumothoraces on 06/27/2020 early in a.m. requiring placement of bilateral chest tubes. Right-sided chest tube clamped overnight with no pneumothorax recurrence and pulled out earlier on 07/02/20 a.m. Persistent left-sided air leak. No events overnight or thru the day today. VS: 95/70; 116; 26; 102.2 sat 95 % on a vent settings of AC 26; 450, 70 % FiO2 General: Alert oriented x3 no acute distress Skin: Intact, no lesions or rash HEENT: Normocephalic, atraumatic, extraocular movements intact, neck is supple, no lymphadenopathy. Buccal mucosa moist. Throat midline. Cardiac: Clear S1-S2, no murmurs rubs or gallops. Pulmonary: Clear to auscultation, no wheezes, rales or rhonchi. Abdomen: Protuberant, positive bowel sounds in all 4 quadrants. Soft, nontender, no rebound or guarding. No CVA tenderness. Musculoskeletal: Moving all 4 extremities upon request a major joints, no calf tenderness, no edema. Neurologic: As above, no focal deficits. Vascular: 2+ pulses upper and lower extremities distally. SIGNIFICANT LABORATORY DATA: WBC 11.6, hg 9.9, Hct 33.4; plts 155; Na 147, K 5, Cl 104, Bicarb 34; BUN 57 (45); Cr 1.75 (1.29); Glucose 228. Ast 211 943); ALT 1320 (59) REVIEW OF IMAGES: Endotracheal tube terminating 3.5 cm above the beata. Similar appearance of bilateral airspace opacities. No pneumothorax. Left sided chest tube. ASSESSMENT AND PLAN: 70-year-old pt with underlying COPD, GONZALO, tracheal malacia with recent admission for COVID-19 related acute hypoxic respiratory failure readmitted on 06/14/2020 with worsening acute hypoxic respiratory failure eventually requiring intubation and ventilatory support on 06/24/2020, further complicated by bilateral pneumothoraces requiring bilateral chest tubes on 06/27/2020. 1. AFib with RVR === still tachy despite of Lopressor and this may be contributing to BP due to poor CO; will try Digoxin and check a level in am as he is in new BRUNILDA. 2. COVID-19 related acute hypoxic respiratory failure and ARDS. Bilateral spontaneous pneumothoraces requiring placement of bilateral chest tubes on 06/27/2020. Right-sided chest tube 07/02/20. Persistent air leak on the left. Continue to titrate off ventilatory support as tolerated. Underlying COPD and tracheomalacia. 3. BRUNILDA====== Likely due to forced diuresis and now with signs of dehydration. DC lasix monitor I and O, recheck labs in am. COVID-19 related ARDS ==== completed dexamethasone and remdesivir. Sputum culture with Pseudomonas Zosyn sensitive, continue on Zosyn for total of 7 days (through today); will check Ddimmer, procal, CRP, ferritin, Still having fever, will give tylenol and ice packs 4. Transaminitis==== not significant; watch for shock liver syndrome 5. Hyperglycemia==== likely due to steroid and feeds not a known Diabetic, cont with ISS 6. Fever despite of Abx ===== will get blood cx, ua, sputum 7. large stage 1-2 sacrocoxygeal pressure ulcer ==== cont rotation, wound care and monitor 8. Constipation ==== add rectal and OG bowel regimen GI Prophylaxis: ppi DVT Prophylaxis on Lovenox, recheck renal function if needed change to heparin. Diet: Tube feeds Critical care time used for critical evaluation of this patient, diagnosis, treatment and coordination of care, review her records and documentation TOTAL CRITICAL CARE TIME 75 MIN , free of any procedures that may be done in the near future. Patient's care was discussed in detail with Dr. Keita. He is aware of all the above as well as the plan of care for this patient. <PELON Jeff - Last Filed: 07/03/20 22:12> Physical Exam Vital Signs: Vital Signs: Last Vital Signs Temp 102.2 F H 07/03/20 19:00 Pulse 116 H 07/03/20 19:00 Resp 26 H 07/03/20 19:00 BP 95/70 07/03/20 19:00 Pulse Ox 95 07/03/20 19:00 Body Mass Index 33.5 <PELON Jeff - Last Filed: 07/03/20 22:12> Const: General: other <PELON Jeff - Last Filed: 07/03/20 22:12> Objective Data Labs CBC & Chem 7: : 07/04/20 05:19 07/04/20 05:19 <PELON Jeff - Last Filed: 07/03/20 22:12> Labs: Laboratory Results - last 24 hr 06/30/20 07/02/20 07/03/20 05:34 23:26 05:31 WBC 11.6 H RBC 3.25 L Hgb 9.9 L Hct 33.4 L MCV 102.8 H MCH 30.5 MCHC 29.6 L RDW 13.1 Plt Count 155 L MPV 12.0 Immature Gran % (Auto) 3.9 H Neut % (Auto) 75.6 H Lymph % (Auto) 14.0 L [place] % (Auto) 4.4 Eos % (Auto) 1.8 Baso % (Auto) 0.3 Lymph # (Auto) 1.6 [place] # (Auto) 0.5 Eos # (Auto) 0.2 Baso # (Auto) 0.0 Abs Immat Gran (auto) 0.45 H Absolute Neuts (auto) 8.8 H Absolute Nucleated RBC 0.090 H Nucleated RBC % (auto) 0.8 H Smear Path Review SEE NOTE VBG pH VBG pCO2 VBG pO2 VBG HCO3 VBG O2 Saturation VBG Base Excess Sodium Potassium Chloride Carbon Dioxide Anion Gap BUN Creatinine Estim Creat Clear Calc Estimated GFR POC Glucose 222 H Random Glucose Calcium Phosphorus Magnesium Total Bilirubin AST ALT Alkaline Phosphatase Total Protein Albumin 07/03/20 07/03/20 07/03/20 05:31 05:31 05:57 WBC RBC Hgb Hct MCV MCH MCHC RDW Plt Count MPV Immature Gran % (Auto) Neut % (Auto) Lymph % (Auto) [place] % (Auto) Eos % (Auto) Baso % (Auto) Lymph # (Auto) [place] # (Auto) Eos # (Auto) Baso # (Auto) Abs Immat Gran (auto) Absolute Neuts (auto) Absolute Nucleated RBC Nucleated RBC % (auto) Smear Path Review VBG pH 7.25 L VBG pCO2 74 VBG pO2 41 VBG HCO3 32 VBG O2 Saturation 70.0 VBG Base Excess 2.8 Sodium 147 H Potassium 5.0 Chloride 104 Carbon Dioxide 34 H Anion Gap 14 BUN 57 H Creatinine 1.75 H Estim Creat Clear Calc 43.6 Estimated GFR 39 POC Glucose 213 H Random Glucose 228 H Calcium 8.5 D Phosphorus 3.0 Magnesium 2.5 Total Bilirubin 2.1 H AST 211 H ALT 120 H Alkaline Phosphatase 80 D Total Protein 5.9 L Albumin 3.8 07/03/20 07/03/20 07/03/20 08:12 11:03 17:49 WBC RBC Hgb Hct MCV MCH MCHC RDW Plt Count MPV Immature Gran % (Auto) Neut % (Auto) Lymph % (Auto) [place] % (Auto) Eos % (Auto) Baso % (Auto) Lymph # (Auto) [place] # (Auto) Eos # (Auto) Baso # (Auto) Abs Immat Gran (auto) Absolute Neuts (auto) Absolute Nucleated RBC Nucleated RBC % (auto) Smear Path Review VBG pH VBG pCO2 VBG pO2 VBG HCO3 VBG O2 Saturation VBG Base Excess Sodium Potassium Chloride Carbon Dioxide Anion Gap BUN Creatinine Estim Creat Clear Calc Estimated GFR POC Glucose 225 H 193 H 229 H Random Glucose Calcium Phosphorus Magnesium Total Bilirubin AST ALT Alkaline Phosphatase Total Protein Albumin <PELON Jeff - Last Filed: 07/03/20 22:12> Microbiology Microbiology Results: Microbiology 06/25/20 10:25 Sputum - Suctioned Gram Stain - Final 06/25/20 10:25 Sputum - Suctioned Sputum Culture - Final Pseudomonas aeruginosa 06/24/20 19:34 Sputum - Suctioned Gram Stain - Final 06/24/20 19:34 Sputum - Suctioned Sputum Culture - Final Pseudomonas aeruginosa 06/14/20 08:29 Blood - Venous Blood Culture - Final No growth after 5 days. 06/14/20 08:22 Blood - Venous Blood Culture - Final No growth after 5 days. <PELON Jeff - Last Filed: 07/03/20 22:12> Progress Note: A&P Time Spent With Patient Time: Total time spent is greater than 50% in coordination of care (as documented) at patient's floor/unit and/or counseling patient: <PELON Jeff - Last Filed: 07/03/20 22:12> Total time spent with greater than 50% in coordination of care (as documented) at patient's floor/unit and/or counseling patient:: 75 <PELON Jeff - Last Filed: 07/03/20 22:12>
[2020-07-03] MEDS: Digoxin 0.5 MG/2 ML AMPUL IVPUSH (20:16)
[2020-07-04] VITALS (30 sets, daily range): BP systolic 87–144; BP diastolic 58–78; PULSE 88–121; RESP 21–32; TEMP 37.9–39.3; O2SAT 82–98; BMI 32.9
--- NOTE | 2020-07-04 | US_ITS ---
EXAMINATION: US VENOUS ULTRASOUND WITH DOPPLER LOWER EXTREMITY, BILATERAL CLINICAL INFORMATION: Swelling. Intubated. Covid positive. COMPARISON: None TECHNIQUE: Ultrasound of the deep veins is performed from the hip to the calf with compression sonography and color and pulse Doppler assessment. Spectral analysis with color-flow imaging is performed. FINDINGS: RIGHT: There is normal venous compression and respiratory variation and augmented flow. The visualized common femoral vein, superficial femoral vein, profunda femoral vein, popliteal vein, and the trifurcation region shows no evidence of deep venous thrombosis. There is no significant popliteal fossa cyst. LEFT: There is deep vein thrombosis in the left lower extremity. There is thrombus within the proximal superficial femoral vein through the distal femoral vein into the popliteal vein and proximal peroneal vein in the calf. Left common femoral vein and greater saphenous vein in the upper thigh are normally patent. Normal vascular flow seen in the posterior tibial vein in the calf. There is no popliteal cyst. US/US venous duplex LE BI IMPRESSION: 1. Right lower extremity: No evidence of deep vein thrombosis. 2. Left lower extremity: Deep vein thrombosis present in the thigh through the proximal calf. This critical result was discussed with PELON Nieto on 07/04/2020, 9:30 PM and it was ascertained that the content and urgency of the report was understood at the time of direct communication.
--- NOTE | 2020-07-04 | XR_ITS ---
EXAMINATION: XR CHEST CLINICAL INFORMATION: ET tube placement and pneumothorax COMPARISON: Previous chest x-rays most recent from yesterday TECHNIQUE: Frontal view of the chest was obtained. FINDINGS: The cardiac and mediastinal contours are stable. There is an endotracheal tube with tip 6 cm above the beata. There is a nasogastric tube that projects over the stomach. The tip is not seen. There is a left jugular line with tip projecting over the SVC. There is a left pigtail chest tube with tip at the lateral left lung base. The cardiac and mediastinal contours are stable. The lung volumes are low. There are surgical clips that project over the right upper chest. There is bilateral multilobar airspace disease. This is not appreciably changed from recent exams. There is no pleural effusion or pneumothorax. Orthopedic hardware from right shoulder replacement. Degenerative changes of the spine. XR/XR chest 1V IMPRESSION: Nasogastric tube projects over stomach, tip not seen. Otherwise satisfactory position of support line and tubes. Low lung volumes and bilateral airspace disease not appreciably changed. No pneumothorax.
[2020-07-04] MEDS: Insulin Lispro 100 UNIT/ML 3 ML VIAL SUBCUT ×5 (00:56→23:59)
[2020-07-04] MEDS: propofoL 1,000 MG/100 ML VIAL 24.49 MG IVCONT ×7 (00:56→23:41)
[2020-07-04] MEDS: 0.9 % Sodium Chloride Flush 3 ML SYRINGE IVFLUSH ×4 (00:57→23:44)
[2020-07-04] MEDS: Metoprolol Tartrate 5 MG in 0.9 % Sodium Chloride 50 ML 200 MG IV (02:16)
[2020-07-04] MEDS: fentaNYL citrate/NS 1,000 MCG/100 ML PLAST..BAG 15 MCG IVCONT ×4 (05:17→23:40)
[2020-07-04 06:01] LABS: Hematocrit 35.8 % (42-52); Hemoglobin 10.7 g/dl (14.0-18.0); Mean Corpuscular HGB Conc 29.9 g/dl (31.0-36.0); Mean Corpuscular Hemoglobin 30.7 pg (27.0-33.0); Mean Corpuscular Volume 102.6 fL (80-98); Mean Platelet Volume 12.1 fL (9.4-12.4); NRBC Pct Auto 0.5 /100WBC (0.0-0.2); Platelet Count 208 X10*3/uL (160-400); Red Blood Count 3.49 X10*6/uL (4.60-5.80); White Blood Count 20.4 X10*3/uL (4.8-10.8)
--- NOTE | 2020-07-04 06:06 | PC.NURSE ---
No resp distress on ac vent settings overnight. O2 sat 94-96% on 90% fio2. Pt sedate on propofol 45 mcg/kg/min and fentanyl 150 mcg/hr. Bp low with Sbp in 80's and map high 50's-low 60's. Levophed drip titrated from 0.2 mcg/kg/min up to 0.3 mcg/kg/min. Monitor show afib/flutter. Metoprolol 5 mg iv q6h given and digoxin 0.5 mg iv given as ordered. Temp high 102.8. Tylenol 650 mg given via ogt with no effect. Edu BIRD aware of temps and pt lee cultured, blood, urine and sputum. Cool sponge bath given. Temp came down to 101.9.
[2020-07-04 06:24] LABS: Base Excess VBG -0.2 mmol/L; HCO3 VBG 29 mmol/L; Oxygen Saturation VBG 70.8 %; PCO2 VBG 74 mmhg; PO2 VBG 40 mmhg; pH VBG 7.21 (7.32-7.43)
[2020-07-04 06:30] LABS: Alanine Aminotransferase 202 U/L (0-40); Albumin Level 3.2 g/dL (3.5-5.0); Alkaline Phosphatase 85 U/L (39-117); Anion Gap 16 (12-20); Aspartate Amino Transferase 300 U/L (5-37); Bilirubin Direct 2.1 mg/dL (0.0-0.5); Bilirubin Total 2.5 mg/dL (0.0-1.0); Blood Urea Nitrogen 75 mg/dL (9-16); C Reactive Protein 9.87 mg/dL (< or = 0.50); Calcium 8.3 mg/dL (8.4-10.2); Carbon Dioxide 29 mmol/L (22-29); Chloride 105 mmol/L (96-108); Estimated Glomerular Filt Rate 27; Glucose Random 178 mg/dL (60-115); Phosphorus 4.4 mg/dL (2.7-4.5); Potassium 5.3 mmol/l (3.3-5.1); Sodium 145 mmol/L (135-145); Total Protein 5.6 g/dL (6.5-8.0)
[2020-07-04 06:46] LABS: Procalcitonin 1.03 ng/mL
[2020-07-04 06:47] LABS: D Dimer 3978 NG/ML
[2020-07-04 07:15] LABS: Atypical Lymph Absolute Manual 0.2 x10*3/uL; Atypical Lymphs Percent Manual 1 % (0-6); Band Neutrophils Percent 18 % (3-5); Lymphocytes Percent Manual 5 % (20-40); Metamyelocytes Absolute 0.2 X10*3/uL; Metamyelocytes Percent 1 %; Monocytes Absolute Manual 0.8 X10*3/uL (0.0-1.2); Monocytes Percent Manual 4 % (2-11); Neutrophils Absolute Manual 18.2 X10*3/uL (2.2-7.9); Neutrophils Percent Manual 71 % (45-73); RBC Morphology NOTED
[2020-07-04 07:16] LABS: Basophilic Stippling 1+; Macrocytosis 1+; Polychromasia 1+
[2020-07-04 07:17] LABS: Platelet Estimate NORMAL (NORMAL); Platelet Morphology Comment NORMAL
[2020-07-04 07:25] LABS: Ferritin 2600 ng/mL (20-250)
[2020-07-04] MEDS: Insulin Glargine,Hum.rec.anlog 100 UNIT/ML 10 ML VIAL 10 UNIT SUBCUT (08:40)
[2020-07-04] MEDS: Chlorhexidine Gluc Oral Rinse 15 ML MOUTHWASH BUCCAL ×3 (08:43→19:24)
[2020-07-04] MEDS: Enoxaparin Sodium 40 MG/0.4 ML SYRINGE SUBCUT (08:43)
[2020-07-04] MEDS: Digoxin 0.5 MG/2 ML AMPUL 0.25 MG IVPUSH (08:48)
[2020-07-04] MEDS: Sennosides/Docusate Sodium TABLET 2 TAB OG-TUBE (08:50)
[2020-07-04 08:56] LABS: Glucose, Whole Blood 217 mg/dL (60-115)
[2020-07-04] MEDS: Lactulose 20 GM/30 ML SOLUTION 30 GM G-TUBE (10:23)
--- NOTE | 2020-07-04 11:40 | MHC.CM.PN ---
Patient remains intubated/vented in ICU. Patient is from home with his . Continue to monitor for d/c needs.
[2020-07-04 12:53] LABS: Glucose, Whole Blood 175 mg/dL (60-115)
--- NOTE | 2020-07-04 12:57 | PC.NURSE ---
Patient remains on fentanly and propofol for sedation. Flaccid, no cough or gag noted this morning. Restraints remain in place for patient safety. Patient on max of Levophed MD aware. BP 93/63 this am, Lopressor held and Dig given per MD. HR continues to be in one teens to one twenties, afib on monitor. Temp trending down to 100.8. Continuing to apply ice packs. Continues on AC settings. ET tube noted to be at 23 cm and low volumes alarming. RT at bedside, tube advanced per MD by RT and RN at bedside. Currently at 25 cm at the lip. Repeat CXR ordered and done. Chest tube dsg changed. BS remain faint, MD aware. Lactulose ordered and given with results pending. Patient continues to tolerate tube feed at 55 cc/hr, residual less than 5 cc. Wound care in to see patient. Recommend triad and will re-eval.
--- NOTE | 2020-07-04 14:34 | HO.WOUNDCONS ---
History of Present Illness Data of Consult Service Date: 07/04/20 Requesting physician: Timothy Keita Primary Care Provider: Prachi Ferrari MD [facility] Reason for consult: Pressure ulcer sacral 70 year old male admitted [id number] ARDS superimposed upon COPD/asthmatic history with use of steroids documents as an outpatient, frequency unclear. Patient cannot provide historical data but there are no diagnoses listed to indicate impaired mobility prior to the patient's arrival. Review of Systems Constitutional: Constitutional: Reports weakness Neurologic: Denies focal weakness and Reports weakness [facility] Medical History (Updated 07/04/20 @ 16:12 by PELON Rehman) Acute renal failure superimposed on stage 2 chronic kidney disease Asthma Bilateral cataracts Borderline diabetic COPD (chronic obstructive pulmonary disease) COPD exacerbation GERD (gastroesophageal reflux disease) Gout H/O hiatal hernia Hand anomaly Hernia, hiatal History of deep venous thrombosis (DVT) of distal vein of left lower extremity Hypertension Hypertensive cardiovascular disease Jaw anomaly Lung blebs GONZALO (obstructive sleep apnea) Osteoarthritis Pneumonia Tracheomalacia Tracheomalacia Family history: reviewed and not pertinent Surgical History H/O left knee surgery H/O sinus surgery History of right knee joint replacement History of right shoulder replacement History of thoracotomy Hx of cataract surgery S/P hernia surgery Social History Household Members: Spouse Housing: House Alcohol intake: unknown Smoking Status: Former smoker Tobacco Type: Cigarette Use of substances other than those prescribed or required for medical reasons: No Currently Displaying Signs/Symptoms of Drug Intoxication Withdrawal: No Have you been hit, kicked, punched, or otherwise hurt by someone within the past year? If so, by whom?: No Do you feel safe in your current relationship?: Yes Is there a partner from a previous relationship who is making you feel unsafe now?: No Are you made to feel afraid or neglected: No Advance Directives: No Advance Directives Information Provided: No Do you have thoughts of harming others: None Do you have a plan to hurt others: No Plan Recently lost weight without trying: Unsure service: Yes Current occupational status: retired Meds Allergies Allergy/AdvReac Type Severity Reaction Status Date / Time adhesive tape [Adhesive Tape] Allergy Mild BLISTERS Verified 06/09/20 13:28 bee pollen [BEE STINGS] Allergy Unknown Unknown Verified 06/09/20 13:28 levofloxacin [From Levaquin] Allergy Hives Verified 06/09/20 13:29 Adhesive Bandages Allergy Unknown Unknown Uncoded 06/09/20 13:28 Home Medications Medication Instructions Recorded Confirmed Type Nucala 100 mg SUBCUT Q4W 06/09/20 06/14/20 History Spiriva Respimat 2 puff INHALATION DAILY 06/09/20 06/14/20 History albuterol sulfate 2.5 mg INHALATION Q4H PRN 06/09/20 06/14/20 History allopurinol 300 mg PO DAILY 06/09/20 06/14/20 History amlodipine 5 mg PO DAILY 06/09/20 06/14/20 History ergocalciferol (vitamin D2) 1,250 mcg PO QWEEK 06/09/20 06/14/20 History [Vitamin D2] fluticasone propion-salmeterol 1 inh INHALATION BID 06/09/20 06/14/20 History [Advair Diskus] folic acid 1 mg PO DAILY 06/09/20 06/14/20 History furosemide 20 mg PO DAILY 06/09/20 06/14/20 History montelukast [Singulair] 10 mg PO DAILY 06/09/20 06/14/20 History omeprazole 20 mg PO DAILY 06/09/20 06/14/20 History trazodone 50 mg PO BEDTIME PRN 06/09/20 06/14/20 History valsartan [Diovan] 160 mg PO DAILY 06/09/20 06/14/20 History cetirizine 10 mg PO DAILY 06/14/20 06/14/20 History Physical Exam Vital Signs and Narrative: Vital Signs: Last Vital Signs Temp 100.8 F H 07/04/20 13:54 Pulse 121 H 07/04/20 13:54 Resp 26 H 07/04/20 13:54 BP 104/73 07/04/20 13:54 Pulse Ox 92 07/04/20 13:54 Body Mass Index 32.9 Fever, tachycardia, intubated in ICU Central obesity. Left heel Stage 1 (nonblanching) - inflat boots on Right heel fully blanching Right ear pinna discoloration, darkened and also not blanching. Buttock wounds:Entire surface area of involved tissue is approx 10 x 12 cm. Note that superior to the easily identified, blackened DTI, is poorly blanching intact dermis, directly over the sacrum between the sulci, at risk for becoming more obvious DTI. Most lateral aspect of this DTI is stage 2-3, pink and flat with some granulation. The reminder of the wound is obscured by injured soft tissue, unstagable. No periwound erythema or edema. No streaking or odor. Results Labs CBC and Chem 7: 07/04/20 05:19 07/04/20 05:19 Labs: Laboratory Results - last 24 hr 06/30/20 07/03/20 07/04/20 05:34 17:49 00:52 MCV MCH MCHC RDW Plt Count MPV Immature Gran % (Auto) Neut % (Auto) Lymph % (Auto) [place] % (Auto) Eos % (Auto) Baso % (Auto) Lymph # (Auto) [place] # (Auto) Eos # (Auto) Baso # (Auto) Abs Immat Gran (auto) Absolute Neuts (auto) Absolute Nucleated RBC Nucleated RBC % (auto) Neutrophils % (Manual) Band Neutrophils % Lymphocytes % (Manual) Atypical Lymphs % (Man) Monocytes % (Manual) Metamyelocytes % Abs Neuts (Manual) Lymphocytes # (Manual) Atyp Lymphs # (Manual) Monocytes # (Manual) Metamyelocytes # Platelet Estimate Plt Morphology Comment RBC Morphology Polychromasia Basophilic Stippling Macrocytosis Smear Path Review SEE NOTE D-Dimer VBG pH VBG pCO2 VBG pO2 VBG HCO3 VBG O2 Saturation VBG Base Excess Anion Gap Estim Creat Clear Calc Estimated GFR POC Glucose 229 H 217 H Random Glucose Calcium Phosphorus Ferritin Total Bilirubin Direct Bilirubin AST ALT Alkaline Phosphatase C-Reactive Protein Total Protein Albumin Procalcitonin 07/04/20 07/04/20 07/04/20 05:19 05:19 05:19 MCV 102.6 H MCH 30.7 MCHC 29.9 L RDW 13.0 Plt Count 208 D MPV 12.1 Immature Gran % (Auto) Cancelled Neut % (Auto) Cancelled Lymph % (Auto) Cancelled [place] % (Auto) Cancelled Eos % (Auto) Cancelled Baso % (Auto) Cancelled Lymph # (Auto) Cancelled [place] # (Auto) Cancelled Eos # (Auto) Cancelled Baso # (Auto) Cancelled Abs Immat Gran (auto) Cancelled Absolute Neuts (auto) Cancelled Absolute Nucleated RBC 0.110 H Nucleated RBC % (auto) 0.5 H Neutrophils % (Manual) 71 Band Neutrophils % 18 H Lymphocytes % (Manual) 5 L Atypical Lymphs % (Man) 1 Monocytes % (Manual) 4 Metamyelocytes % 1 Abs Neuts (Manual) 18.2 H Lymphocytes # (Manual) 1.0 Atyp Lymphs # (Manual) 0.2 Monocytes # (Manual) 0.8 Metamyelocytes # 0.2 Platelet Estimate NORMAL Plt Morphology Comment NORMAL RBC Morphology NOTED Polychromasia 1+ Basophilic Stippling 1+ Macrocytosis 1+ Smear Path Review D-Dimer 3978 VBG pH VBG pCO2 VBG pO2 VBG HCO3 VBG O2 Saturation VBG Base Excess Anion Gap 16 Estim Creat Clear Calc 32.0 Estimated GFR 27 POC Glucose Random Glucose 178 H Calcium 8.3 L Phosphorus 4.4 Ferritin 2600 H Total Bilirubin 2.5 H Direct Bilirubin 2.1 H AST 300 H ALT 202 H Alkaline Phosphatase 85 C-Reactive Protein 9.87 H Total Protein 5.6 L Albumin 3.2 L Procalcitonin 07/04/20 07/04/20 07/04/20 05:19 05:19 10:38 MCV MCH MCHC RDW Plt Count MPV Immature Gran % (Auto) Neut % (Auto) Lymph % (Auto) [place] % (Auto) Eos % (Auto) Baso % (Auto) Lymph # (Auto) [place] # (Auto) Eos # (Auto) Baso # (Auto) Abs Immat Gran (auto) Absolute Neuts (auto) Absolute Nucleated RBC Nucleated RBC % (auto) Neutrophils % (Manual) Band Neutrophils % Lymphocytes % (Manual) Atypical Lymphs % (Man) Monocytes % (Manual) Metamyelocytes % Abs Neuts (Manual) Lymphocytes # (Manual) Atyp Lymphs # (Manual) Monocytes # (Manual) Metamyelocytes # Platelet Estimate Plt Morphology Comment RBC Morphology Polychromasia Basophilic Stippling Macrocytosis Smear Path Review D-Dimer VBG pH 7.21 L VBG pCO2 74 VBG pO2 40 VBG HCO3 29 VBG O2 Saturation 70.8 VBG Base Excess -0.2 Anion Gap Estim Creat Clear Calc Estimated GFR POC Glucose 175 H Random Glucose Calcium Phosphorus Ferritin Total Bilirubin Direct Bilirubin AST ALT Alkaline Phosphatase C-Reactive Protein Total Protein Albumin Procalcitonin 1.03 Imaging Radiologist's Impressions: Impressions Chest X-Ray 07/04/20 00:00 IMPRESSION: Nasogastric tube projects over stomach, tip not seen. Otherwise satisfactory position of support line and tubes. Low lung volumes and bilateral airspace disease not appreciably changed. No pneumothorax. Assessment and Plan (1) Pressure ulcer of sacral region, unstageable: Start date: 07/04/20 Status: Acute Offloading as discussed with nursing staff includes air mattress inflation for movement, wedge pillows and turning every two hours. Continue aggressive offloading the sacrum (24/02 if possible) and consider prone position if and when possible. Nutrition is by way of feeding tube. Nutrition consult suggested in consideration of Vitamin C, Vitamin A and Zinc supplements for wound healing. Kidney disease is noted and supplements may not be possible at this time. Surgical debridement of DTI could be considered when the critical nature of patient's condition improves. In the meantime, Triad cream is suggested to assist in autolytic debridement. With this, increased drainage may occur and macerate, so daily reassessment can be helpful to identify this. If this occurs, a switch to short term Dakin's solution for a few days may be indicated. Zinc oxide barrier cream to the periwound can be used at the discretion of the RN. Thank you for allowing us to participate in your patient's care.
--- NOTE | 2020-07-04 15:05 | P.PNCC_ITS ---
Subjective Subjective Date of Service: 07/04/20 Interval History: Mr. Brown was admitted to the ICU on June 14 with acute respiratory failure secondary to COVID pneumonia. The patient is a 70-year-old man with hx of COPD /asthma overlap syndrome, tracheomalacia, GONZALO. He was recently admitted to [facility] 06/09 through 06/12/2020 for COVID-19 pneumonia. He was readmitted on 06/14/2020 with worsening hypoxemia and acute hypoxemic respiratory failure secondary to COVID-19 pneumonia. In ED, required CPAP 70% to maintain normoxemia. He was to the ICU. Over the course of the first day he was titrated down to HFNC 70% and then transferred to the [facility]. On 06/23 developed AFib with RVR w worsening hypoxemia. Transferred to ICU on 06/24. Treated with BiPAP, then intubated later that day and lined. Hospital course further complicated by bilateral pneumothoraces on 06/27/2020 requiring placement of bilateral chest tubes. Right-sided chest tube clamped with no pneu mothorax recurrence and pulled out on 07/02/20. Persistent left-sided air leak. Trying to make progress with vent settings since then. On exam today, he?s well sedated on propofol @ 45ug, fent @ 150ug. Noninteractive. See Vital Signs below. HR 120 A fib/flut on dig 0.25mg daily w metoprolol 5mg q6; BP 107/72, on Levophed 0.3 ug. RR 27, Ve 12.7L, Sat 91% on vent, AC 20/450/90%/+10. Central venous blood gas this morning showed 7.21/74/0. (Venous pCO2 climbing since June 26.) PIP 36-39. Tmax 102.9?. Been having continuous temps, up to 104?, since 06/28. WBC rising since 07/02. Minor air leak w drainage from left chest tube; drainage is light yellow, serous. Abdomen is mildly rotund, but soft. Grossly edematous. Large stage 2 sacral/bilat buttock decubitus. Other meds: Insulin SS, Lovenox 40mg /d. Zosyn stopped yesterday after 7 days. LABORATORY DATA: As below. Notably, white count up significantly to 20 today. BUN and creatinine up significantly to 75/2.3 (from 57/1.7 yesterday). Bili up to 2.5, AST ALT up to 300/202. D-dimer up to 3978. Ferritin up to 2600. CRP steady at 9.8. Procalcitonin only 1.0. MICRO: Sputum Gram stain from yesterday shows flop 4+ polys, 4+ Gram-negative rods. U/A and urine and blood cultures pending. ECHO: Last echo on 06/21 showed normal LV fxn and EF, normal RV size and function. LA normal, RA not visualized. No signif valvular dz. IVC normal in size and collapses greater than 50%. IMAGING: CXR shows bilat airspace disease, ? improved over last few days joselin in upper lung zones. IMPRESSION: 1. Underlying COPD and GONZALO 2. Proven tracheomalacia 3. COVID-19 disease. Original COVID dx was 25 days ago. Unlikely that he still has ?active? disease. 4. COVID biomarkers up, including hepatic indices, but these are all nonspecific. DDimer is actually down from peak of 7150 on 06/25. My main concern is the possibility of VTE/PE. Check lower extremity duplex. Check right heart on echo. If both negative, that is adequate to r/o major PE that is the cause of his acute resp failure and hypotension. 4. Bilat pneumonia. Completed dexamethasone and remdesivir for COVID pneumonia. Sputum Gram stain now highly positive for Gram-negative rods, even after 7-day course of Zosyn. 5. Acute resp failure 2? mult putative factors: COVID pneumonia, poss bacterial pneumonia, possible VTE. Initially primarily hypoxemic, but now also hypercapnic. Regardless of the cause, it?s a bad sign. 6. [facility] ventilation complicated by bilateral pneumothoraces on 06/27 requiring chest tubes. Rt sided chest tube is out, left side still in. We?ll clamp it now, check CXR at six hrs. 7. AFib with RVR. Still tachy despite metoprolol and dig. May be contributing to hypotension. We?ll trial a slow amiodarone load. Check dig level in AM. 8. Hypotension. Unclear etiology. R/o sepsis (fever, WBC, hypotension). Cultu res done last night. Check lactate level. We?ll also do a f/u limited echo today. 9. ID: Fever, increased WBC, hypotension, ? Gram negative pneumonia, ? sepsis/septic shock. Start meropenam pending cultures. Lactate pending. Echo pending to determine fluid responsiveness. 10. BRUNILDA. Progressively worsening, in the setting of COVID-19 and/or possible bacterial sepsis. Checking volume status with echo. 11. Increased LFTs. ? MOSF. ? Shock liver. A bad sign in COVID. Follow daily. 12. Hyperglycemia. Not diabetic, not on steroids. 2? critical illness. Continue insulin SS. 13. Sacral/buttock pressure ulcer. Cont rotation, wound care, and monitor. Overall worsening prognosis. ADDENDUM at 16:30: I viewed the echo at the bedside with the tech. Echo shows LV small w normal fxn, RV ballooned out with marked decreased fxn. RV:LV cavity ratio is 2.5-3:1. Tricuspid CWD jet measured about 3.5 m/sec (gradient 49mm). IVC dilated 2.7cm, and noncontractile. Estimated CVP 15mm. Estimated PAP 64mm. The above is suggestive of PE (which would be c/w coronavirus dz). The patient is not a candidate for further studies (perfusion scan or CTPA). We?ll dose him empirically with half-dose TPA over 2 hrs. Then heparinize. This is also c/w [facility] Covid protocol (FWIW). Critical care time (including extensive chart review, mult d/w Dr. Arias, hospital course summary; d/w Dr. Olvera): 2.5+ hrs. Physical Exam Vital Signs: Vital Signs: Last Vital Signs Temp 100.8 F H 07/04/20 13:54 Pulse 121 H 07/04/20 13:54 Resp 26 H 07/04/20 13:54 BP 104/73 07/04/20 13:54 Pulse Ox 92 07/04/20 13:54 Body Mass Index 32.9 Objective Data Labs CBC & Chem 7: 07/04/20 05:19 07/04/20 05:19 Labs: Laboratory Results - last 24 hr 07/03/20 07/04/20 07/04/20 17:49 00:52 05:19 WBC 20.4 H RBC 3.49 L Hgb 10.7 L Hct 35.8 L MCV 102.6 H MCH 30.7 MCHC 29.9 L RDW 13.0 Plt Count 208 D MPV 12.1 Immature Gran % (Auto) Cancelled Neut % (Auto) Cancelled Lymph % (Auto) Cancelled Bulloch % (Auto) Cancelled Eos % (Auto) Cancelled Baso % (Auto) Cancelled Lymph # (Auto) Cancelled Bulloch # (Auto) Cancelled Eos # (Auto) Cancelled Baso # (Auto) Cancelled Abs Immat Gran (auto) Cancelled Absolute Neuts (auto) Cancelled Absolute Nucleated RBC 0.110 H Nucleated RBC % (auto) 0.5 H Neutrophils % (Manual) 71 Band Neutrophils % 18 H Lymphocytes % (Manual) 5 L Atypical Lymphs % (Man) 1 Monocytes % (Manual) 4 Metamyelocytes % 1 Abs Neuts (Manual) 18.2 H Lymphocytes # (Manual) 1.0 Atyp Lymphs # (Manual) 0.2 Monocytes # (Manual) 0.8 Metamyelocytes # 0.2 Platelet Estimate NORMAL Plt Morphology Comment NORMAL RBC Morphology NOTED Polychromasia 1+ Basophilic Stippling 1+ Macrocytosis 1+ D-Dimer VBG pH VBG pCO2 VBG pO2 VBG HCO3 VBG O2 Saturation VBG Base Excess Sodium Potassium Chloride Carbon Dioxide Anion Gap BUN Creatinine Estim Creat Clear Calc Estimated GFR POC Glucose 229 H 217 H Random Glucose Calcium Phosphorus Ferritin Total Bilirubin Direct Bilirubin AST ALT Alkaline Phosphatase C-Reactive Protein Total Protein Albumin Procalcitonin 07/04/20 07/04/20 07/04/20 05:19 05:19 05:19 WBC RBC Hgb Hct MCV MCH MCHC RDW Plt Count MPV Immature Gran % (Auto) Neut % (Auto) Lymph % (Auto) Bulloch % (Auto) Eos % (Auto) Baso % (Auto) Lymph # (Auto) Bulloch # (Auto) Eos # (Auto) Baso # (Auto) Abs Immat Gran (auto) Absolute Neuts (auto) Absolute Nucleated RBC Nucleated RBC % (auto) Neutrophils % (Manual) Band Neutrophils % Lymphocytes % (Manual) Atypical Lymphs % (Man) Monocytes % (Manual) Metamyelocytes % Abs Neuts (Manual) Lymphocytes # (Manual) Atyp Lymphs # (Manual) Monocytes # (Manual) Metamyelocytes # Platelet Estimate Plt Morphology Comment RBC Morphology Polychromasia Basophilic Stippling Macrocytosis D-Dimer 3978 VBG pH VBG pCO2 VBG pO2 VBG HCO3 VBG O2 Saturation VBG Base Excess Sodium 145 Potassium 5.3 H Chloride 105 Carbon Dioxide 29 Anion Gap 16 BUN 75 H Creatinine 2.36 H Estim Creat Clear Calc 32.0 Estimated GFR 27 POC Glucose Random Glucose 178 H Calcium 8.3 L Phosphorus 4.4 Ferritin 2600 H Total Bilirubin 2.5 H Direct Bilirubin 2.1 H AST 300 H ALT 202 H Alkaline Phosphatase 85 C-Reactive Protein 9.87 H Total Protein 5.6 L Albumin 3.2 L Procalcitonin 1.03 07/04/20 07/04/20 05:19 10:38 WBC RBC Hgb Hct MCV MCH MCHC RDW Plt Count MPV Immature Gran % (Auto) Neut % (Auto) Lymph % (Auto) Bulloch % (Auto) Eos % (Auto) Baso % (Auto) Lymph # (Auto) Bulloch # (Auto) Eos # (Auto) Baso # (Auto) Abs Immat Gran (auto) Absolute Neuts (auto) Absolute Nucleated RBC Nucleated RBC % (auto) Neutrophils % (Manual) Band Neutrophils % Lymphocytes % (Manual) Atypical Lymphs % (Man) Monocytes % (Manual) Metamyelocytes % Abs Neuts (Manual) Lymphocytes # (Manual) Atyp Lymphs # (Manual) Monocytes # (Manual) Metamyelocytes # Platelet Estimate Plt Morphology Comment RBC Morphology Polychromasia Basophilic Stippling Macrocytosis D-Dimer VBG pH 7.21 L VBG pCO2 74 VBG pO2 40 VBG HCO3 29 VBG O2 Saturation 70.8 VBG Base Excess -0.2 Sodium Potassium Chloride Carbon Dioxide Anion Gap BUN Creatinine Estim Creat Clear Calc Estimated GFR POC Glucose 175 H Random Glucose Calcium Phosphorus Ferritin Total Bilirubin Direct Bilirubin AST ALT Alkaline Phosphatase C-Reactive Protein Total Protein Albumin Procalcitonin Microbiology Microbiology Results: Microbiology 07/03/20 20:20 Sputum - Suctioned Gram Stain - Final 07/03/20 06:56 Urine [place] Urine Culture - Preliminary No growth to date. 06/25/20 10:25 Sputum - Suctioned Gram Stain - Final 06/25/20 10:25 Sputum - Suctioned Sputum Culture - Final Pseudomonas aeruginosa 06/24/20 19:34 Sputum - Suctioned Gram Stain - Final 06/24/20 19:34 Sputum - Suctioned Sputum Culture - Final Pseudomonas aeruginosa 06/14/20 08:29 Blood - Venous Blood Culture - Final No growth after 5 days. 06/14/20 08:22 Blood - Venous Blood Culture - Final No growth after 5 days. Progress Note: A&P Time Spent With Patient Time: Total time spent is greater than 50% in coordination of care (as documented) at patient's floor/unit and/or counseling patient: Total time spent with greater than 50% in coordination of care (as documented) at patient's floor/unit and/or counseling patient:: 0 Critical Care Time Critical Care Time (minutes): 150
--- NOTE | 2020-07-04 15:16 | PC.NURSE ---
chest tube clamped per md, xray to be done 6 hours from now, oncoming RN aware
[2020-07-04 15:32] LABS: Glucose Urine UA NEG (NEG); Leukocyte Esterase Urine NEG (NEG); Nitrite Urine NEG (NEG); PH 5.5 (5.0-8.0); Specific Gravity - Urine >= 1.030 (1.005-1.025); Urine Blood NEG (NEG); Urine Ketones NEG (NEG); Urine Protein 1+ MG/DL (NEG-TRACE)
[2020-07-04 15:40] LABS: Appearance Urine CLOUDY; Color Urine DARK YELLOW
[2020-07-04 15:45] LABS: RBC Urine 0 /HPF (0); Squamous Epithelial Cell Urine 1+ /LPF; WBC Urine 0 /HPF (0-4)
[2020-07-04 15:46] LABS: Hyaline Casts Urine 0-2 /LPF
[2020-07-04 15:47] LABS: Amorphous Sediment Urine 3+ /LPF
[2020-07-04] MEDS: Amiodarone/Dextrose 150 MG/100 ML PLAST..BAG 300 MG IV (15:54)
--- NOTE | 2020-07-04 16:00 | CA_ITS ---
Transthoracic Echocardiogram Patient (Last, First, Middle): Omid Brown E Gender: Male Date of : 1950 Age: 70 Procedure Date: 07/04/2020 Procedure Type: Transthoracic Echocardiogram Location: ICU Height: 170.18 cm Weight: 95.26 kg BSA: 2.06 m2 Heart Rate: bpm BP: 100 / 76 mmHg Production Line: [employer] Referring MD: Timothy Keita Commercial Collector: Ryan Olvera MD Symptoms: Refractory hypotension; LV RV size, fxn, filling, with IVC. Study Quality: Technically Difficult ECG Rhythm: Sinus Conclusions: - 1. Normal LV systolic function 2. Severely enlarged right ventricle with severely reduced RV systolic function suggestive acute cor pulmonale 3. Moderate to severe elevation of right ventricular systolic pressure with significant elevated right atrial pressures Findings Procedure Information Contrast agent, definity, is being given per protocol without apparent complications. Left Ventricle Normal left ventricular size, thickness, and systolic function. The visually estimated ejection fraction is between 55-60%. Diastolic function is indeterminate on the basis of available data. Right Ventricle Severely increased right ventricular cavity size. There is severely decreased right ventricular systolic function. Significant difference in size compared to prior echocardiogram from 06/21/2020. This is suggestive of acute cor pulmonale, consider massive/submassive pulmonary embolic disease. Tricuspid Valve There is mild to moderate tricuspid valve regurgitation. Significantly elevated right atrial pressure. Moderate to severe pulmonary hypertension is present. Pericardium/Pleural There is no evidence of pericardial effusion. Prior Study Comparison Significant changes compared to prior study. Right ventricle is significantly enlarged and hypocontractile with significant elevation of right ventricular systolic pressure, findings suggestive of acute cor pulmonale. Findings were discussed with Dr. Keita Measurements 2D Linear Measurements IVSd: 1.26 0.6-0.9/0.6-1.0 cm LVIDd: 3.95 3.9-5.3/4.2-5.9 cm LVIDd Index: 1.92 2.4-3.2/2.2-3.1 cm/m2 LVIDs: 2.77 2.0-3.6 cm LVPWd: 1.28 0.7-1.1 cm LV Mass: 220.20 67-162/88-224 g LV Mass Index: 106.89 43-95/49-115 g/m2 Tricuspid Valve TR Pk Storm: 3.34 TR Pk Grad: 45.00 RA Press: 15.00 RVSP: 60.00 Updated in Other Vendor System with Status of Final Ryan Olvera MD electronically signed on 07/04/2020 5:19:22 PM with status of Final
--- NOTE | 2020-07-04 16:22 | HO.MIDLINE ---
PICC Line Insertion NPICC Diagnosis: PER REQUEST TO REMOVE MIDLINE Indication: [PER REQUEST MIDLINE REMOVED PER REQUEST (ORDER) FROM PATIENT'S RUE, 20 GAUGE, 10 CM INTACT. NO S/S OF INFECTION
[2020-07-04 18:50] LABS: Glucose, Whole Blood 226 mg/dL (60-115)
--- NOTE | 2020-07-04 20:30 | XR_ITS ---
EXAMINATION: XR CHEST CLINICAL INFORMATION: Left chest tube clamped, assess for pneumothorax. COMPARISON: 07/04/2020 and 07/03/2020 portable chest radiographs. Chest CTA dated 06/23/2020. TECHNIQUE: Frontal view of the chest was obtained. FINDINGS: Support devices: Endotracheal tube, left internal jugular catheter, nasogastric tube and left chest tube without interval change. Increased lucency is seen at the left lung base. A linear opacity is seen at the left lung base. Mild increase infiltrative changes are seen in the right mid and lower lung mac. The heart and mediastinal structures are unremarkable. Left midlung infiltrative changes or mildly decrease. XR/XR chest 1V IMPRESSION: Inclusive lucency at the left lung base is nonspecific. A cystic/air-filled cavity or subpleural air cannot be excluded. An associated air-fluid level cannot be excluded. These findings are not seen on the previous CT scan. Considerations for imaging follow-up include continued short-term radiographic follow-up as clinically indicated and/or a repeat chest CT scan.
--- NOTE | 2020-07-04 21:13 | PC.NURSE ---
3-11 Shift overview: Pt's chest tube clamped at 1500 by previous RN under the direction of . Plan for x-ray at 0900 which was obtained. Awaiting results at this time. Amiodarone ordered for HR in 1teens in and out of A-fib and sinus tach on monitor. Bolus of 300mg amio given at 1630 over 20minutes per order. 10min into the infusion HR dropped from 1teens to 60s. made aware and drip was turned off. Abdomen noted to have mottling to skin. aware. Bowel sounds hypoactive/faint. Pt did have small bowel movement at about 1700. Bedside ECHO obtained 1645. Per imaging orders placed for 50mg of Alteplase which was administered for the indication of possible PE. No abnormal bleeding noted during or after the infusion. Continuing to monitor closely for any abnormal bleeding.
[2020-07-04 23:00] LABS: Hematocrit 35.1 % (42-52); Hemoglobin 10.7 g/dl (14.0-18.0); Mean Corpuscular HGB Conc 30.5 g/dl (31.0-36.0); Mean Corpuscular Hemoglobin 30.8 pg (27.0-33.0); Mean Corpuscular Volume 101.2 fL (80-98); Mean Platelet Volume 12.7 fL (9.4-12.4); NRBC Pct Auto 0.8 /100WBC (0.0-0.2); Platelet Count 202 X10*3/uL (160-400); Red Blood Count 3.47 X10*6/uL (4.60-5.80); White Blood Count 22.5 X10*3/uL (4.8-10.8)
[2020-07-04 23:19] LABS: INTERNATIONAL NORM RATIO 1.3 (0.9-1.1); Prothrombin Time 15.1 SEC (10.8-13.0)
[2020-07-04 23:22] LABS: PTT Heparin Drip 33.5 SEC (53-77.9)
[2020-07-04] MEDS: Heparin Sodium,Porcine/1/2NS 25,000 UNIT/250 ML IV.SOLN 13.36 UNIT IVCONT (23:42)
[2020-07-04] MEDS: Heparin Sodium,Porcine 5,000 UNIT/ML VIAL 2000 UNIT IVPUSH (23:43)
[2020-07-05] VITALS (30 sets, daily range): BP systolic 84–146; BP diastolic 35–80; PULSE 99–129; RESP 26–38; TEMP 38–38.8; O2SAT 76–100; BMI 34.7
--- NOTE | 2020-07-05 | XR_ITS ---
EXAMINATION: XR CHEST CLINICAL INFORMATION: Loculated pneumothorax left base. Follow-up COMPARISON: Portable chest 07/05/2020 at 0613 hours, 07/04/2020 at 2047 hours and 1119 hours, and portable chest 07/03/2020. TECHNIQUE: Portable upright AP view of the chest is performed at 1605 hours. FINDINGS: ET tube is approximately 5.5 cm above beata. The enteric tube is overlying the stomach. Left internal jugular central venous line tip is at mid SVC. The loculated lucency left base is similar to prior study earlier today. No increasing size or mass effect. The heart is normal in size. The vascularity is normal. There are scattered bilateral airspace opacities similar in severity to prior exam. XR/XR chest 1V IMPRESSION: 1. ET tube 5.5 cm above beata. 2. Enteric tube overlying stomach. 3. Left IJ catheter mid SVC. 4. Loculated lucency left base without significant change from prior exam earlier today. No significant changes scattered bilateral airspace opacities.
[2020-07-05 00:33] LABS: Glucose, Whole Blood 235 mg/dL (60-115)
[2020-07-05] MEDS: propofoL 1,000 MG/100 ML VIAL 24.49 MG IVCONT (03:02)
[2020-07-05] MEDS: Metoprolol Tartrate 5 MG in 0.9 % Sodium Chloride 50 ML 110 MG IV (03:31)
[2020-07-05] MEDS: propofoL 1,000 MG/100 ML VIAL 27.22 MG IVCONT ×2 (05:16→09:03)
[2020-07-05] MEDS: fentaNYL citrate/NS 1,000 MCG/100 ML PLAST..BAG 20 MCG IVCONT ×4 (05:17→20:01)
--- NOTE | 2020-07-05 06:00 | XR_ITS ---
EXAMINATION: XR CHEST CLINICAL INFORMATION: Lucency of left lung COMPARISON: 07/04/2020 TECHNIQUE: Frontal view of the chest was obtained. FINDINGS: Endotracheal tube tip lies approximately 4 cm above the beata. Enteric tube courses into the stomach. Left IJ central line tip lies in the region of the mid SVC. Left basilar pigtail catheter redemonstrated. Lung volumes are symmetric. Redemonstrated patchy opacities of the mid to lower lungs bilaterally. Redemonstrated focal region of lucency overlying the left base without significant change from 07/04/2020. No significant pleural effusion. The cardiomediastinal silhouette is stable. Right shoulder arthroplasty hardware is partially visualized. XR/XR chest 1V IMPRESSION: Redemonstrated focal region of lucency overlying the left base, suggesting loculated pneumothorax. Persistent patchy opacities of the mid to lower lungs, similar to prior.
[2020-07-05] MEDS: Insulin Lispro 100 UNIT/ML 3 ML VIAL SUBCUT ×3 (06:35→18:16)
[2020-07-05 06:40] LABS: Base Excess VBG -1.3 mmol/L; HCO3 VBG 29 mmol/L; Oxygen Saturation VBG 75.8 %; PCO2 VBG 82 mmhg; PO2 VBG 43 mmhg
[2020-07-05 06:42] LABS: pH VBG 7.17 (7.32-7.43)
[2020-07-05 06:48] LABS: Hematocrit 33.8 % (42-52); Hemoglobin 10.3 g/dl (14.0-18.0); Mean Corpuscular HGB Conc 30.5 g/dl (31.0-36.0); Mean Corpuscular Hemoglobin 30.5 pg (27.0-33.0); Mean Platelet Volume 12.8 fL (9.4-12.4); NRBC Pct Auto 0.8 /100WBC (0.0-0.2); Platelet Count 202 X10*3/uL (160-400); Red Blood Count 3.38 X10*6/uL (4.60-5.80); White Blood Count 20.7 X10*3/uL (4.8-10.8)
[2020-07-05 06:54] LABS: Troponin-I High Sensitivity 417.3 ng/L (<3.5-35.0)
[2020-07-05 06:55] LABS: INTERNATIONAL NORM RATIO 1.2 (0.9-1.1); Prothrombin Time 14.7 SEC (10.8-13.0)
[2020-07-05 07:13] LABS: Anion Gap 16 (12-20); Blood Urea Nitrogen 95 mg/dL (9-16); Calcium 8.5 mg/dL (8.4-10.2); Carbon Dioxide 29 mmol/L (22-29); Chloride 104 mmol/L (96-108); Creatinine Clr Calc Pharmacy 25.2; Estimated Glomerular Filt Rate 20; Glucose Random 224 mg/dL (60-115); Phosphorus 6.3 mg/dL (2.7-4.5); Sodium 143 mmol/L (135-145)
[2020-07-05 07:18] LABS: Procalcitonin 1.75 ng/mL
[2020-07-05 07:45] LABS: Band Neutrophils Percent 14 % (3-5); Basophils Abs Manual 0.2 X10*3/uL (0.0-0.3); Basophils Percent Manual 1 % (0-1); Lymphocytes Absolute Manual 0.8 X10*3/uL (0.6-4.8); Lymphocytes Percent Manual 4 % (20-40); Metamyelocytes Absolute 0.2 X10*3/uL; Metamyelocytes Percent 1 %; Monocytes Absolute Manual 0.6 X10*3/uL (0.0-1.2); Monocytes Percent Manual 3 % (2-11); Neutrophils Absolute Manual 18.8 X10*3/uL (2.2-7.9); Neutrophils Percent Manual 77 % (45-73); Nucleated Red Blood Cells 2 /100WBC (0-0); Platelet Estimate NORMAL (NORMAL); Platelet Morphology Comment NOTED
[2020-07-05 07:46] LABS: Large Platelet PRESENT; Macrocytosis 1+; Polychromasia 1+
[2020-07-05 07:47] LABS: Acanthocytes 1+; Ovalocytes 1+; Spherocytes 1+; Tear Drop Cells 1+
[2020-07-05 07:52] LABS: Digoxin 4.6 ng/mL (0.8-2.0)
[2020-07-05] MEDS: Sennosides/Docusate Sodium TABLET 2 TAB OG-TUBE (08:01)
[2020-07-05] MEDS: Sodium Polystyrene Sulfon/Sorb 15 GM/60 ML ORAL.SUSP 30 GM G-TUBE ×3 (08:01→20:01)
[2020-07-05] MEDS: Lactulose 20 GM/30 ML SOLUTION 30 GM G-TUBE (08:01)
[2020-07-05] MEDS: Insulin Glargine,Hum.rec.anlog 100 UNIT/ML 10 ML VIAL 10 UNIT SUBCUT (08:02)
[2020-07-05] MEDS: 0.9 % Sodium Chloride Flush 3 ML SYRINGE IVFLUSH ×3 (08:02→20:01)
[2020-07-05 08:05] LABS: D Dimer 11615 NG/ML
[2020-07-05 08:08] LABS: Ferritin 1618 ng/mL (20-250)
[2020-07-05 08:21] LABS: RBC Morphology NOTED
[2020-07-05 08:50] LABS: Glucose, Whole Blood 223 mg/dL (60-115)
[2020-07-05] MEDS: Chlorothiazide Sodium 500 MG VIAL IVPUSH (10:08)
[2020-07-05] MEDS: Bumetanide 1 MG/4 ML VIAL 2 MG IVPUSH (10:09)
[2020-07-05] MEDS: Chlorhexidine Gluc Oral Rinse 15 ML MOUTHWASH BUCCAL ×3 (10:10→20:01)
[2020-07-05] MEDS: Bumetanide 25 MG in Container,Empty 0 ML 8 MG IVCONT (10:11)
--- NOTE | 2020-07-05 10:57 | MHC.CM.PN ---
Patient remains intubated/vented in ICU. Patient found to have LE DVT. Given TPA and Heparin drip. Patient is from home with . Continue to monitor for d/c needs.
--- NOTE | 2020-07-05 11:19 | MHC.CLN ---
F/U TF ON HOLD DUE TO HIGH K+ FOLLOWING
[2020-07-05 12:00] LABS: Glucose, Whole Blood 238 mg/dL (60-115)
[2020-07-05 12:20] LABS: Base Excess VBG -2.7 mmol/L; HCO3 VBG 26 mmol/L; Oxygen Saturation VBG 74.5 %; PCO2 VBG 66 mmhg; PO2 VBG 42 mmhg; pH VBG 7.21 (7.32-7.43)
[2020-07-05 12:21] LABS: Blood Gas Serial # 5396
[2020-07-05] MEDS: Midazolam HCl/NS 50 MG/50 ML PLAST..BAG IVCONT ×2 (13:50→20:01)
[2020-07-05] MEDS: HYDROmorphone HCl 1 MG/ML SYRINGE 2 MG IVPUSH (14:40)
--- NOTE | 2020-07-05 14:56 | PC.NURSE ---
Patient initially sedate on fentanyl and propofol. Propofol discontinued and patient started on versed. RR noted to be up to 50s after adjusting sedation medication, MD aware. Dilaudid ordered and given with good effect, RR 26. Patient flaccid, restraints remain off. Critical pH of 7.17 addressed with MD, RT at bedside to adjust vent settings to PC 28, rate of 26, peep 8, fio2 70%, o2 sats trending 90-94%. MD aware of CXR. Per MD, left anterior chest tube unclamped and set to suction, -30. CXR to be repeated. Temp trending 100.8. HR one teens but BP soft, lopressor held per MD. Critical Digoxin level of 4.6, MD aware, Dig held and discontinued. MD aware of critical potassium of 6.0. Kayexalate ordered and given. Large amounts of loose, liquid stool, rectal tube placed. MD aware large amounts of stool, kayexalate dose at 1500 held per MD. Ddimer trending up, MD aware. Per MD heparin held at this am. TPA 50 mg ordered and given after one hour of holding heparin per MD. Heparin restarted one hour post TPA infusion at 10/u/kg/hr per MD. PTT HD to be drawn at 1840 per MD. Patient's , Sobia, updated by MD. Code status changed. Tube feed stopped and to be readdressed in two days per rounds discussion/MD.
--- NOTE | 2020-07-05 16:01 | P.PNCC_ITS ---
Subjective Subjective Date of Service: 07/05/20 Interval History: Mr. Brown was admitted to the ICU on June 14 with acute respiratory failure secondary to COVID pneumonia. The patient is a 70-year-old man with hx of COPD /asthma overlap syndrome, tracheomalacia, GONZALO. He was recently admitted to [facility] [place] 06/09 through 06/12/2020 for COVID-19 pneumonia. He was readmitted on 06/14/2020 with worsening hypoxemia and acute hypoxemic respiratory failure secondary to COVID-19 pneumonia. In ED, required CPAP 70% to maintain normoxemia. He was to the ICU. Over the course of the first day he was titrated down to HFNC 70% and then transferred to the [facility]. On 06/23 developed AFib with RVR w worsening hypoxemia. Transferred to ICU on 06/24. Treated with BiPAP, then intubated later that day and lined. Hospital course further complicated by bilateral pneumothoraces on 06/27/2020 requiring placement of bilateral chest tubes. Right-sided chest tube clamped with no pneu mothorax recurrence and pulled out on 07/02/20. Persistent left-sided air leak. Over the last few days he?s been febrile, hypotensive, hypoxemic, with worsening renal indices. ECHO done yest afternoon showed small-normal LV size w normal fxn, RV ballooned out with marked decreased fxn. RV:LV cavity ratio 2.5-3:1. Tricuspid CWD jet measured about 3.5 m/sec (gradient 49mm). IVC dilated 2.7cm, and noncontractile. Estimated CVP 15mm. Estimated PAP 64mm. Exam was suggestive of PE. Duplex scan last night also showed left LE DVT. The patient was given ? dose TPA then started on heparin drip. This morning, FiO2 is down from 90% yest to 70%. But no improvement in hemodynamics, and renal fxn worse. On exam today, he?s well sedated on propofol 50ug and fent @ 200ug. Levophed still at 0.3ug. Noninteractive. See Vital Signs below. HR 101 A fib/flut. Digoxin held bec of high dig level this morning. We did give him half of an amiodarone loading dose yest and his HR slowed to the 60s. Currently on metoprolol 5mg q6; BP 102/66. Temp 100.4?, Tmax 100.9?. RR 26 on the vent, ACPC 26, pressures 28/8, 75%, I:E 1:2, with Vt 500cc, Ve 13L, PIP 37, Ppl 32, Sat 94%. Central venous blood gas this morning showed 7.17/82/-1. The ventilator was adjusted to boost tidal vol by 50cc. Abdomen is mildly rotund, but soft. Grossly edematous. Large stage 2 sacral/bilat buttock decubitus. Other meds: Heparin gtt, Insulin SS, metoprolol 5mg Q6, Meropenam day# 2. LABORATORY DATA: As below. Notably, white count steady. BUN and creatinine up further to 95/3.0 (from 75/2.3 yesterday[place] [address]!. Ferritin down to 1600. CRP steady at 10. Procalcitonin steady. Trop bumped to 417. Lactic acid yesterday was only 1.0 (amazingly). MICRO: Blood and urine cultures from 07/03 negative so far. Sputum Gram stain from 07/03 shows flop 4+ polys, 4+ Gram-negative rods; cx is growing GNR. Meropenam started yesterday. IMAGING: We clamped his left chest tube yest afternoon and last night?s film showed no PTX. This morning?s film shows no clear PTX, with no change in bilat infiltrates. The radiologist read a ?focal region of lucency overlying the left base, suggesting loculated pneumothorax.? We therefore unclamped the chest tube. IMPRESSION: 1. Underlying COPD and GONZALO. 2. Proven tracheomalacia. 3. COVID-19 disease. Original COVID dx was Jun 09. Unlikely that he still has ?active? disease. 5. COVID biomarkers up, including hepatic indices, but these are all nonspecific. 6. Likely massive PE. Echo is very suggestive, DDimer and trop are up, duplex scan showed DVT. Gave him half-dose TPA yest, resulting in minor improvement in oxygenation but no improvement in hemodynamics. We therefore gave him another half dose of tPA this morning. There was no improvement in any parameter since then. 7. Bilat pneumonia. Completed dexamethasone and remdesivir for COVID pneumonia. Sputum Gram stain now highly positive for Gram-negative rods, even after 7-day course of Zosyn. Started him on meropenam. 8. Acute resp failure 2? mult putative factors: COVID pneumonia, poss bacterial pneumonia, now also PE. Initially primarily hypoxemic, but now also hyper capnic, very likely 2? additive effect of PE. Regardless of the cause, it?s a bad sign. pCO2 improved somewhat to 66 this afternoon after vent changes this morning. But pH only up to 7.21. 9. Mech ventilation complicated by bilateral pneumothoraces on 06/27 requiring chest tubes. Rt sided chest tube is out, left side still in. For now we?ll leave the left tube unclamped. 10. AFib with RVR. Now reasonably controlled on metoprolol. 11. Hypotension. Unclear etiology. Fever, WBC, hypotension suggest sepsis but lactate was negative and blood and urine cultures negative. I?m doubtful he?s s eptic from pneumonia but no way to rule that out. Regardless, he?s not in septic shock. More likely the hypotension is 2? right heart failure 2? the PE. Echo suggests that he?s fluid replete. 12. ID: Fever is down after starting the meropenam. 13. BRUNILDA. Progressively worsening, in the setting of COVID-19 and cardiogenic shock 2? massive PE. We gave him a large bolus of Bumex today to which he had minimal response. Likely 2? ATN, and likely to go on to full on ARF. 14. Increased LFTs. MOSF/Shock liver. Follow daily. 15. Hyperglycemia. Not diabetic, not on steroids. 2? critical illness. Continue insulin SS. 16. Sacral/buttock pressure ulcer. Continue rotation, wound care, and monitor. Overall worsening prognosis. I spoke to his at length today about his condition and prognosis. We agreed on ?no CPR? status, no dialysis or further invasive mx. We?ll decide further on day-by-day basis how much longer to continue. ADDENDUM: This evening had a respiratory deterioration resulting in circulatory deterioration of unclear etiology. We had difficulty ventilating him and Sats dropped, BP dropped to 50?s. Looked like he was about to arrest. PPV by ambu bag was difficult, altho not impossible. Eventually he got better (unclear why), but tidal vols are down to 410-450 range. SpO2 is 100% on FiO2 100%. We called his and she came in with their daughter. Critical care time (including multiple visits to the bedside, and discussions with family and with renal and with Dr. Arias): 2+ hrs. Physical Exam Vital Signs: Vital Signs: Last Vital Signs Temp 100.8 F H 07/05/20 15:00 Pulse 129 H 07/05/20 15:00 Resp 27 H 07/05/20 15:00 BP 96/61 07/05/20 15:00 Pulse Ox 93 07/05/20 15:00 Body Mass Index 34.7 Objective Data Labs CBC & Chem 7: 07/05/20 06:04 07/05/20 06:04 Labs: Laboratory Results - last 24 hr 07/04/20 07/04/20 07/04/20 15:51 18:46 22:35 WBC RBC Hgb Hct MCV MCH MCHC RDW Plt Count MPV Immature Gran % (Auto) Neut % (Auto) Lymph % (Auto) [place] % (Auto) Eos % (Auto) Baso % (Auto) Lymph # (Auto) [place] # (Auto) Eos # (Auto) Baso # (Auto) Abs Immat Gran (auto) Absolute Neuts (auto) Absolute Nucleated RBC Nucleated RBC % (auto) Neutrophils % (Manual) Band Neutrophils % Lymphocytes % (Manual) Monocytes % (Manual) Basophils % (Manual) Metamyelocytes % Abs Neuts (Manual) Lymphocytes # (Manual) Monocytes # (Manual) Basophils # (Manual) Metamyelocytes # Nucleated RBCs Platelet Estimate Large Platelets Plt Morphology Comment RBC Morphology Polychromasia Macrocytosis Spherocytes Tear Drop Cells Ovalocytes Acanthocytes (Spur) PT 15.1 H INR 1.3 H PTT (Heparin Protocol) 33.5 L D-Dimer VBG pH VBG pCO2 VBG pO2 VBG HCO3 VBG O2 Saturation VBG Base Excess Sodium Potassium Chloride Carbon Dioxide Anion Gap BUN Creatinine Estim Creat Clear Calc Estimated GFR POC Glucose 226 H Random Glucose Lactic Acid 1.0 Calcium Phosphorus Ferritin Troponin I High Sens C-Reactive Protein Procalcitonin Digoxin 07/04/20 07/04/20 07/05/20 22:35 23:57 06:04 WBC 22.5 H RBC 3.47 L Hgb 10.7 L Hct 35.1 L MCV 101.2 H MCH 30.8 MCHC 30.5 L RDW 13.0 Plt Count 202 MPV 12.7 H Immature Gran % (Auto) Neut % (Auto) Lymph % (Auto) [place] % (Auto) Eos % (Auto) Baso % (Auto) Lymph # (Auto) [place] # (Auto) Eos # (Auto) Baso # (Auto) Abs Immat Gran (auto) Absolute Neuts (auto) Absolute Nucleated RBC 0.170 H Nucleated RBC % (auto) 0.8 H Neutrophils % (Manual) Band Neutrophils % Lymphocytes % (Manual) Monocytes % (Manual) Basophils % (Manual) Metamyelocytes % Abs Neuts (Manual) Lymphocytes # (Manual) Monocytes # (Manual) Basophils # (Manual) Metamyelocytes # Nucleated RBCs Platelet Estimate Large Platelets Plt Morphology Comment RBC Morphology Polychromasia Macrocytosis Spherocytes Tear Drop Cells Ovalocytes Acanthocytes (Spur) PT INR PTT (Heparin Protocol) D-Dimer VBG pH VBG pCO2 VBG pO2 VBG HCO3 VBG O2 Saturation VBG Base Excess Sodium Potassium Chloride Carbon Dioxide Anion Gap BUN Creatinine Estim Creat Clear Calc Estimated GFR POC Glucose 235 H Random Glucose Lactic Acid Calcium Phosphorus Ferritin Troponin I High Sens 417.3 H D C-Reactive Protein Procalcitonin Digoxin 07/05/20 07/05/20 07/05/20 06:04 06:04 06:04 WBC 20.7 H RBC 3.38 L Hgb 10.3 L Hct 33.8 L MCV 100.0 H MCH 30.5 MCHC 30.5 L RDW 13.0 Plt Count 202 MPV 12.8 H Immature Gran % (Auto) Cancelled Neut % (Auto) Cancelled Lymph % (Auto) Cancelled [place] % (Auto) Cancelled Eos % (Auto) Cancelled Baso % (Auto) Cancelled Lymph # (Auto) Cancelled [place] # (Auto) Cancelled Eos # (Auto) Cancelled Baso # (Auto) Cancelled Abs Immat Gran (auto) Cancelled Absolute Neuts (auto) Cancelled Absolute Nucleated RBC 0.160 H Nucleated RBC % (auto) 0.8 H Neutrophils % (Manual) 77 H Band Neutrophils % 14 H Lymphocytes % (Manual) 4 L Monocytes % (Manual) 3 Basophils % (Manual) 1 Metamyelocytes % 1 Abs Neuts (Manual) 18.8 H Lymphocytes # (Manual) 0.8 Monocytes # (Manual) 0.6 Basophils # (Manual) 0.2 Metamyelocytes # 0.2 Nucleated RBCs 2 H Platelet Estimate NORMAL Large Platelets PRESENT Plt Morphology Comment NOTED RBC Morphology NOTED Polychromasia 1+ Macrocytosis 1+ Spherocytes 1+ Tear Drop Cells 1+ Ovalocytes 1+ Acanthocytes (Spur) 1+ PT Cancelled INR Cancelled PTT (Heparin Protocol) D-Dimer VBG pH VBG pCO2 VBG pO2 VBG HCO3 VBG O2 Saturation VBG Base Excess Sodium Potassium Chloride Carbon Dioxide Anion Gap BUN Creatinine Estim Creat Clear Calc Estimated GFR POC Glucose Random Glucose Lactic Acid Calcium Phosphorus Ferritin Troponin I High Sens C-Reactive Protein Procalcitonin Digoxin 4.6 H* 07/05/20 07/05/20 07/05/20 06:04 06:04 06:04 WBC RBC Hgb Hct MCV MCH MCHC RDW Plt Count MPV Immature Gran % (Auto) Neut % (Auto) Lymph % (Auto) [place] % (Auto) Eos % (Auto) Baso % (Auto) Lymph # (Auto) [place] # (Auto) Eos # (Auto) Baso # (Auto) Abs Immat Gran (auto) Absolute Neuts (auto) Absolute Nucleated RBC Nucleated RBC % (auto) Neutrophils % (Manual) Band Neutrophils % Lymphocytes % (Manual) Monocytes % (Manual) Basophils % (Manual) Metamyelocytes % Abs Neuts (Manual) Lymphocytes # (Manual) Monocytes # (Manual) Basophils # (Manual) Metamyelocytes # Nucleated RBCs Platelet Estimate Large Platelets Plt Morphology Comment RBC Morphology Polychromasia Macrocytosis Spherocytes Tear Drop Cells Ovalocytes Acanthocytes (Spur) PT INR PTT (Heparin Protocol) D-Dimer 97109 VBG pH VBG pCO2 VBG pO2 VBG HCO3 VBG O2 Saturation VBG Base Excess Sodium 143 Potassium 6.0 H* Chloride 104 Carbon Dioxide 29 Anion Gap 16 BUN 95 H* D Creatinine 3.08 H Estim Creat Clear Calc 25.2 Estimated GFR 20 POC Glucose Random Glucose 224 H Lactic Acid Calcium 8.5 Phosphorus 6.3 H Ferritin 1618 H Troponin I High Sens C-Reactive Protein 10.00 H Procalcitonin 1.75 Digoxin 07/05/20 07/05/20 07/05/20 06:04 06:04 06:05 WBC RBC Hgb Hct MCV MCH MCHC RDW Plt Count MPV Immature Gran % (Auto) Neut % (Auto) Lymph % (Auto) [place] % (Auto) Eos % (Auto) Baso % (Auto) Lymph # (Auto) [place] # (Auto) Eos # (Auto) Baso # (Auto) Abs Immat Gran (auto) Absolute Neuts (auto) Absolute Nucleated RBC Nucleated RBC % (auto) Neutrophils % (Manual) Band Neutrophils % Lymphocytes % (Manual) Monocytes % (Manual) Basophils % (Manual) Metamyelocytes % Abs Neuts (Manual) Lymphocytes # (Manual) Monocytes # (Manual) Basophils # (Manual) Metamyelocytes # Nucleated RBCs Platelet Estimate Large Platelets Plt Morphology Comment RBC Morphology Polychromasia Macrocytosis Spherocytes Tear Drop Cells Ovalocytes Acanthocytes (Spur) PT 14.7 H INR 1.2 H PTT (Heparin Protocol) 65.0 D D-Dimer VBG pH 7.17 L* VBG pCO2 82 VBG pO2 43 VBG HCO3 29 VBG O2 Saturation 75.8 VBG Base Excess -1.3 Sodium Potassium Chloride Carbon Dioxide Anion Gap BUN Creatinine Estim Creat Clear Calc Estimated GFR POC Glucose 223 H Random Glucose Lactic Acid Calcium Phosphorus Ferritin Troponin I High Sens C-Reactive Protein Procalcitonin Digoxin 07/05/20 07/05/20 11:23 12:06 WBC RBC Hgb Hct MCV MCH MCHC RDW Plt Count MPV Immature Gran % (Auto) Neut % (Auto) Lymph % (Auto) [place] % (Auto) Eos % (Auto) Baso % (Auto) Lymph # (Auto) [place] # (Auto) Eos # (Auto) Baso # (Auto) Abs Immat Gran (auto) Absolute Neuts (auto) Absolute Nucleated RBC Nucleated RBC % (auto) Neutrophils % (Manual) Band Neutrophils % Lymphocytes % (Manual) Monocytes % (Manual) Basophils % (Manual) Metamyelocytes % Abs Neuts (Manual) Lymphocytes # (Manual) Monocytes # (Manual) Basophils # (Manual) Metamyelocytes # Nucleated RBCs Platelet Estimate Large Platelets Plt Morphology Comment RBC Morphology Polychromasia Macrocytosis Spherocytes Tear Drop Cells Ovalocytes Acanthocytes (Spur) PT INR PTT (Heparin Protocol) D-Dimer VBG pH 7.21 L VBG pCO2 66 VBG pO2 42 VBG HCO3 26 VBG O2 Saturation 74.5 VBG Base Excess -2.7 Sodium Potassium Chloride Carbon Dioxide Anion Gap BUN Creatinine Estim Creat Clear Calc Estimated GFR POC Glucose 238 H Random Glucose Lactic Acid Calcium Phosphorus Ferritin Troponin I High Sens C-Reactive Protein Procalcitonin Digoxin Microbiology Microbiology Results: Microbiology 07/03/20 06:56 Urine [place] Urine Culture - Final No growth. 07/03/20 20:20 Sputum - Suctioned Gram Stain - Final 07/03/20 20:20 Sputum - Suctioned Sputum Culture - Preliminary Gram negative violet 07/03/20 20:46 Blood - Venous Blood Culture - Preliminary No growth after 24 hours. 07/03/20 20:46 Blood - Venous Blood Culture - Preliminary No growth after 24 hours. 06/25/20 10:25 Sputum - Suctioned Gram Stain - Final 06/25/20 10:25 Sputum - Suctioned Sputum Culture - Final Pseudomonas aeruginosa 06/24/20 19:34 Sputum - Suctioned Gram Stain - Final 06/24/20 19:34 Sputum - Suctioned Sputum Culture - Final Pseudomonas aeruginosa 06/14/20 08:29 Blood - Venous Blood Culture - Final No growth after 5 days. 06/14/20 08:22 Blood - Venous Blood Culture - Final No growth after 5 days. Progress Note: A&P Time Spent With Patient Time: Total time spent is greater than 50% in coordination of care (as documented) at patient's floor/unit and/or counseling patient: Total time spent with greater than 50% in coordination of care (as documented) at patient's floor/unit and/or counseling patient:: 0 Critical Care Time Critical Care Time (minutes): 120
--- NOTE | 2020-07-05 17:42 | XR_ITS ---
EXAMINATION: XR CHEST CLINICAL INFORMATION: Ventilation instability COMPARISON: Chest x-ray 07/05/2020, 4:02 PM TECHNIQUE: Frontal portable view of the chest was obtained. 5:34 PM FINDINGS: Tubes and lines: 1. Endotracheal tube 5 cm above beata. 2. Nasogastric tube in stomach. 3. Left IJ catheter tip at caval atrial junction. 4. Left-sided chest tube in place unchanged position since prior exam. No pneumothorax. There is persistent patchy bilateral airspace opacities. No change since prior chest x-ray today. No large pleural effusions. Surgical clips over the medial right upper chest. Status post right shoulder replacement. XR/XR chest 1V IMPRESSION: No change since prior chest x-ray today. Persistent bilateral airspace opacities. Tubes and lines unchanged since prior exam.
[2020-07-05] MEDS: HYDROmorphone HCl 1 MG/ML SYRINGE 4 MG IVPUSH (17:55)
--- NOTE | 2020-07-05 18:05 | PC.NURSE ---
Patient asynchronous on ventilator RR in 40s title volumes 100-200s o2 sats in the 70s HR labile from 70s to 110s in junctional rhythm with frequent ectopy. SBP in the 60s. MD at bedside. CXR obtained. MD updated family. Family to visit.
--- NOTE | 2020-07-05 18:17 | PM.PNNEP ---
Subjective Subjective Date of Service: 07/05/20 Physical Exam Vital Signs: Vital Signs: Last Vital Signs Temp 101.3 F H 07/05/20 17:00 Pulse 115 H 07/05/20 18:00 Resp 26 H 07/05/20 18:00 BP 92/48 L 07/05/20 18:00 Pulse Ox 100 07/05/20 18:00 Body Mass Index 34.7 Assessment & Plan Assessment and plan (1) Acute renal failure superimposed on stage 2 chronic kidney disease: Problem details: Pt seen and examined Discussed with ICU attending Consult dictated Status: Acute
[2020-07-05] MEDS: Alteplase Cath Clear 2 MG VIAL IV ×3 (20:00)
[2020-07-05 21:10] LABS: Base Excess VBG -5.4 mmol/L; HCO3 VBG 24 mmol/L; Oxygen Saturation VBG 79.5 %; PCO2 VBG 72 mmhg; PO2 VBG 50 mmhg
[2020-07-05 21:12] LABS: PTT Heparin Drip 51.7 SEC (53-77.9)
[2020-07-05 21:12] LABS: pH VBG 7.14 (7.32-7.43)
[2020-07-05 21:25] LABS: Anion Gap 18 (12-20); Blood Urea Nitrogen 103 mg/dL (9-16); Calcium 7.4 mg/dL (8.4-10.2); Carbon Dioxide 27 mmol/L (22-29); Chloride 105 mmol/L (96-108); Creatinine Clr Calc Pharmacy 21.2; Estimated Glomerular Filt Rate 17; Glucose Random 176 mg/dL (60-115); Potassium 5.6 mmol/l (3.3-5.1); Sodium 144 mmol/L (135-145)
[2020-07-05] MEDS: Heparin Sodium,Porcine 5,000 UNIT/ML VIAL IVPUSH (21:43)
[2020-07-05 23:59] LABS: Glucose, Whole Blood 227 mg/dL (60-115)
[2020-07-05 23:59] LABS: Glucose, Whole Blood 178 mg/dL (60-115)
[2020-07-06] VITALS (25 sets, daily range): BP systolic 82–118; BP diastolic 47–85; PULSE 106–124; RESP 23–41; TEMP 38.7–39.6; O2SAT 94–100; BMI 34.5
[2020-07-06 00:16] LABS: Glucose, Whole Blood 169 mg/dL (60-115)
[2020-07-06] MEDS: Heparin Sodium,Porcine/1/2NS 25,000 UNIT/250 ML IV.SOLN 11.45 UNIT IVCONT (00:54)
[2020-07-06] MEDS: Sodium Polystyrene Sulfon/Sorb 15 GM/60 ML ORAL.SUSP 30 GM G-TUBE ×3 (00:54→11:18)
[2020-07-06] MEDS: 0.9 % Sodium Chloride Flush 3 ML SYRINGE IVFLUSH ×2 (00:55→14:01)
[2020-07-06] MEDS: Insulin Lispro 100 UNIT/ML 3 ML VIAL SUBCUT (00:55)
[2020-07-06] MEDS: fentaNYL citrate/NS 1,000 MCG/100 ML PLAST..BAG 20 MCG IVCONT ×2 (00:58→08:08)
[2020-07-06 03:53] LABS: PTT Heparin Drip 73.2 SEC (53-77.9)
[2020-07-06 06:40] LABS: Base Excess VBG 0.6 mmol/L; HCO3 VBG 29 mmol/L; Oxygen Saturation VBG 69.2 %; PCO2 VBG 75 mmhg; PO2 VBG 40 mmhg; pH VBG 7.21 (7.32-7.43)
[2020-07-06 06:51] LABS: Hematocrit 23.1 % (42-52); Hemoglobin 7.4 g/dl (14.0-18.0); Mean Corpuscular Volume 96.7 fL (80-98); Platelet Count 255 X10*3/uL (160-400); Red Blood Count 2.39 X10*6/uL (4.60-5.80); Red Cell Distribution Width 12.9 % (11.0-16.0); White Blood Count 20.7 X10*3/uL (4.8-10.8)
[2020-07-06] MEDS: Acetaminophen Oral Liquid 650 MG/20.3 ML SOLUTION OG-TUBE ×2 (06:56→14:01)
[2020-07-06 07:03] LABS: NRBC Pct Auto 1.3 /100WBC (0.0-0.2)
[2020-07-06 07:14] LABS: Glucose, Whole Blood 97 mg/dL (60-115)
[2020-07-06 07:15] LABS: Anion Gap 19 (12-20); Blood Urea Nitrogen 113 mg/dL (9-16); C Reactive Protein 14.25 mg/dL (< or = 0.50); Calcium 7.3 mg/dL (8.4-10.2); Carbon Dioxide 28 mmol/L (22-29); Chloride 106 mmol/L (96-108); Creatinine Clr Calc Pharmacy 19.1; Estimated Glomerular Filt Rate 15; Glucose Random 95 mg/dL (60-115); Phosphorus 7.7 mg/dL (2.7-4.5); Potassium 4.8 mmol/l (3.3-5.1); Sodium 148 mmol/L (135-145)
[2020-07-06 07:35] LABS: Band Neutrophils Percent 7 % (3-5); Basophils Abs Manual 0.2 X10*3/uL (0.0-0.3); Basophils Percent Manual 1 % (0-1); D Dimer 8475 NG/ML; Lymphocytes Absolute Manual 1.2 X10*3/uL (0.6-4.8); Lymphocytes Percent Manual 6 % (20-40); Metamyelocytes Percent 5 %; Monocytes Absolute Manual 0.6 X10*3/uL (0.0-1.2); Monocytes Percent Manual 3 % (2-11); Neutrophils Absolute Manual 17.6 X10*3/uL (2.2-7.9); Neutrophils Percent Manual 78 % (45-73); Nucleated Red Blood Cells 1 /100WBC (0-0)
[2020-07-06 07:37] LABS: Basophilic Stippling 1+; Hypochromasia 2+; Polychromasia 1+; RBC Morphology NOTED
[2020-07-06 07:39] LABS: Macrocytosis 1+
[2020-07-06 07:40] LABS: Platelet Estimate NORMAL (NORMAL); Platelet Morphology Comment NORMAL
--- NOTE | 2020-07-06 08:00 | PC.RT ---
pt found with a large cuff leak from ETT. ETT was at 22lip, and alta tab was not holding the tube. a new alta was place on the pt. the ETT was advance to 26 lip with bs equal papa. pt remained hemodunamically stabe throughout this episode and did no decompensate. pt now has returned tidal volumes in the mid 400 s. pt remains febrile with a temp of 102.4 and also sedated. will discuss paln of care at rounds this morning. The cuff pressure is about [id number]. RN aware and asked Dr. Keita if we should order a CXR for ETT placement
[2020-07-06 08:01] LABS: Ferritin 2101 ng/mL (20-250)
[2020-07-06] MEDS: HYDROmorphone HCl 2 MG/ML VIAL IVPUSH ×2 (08:07→17:13)
[2020-07-06] MEDS: Sennosides/Docusate Sodium TABLET 2 TAB OG-TUBE (08:08)
[2020-07-06] MEDS: Chlorhexidine Gluc Oral Rinse 15 ML MOUTHWASH BUCCAL ×2 (08:09→14:01)
[2020-07-06 10:20] LABS: PTT Heparin Drip 60.4 SEC (53-77.9)
[2020-07-06] MEDS: Midazolam HCl/NS 50 MG/50 ML PLAST..BAG IVCONT (11:18)
[2020-07-06 12:10] LABS: Glucose, Whole Blood 136 mg/dL (60-115)
--- NOTE | 2020-07-06 13:19 | P.PNCC_ITS ---
Subjective Subjective Date of Service: 07/06/20 Interval History: Mr. Brown was admitted to the ICU on June 14 with acute respiratory failure secondary to COVID pneumonia. The patient is a 70-year-old man with hx of COPD /asthma overlap syndrome, tracheomalacia, GONZALO. He [place] [facility] [place] for COVID-19 pneumonia. He was readmitted on 06/14/2020 with worsening hypoxemia and acute hypoxemic respiratory failure secondary to COVID-19 pneumonia. In ED, required CPAP 70% to maintain normoxemia. He was admitted to the ICU. Over the course of the fi rst day he was titrated down to HFNC 70% and then transferred to the general medical [facility]. On 06/23 developed AFib with RVR w worsening hypoxemia. Transferred to ICU on 06/24. Treated with BiPAP, then intubated later that day. Hospital course further complicated by bilateral pneumothoraces on 06/27/2020 requiring placement of bilateral chest tubes. Right-sided chest tube clamped with no pneumothorax recurrence and pulled out on 07/02/20. Persistent left-sided air leak. Over the subsequent few days he became febrile, hypotensive, more hypoxemic, with worsening renal indices. ECHO done 07/04 showed small LV size w normal fxn, RV ballooned out with marked decreased fxn. RV:LV cavity ratio 2.5-3:1. Tricuspid CWD jet measured about 3.5 m/sec (gradient 49mm). IVC dilated 2.7cm, and noncontractile. Estimated CVP 15mm. Estimated PAP 64mm. Overall echo was suggestive of PE. Duplex scan that night also showed LLE DVT. The patient was given ? dose TPA then started on heparin drip. The next morning, FiO2 was down from 90% to 70%, but there was no improvement in hemodynamics, he was still requiring max dose Levophed, and renal fxn was worse. We gave him another half dose of tPA. Yesterday afternoon he had ventilator problems of unclear etiology and almost arrested. Responded to PPV by ambu bag. Unclear what happened (I was in the room). On exam today, he?s well sedated on versed and fentanyl. Levophed still at 0.3ug. Noninteractive. See Vital Signs below. HR 114, SR. Currently on metoprolol 5mg q6. BP 100/54. Temp 103.3?. RR 26 on the vent, at AC/PC 26, pressures 28/8, 80%, I:E 1:2, with Vt 530cc, Ve 14L, PIP 37, Ppl about 32, Sat 98%. Central venous blood gas this morning showed 7.21/75/0. Abdomen is mildly rotund, but soft. Grossly edematous. Large stage 2 sacral/bilat buttock decubitus. Other meds: Heparin gtt, Insulin SS, metoprolol 5mg Q6, Meropenam day# 3. LABORATORY DATA: As below. Notably, white count steady. BUN and creatinine up further to 113/4.0. D-dimer down to 8475. Ferritin up to 2100. CRP up to 14. Procalcitonin 3.0. MICRO: Sputum growing sensitive Pseudomonas. IMPRESSION: 1. Underlying Asthma/COPD and GONZALO. 2. Proven tracheomalacia. 3. COVID-19 pneumonia. Original COVID dx was Jun 09. Unlikely that he still has ?active? disease. 5. COVID biomarkers up, including hepatic indices, but these are all nonspecif ic. 6. Likely massive PE. Echo is very suggestive, DDimer and trop are up, duplex scan showed DVT. Gave him half-dose TPA x 2, with some improvement in oxygenation but no improvement in ventilation or hemodynamics. He essentially appears to have cardiogenic shock from right heart failure. 7. Bilat pneumonia. Completed dexamethasone and remdesivir for COVID pneumonia. Sputum now has pseudomonas with highly positive Gram stain, even after 7-day course of Zosyn. Day 3 of meropenam. 8. Acute resp failure 2? mult putative factors: COVID pneumonia, poss bacterial pneumonia, now also PE. Initially primarily hypoxemic, but now also hypercapnic, very likely 2? additive effect of PE. Regardless of the cause, it?s a bad sign to have that high a pCO2 with a minute vol of 14L. 9. [facility] ventilation complicated by bilateral pneumothoraces on 06/27 requiring chest tubes. Rt sided chest tube is out, left side still in. For now we?ll leave the left tube unclamped. 10. AFib with RVR. Spontaneously converted to SR yesterday. Wonder if the tPA had anything to do with that. 11. Hypotension. Most likely cardiogenic shock 2? right heart failure 2? the PE. Echo suggests that he?s fluid replete. 12. ID: Fever was down after starting the meropenam, but now back up. 13. BRUNILDA. Progressively worsening, in the setting of COVID-19 and cardiogenic shock 2? massive PE. We gave him a large bolus of Bumex yesterday to which he had minimal response. Likely 2? ATN, and likely to go on to full on ARF. 14. Increased LFTs. MOSF/Shock liver. 15. Hyperglycemia. Not diabetic, not on steroids. 2? critical illness. Continue insulin SS. 16. Sacral/buttock pressure ulcer. Continue rotation, wound care, and monitor. Overall worsening prognosis. I spoke to his again this morning and she is going to come in with their daughters, likely to establish comfort measures status. Especially with his non-response to TPA, the chances of survival are essentially nil. ADDENDUM: The patient?s came in with two daughters and we spoke in the waiting room. Discussed condition and prognosis, as noted above. She would like to establish comfort measures. We?re waiting for one more daughter and then will extubate. ADDENDUM: All the family arrived and gathered at the bedside. The patient was extubated about 6pm and peacefully a few minutes later. Time of 1803. Critical care time: 75+ min. Physical Exam Vital Signs: Vital Signs: Last Vital Signs Temp 102.7 F H 07/06/20 13:00 Pulse 112 H 07/06/20 13:00 Resp 31 H 07/06/20 13:00 BP 91/51 L 07/06/20 13:00 Pulse Ox 98 07/06/20 13:00 Body Mass Index 34.5 Objective Data Labs CBC & Chem 7: 07/06/20 06:08 07/06/20 06:08 Labs: Laboratory Results - last 24 hr 07/05/20 07/05/20 07/05/20 18:13 20:48 20:49 WBC RBC Hgb Hct MCV MCH MCHC RDW Plt Count MPV Immature Gran % (Auto) Neut % (Auto) Lymph % (Auto) [place] % (Auto) Eos % (Auto) Baso % (Auto) Lymph # (Auto) [place] # (Auto) Eos # (Auto) Baso # (Auto) Abs Immat Gran (auto) Absolute Neuts (auto) Absolute Nucleated RBC Nucleated RBC % (auto) Neutrophils % (Manual) Band Neutrophils % Lymphocytes % (Manual) Monocytes % (Manual) Basophils % (Manual) Metamyelocytes % Abs Neuts (Manual) Lymphocytes # (Manual) Monocytes # (Manual) Basophils # (Manual) Metamyelocytes # Nucleated RBCs Platelet Estimate Plt Morphology Comment RBC Morphology Polychromasia Hypochromasia Basophilic Stippling Macrocytosis PTT (Heparin Protocol) 51.7 L D D-Dimer VBG pH 7.14 L* VBG pCO2 72 VBG pO2 50 VBG HCO3 24 VBG O2 Saturation 79.5 VBG Base Excess -5.4 Sodium Potassium Chloride Carbon Dioxide Anion Gap BUN Creatinine Estim Creat Clear Calc Estimated GFR POC Glucose 227 H Random Glucose Calcium Phosphorus Ferritin C-Reactive Protein Procalcitonin 07/05/20 07/05/20 07/05/20 20:49 21:51 23:59 WBC RBC Hgb Hct MCV MCH MCHC RDW Plt Count MPV Immature Gran % (Auto) Neut % (Auto) Lymph % (Auto) [place] % (Auto) Eos % (Auto) Baso % (Auto) Lymph # (Auto) [place] # (Auto) Eos # (Auto) Baso # (Auto) Abs Immat Gran (auto) Absolute Neuts (auto) Absolute Nucleated RBC Nucleated RBC % (auto) Neutrophils % (Manual) Band Neutrophils % Lymphocytes % (Manual) Monocytes % (Manual) Basophils % (Manual) Metamyelocytes % Abs Neuts (Manual) Lymphocytes # (Manual) Monocytes # (Manual) Basophils # (Manual) Metamyelocytes # Nucleated RBCs Platelet Estimate Plt Morphology Comment RBC Morphology Polychromasia Hypochromasia Basophilic Stippling Macrocytosis PTT (Heparin Protocol) D-Dimer VBG pH VBG pCO2 VBG pO2 VBG HCO3 VBG O2 Saturation VBG Base Excess Sodium 144 Potassium 5.6 H Chloride 105 Carbon Dioxide 27 Anion Gap 18 BUN 103 H* Creatinine 3.66 H Estim Creat Clear Calc 21.2 Estimated GFR 17 POC Glucose 178 H 169 H Random Glucose 176 H Calcium 7.4 L D Phosphorus Ferritin C-Reactive Protein Procalcitonin 07/06/20 07/06/20 07/06/20 03:33 06:08 06:08 WBC 20.7 H RBC 2.39 L D Hgb 7.4 L D Hct 23.1 L D MCV 96.7 MCH 31.0 MCHC 32.0 RDW 12.9 Plt Count 255 D MPV 12.0 Immature Gran % (Auto) Cancelled Neut % (Auto) Cancelled Lymph % (Auto) Cancelled [place] % (Auto) Cancelled Eos % (Auto) Cancelled Baso % (Auto) Cancelled Lymph # (Auto) Cancelled [place] # (Auto) Cancelled Eos # (Auto) Cancelled Baso # (Auto) Cancelled Abs Immat Gran (auto) Cancelled Absolute Neuts (auto) Cancelled Absolute Nucleated RBC 0.260 H Nucleated RBC % (auto) 1.3 H Neutrophils % (Manual) 78 H Band Neutrophils % 7 H Lymphocytes % (Manual) 6 L Monocytes % (Manual) 3 Basophils % (Manual) 1 Metamyelocytes % 5 Abs Neuts (Manual) 17.6 H Lymphocytes # (Manual) 1.2 Monocytes # (Manual) 0.6 Basophils # (Manual) 0.2 Metamyelocytes # 1.0 Nucleated RBCs 1 H Platelet Estimate NORMAL Plt Morphology Comment NORMAL RBC Morphology NOTED Polychromasia 1+ Hypochromasia 2+ Basophilic Stippling 1+ Macrocytosis 1+ PTT (Heparin Protocol) 73.2 D D-Dimer 8475 VBG pH VBG pCO2 VBG pO2 VBG HCO3 VBG O2 Saturation VBG Base Excess Sodium Potassium Chloride Carbon Dioxide Anion Gap BUN Creatinine Estim Creat Clear Calc Estimated GFR POC Glucose Random Glucose Calcium Phosphorus Ferritin C-Reactive Protein Procalcitonin 07/06/20 07/06/20 07/06/20 06:08 06:08 06:08 WBC RBC Hgb Hct MCV MCH MCHC RDW Plt Count MPV Immature Gran % (Auto) Neut % (Auto) Lymph % (Auto) [place] % (Auto) Eos % (Auto) Baso % (Auto) Lymph # (Auto) [place] # (Auto) Eos # (Auto) Baso # (Auto) Abs Immat Gran (auto) Absolute Neuts (auto) Absolute Nucleated RBC Nucleated RBC % (auto) Neutrophils % (Manual) Band Neutrophils % Lymphocytes % (Manual) Monocytes % (Manual) Basophils % (Manual) Metamyelocytes % Abs Neuts (Manual) Lymphocytes # (Manual) Monocytes # (Manual) Basophils # (Manual) Metamyelocytes # Nucleated RBCs Platelet Estimate Plt Morphology Comment RBC Morphology Polychromasia Hypochromasia Basophilic Stippling Macrocytosis PTT (Heparin Protocol) D-Dimer VBG pH 7.21 L VBG pCO2 75 VBG pO2 40 VBG HCO3 29 VBG O2 Saturation 69.2 VBG Base Excess 0.6 Sodium 148 H Potassium 4.8 Chloride 106 Carbon Dioxide 28 Anion Gap 19 BUN 113 H* Creatinine 4.06 H* Estim Creat Clear Calc 19.1 Estimated GFR 15 POC Glucose Random Glucose 95 D Calcium 7.3 L Phosphorus 7.7 H Ferritin 2101 H C-Reactive Protein 14.25 H Procalcitonin 3.00 07/06/20 07/06/20 07/06/20 07:07 09:57 11:56 WBC RBC Hgb Hct MCV MCH MCHC RDW Plt Count MPV Immature Gran % (Auto) Neut % (Auto) Lymph % (Auto) [place] % (Auto) Eos % (Auto) Baso % (Auto) Lymph # (Auto) [place] # (Auto) Eos # (Auto) Baso # (Auto) Abs Immat Gran (auto) Absolute Neuts (auto) Absolute Nucleated RBC Nucleated RBC % (auto) Neutrophils % (Manual) Band Neutrophils % Lymphocytes % (Manual) Monocytes % (Manual) Basophils % (Manual) Metamyelocytes % Abs Neuts (Manual) Lymphocytes # (Manual) Monocytes # (Manual) Basophils # (Manual) Metamyelocytes # Nucleated RBCs Platelet Estimate Plt Morphology Comment RBC Morphology Polychromasia Hypochromasia Basophilic Stippling Macrocytosis PTT (Heparin Protocol) 60.4 D-Dimer VBG pH VBG pCO2 VBG pO2 VBG HCO3 VBG O2 Saturation VBG Base Excess Sodium Potassium Chloride Carbon Dioxide Anion Gap BUN Creatinine Estim Creat Clear Calc Estimated GFR POC Glucose 97 136 H Random Glucose Calcium Phosphorus Ferritin C-Reactive Protein Procalcitonin Microbiology Microbiology Results: Microbiology 07/03/20 20:20 Sputum - Suctioned Gram Stain - Final 07/03/20 20:20 Sputum - Suctioned Sputum Culture - Final Pseudomonas aeruginosa 07/03/20 20:46 Blood - Venous Blood Culture - Preliminary No growth after 48 hours. 07/03/20 20:46 Blood - Venous Blood Culture - Preliminary No growth after 48 hours. 07/03/20 06:56 Urine [place] Urine Culture - Final No growth. 06/25/20 10:25 Sputum - Suctioned Gram Stain - Final 06/25/20 10:25 Sputum - Suctioned Sputum Culture - Final Pseudomonas aeruginosa 06/24/20 19:34 Sputum - Suctioned Gram Stain - Final 06/24/20 19:34 Sputum - Suctioned Sputum Culture - Final Pseudomonas aeruginosa 06/14/20 08:29 Blood - Venous Blood Culture - Final No growth after 5 days. 06/14/20 08:22 Blood - Venous Blood Culture - Final No growth after 5 days. Progress Note: A&P Time Spent With Patient Time: Total time spent is greater than 50% in coordination of care (as documented) at patient's floor/unit and/or counseling patient: Total time spent with greater than 50% in coordination of care (as documented) at patient's floor/unit and/or counseling patient:: 0 Critical Care Time Critical Care Time (minutes): 90
--- NOTE | 2020-07-06 14:19 | CONS_ITS ---
DATE OF SERVICE: 07/05/2020 REASON FOR CONSULTATION: I was called to see this patient to assist in the management of acute kidney injury. HISTORY OF PRESENT ILLNESS: Omid is well known to me. He is a 70-year-old man with a history of stage 3 chronic kidney disease against the backdrop of longstanding hypertension, history of chronic obstructive pulmonary disease, and alcohol intake. He was admitted 2 weeks ago and later transferred to the ICU. He has COVID pneumonia. During the hospital stay, he had developed acute kidney injury. He has been hypotensive, requiring high dose of pressors. He also had a DVT and there is a clinical suspicion for pulmonary embolism. He has received thrombolytic therapy without any significant hemodynamic improvement. Against this background, this consult was called because he has sustained acute kidney injury with a creatinine of more than 3 and the potassium was increases to 6.0. He has received Kayexalate and the repeat potassium level is still pending. PAST MEDICAL HISTORY: Ongoing medical problems include history of COPD, chronic kidney disease stage 3, hypertension, history of obstructive sleep apnea, tracheomalacia, gout, GERD, history of acute kidney injury in the past. PAST SURGICAL HISTORY: Includes right knee replacement, right shoulder surgery, history of thoracotomy, herniorrhaphy, and left knee surgery. SOCIAL HISTORY: He has a history of smoking in the past. He has recently stopped smoking. He has a history of alcohol intake in the past and does not consume significant alcohol prior to this admission. REVIEW OF SYSTEMS: Not obtainable since he was intubated. PHYSICAL EXAMINATION: GENERAL: Omid appears critically ill. He is intubated. He is on high dose pressors. He is responding to pain. No involuntary movements. NECK: Supple. LUNGS: Bilateral rhonchi. HEART: S1 and S2 heard without any gallop. ABDOMEN: Distended, soft, nontender. EXTREMITIES: With trace edema. No rash. No clubbing. VITAL SIGNS: Blood pressure was 106/65, pulse 122, with a temperature of 100.4. LABORATORY DATA: WBC 20.7, hemoglobin 10.3, platelets 202. Sodium 143, potassium 6.0, BUN 96, creatinine 3.08, ferritin , phosphorus 6.3. Troponin I 417. ABG showed pH of 7.21, pCO2 of 66. Digoxin level was 4.6. Chest x-ray from this morning showed pneumonia. IMPRESSION: A 70-year-old man with acute kidney injury in the setting of and COVID-19 infection. The differential diagnosis of acute kidney injury would include acute tubular necrosis from ischemia. However, he might have cytokine storm in the setting of COVID-19 infection. Obstructive uropathy seems unlikely. Omid has severe acidosis with hyperkalemia in the setting of renal failure and multiorgan failure. RECOMMENDATIONS: At this point would be to correct hyperkalemia medically. He has already received Kayexalate. We will recheck the potassium. If his urine output remains sluggish and if the hyperkalemia does not respond to medical therapy, he may require dialysis, however, the family has decided to keep and they also decided against dialysis. We will try to maximize medical therapy. Overall, prognosis is very poor. We will follow him as needed. Carlito Emmanuel MD BPA/MODL / [phone]
[2020-07-06 14:30] LABS: OBS1 POS (NEG)
[2020-07-06 14:31] LABS: OBS Int Ctl Valid YES
[2020-07-06] MEDS: fentaNYL citrate/NS 1,000 MCG/100 ML PLAST..BAG 15 MCG IVCONT (15:01)
[2020-07-06] MEDS: HYDROmorphone HCl 2 MG/ML VIAL 4 MG IVPUSH (17:37)
[2020-07-06] MEDS: LORazepam 2 MG/ML VIAL IVPUSH (17:38)
[2020-07-06 17:39] LABS: Glucose, Whole Blood 162 mg/dL (60-115)
--- NOTE | 2020-07-06 19:20 | PC.NURSE ---
assumed care at 0500. patient was on pressure control settings on ventilator, #8 ett, was initially 23 angela and audible cuff leak, rt notified, minimal air added to cuff per protocol, rt assessed that cuff appeared to have passed the vocal cords. Advanced back to 26 cm angela per md with good effect, TV arouind 3-400, and te about 15-16. ac 26; pc 28; peep 8; fio2 was titrated down from 90 to 80%. moderate clear-creamy secretions inline and orallly. chest tube put out 550 ccs of serous drainage over 12 hours from 5 am to 17:00, MD aware. ls coarse throughout. Tachypneia with rr in 40's at times today, prn dilaudid with good effect; also on fentanyl gtt, was at 200; tirated as low as 150; back up to 200 before patient's family decided to terminally extubate patient in the evening. versed gtt at 4 all day. levophed was at 0.3 all day, and bp had been soft all day, with pressures oftn 80's/50's; md aware. patient had critical BUM 113 up from 103 this morning, and Cre 4.06 up from 3.66; md aware. Nephro in today, discussed possibility of hd today, but md discussion with family resolved not to and to go to comfort measures only this evening. patient also had heparin gtt at 12 u/kg/hr all day today, had two ptt-hd values returned within the therapeutic range. patient had rectal tube in place, put out 2 liters of liquid stool today; given hgb had dropped overnight, ob stool was sent per md. urine outputs were initially 50 cc/hour, but tapered off in the afternoon; md aware. patient had unstageable wound on bilateral buttocks; and this was washed and dressed with triad per wound care x3 today, due to leakage around rectal tube. patient was bathed twice today. family in for family meeting this evening, about 16:30, came to sit with patient, decided on comfort measures only and plan to extubate. about 17:30, patient tachypneic, had prn dilaudid per emar; md had ordered one time additional dilaudid 4 mg iv and one time ativan 2 mg iv pre-extubation, which was administered with good effect, and rt in to extubate; this was done without complication with family and rn at bedside; patient appeared comfortable, and extubation at 17:59 was followed by agonal breathing and patient by 18:03. [place] donor services was contacted and contact center representative Omid angeled patient for all donation; reference number #[id number]. Family has elected [employer] [facility] [employer] in [place] for home.
--- NOTE | 2020-07-06 19:40 | PM.DDS ---
Discharge Sum: Prov Provider Primary care physician: Prachi Ferrari MD Consults: 06/14/20 14:01 Consult to Infectious Diseases Routine Consulting Provider: Ange Bedoya Reason for consultation: Remdesivir approval for COVID-19 06/23/20 07:46 Consult to Cardiology Routine Consulting Provider: Ruben Oliva Reason for consultation: afib with RVR 07/03/20 13:49 Consult to Wound Care Provider Routine Consulting Provider: Tonja Gil Reason for consultation: dti, stage 2 Has provider been notified: Yes 07/05/20 09:00 Consult to Nephrology Routine Consulting Provider: Leif Sanchez Reason for consultation: BRUNILDA Has provider been notified: Yes Discharge Sum: Diag Contributing Factors (1) Acute renal failure superimposed on stage 2 chronic kidney disease: (2) COVID-19: (3) ARDS (adult respiratory distress syndrome): (4) Atrial fibrillation with rapid ventricular response: (5) Right heart failure: (6) DVT (deep venous thrombosis): Discharge Sum: Summary Date and Time Date of admission: 06/14/20 10:15 Date of : 07/06/20 Time of : 18:03 Summary Details: 70-year-old man with hx of COPD /asthma overlap syndrome, tracheomalacia, GONZALO, [place] [facility] [place]12[place] for COVID-19 pneumonia. He was readmitted on 06/14/2020 with worsening hypoxemia and acute hypoxemic respiratory failure secondary to COVID-19 pneumonia. In ED, required CPAP 70% to maintain normoxemia. He was admitted to the ICU. Over the course of the first day he was titrated down to HFNC 70% and then transferred to the general medical [facility]. On 06/23 developed AFib with RVR w worsening hypoxemia. Transferred to ICU on 06/24. Treated with BiPAP, then intubated later that day. Hospital course further complicated by bilateral pneumothoraces on 06/27/2020 requiring placement of bilateral chest tubes. Right-sided chest tube clamped with no pneumothorax recurrence and pulled out on 07/02/20. Persistent left-sided air leak. Over the subsequent few days he became febrile, hypotensive, more hypoxemic, with worsening renal indices. ECHO done 07/04 showed acute right sided dysfunction. Duplex scan that night also showed LLE DVT. The patient was given ? dose TPA then started on heparin drip. His clinical status continued to dteriorate and on 07/06/2020 family discussion hs been held and overall very poor prognosis for any meaningful recovery has been discussed. The decision has been reached to change goals of care to palliation. Patient code status has been changed to comfort measures only. He was terminally extubated and passed peacefully at 18:03. Additional Data Confirmation of as documented by pronouncing clinician: no pulse, no respirations and no heart sounds Family: at bedside Attending/PCP notified?: Yes Attending physician: Timothy Keita Was code activated?: No Autopsy requested?: No polygraph examiner notified?: No
== END 2020-07-06 19:37 | disposition expired | DRG 870 ==
LOC: HO.ED 10:15 → HO.ICU 10:26 → HO.IMC 18:39 → HO.ICU 06-24 07:22
PROVIDERS: Internal Medicine; Internal Medicine Cardiovascular Disease; Physician Assistant; Physician Assistant Medical; Registered Nurse Community Health; Admitting Provider Internal Medicine Pulmonary Disease; Emergency Provider Emergency Medicine; PCP Family Medicine; Visit Provider Anesthesiology
DX: A41.89 Other specified sepsis (principal); U07.1 COVID-19; J12.89 Other viral pneumonia; J80 Acute respiratory distress syndrome; I26.99 Other pulmonary embolism without acute cor pulmonale; J45.901 Unspecified asthma with (acute) exacerbation; J93.83 Other pneumothorax; I48.91 Unspecified atrial fibrillation; K21.9 Gastro-esophageal reflux disease without esophagitis; K59.00 Constipation, unspecified; M10.9 Gout, unspecified; L89.152 Pressure ulcer of sacral region, stage 2; E11.9 Type 2 diabetes mellitus without complications; I95.9 Hypotension, unspecified; Z86.718 Personal history of other venous thrombosis and embolism; J39.8 Other specified diseases of upper respiratory tract; Z87.891 Personal history of nicotine dependence; Z79.51 Long term (current) use of inhaled steroids; Z79.899 Other long term (current) drug therapy
CPT/HCPCS: 36410; 36415; 36600; 70120; 71045; 80048; 80053; 80076; 80162; 81001; 82040; 82272; 82550; 82728; 82803; 82947; 83036; 83605; 83615; 83735; 83880; 84100; 84145; 84484; 85007; 85025; 85027; 85060; 85379; 85610; 85730; 86140; 86850; 86900; 86901; 87040; 87070; 87077; 87086; 87186; 87205; 93005; 93306; 93970; 94002; 94003; 94640; 94644; 94660; 94799; 96365; 96375; 99233; 99284; 99291; 99292; C1758; J0282; J0696; J1100; J1160; J1170; J1205; J1650; J1940; J2060; J2185; J2250; J2270; J2543; J2920; J2997; J3010; J3370; J3490; J8540; P9047